=== PATIENT | female | born 1985 | race Caucasian/White ===

== ENCOUNTER 2021-10-17 07:23 | Day surgery (SDC) | payer OTHER, SELFPAY ==
[2021-10-17] VITALS (20 sets, daily range): BP systolic 113–138; BP diastolic 64–90; PULSE 57–87; RESP 14–20; TEMP 36.3–37.1; O2SAT 95–100; BMI 26.4
[2021-10-17] MEDS: LACTATED RINGERS 1000 ML 1,000 ML 100 ML IV ×2 (08:00→10:37)
[2021-10-17 08:02] LABS: Hemoglobin* 14.6 gm/dL (12.0-16.0)
[2021-10-17 08:03] LABS: Ur HCG Qualitative* Negative (Negative)
[2021-10-17] MEDS: SODIUM CHLORIDE 0.9 % (FLUSH) 10 ML SYRINGE IVF (08:28)
--- NOTE | 2021-10-17 09:39 | P.PCN_ITS ---
Procedure Note Time Seen by Provider: :39 Date Seen: 10/17/21 Will [facility] bill your pro fee for this procedure?: Yes Procedure Description: Preoperative diagnosis: 36-year-old 2 para 2 * Menorrhagia, desires definitive therapy Postoperative diagnosis: Same Procedure: Total laparoscopic hysterectomy, bilateral salpingectomy, diagnostic cystoscopy. Anesthesia: General endotracheal, local Surgeon: Melita Daniel MD Assist: Lyubov Peralta MD Estimated blood loss: 100 mL. IV Fluid: 1600 mL Urine output: 575 mL Drains: Nelson to gravity Specimen: Uterus and bilateral fallopian tubes to pathology. Findings: On exam under anesthesia: The uterus was anteverted, approximately this than 10 week size, mobile without nodularity or masses palpable. Adnexa without mass or fullness palpable. On laparoscopy: Normal uterus, fallopian tubes and ovaries. Appendix, liver and gallbladder all appeared normal. Procedure: Alysa was taken to the operating room where general anesthetic was found to be adequate. She was placed in the dorsal lithotomy position and an exam under anesthesia was performed with findings stated above. She was then prepped and draped in a normal sterile manner. A Nelson catheter was placed. A bivalve spec ulum was placed in the vaginal canal. A long Allis clamp was placed on the anterior lip of the cervix, in the uterus sounded to 9 cm. A extra-large VCare uterine manipulator was then placed. The Allis clamp and speculum were removed from the cervix. Attention was then turned to performing the laparoscopic portion of the procedure. All incisions were infiltrated with 0.50% Marcaine prior to incising the skin. A vertical, infraumbilical 1 cm incision was made. An 11 mm trocar was then placed under direct visualization. The abdomen was then insufflated with CO2 gas to a pressure of 15 mm of mercury. Two,, pelvic ports were then placed approximately 3-4 finger breaths medial to the ischial crests. The trocar in the RLQ = 5mm, LLq = 11mm. These were placed under direct visualization. Attention was then turned to performing the hysterectomy. Both ureters were visualized in the normal position bilaterally. The left fallopian tube was grasped and removed with sequential pedicles using the dissecting, PowerSeal blunt tip dissecting forceps. The left side of the hysterectomy was performed using the PowerSeal dissecting forceps. The 1st pedicles were starting with the broad ligament that was cauterized and and bisected. In sequence show pedicles were formed to divide the utero-ovarian ligament. Then sequential pedicles were made through the broad ligament. The posterior leaf of the broad ligament was then divided and sequential pedicles carried down to the level of the VCare cup. The anterior leaf of the broad ligament was then divided down to the level of the anterior aspect of the VCare cup and a bladder flap created. The uterine vessels were then skeletonized. The uterine vessels were then cauterized and divided. Then excess tissue was cleared over the top of the VCare cup using the dissecting forceps. The right salpingectomy and right side of the hysterectomy were then performed in a similar manner. The [employer]asure [employer] pen with the spatula attachment was then used to perform the colpotomy incising around the VCare cup. The uterus was removed and the fundus placed in the vaginal canal to maintain insufflation. The vaginal cuff was then reapproximated using 2-0 V lock suture in a running manner. All the pedicles and vaginal cuff were then closely visualized and hemostasis obtained with bipolar cautery using the PowerSeal dissecting forceps or the [employer] pen with the spatula. The the uterus was removed from the vaginal canal and sent to pathology. The Nelson catheter was briefly removed. A diagnostic cystoscopy was performed using normal saline as the insufflation medium. The dome of the bladder was noted to be without injury and no evidence of any sutures from the vaginal cuff causing injury. Normal urine flow was noted through both ureteral orifices. Fluorescein IV was used to visualize the urine more easily. The Nelson catheter was then replaced. Attention was then returned to the abdomen where hemostasis was verified. Rm was applied to the vaginal cuff. The CO2 pressure decreased to 8mmHG and hemostasis verified. The fascia in the LLQ incision was approximated with 0- Vicryl suture using the Blayne Thomasen fascial closure device. This was closed under direct visualization with the laparoscope. The fascia in the umbilical incision was reapproximated using 0 Vicryl on a UR 6 needle. All trocars were removed under direct visualization. CO2 gas was allowed to escape the infraumbilical port prior to its removal. All skin incisions were re- approximated using 4-0 Monocryl in a running subcuticular manner, Exofin skin adhesive gel and adhesive bandages placed. The patient tolerated this procedure well. Sponge, lap and instrument counts were correct x2 at the end of the procedure and the patient was taken to the recovery area in stable condition. The patient received 2gm IV ancef prior to the start of the procedure. She received 30mg IV toradol prior to being awakened from anesthesia. Surgeon: Melita Daniel MD Disposition: PACU
[2021-10-17] MEDS: CEFAZOLIN 2 GM INJ IVP (10:05)
--- NOTE | 2021-10-17 10:09 | W.PM.NB ---
Nerve Block Nerve Block Time Seen by Provider: 10:09 Date Seen: 10/17/21 Type of block requested by surgeon for post-operative analgesia: TAP Side: bilateral Time out performed: Yes Verification of patient name: Yes Verification of date of : Yes Site marking: site marked Name of person performing procedure: Jose Alfredo Continuous monitoring Was continuous monitoring of O2 sat, B/P, public health specialist, recorded every 15 minutes?: Yes Procedure Checklist: sterile prep, needles and gloves Ultrasound guided. Images saved: Yes Medications given in 5ml increments after negative aspiration: Marcaine %: 0.5 mL: 15 Needle gauge: 20 and Exparel mL: 10 Patient tolerated procedure well: Yes Additional comments: Needle noted adjacent to nerve Block Charges Block Charge (with Pro Fee): TAP Bilateral Use of Ultrasound Machine for Block: Yes- US Guidance/pain block
--- NOTE | 2021-10-17 12:20 | W.ANESCHARGE ---
Anesthesia Charges Start Date/Time Anesthesia Start Date: 10/17/21 Anesthesia Start Time: 09:53 Stop Date/Time Anesthesia Stop Date: 10/17/21 Anesthesia Stop Time: 12:19 Summary Emergency: No
[2021-10-17] MEDS: KETOROLAC 30 MG/ML inj IVP ×2 (12:30→19:15)
[2021-10-17] MEDS: fentaNYL 100 MCG/2 ML inj 50 MCG IVP (12:53)
--- NOTE | 2021-10-17 13:11 | W.ANESCHARGE ---
Anesthesia Charges Start Date/Time Anesthesia Start Date: 10/17/21 Anesthesia Start Time: 09:53 Stop Date/Time Anesthesia Stop Date: 10/17/21 Anesthesia Stop Time: 12:19 Summary Emergency: No
--- NOTE | 2021-10-17 13:13 | SUR.PHASEI ---
pt transferred to med/surg in stable condtion
--- NOTE | 2021-10-17 16:04 | P.GYNPRC_ITS ---
Procedure Note Date Seen: 10/17/21 Procedure Details: [address] [address] Procedure Note Patient: Alysa Verde MR#: [id number] : 1985 Acct:[id number] Loc: [id number] ? Provider: Melita Daniel M.D. PREOPERATIVE DIAGNOSIS:? 36-year-old 2 para 2 * Menorrhagia, desires definitive therapy POSTOPERATIVE DIAGNOSIS:? Same PROCEDURE:? Total laparoscopic hysterectomy, bilateral salpingectomy, diagnostic cystoscopy. ANESTHESIA:? General endotracheal, local SURGEON:? Melita Daniel MD ASSIST:? Lyubov Peralta MD ESTIMATED BLOOD LOSS:? 100 mL. IV FLUID: 1600 mL URINE OUTPUT:? 575 mL DRAINS: Nelson to gravity SPECIMEN:? Uterus and bilateral fallopian tubes to pathology. FINDINGS:? On exam under anesthesia:? The uterus was anteverted, approximately this than 10 week size, mobile without nodularity or masses palpable.? Adnexa without mass or fullness palpable.? On laparoscopy:? Normal uterus, fallopian tubes and ovaries.? Appendix, liver and gallbladder all appeared normal. PROCEDURE NOTE: Please see the operative report by Dr. Daniel for full details of the procedure. I was asked to assist. I was scrubbed in for the entire procedure until closure of the abdominal incisions. I provided assista nce with laparoscopic port placement, visualization and retraction, and with the hysterectomy and bilateral salpingectomies from the right side, as well as with hemostasis and closure of the vaginal cuff.
[2021-10-17] MEDS: LACTATED RINGERS 1000 ML 1,000 ML 125 ML IV (16:05)
--- NOTE | 2021-10-17 22:10 | PC.NURSE ---
Shift Note [id number]: Pt friendly and cooperative. A little sleepy this afternoon but up for supper and tolerating a regular diet without difficulty. VS WNL and LS COA. 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 Moves well with SBA. Nelson patent and draining. Rates pain 1-3/10 with scheduled Toradol IVP. Ambulated hallway x1 approx. 150 ft.
[2021-10-18 03:00] VITALS: BP 123/79; PULSE 68; RESP 16; TEMP 36.6; O2SAT 99
[2021-10-18] MEDS: SIMETHICONE 80 MG TAB.CHEW 160 MG PO (06:26)
--- NOTE | 2021-10-18 06:49 | PC.NURSE ---
pt pleasant and cooperative. SBA. Pain 03/20. VSS and WNL. Nelson removed at 0630, cath intact. Lap sites LAINEY, no drainage.
[2021-10-18 07:13] LABS: Hemoglobin* 13.8 gm/dL (12.0-16.0)
[2021-10-18 07:20] VITALS: BP 142/96; PULSE 72; RESP 16; TEMP 36.7; O2SAT 99
[2021-10-18] MEDS: OXYCODONE 5 MG TABLET PO (07:28)
[2021-10-18 07:30] VITALS: TEMP 36.7
[2021-10-18] MEDS: IBUPROFEN 600 MG TABLET PO (07:30)
--- NOTE | 2021-10-18 11:38 | PC.NURSE ---
Pt UAL in room. Eval by surgical service. Pain 5 out of 10 for RUQ spasms and pt received 5mg of oxycodone with prn motrin. Ambulated in hallway several times. Voided 150 cc after ellis discontinued by night RN. IV discontinued. Tolerating reg diet, denies dizziness or nausea. Pain 1-2 out of 10 after meds provided. Pt and her spouse Issa verbalized understanding of d/c diagnosis, new prescriptions, pain management plan, f/up appts and sx to report urgently to physician. Eupneic and in NAD. Pt ambulatory d/c to home with her Issa at 10:00 am.
== END 2021-10-18 10:00 | disposition home or self-care (01) ==
LOC: OR 07:23 → MEDSURG 07:38
PROVIDERS: PCP Physician Assistant Medical; Visit Provider Obstetrics & Gynecology
PROC: 0UT94ZZ Resection of Uterus, Percutaneous Endoscopic Approach (ICD-10-PCS; CPT 58571; principal; 2021-10-17 09:15)
DX: N92.0 Excessive and frequent menstruation with regular cycle (principal)
CPT/HCPCS: 58571; 00840; 00860; 36415; 64488; 76942; 81025; 85018; 86850; 86900; 86901; 88307; A9270; J0330; J0690; J1100; J1170; J1885; J2250; J2405; J2704; J3010; J3490; J7120

== ENCOUNTER 2021-11-25 21:09 | Emergency (ER) | payer OTHER, SELFPAY ==
[2021-11-25 21:23] VITALS: BP 151/84; PULSE 89; RESP 20; TEMP 36.8; O2SAT 99; BMI 26.6
--- NOTE | 2021-11-25 22:09 | ED.GENADULT ---
HPI - General Adult General Time Seen by Provider: 22:09 Date Seen: 11/25/21 Chief complaint: Asthma Stated complaint: Asthma attack Time Seen by Provider: 11/25/21 21:27 Source: patient and RN notes reviewed Mode of arrival: ambulatory Limitations: no limitations History of Present Illness HPI narrative: Patient is a 36-year-old female with underlying asthma coming in with progressive symptoms over the last month. She admits it is happening more at night when she goes to lay down and sleep. She is having coughing fits, she is wheezing. She is having to use her albuterol almost every 2 hours. Her asthma started later in life, started more with exercise. Her dad does have significant asthma. She has not seen an tube and rod straightener her asthma specialist but she does have her dad's name of his doctor now. Over the last month her wheezing and coughing have been progressive. She has really not noticed significant nasal symptoms. When she has had some environmental allergies usually just take Benadryl and have more nasal symptoms. This is more respiratory or wheezing for her. There have been no fevers. This did not start with a URI. She will feel her heart race after the albuterol but otherwise has had no palpitations or cardiac issues. She does think animals may be a trigger for her. We did discuss trying to diminish allergens in the bedroom, using pillowcase covers, considering getting tested for allergies in seen an asthma specialist/support specialist. Related Data Home Medications Medication Instructions Recorded Confirmed albuterol sulfate 90 mcg/actuation 2 puff inhalation Q2H PRN 10/03/21 11/25/21 aerosol inhaler fluticasone propionate 110 2 puff inhalation BID 11/25/21 11/25/21 mcg/actuation HFA aerosol inhaler (Flovent HFA) Allergies Allergy/AdvReac Type Severity Reaction Status Date / Time ragweed pollen Allergy Mild Sneezing, Verified 11/06/21 14:46 coughing Grass Allergy Mild Sneezing Uncoded 11/06/21 14:46 and coughing Molds & Smuts Allergy Mild Sneezing, Uncoded 11/06/21 14:46 coughing Review of Systems Status of ROS: Reports: 10 or more systems reviewed and unremarkable except as noted in History and below [facility] Medical History (Updated 11/25/21 @ 23:08 by Laure Monae MD) Delivery normal History of cervical dysplasia Menorrhagia care Surgical History (Updated 10/17/21 @ 15:58 by Melita Daniel MD) Hx of LASIK S/P laparoscopic hysterectomy (10/17/21) Status post bilateral salpingectomy (10/17/21) Social History Smoking Status: Never smoker Do you use any of these nicotine containing products: None Second hand tobacco smoke exposure: Yes How often do you have a drink containing alcohol: 2-3 times a week Alcohol type: wine and other Alcohol type details: [place] AUDIT-C Alcohol total score: 3 Non-prescribed substance use: denies use Caffeine: Yes service: Yes ([employer]) Exam Const: Vital Signs, click to edit/add: Vital Signs - 24 hr 11/25/21 21:23 11/25/21 22:41 Temperature 98.2 F Pulse Rate [Right Pulse Oximeter] 89 83 Respiratory Rate 20 18 Blood Pressure [Ri ght Upper Arm] 151/84 H Pulse Oximetry 99 100 Oxygen Delivery Me thod Room Air Room Air Documenting provider has reviewed patient's vital signs: yes Common normals: no apparent distress, average body habitus, oriented x3, no limitations, healthy appearing, alert and well nourished General appearance: cooperative, comfortable and well kempt HENMT: Common normals: normocephalic, head/scalp atraumatic, hearing grossly normal bilaterally, external ears normal, EAC's normal, TM's normal bilaterally, external nose normal, nasal mucous membranes and turbinates normal, moist oral mucous membranes, oropharynx normal, dentition normal and gingiva normal Head and scalp: normocephalic and atraumatic Nose: external nose normal and nasal mucous membranes and turbinates normal External ear: external ears normal External auditory canal: EAC's normal Tympanic membrane: TM's normal bilaterally Eye: Common normals: PERRL, EOMs intact bilaterally, conjunctivae normal and no scleral icterus Conjunctiva: conjunctiva(e) normal Pupil: PERRL Neck & C-Spine: Common normals: full ROM, no lymphadenopathy, supple, no meningeal signs, no JVD, thyroid normal and no carotid bruits Thyroid: thyroid normal Resp: Common normals: normal respiratory effort, no retractions and no use of accessory muscles Other: Has some end-expiratory wheezing heard throughout. Does do some cough seen but she has no hoarseness or stridor noted. Her speech is interrupted occasionally by a cough. Cardio: Common normals: no JVD, regular rate, regular rhythm, S1 normal heart sound, S2 normal heart sound, no gallops, no clicks, no murmurs and no rub Rate: regular rate Rhythm: regular rhythm Heart sounds: S1 normal and S2 normal Neuro: Common normals: oriented x3 Sensorium/orientation: alert Meningeal signs: no meningeal signs Psych: Appearance: well kempt Course Course Hospital Course: Will have patient try a DuoNeb, get a portable chest x-ray just to ensure no infiltrates. We discussed she will definitely get a course of prednisone. Have discussed with her that she may want to consider something like Zyrtec or Janeen. I can write for a on discharge NC that may help, these medicines sometimes can help with there is an allergic component. Reevaluation(s) Reevaluation #1: Patient was definitely improved after the DuoNeb. [place] 1 end-expiratory wheeze left base but otherwise was clear elsewhere. She did feel better. I did question her on if she was using a spacer with her albuterol. She had no idea what this was. I did give her the spacer off the DuoNeb for her to take and demonstrated how she would use this. Time: 23:06 Vital Signs Vital signs: Initial Vital Signs Temperature 98.2 F 11/25/21 21:23 Temperature Source Temporal Artery Scan 11/25/21 21:23 Pulse Rate 89 11/25/21 21:23 Respiratory Rate 20 11/25/21 21:23 Blood Pressure 151/84 H 11/25/21 21:23 Blood Pressure Mean 106 11/25/21 21:23 Blood Pressure Position Sitting 11/25/21 21:23 Pulse Oximetry 99 11/25/21 21:23 Oxygen Delivery Method 11/25/21 21:23 Vital Signs Temperature 98.2 F 11/25/21 21:23 Pulse Rate 89 11/25/21 21:23 Respiratory Rate 20 11/25/21 21:23 Blood Pressure 151/84 H 11/25/21 21:23 Pulse Oximetry 99 11/25/21 21:23 Oxygen Delivery Method 11/25/21 21:23 Temperature 98.2 F 11/25/21 21:23 Pulse Rate 83 11/25/21 22:41 Respiratory Rate 18 11/25/21 22:41 Blood Pressure 151/84 H 11/25/21 21:23 Pulse Oximetry 100 11/25/21 22:41 Oxygen Delivery Method 11/25/21 22:41 Medical Decision Making Imaging Data Chest x-ray: Attestation: I have reviewed the pertinent imaging results. My impression: On my preliminary read, no acute cardiopulmonary pathology. Radiologist's impression: Patient: DONTAE RIVERA Facility:?[facility] Patient ID:?[id number] Patient ID:?[id number]. Site :?1985 Study:?XRay Chest 1V-11/25/2021 10:27:06 PM Ordering Physician:Dallas Kelsey Final Report: INDICATION: Asthma. TECHNIQUE: Chest 1 view. COMPARISON: None. FINDINGS: Cardiovascular and mediastinum: Heart size and vasculature are normal in caliber and appearance. Lungs and pleural spaces: Lungs are clear. No sign of infiltrate or mass. No sign of pleural effusion. No pneumothorax. Bones and soft tissues: No significant findings. IMPRESSION: Unremarkable chest. Dictated by Alfredo Lomas MD @ 11/25/2021 10:37:52 PM (Electronic Signature) Critical Care Time Critical Care Time Critical Care Time: No Discharge Plan Discharge Clinical Impression: Asthma exacerbation Patient Disposition: Home, Self-Care Condition: Stable Instructions: Asthma (ED), How to Use a Metered-Dose Inhaler and a Spacer (ED) Additional Instructions: Take prednisone as prescribed, recommend taking with food to protect your stomach. Do recommend considering using Janeen or Zyrtec daily and see if this may help with any possible allergic component to your asthma. I do highly recommend that you see an asthma or tube and rod straightener to see about potential testing for allergens. If at any point you have any significant difficulty breathing or any worsening of your asthma, please seek emergent re-evaluation. Activity Level: Activity as Tolerated Prescriptions: No Action albuterol sulfate 90 mcg/actuation HFA aerosol inhaler 2 puff inhalation Q2H PRN fluticasone propionate [Flovent HFA] 110 mcg/actuation HFA aerosol inhaler 2 puff INHALATION BID Label Comments: INHALE TWO PUFFS BY MOUTH TWICE A DAY Follow Up/Referrals: Wade Mendez PA-C [Primary Care Provider] - Stand Alone Forms: [employer] Info Instructions
--- NOTE | 2021-11-25 22:15 | CRLHL7_ITS ---
For Patients: As a result of the Century Cures Act, medical imaging exams and procedure reports are released immediately into your electronic medical record. You may view this report before your referring provider. If you have questions, please contact your health care provider. INDICATION: Asthma. TECHNIQUE: Chest 1 view. COMPARISON: None. FINDINGS: Cardiovascular and mediastinum: Heart size and vasculature are normal in caliber and appearance. Lungs and pleural spaces: Lungs are clear. No sign of infiltrate or mass. No sign of pleural effusion. No pneumothorax. Bones and soft tissues: No significant findings. IMPRESSION: Unremarkable chest. Dictated by Alfredo Lomas MD @ 11/25/2021 10:37:52 PM (Electronically Signed)
[2021-11-25] MEDS: IPRAT-ALBUT 0.5-2.5 MG/3 ML NEB 1 NEB IH (22:28)
--- OUTSIDE RECORDS SUMMARY | 2021-11-25 22:39 | XMS_ITS | Encounter Summary ---
:1985 Author Organization [facility] Address [address] [place] [id number] Care Team Providers Name Role Phone Lisa Gayle MD Primary Care Provider Reason for Referral - Closed Specialty Diagnoses / Procedures Referred By Contact Refer red To Contact Diagnoses Pupil diameter unequal Fredy Davis MD [address] [facility] [place] [address] Referral ID Status Reason Start Date Expiration Date Visits Requ ested Visits Authorized [id number] Closed 06/18/2011 12/15/2011 1 1 Encounter Details Date Type Department Care Team Description 06/18/2011 Orders Only [facility] Fredy Davis Pupil diameter unequal [facility] MD Mallory (Primary Dx) [place] [address] [address] [facility] [address] [place] [address] [place] [phone] (Work) [phone] Social History Tobacco Use Types Packs/Day Years Used Date Never Smoker Alcohol Use Standard Drinks/Week Comments No 0 (1 standard drink = 0.6 oz pure alcoho l) none since Alcohol Habits Answer Date Recorded How often do you have a drink containing alcohol? Not asked How many drinks containing alcohol do you have on Not asked a typical day when you are drinking? How often do you have six or more drinks on one Not asked occasion? Comment: none since 12/18/2010 Sex Assigned at Date Recorded Not on file documented as of this encounter Plan of Treatment Scheduled Referrals Name Type Priority Associated Diagnoses Order S [facility] NEUROLOGY ADULT REFERRAL Referral Routine Pupil diameter u nequal Ordered: 06/18/2011 documented as of this encounter Visit Diagnoses Diagnosis Pupil diameter unequal - Primary Anisocoria documented in this encounter Care Teams Roll On Worker Relationship Specialty Start Date End Date Lisa Gayle MD PCP - General 03/24/99 11/30/[address] [facility] [address] [place] [address] documented as of this encounter
--- OUTSIDE RECORDS SUMMARY | 2021-11-25 22:39 | XMS_ITS | Encounter Summary ---
:1985 Author Organization [facility] Address [address] [place] [address] Care Team Providers Name Role Phone Lisa Gayle MD Primary Care Provider Reason for Visit Reason Onset Date Comments Forms 07/17/2011 Encounter Details Date Type Department Care Team Description 07/17/2011 Telephone [facility] Fredy whipple MD Forms Clinic [place] [address] [address] [address] [place] [address] [phone] Social History Tobacco Use Types Packs/Day Years [...] on file documented as of this encounter Miscellaneous Notes Telephone Encounter - Lyubov Bojorquez - 07/18/2011 8:24 AM CDT Forms 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 Lyubov Bojorquez RN Telephone Encounter - Lyubov Bojorquez - 07/17/2011 3:16 PM CDT Message copied by LYUBOV BOJORQUEZ on SatJuly 17, 2011 3:16 PM ------ Message from: PAULINE LEYVA Created: SatJuly 17, 2011 11:49 AM Regarding: Forms Contact: Patient dropped off 2 forms to be filled out by Dr. Davis, please call her when done and she can come and pick them up. Thanks documented in this encounter Plan of Treatment Not on filedocumented as of this encounter Visit Diagnoses Not on filedocumented in this encounter Care Teams Research Engineer Marine Equipment Relationship Specialty Start Date End Date Lisa Gayle MD PCP - General 03/24/99 11/30/[address], [facility] [address] [place] [address] documented as of this encounter
--- OUTSIDE RECORDS SUMMARY | 2021-11-25 22:39 | XMS_ITS | Encounter Summary ---
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 Not asked How many drinks containing alcohol do you have on a typical Not asked day when you are drinking? How often do you have six or more drinks on one occasion? No t asked Comment: occasional 09/08/2012 Sex Assigned at Date Recorded Not on file documented as of this encounter Last Filed Vital Signs Vital Sign Reading Time Taken Comments Blood Pressure 118/66 09/08/2012 10:32 AM CDT Pulse - - Temperature - - Respiratory Rate - - Oxygen Saturation - - Inhaled Oxygen Concentration - - Weight 64 kg (141 lb 3.2 oz) 09/08/2012 10:32 AM CDT Height 170.2 cm (5' 7) 09/08/2012 10:32 AM CDT Body Mass Index 22.12 09/08/2012 10:32 AM CDT documented in this encounter Progress Notes Inga Davis MD - 09/08/2012 3:43 PM CDT SUBJECTIVE: Alysa Rivera is an 27 year old P1 woman who presents for annual exam. Patient's last menstrual period was 08/13/2012. Periods are regular q 28-30 days, lasting 3 days. Dysmenorrhea none. Current contraception: oral contraceptives ASHELY exposure: no History of abnormal Pap smear: Yes - Family history of uterine or ovarian cancer: No Regular self breast exam: No History of abnormal mammogram: Yes - Family history of breast cancer: No History of abnormal lipids: No Past Medical History Diagnosis Date ??? Abnormal Pap smear -2008 Past Surgical History Procedure Date ??? Colposcopy cervix, loop electrode biopsy, combined Current Outpatient Prescriptions Medication ??? drospirenone-ethinyl estradiol (JONATHAN) 3-0.02 MG per tablet ??? testosterone propionate 2 % CREA ??? ibuprofen (ADVIL,MOTRIN) 600 MG tablet No Known Allergies History Substance Use Topics ??? Smoking status: Never Smoker ??? Smokeless tobacco: Not on file ??? Alcohol Use: No occasional Review of Systems CONSTITUTIONAL:NEGATIVE EYES: NEGATIVE ENT/MOUTH: NEGATIVE RESP: NEGATIVE CV: NEGATIVE GI: NEGATIVE : NEGATIVE MUSCULOSKELATAL: NEGATIVE INTEGUMENTARY/SKIN: NEGATIVE BREAST: NEGATIVE NEURO: NEGATIVE ENDOCRINE: NEGATIVE HEME/ALLERGY/IMMUNE: NEGATIVE PSYCHIATRIC: NEGATIVE OBJECTIVE: BP 118/66 Ht 5' 7 (1.702 m) Wt 141 lb 3.2 oz (64.048 kg) BMI 22.12 kg/m2 LMP 08/13/2012 EXAM: GENERAL APPEARANCE: healthy, alert and no distress BREAST: normal without masses, tenderness or nipple discharge and no palpable axillary masses or adenopathy ABDOMEN: soft, nontender, without hepatosplenomegaly or masses Pelvic Exam: Vulva: No external lesions, normal hair distribution, no adenopathy Vagina: Moist, pink, no abnormal discharge, well rugated, no lesions Cervix: Pap smear is taken, parous, smooth, pink, no visible lesions Uterus: Normal size, anteverted, non-tender, mobile Ovaries: No mass, non-tender, mobile 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 Health Maintenance Topic Date Due ??? Tetanus Immunization ( [facility] Assigned) 1998 ??? Influenza Vaccine (System Assigned) 12/09/2012 ??? Pap Screening Q3 Yr (System Assigned) 12/18/2013 documented in this encounter Nursing Notes 09/08/2012 10:30 AM CDT >> KIMBERLY FREY Mon Sep 08, 2012 10:37 AM Pap smear and breast exam. Last pap 12/19 WNL. Pt needs a refill on her ocp. Pt c/o decreased sex drive. Initial BP 118/66 Ht 5' 7 (1.702 m) Wt 141 lb 3.2 oz (64.048 kg) BMI 22.12 kg/m2 LMP 08/13/2012 Estimated Body mass index is 22.12 kg/(m^2) as calculated from the following: Height as of this encounter: 5' 7(1.702 m). Weight as of this encounter: 141 lb 3.2 oz(64.048 kg). BP completed using cuff size: mariluz Frey RN documented in this encounter Plan of Treatment Not on filedocumented as of this encounter Procedures Procedure Name Priority Date/Time Associated Diagnosis Comme nts NEISSERIA Routine 09/08/2012 12:47 Routine gynecological Re sults for this GONORRHOEAE PCR PM CDT examination procedure ar e in the results section. CHLAMYDIA Routine 09/08/2012 12:47 Routine gynecological Re sults for this TRACHOMATIS PCR PM CDT examination procedure ar e in the results section. PAP IMAGED THIN Routine 09/08/2012 12:00 Routine gynecological Results for this LAYER SCREEN AM CDT examination procedure are i n the results section. HPV SCR W REF TO Routine 09/08/2012 12:00 Results for this SÁNCHEZ ANAL PAP OR AM CDT procedure a re in TISSUE the results section. documented in this encounter Results CHLAMYDIA TRACHOMATIS PCR (09/08/2012 12:47 PM CDT) Component Value Ref Test Analysis Performed At [facility] Method Time Signature Specimen Cervical [facility] LAB Chlamydia Negative for C. trachomatis rRNA by port crane operator mediated amplification. FUM Trachomatis A negative result by transc ription mediated amplification does not preclude the MICROBIOLOGY PCR presence of C. trachomatis infection because results are dependent on proper and adequate collection, absence of inhibitors, and suffici ent rRNA to be detected. Specimen Anatomical Collection Method Collection Time Receive d Time (Source) Location / / Volume Laterality Cervical swab 09/08/2012 12:47 09/08/2012 (specimen) PM CDT 12:53 PM CDT Inga Davis MD LAB - MICRO GENERAL ORDERABL ES Performing Organization Address City/[facility] Phon e Number [id number] [place] [address] LAB [address] [place], [place] [address] [address] [facility] MICROBIOLOGY NEISSERIA GONORRHOEA PCR (09/08/2012 12:47 PM CDT) Component Value Ref Test Analysis Performed At [facility] Method [place] Signature Specimen Cervical [facility] LAB N Gonorrhea Negative for N. gonorrhoeae rRNA by port crane operator mediated amplification. FUM PCR A negative result by transc ription mediated amplification does not preclude the MICROBIOLOGY presence of N. gonorrhoeae infection because re sults are dependent on proper and adequate collection, absence of inhibitors, and suffici ent rRNA to be detected. Specimen Anatomical Collection Method Collection Time Receive d Time (Source) Location / / Volume Laterality Cervical swab 09/08/2012 12:47 09/08/2012 (specimen) PM CDT 12:53 PM CDT Inga Davis MD LAB - MICRO GENERAL ORDERABL ES Performing Organization Address City/[facility] Phon e Number [id number] [place] [address] LAB [address] [place], [place] [address] [address] [facility] MICROBIOLOGY HPV screen with reflex to genotype (09/08/2012 12:00 AM CDT) Component Value Ref Test Analysis Performed At [facility] Range Method Time Signature Copath Report Patient Name: ALYSA RIVERA MR#: [id number] Specimen #: [id number] Collected: 09/08/2012 00:00 Received: 10/10/2012 12:55 Reported: 10/15/2012 16:22 Ordering Phy(s): INGA Mallory PINKMIKEY TEST(S) REQUESTED: Human Papillomavirus Screen Analysis SPECIMEN DESCRIPTION: Cervical Cells METHODOLOGY: ??Total cellular DNA was extracted from the abo ve specimen and up to 1 ug subjected to DNA amplification with a series of oligonucleotide primers directed to the L1 region of the hum an papillomavirus genome. ??The resulting PCR fragments were th en by capillary electrophoresis using a [email or web address] with The Echo System software. ??The PCR products from samples positive for HPV D NA were then digested with a series of restriction endonuclease enzymes. ??The resulting pattern of bands corresponding to the digested DNA products were interpreted according to the corresponding HPV DNA cont rols. Amplification of a segment of the beta globin gene serves as an internal control of DNA amplification. RESULTS (L1 region): ? NEGATIVE FOR HPV DNA Final Diagnosis: This patient's sample is negative for HPV DNA. Diagnosis Comment: This patient's sample is negative for HPV DNA.These results do not rule out the presence of an occult HPV infection which is not det ected due to either sampling error, or sample procurement. This test was developed and its performance determined by rudy hernandez [facility] ??Molecular Diagnostic Laboratory. It has not been cleared or approved by the U.S. Food and Cirstobal g Administration. ??The FDA has determined that such clearance or approval is not necessary. ??Pursuant to the requirements of CLIA'88, this laboratory has established and verified the test's accuracy and precision. ??This test is used for clinical purposes. Electronically Signed Out By: PAM Capacity Manager TESTING LAB LOCATION: [address] [address] COLLECTION SITE: Client: ??[facility] Location: ??RIOB (R) Specimen (Source) Anatomical Collection Method Collection Time Re ceived Time Location / / Volume Laterality 09/08/2012 10/10/2012 12:5 5 PM CDT Inga Davis MD LAB - GENOMICS Performing Organization Address City/State/ZIP Code Phon e Number [place] PAP imaged thin layer, screen (09/08/2012 12:00 AM CDT) Component Value Ref Test Analysis Performed At [facility] Range Method Time Signature PAP NIL COPATH Copath Report COP[place] Patient Name: ALYSA RIVERA MR#: [id number] Specimen #: [id number] Collected: 09/08/2012 Received: 09/09/2012 Reported: 09/10/2012 13:13 Ordering Phy(s): INGA DAVIS SPECIMEN/STAIN PROCESS: Pap imaged thin layer prep screening (Surepath, FocalPoint w ith guided screening) ? Pap-Cyto x 1, Reflex HPV x 1 SOURCE: Cervical, endocervical ---- Pap imaged thin layer prep screening (Surepath, FocalPoint with guided screening) SPECIMEN ADEQUACY: Satisfactory for evaluation. -Transformation zone component present. CYTOLOGIC INTERPRETATION: Negative for Intraepithelial Lesion or Malignancy Electronically signed out by: NITESH Dhaliwal (ASCP) Processed and screened at [facility] CLINICAL HISTORY: LMP: 08/13/2012 Oral Control Pill, Previous normal pap Date of Last Pap: 12/18/2010, Papanicolaou Test Limitations: ??Cervical cytology is a scre ening test with limited sensitivity; regular screening is critical for cancer prevention; Pap tests are primarily effective for the diagnosis/prevention of squamous cell carcinoma, not adenoca rcinomas or other cancers. TESTING LAB LOCATION: [address] ??[phone] COLLECTION SITE: Client: ??[facility] Location: RIOB (R) Specimen (Source) Anatomical Collection Method Collection Time Re ceived Time Location / / Volume Laterality Cytologic 09/08/2012 09/09/2012 10:3 8 material AM CDT (specimen) Inga Davis MD LAB - OPTIME CLINICAL SPECIM EN Performing Organization Address City/State/ZIP Code Phon e Number COPATH documented in this encounter Visit Diagnoses Diagnosis Routine gynecological examination - Prim mateo Contraception Unspecified contraceptive management Libido, decreased Decreased libido documented in this encounter Care Teams Direct Response Consultant Relationship Specialty Start Date End Date Lisa Gayle MD PCP - General 03/24/99 11/30/[address], [address] [place] [address] documented as of this encounter
--- OUTSIDE RECORDS SUMMARY | 2021-11-25 22:39 | XMS_ITS | Encounter Summary ---
:1985 Author Organization [facility] Address [address] [place] [address] Care Team Providers Name Role Phone Lisa Gayle MD Primary Care Provider Encounter Details Date Type Department Care Team Description 06/06/2012 Results Only [facility] Fredy whipple MD [place] [address] [address] [facility] [address] [place] [address] [place] [address] [phone] Social History Tobacco Use Types Packs/Day Years [...] of this encounter Plan of Treatment Scheduled Orders Name Type Priority Associated Diagnoses Order S chedule US OB > 14 Weeks Complete Imaging Or dered: 06/06/2012 Single documented as of this encounter Visit Diagnoses Not on filedocumented in this encounter Care Teams Big Data Hadoop Developer Relationship Specialty Start Date End Date Lisa Gayle MD PCP - General 03/24/99 11/30/[address], [address] [place] [address] (work) documented as of this encounter
--- OUTSIDE RECORDS SUMMARY | 2021-11-25 22:39 | XMS_ITS | Encounter Summary ---
:1986 Author Organization [facility] Address [address] [place] [address] Care Team Providers Name Role Phone Lisa Gayle MD Primary Care Provider Reason for Visit Reason Onset Date Comments Forms 07/19/2011 [facility] - Referral Notes ([facility]) Encounter Details Date Type Department Care Team Description 07/19/2011 Telephone [facility] Fredy Davis, Form s ([facility] - Referral Luke LINDO Notes ([facility] [address]) [facility] [address] [place], [place], [place] [id number] [phone] Social History Tobacco Use Types Packs/Day Years [...] this encounter Miscellaneous Notes Telephone Encounter - Rhona Saldaña - 07/19/2011 4:45 PM CDT 07/19/11 - rec'd faxed referral notes request. Faxed notes. documented in this encounter Plan of Treatment Not on filedocumented as of this encounter Visit Diagnoses Not on filedocumented in this encounter Care Teams Airline Dispatcher Relationship Specialty Start Date End Date Lisa Gayle MD PCP - General 03/24/99 11/30/12 [address] , [facility] [address] [place] [address] documented as of this encounter
--- OUTSIDE RECORDS SUMMARY | 2021-11-25 22:39 | XMS_ITS | Encounter Summary ---
:1985 Author Organization [facility] Address [address] [place] [address] Care Team Providers Name Role Phone Lisa Gayle MD Primary Care Provider Reason for Visit Reason Comments RECHECK Encounter Details Date Type Department Care Team Description 07/13/2011 Office Visit [facility] Fredy Davis Other specified aftercare following surgery (Primary Dx); [facility] MD Mallory Contraception [address] [place] [address] [address] [place], [place] (Work) [address] Social History Tobacco Use [...] Sign Reading Time Taken Comments Blood Pressure 120/68 07/13/2011 1:37 PM CDT Pulse 80 07/13/2011 1:37 PM CDT Temperature - - Respiratory Rate - - Oxygen Saturation - - Inhaled Oxygen Concentration - - Weight 77.7 kg (171 lb 4.8 oz) 07/13/2011 1:37 PM CDT Height - - Body Mass Index 26.82 06/15/2011 12:35 AM CDT documented in this encounter Progress Notes Fredy Davis MD - 07/13/2011 2:09 PM CDT Here for check on vaginal tear -also desires OCP, has used [facility] in past -feeling much better O: vaginal tear now Re-epithelialized A; satisfactory progress P: return in 4 weeks documented in this encounter Nursing Notes 07/13/2011 2:00 PM CDT >> GEOFF MCCARTY Fri July 13, 2011 1:39 PM Patient presents with: RECHECK. Feeling much better Initial BP 120/68 Pulse 80 Wt 171 lb 4.8 oz (77.701 kg) Estimated Body mass index is 26.82 kg/(m^2) as calculated from the following: Height as of 12: 5' 7.008(1.702 m). Weight as of this encounter: 171 lb 4.8 oz(77.701 kg).. BP completed using cuff size: regular Kamini Mccarty CMA documented in this encounter Plan of Treatment Not on filedocumented as of this encounter Visit Diagnoses Diagnosis Other specified aftercare following surg [place] - Primary Contraception Unspecified contraceptive management documented in this encounter Care Teams Fabricator Industrial Furnace Relationship Specialty Start Date End Date Lisa Gayle MD PCP - General 03/24/99 11/30/12 [address] , [facility] [address] [place] [address] documented as of this encounter
--- OUTSIDE RECORDS SUMMARY | 2021-11-25 22:39 | XMS_ITS | Encounter Summary ---
:1985 Author Organization [facility] Address [address] [place] [address] Care Team Providers Name Role Phone Lisa Gayle MD Primary Care Provider Reason for Visit Reason Onset Date Comments Patient/info Update 06/19/2011 Encounter Details Date Type Department Care Team Description 06/19/2011 Telephone [facility] Fredy Davis, Patient/info Update [place] Jeaneth LINDO [address] [place] [phone] [place], [place] [phone] (Wo rk) Social History Tobacco Use Types Packs/Day Years [...] this encounter Miscellaneous Notes Telephone Encounter - Lina Baum - 06/20/2011 10:25 AM CDT Spoke with Lily, advised her of Dr. Madhavi Ruggiero RN Telephone Encounter - Fredy Davis MD - 06/19/2011 3:28 PM CDT Please advise Okay to dismiss home care Telephone Encounter - Joaquin Mackay MD - 06/19/2011 2:[address]. Davis's patient. Please let him know. Telephone Encounter - Christina Lucia - 06/19/2011 11:[address] Codie Camacho Home care called stating that they are seeing the baby tomorrow on referral from Hospital post discharge When RN HC called to schedule visit pt asked to have HCRN bere pt as well RN is not sure if there are problems that the mother is having or not RN called pt and she is not interested in having Home Care Referral as she feels that she is doing well Pt is Bottle feeding and baby is doing well. Breasts are soft, not leaking, pt reminded that beer will bring in milk and that she may want to have wine vs beer Anal area is tender with BM and she feels significant stretching of rectal area RN reviewed dietary and josh care with pt RN reminded pt to balance daily patterns and needs to allow for rest and activies and to contact MD for any questions or concerns MD After assessment per phone call with pt RN is not feeling that pt needs Home care for her as she sounds very confident and is doing well Unless MD feels that pt is needing this referral for unknown reason to RN please have HC RN notifiedthat pt will not need her services at this time Please advise documented in this encounter Plan of Treatment Not on filedocumented as of this encounter Visit Diagnoses Not on filedocumented in this encounter Care Teams Low Vision Therapist Relationship Specialty Start Date End Date Lisa Gayle MD PCP - General 03/24/99 11/30/12 [address] , [address] [address] documented as of this encounter
--- OUTSIDE RECORDS SUMMARY | 2021-11-25 22:39 | XMS_ITS | Encounter Summary ---
:1985 Author Organization [place] Address [address] [place] [address] Care Team Providers Name Role Phone Kyle Mascorro MD Primary Care Provider [phone] Reason for Visit Reason Comments Hair Loss requesting TSH check Encounter Details Date Type Department Care Team Description 12/03/2012 Office Visit [facility] Kyle Mascorro Hair loss (Primary Dx) Physicians MD Jonathan [address] [id number] [place] [address] [phone] Social History Tobacco Use Types Packs/Day Years Used Date Never Smoker Smokeless Tobacco: Never Used Alcohol Use Standard Drinks/Week Comments No 0 [...] Sign Reading Time Taken Comments Blood Pressure 124/76 12/03/2012 4:07 PM CDT Pulse 64 12/03/2012 4:07 PM CDT Temperature 37.3 ??C (99.2 ??F) 12/03/2012 4:07 PM CDT Respiratory Rate - - Oxygen Saturation - - Inhaled Oxygen Concentration - - Weight 65.4 kg (144 lb 3.2 oz) 12/03/2012 4:07 PM CDT Height 171.5 cm (5' 7.5) 12/03/2012 4:07 PM CDT Body Mass Index 22.25 12/03/2012 4:07 PM CDT documented in this encounter Progress Notes Kyle Mascorro MD - 12/03/2012 4:28 PM CDT SUBJECTIVE: Alysa Desai Elenoimguel, a 27 year old female scheduled an appointment to discuss the following issues: Hair loss Pt here for concerns about diffuse hair loss, not patchy-has been going on for 3-4 months- hairdresser recommended she get thyroid checked NO weight changes, skin changes, bowel changes, or temop intolerance Medical, social, surgical, and family histories reviewed. Patient Active Problem List Diagnosis ??? DYSMENORRHEA ??? DEPRESSIVE DISORDER NEC ??? Allergic Rhinitis, Cause Unspecified ??? Supervision of normal first ??? Family history of alpha thalassemia ??? Sciatica ??? Abnormal pap ??? Health Prison Past Medical History Diagnosis Date ??? Abnormal Pap smear -2008 Family History Problem Relation Age of Onset ??? Hypertension Mother ??? Colon CA No family hx of ??? Cancer Maternal Grandmother ovarian ??? Gynecology Mother endometriosis ??? Diabetes Mother ??? C.A.D. No family hx of ??? Stroke Paternal Grandfather History Social History ??? Marital Status: Spouse Name: N/A Number of Children: 1 ??? 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 Social History Main Topics ??? Smoking status: Never Smoker ??? Smokeless tobacco: Never Used ??? Alcohol Use: No occasional ??? Drug Use: No ??? Sexually Active: Yes -- Male partner(s) Control/ Protection: Pill Other Topics Concern ??? Service No ??? Blood Transfusions No ??? Caffeine Concern No ??? Occupational Exposure No ??? Hobby Hazards No ??? Sleep Concern No ??? Stress Concern No ??? Weight Concern No ??? Special Diet No ??? Exercise Yes ??? Seat Belt Yes Social History Narrative Merged History Encounter Past Surgical History Procedure Date ??? Hc tooth extraction w/forcep age 18 ??? C dolores Jiménezemp) w opt myopia -3.12 2004 bilateral ??? Colposcopy cervix, loop electrode biopsy, combined Current Outpatient Prescriptions on File Prior to Visit: drospirenone-ethinyl estradiol (JONATHAN) 3-0.02 MG per tablet Take 1 tablet by mouth daily. ibuprofen (ADVIL,MOTRIN) 600 MG tablet Take 1 tablet by mouth every 6 hours as needed for pain. @OB@ Allergies: No known allergies and Ragweeds Immunization History Administered Date(s) Administered ??? Hepatitis B 09/26/2004, 07/25/2005, 10/12/2005 ??? MMR 10/03/1998 ??? TD (ADULT, 7+) 10/03/1998 ??? TDAP (BOOSTRIX AGES 10-64) 12/22/2008 ROS: C: NEGATIVE for fever, chills E: NEGATIVE for vision changes R: NEGATIVE for significant cough or SOB CV: NEGATIVE for chest pain, palpitations GI: NEGATIVE for nausea, abdominal pain, heartburn, or change in bowel habits : NEGATIVE for frequency, dysuria, or hematuria M: NEGATIVE for significant arthralgias or myalgia N: NEGATIVE for weakness, dizziness or paresthesias or headache E: NEGATIVE for temperature intolerance, skin/hair changes OBJECTIVE: BP 124/76 Pulse 64 Temp 99.2 ??F (37.3 ??C) Ht 1.715 m (5' 7.5) Wt 65.409 kg (144 lb 3.2 oz) BMI 22.25 kg/m2 LMP 11/24/2012 EXAM: GENERAL APPEARANCE: healthy, alert and no distress EYES: EOMI, PERRL HENT: ear canals and TM's normal and nose and mouth without ulcers or lesions NECK: no adenopathy, no asymmetry, masses, or scars and thyroid normal to palpation RESP: lungs clear to auscultation - no rales, rhonchi or wheezes CV: regular rates and rhythm, normal S1 S2, no S3 or S4 and no murmur, click or rub - ABDOMEN: soft, nontender, no HSM or masses and bowel sounds normal ASSESSMENT/PLAN: 704.00 Hair loss (primary encounter diagnosis) Comment: agree we should check thyroid, if normal consider derm referal, no acute stressors which would affect hair loss Plan: TSH with free T4 reflex ([facility]), VENOUS COLLECTION, CL SPECIMEN HANDLING, OFF->LAB Await labs documented in this encounter Nursing Notes 12/03/2012 4:15 PM CDT >> NICOLE NAVA Wed Dec 03, 2012 4:11 PM Patient presents with: Hair Loss - requesting TSH check Pre-visit planning discussed: Colonoscopy-na Mammo-na Immunizations-utd Asthma-na PHQ/ALVIN-na Questioned patient about current smoking habits. Pt. has never smoked. Body mass index is 22.25 kg/(m^2). BP Cuff left Arm regular Cuff PULSE regular My Chart: declines documented in this encounter Plan of Treatment Not on filedocumented as of this encounter Procedures Procedure Name Priority Date/Time Associated Comments Diagnosis TSH WITH FREE T4 Routine 12/03/2012 4:41 PM Hair loss Resul ts for this REFLEX CDT procedure are i n the results section. HC VENOUS COLLECTION Routine 12/03/2012 4:24 PM Hair Loss CDT documented in this encounter Results TSH with free T4 reflex ([facility]) (12/03/2012 4:41 PM CDT) P athologist Signature TSH 2.18 mIU/L [facility] Comment: ?Reference Range ?> or = 20 Years ??0.40-4. 50 ? Ranges ?First trimester ?0.26 -2.66 ?Second trimester ?? 0.55- 2.73 ?Third trimester ?0.43 -2.91 Specimen Anatomical Collection Method Collection Time Receive d Time (Source) Location / / Volume Laterality Blood specimen 12/03/2012 4:41 PM 013 3:06 (specimen) CDT AM CDT Resulting Agency Comment Performing Organization Information: ? CB ? [facility] ? [address] [place], [place] [address] ? Jeremy Dejesus M.D. Kyle Mascorro MD LAB - BLOOD ORDERABLES Performing Organization Address City/State/ZIP Code Phon e Number [facility] [address] [facility] [place] [address] [facility] [address] [facility] [place] [address] documented in this encounter Visit Diagnoses Diagnosis Hair loss - Primary Alopecia, unspecified documented in this encounter Care Teams Real Estate Professional Relationship Specialty Start Date End Date Kyle Mascorro MD PCP - General Family Practice 12/01/[address], [address] [address] documented as of this encounter
--- OUTSIDE RECORDS SUMMARY | 2021-11-25 22:39 | XMS_ITS | Encounter Summary ---
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 / c/o co ntinued small area of vaginal pain since delivery 06/2011 Encounter Details Date Type Department Care Team Description 09/25/2013 Office Visit [facility] Inga Davsi gynecological examination (Primary Dx); [facility] MD Mallory Contraception [address] [place] [address] [address] [place], [place] (Work) [address] Social History Tobacco Use [...] Sign Reading Time Taken Comments Blood Pressure 120/78 09/25/2013 9:38 AM CDT Pulse - - Temperature - - Respiratory Rate - - Oxygen Saturation - - Inhaled Oxygen Concentration - - Weight 67 kg (147 lb 9.6 oz) 09/25/2013 9:38 AM CDT Height 171.5 cm (5' 7.5) 09/25/2013 9:38 AM CDT Body Mass Index 22.78 09/25/2013 9:38 AM CDT documented in this encounter Progress Notes Inga Davis MD - 09/27/2013 1:53 PM CDT SUBJECTIVE: Alysa Rivera is an 28 year old P1 woman who presents for annual exam. Patient's last menstrual period was 09/05/2013. Periods are regular q 28-30 days, lasting 3 days. Dysmenorrhea none. Current contraception: oral contraceptives ASHELY exposure: no History of abnormal Pap smear: Yes - Family history of uterine or ovarian cancer: No Regular self breast exam: Yes History of abnormal mammogram: No Family history of breast cancer: No History of abnormal lipids: No Past Medical History Diagnosis Date ??? Abnormal Pap smear -2008 Past Surgical History Procedure Laterality Date ??? Hc tooth extraction w/forcep age 18 ??? C lasik (emp) w opt myopia -3.12 2004 bilateral ??? Colposcopy cervix, loop electrode biopsy, combined Current Outpatient Prescriptions Medication ??? drospirenone-ethinyl estradiol (JONATHAN) 3-0.02 MG per tablet ??? ibuprofen (ADVIL,MOTRIN) 600 MG tablet No current facility-administered medications for this visit. Allergies Allergen Reactions ??? No Known Allergies ??? Ragweeds History Substance Use Topics ??? Smoking status: Never Smoker ??? Smokeless tobacco: Never Used ??? Alcohol Use: No Comment: occasional Review of Systems CONSTITUTIONAL:NEGATIVE EYES: NEGATIVE ENT/MOUTH: NEGATIVE RESP: NEGATIVE CV: NEGATIVE GI: NEGATIVE : NEGATIVE MUSCULOSKELATAL: NEGATIVE INTEGUMENTARY/SKIN: NEGATIVE BREAST: NEGATIVE NEURO: NEGATIVE ENDOCRINE: NEGATIVE HEME/ALLERGY/IMMUNE: NEGATIVE PSYCHIATRIC: NEGATIVE OBJECTIVE: BP 120/78 Ht 5' 7.5 (1.715 m) Wt 147 lb 9.6 oz (66.951 kg) BMI 22.76 kg/m2 LMP 09/05/2013 ? 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 Health Maintenance Topic Date Due ??? INFLUENZA VACCINE (SYSTEM ASSIGNED) 12/09/2013 ??? PAP Q1 YR NO INB MSG 09/25/2014 ??? PAP Q1 YR DIAGNOSTIC INBASKET MESSAGE 09/25/2014 ??? TETANUS Q10 YR 12/22/2018 documented in this encounter Nursing Notes Deisy Sanchez CMA - 09/25/2013 9:39 AM CDT Chief Complaint Patient presents with ??? 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 No Estimated body mass index is 22.76 kg/(m^2) as calculated from the following: Height as of this encounter: 5' 7.5 (1.715 m). Weight as of this encounter: 147 lb 9.6 oz (66.951 kg). BP completed using cuff size regular. Deisy Sanchez CMA documented in this encounter Plan of Treatment Not on filedocumented as of this encounter Procedures Procedure Name Priority Date/Time Associated Diagnosis Comme nts PAP IMAGED THIN Routine 09/25/2013 12:00 Routine Gynecological Results for this LAYER SCREEN AM CDT Examination procedure are i n the results section. HPV SCR W REF TO Routine 09/25/2013 12:00 Results for this SÁNCHEZ ANAL PAP OR AM CDT procedure a re in TISSUE the results section. documented in this encounter Results HPV screen with reflex to genotype (09/25/2013 12:00 AM CDT) Component Value Ref Test Analysis Performed At [facility] Range Method Time Signature Copath Report Patient Name: ALYSA RIVERA MR#: [id number] Specimen #: [id number] Collected: 09/25/2013 00:00 Received: 09/29/2013 11:46 Reported: 10/03/2013 10:23 Ordering Phy(s): INGA DAVIS TEST(S) REQUESTED: Human Papillomavirus Screen Analysis SPECIMEN DESCRIPTION: Cervical cells METHODOLOGY: ??Total cellular DNA was extracted from the abo ve specimen and up to 1 ug subjected to DNA amplification with a series of oligonucleotide primers directed to the L1 region of the hum an papillomavirus genome. ??The resulting PCR fragments were th ivonne by capillary electrophoresis using a [employer] with FUJIAN HAIYUAN software. ??The PCR products from samples positive [...] and its performance determined by rudy hernandez [facility] ??Molecular Diagnostic Laboratory. It has not been cleared or approved by the U.S. Food and Cristobal g Administration. ??The FDA has determined that such clearance or approval is not necessary. ??Pursuant to the requirements of CLIA'88, this laboratory has established and verified the test's accuracy and precision. ??This test is used for clinical purposes. Electronically Signed Out By: PAM Emergency Care Tech CPT Codes: A: 95126- HPVSC TESTING LAB LOCATION: [facility] [address] [place], [facility] [address] [place] [address] COLLECTION SITE: Client: ??[facility] Location: ??RIOB (R) Specimen (Source) Anatomical Collection Method Collection Time Re ceived Time Location / / Volume Laterality 09/25/2013 09/29/2013 11:4 6 AM CDT Inga Davis MD LAB - GENOMICS Performing Organization Address City/State/ZIP Code Phon e Number COPATH PAP imaged thin layer screen (09/25/2013 12:00 AM CDT) Component Value Ref Test Analysis Performed At [facility] Range Method Time Signature PAP NIL COPATH Copath Report COPATH Patient Name: ALYSA RIVERA MR#: [id number] Specimen #: [id number] Collected: 09/25/2013 Received: 09/28/2013 Reported: 09/29/2013 15:28 Ordering Phy(s): INGA DAVIS SPECIMEN/STAIN PROCESS: Pap imaged thin layer prep screening (Surepath, FocalPoint w ith guided screening) ? Pap-Cyto x 1, HPV ordered x 1 SOURCE: Cervical, endocervical ---- Pap imaged thin layer prep screening (Surepath, FocalPoint with guided screening) SPECIMEN ADEQUACY: Satisfactory for evaluation. -Transformation zone component present. CYTOLOGIC INTERPRETATION: Negative for Intraepithelial Lesion or Malignancy Electronically signed out by: KIEL Hoffman (ASCP) Processed and screened at [facility] CLINICAL HISTORY: LMP: 09/05/13 Oral Control Pill, Previous normal pap Date of Last Pap: 09/08/12, Papanicolaou Test Limitations: ??Cervical cytology is a scre ening test with limited sensitivity; regular screening is critical for cancer prevention; Pap tests are primarily effective for the diagnosis/prevention of squamous cell carcinoma, not adenoca rcinomas or other cancers. TESTING LAB LOCATION: [facility] [address] [place], [place] ??[address] COLLECTION SITE: Client: ??[facility] Location: RIOB (R) Specimen (Source) Anatomical Collection Method Collection Time Re ceived Time Location / / Volume Laterality Cytologic 09/25/2013 09/28/2013 12:5 5 material PM CDT (specimen) Inga Davis MD LAB - OPTIME CLINICAL SPECIM EN Performing Organization Address City/State/ZIP Code Phon e Number COPATH documented in this encounter Visit Diagnoses Diagnosis Routine gynecological examination - Prim mateo Contraception Unspecified contraceptive management documented in this encounter Care Teams Sterilizer Operator Relationship Specialty Start Date End Date Kyle Mascorro MD PCP - General Family Practice 12/01/[address], [id number] [place] [address] documented as of this encounter
--- OUTSIDE RECORDS SUMMARY | 2021-11-25 22:39 | XMS_ITS | Encounter Summary ---
:1985 Author Organization [place] Address [address] [place] [address] Care Team Providers Name Role Phone Kyle Mascorro MD Primary Care Provider [phone] Reason for Visit Reason Comments Care NPN visit with the MD Encounter Details Date Type Department Care Team Description 10/29/2014 Office [facility] Fredy Davis ervision of other normal (Primary Dx); Visit [facility] MD Mallory History of abnormal cervical Pap smear [address] [place] [address] [address] [place], [place] (Work) [address] Social History Tobacco Use [...] Sign Reading Time Taken Comments Blood Pressure 122/70 10/29/2014 3:45 PM CDT Pulse - - Temperature - - Respiratory Rate - - Oxygen Saturation - - Inhaled Oxygen Concentration - - Weight 71.7 kg (158 lb) 10/29/2014 3:45 PM CDT Height - - Body Mass Index 24.75 10/27/2014 6:51 PM CDT documented in this encounter Progress Notes Fredy Davis MD - 10/30/2014 3:10 PM CDT SUBJECTIVE: Dontae Rivera is an 29 year old female here for initial OB visit. Past Medical History of Father of Baby: No significant medical history Review of Systems: CONSTITUTIONAL:NEGATIVE for fever, chills, change in weight INTEGUMENTARY/SKIN: NEGATIVE for worrisome rashes, moles or lesions EYES: NEGATIVE for vision changes or irritation ENT/MOUTH: NEGATIVE for ear, mouth and throat problems RESP:NEGATIVE for significant cough or SOB BREAST: NEGATIVE for masses, tenderness or discharge CV: NEGATIVE for chest pain, palpitations or peripheral edema GI: NEGATIVE for nausea, abdominal pain, heartburn, or change in bowel habits MUSCULOSKELETAL: NEGATIVE for significant arthralgias or myalgia NEURO: NEGATIVE for weakness, dizziness or paresthesias ENDOCRINE: NEGATIVE for temperature intolerance, skin/hair changes HEME/ALLERGY/IMMUNE: NEGATIVE for bleeding problems PSYCHIATRIC: NEGATIVE for changes in mood or affect History Since Last Menstrual Period: No Problems EXAM: Blood pressure 122/70, weight 158 lb (71.668 kg), last menstrual period 07/22/2014, not currently . GENERAL APPEARANCE: healthy, alert and no distress EYES: EOMI, PERRL HENT: ear canals and TM's normal and nose and mouth without ulcers or lesions RESP: lungs clear to auscultation - no rales, rhonchi or wheezes CV: regular rates and rhythm, normal S1 S2, no S3 or S4 and no murmur, click or rub - ABDOMEN: soft, nontender, no HSM or masses and bowel sounds normal Pelvix exam: Perineum: Intact; Vulva: Normal; Vagina: Normal mucosa, no discharge Cervix: Parous, closed, mobile, no discharge; Uterus: 14 weeks Adnexa: Normal; Rectum: Normal without lesion or mass; Bony Pelvis: Gynecoid. ASSESSMENT/ PLAN: IUP at 14 weeks -beyond First Trimester Screen -transferring care secondary to insurance Follow up in 4 weeks. documented in this encounter Nursing Notes Prabha Carbone LPN - 10/29/2014 3:46 PM CDT Chief Complaint Patient presents with ??? Care NPN visit with the MD Initial BP 122/70 mmHg Wt 158 lb (71.668 kg) LMP 07/22/2014 Estimated body mass index is 24.74 kg/(m^2) as calculated from the following: Height as of 10/27/14: 5' 7 (1.702 m). Weight as of this encounter: 158 lb (71.668 kg). BP completed using cuff size: regular 14w1d documented in this encounter Plan of Treatment Not on filedocumented as of this encounter Procedures Procedure Name Priority Date/Time Associated Diagnosis Comme nts NEISSERIA Routine 10/29/2014 4:34 PM Supervision of other R esults for this GONORRHOEAE PCR CDT normal procedure are in History of abnormal the resu lts cervical Pap smear section. CHLAMYDIA Routine 10/29/2014 4:34 PM Supervision of other R esults for this TRACHOMATIS PCR CDT normal procedure are in History of abnormal the resu lts cervical Pap smear section. PAP IMAGED THIN Routine 10/29/2014 12:00 History of abnormal R esults for this LAYER SCREEN AM CDT cervical Pap sme ar procedure are in Supervision of other the res ults normal section. documented in this encounter Results CHLAMYDIA TRACHOMATIS PCR (10/29/2014 4:34 PM CDT) Component Value Ref Test Analysis Performed At [facility] Range Method Time Signature Specimen Cervix [facility] LEMITAR Chlamydia Negative NEG [facility] Trachomatis Negative for C. trachomatis rRNA by card feeder mediated amplification. [place] [facility] A negative result by transc ription mediated amplification does not preclude the [facility] presence of C. trachomatis infection because re sults are dependent on proper BANK and adequate collection, absence of inhibitors, and suffici ent rRNA to be detected. Specimen Anatomical Collection Method Collection Time Receive d Time (Source) Location / / Volume Laterality Cervical swab 10/29/2014 4:34 PM 10/30/19 15 4:39 (specimen) CDT PM CDT Fredy Davis MD LAB - MICRO GENERAL ORDERABL ES Performing Organization Address City/State/ZIP Code Phon e Number [address] [address] [place] [address] [place], [place] [address] [address] NEISSERIA GONORRHOEA PCR (10/29/2014 4:34 PM CDT) Component Value Ref Test Analysis Performed At [facility] Range Method Time Signature Specimen Cervix [facility] N Gonorrhea Negative NEG [facility] Negative for N. gonorrhoeae rRNA by transcripti on mediated amplification. [facility] A negative result by transc ription mediated amplification does not preclude the [facility] presence of N. gonorrhoeae infection because re sults are dependent on proper BANK and adequate collection, absence of inhibitors, and suffici ent rRNA to be detected. Specimen Anatomical Collection Method Collection Time Receive d Time (Source) Location / / Volume Laterality Cervical swab 10/29/2014 4:34 PM 10/30/19 15 4:39 (specimen) CDT PM CDT Fredy Davis MD LAB - MICRO GENERAL ORDERABL Performing Organization Address City/[facility]/ZIP Code Phon e Number [address] [address] [place] [address] [place], [place] [address] [address] PAP imaged thin layer, screen (10/29/2014 12:00 AM CDT) Component Value Ref Test Analysis Performed At [facility] Method Time Signature PAP NIL COPATH Copath Report COPATH Patient Name: DONTAE RIVERA MR#: [id number] Specimen #: [id number] Collected: 10/29/2014 Received: 11/01/2014 Reported: 11/02/2014 14:17 Ordering Phy(s): FREDY DAVIS SPECIMEN/STAIN PROCESS: Pap imaged thin layer prep screening (Surepath, FocalPoint w ith guided screening) ? Pap-Cyto x 1 SOURCE: Cervical ---- Pap imaged thin layer prep screening (Surepath, FocalPoint with guided screening) SPECIMEN ADEQUACY: Satisfactory for evaluation. -Transformation zone component absent. CYTOLOGIC INTERPRETATION: Negative for Intraepithelial Lesion or Malignancy Electronically signed out by: KIEL Moreno (ASCP) [facility] CLINICAL HISTORY: LMP: 07/22/2014 , Previous normal pap Date of Last Pap: 09/25/2013, Papanicolaou Test Limitations: ??Cervical cytology is a scre ening test with limited sensitivity; regular screening is critical for cancer prevention; Pap tests are primarily effective for the diagnosis/prevention of squamous cell carcinoma, not adenoca rcinomas or other cancers. TESTING LAB LOCATION: [facility] [address], [place] ??[address] COLLECTION SITE: Client: ??[facility] Location: RIOB (R) Specimen (Source) Anatomical Collection Method Collection Time Re ceived Time Location / / Volume Laterality Cytologic 10/29/2014 11/01/2014 2:08 material PM CDT (specimen) Fredy Davis MD LAB - OPTIME CLINICAL SPECIM EN Performing Organization Address City/State/ZIP Code Phon e Number COPATH documented in this encounter Visit Diagnoses Diagnosis Supervision of other normal - Primary History of abnormal cervical Pap smear Personal history of other genital system and obstetric disorders documented in this encounter Care Teams Library Assistant Relationship Specialty Start Date End Date Kyle Mascorro MD PCP - General Family Practice 12/01/[address], [id number] [place] [address] documented as of this encounter
--- OUTSIDE RECORDS SUMMARY | 2021-11-25 22:39 | XMS_ITS | Clinical Summary ---
:1985 Author Organization [facility] Address [address] [place] [address] Care Team Providers Name Role Phone Kyle Mascorro MD Primary Care Provider [phone] Allergies Active Allergy Reactions Severity Noted Date Comments No Known Allergies 07/13/1999 Ragweeds 07/25/2005 Medications No known medications Active Problems Problem Noted Date History of abnormal cervical Pap smear 10/29/2014 Need for Tdap vaccination 10/28/2014 Encounter for supervision of other normal Overview: Diagnosis updated by automated process. Provider to review and confirm. History of loop electrosurgical excision procedure (LE EP) of 10/27/2014 cervix/currently Abnormal pap 10/10/2012 Overview: Past history of colposcopy and LEEP done at [facility], pt to get SOHA for records Current Pap results NIL as is the HPV. R N mailed SOHA to obtain pap records at [facility] [facility] so that pap tracking can determine frequency of future pap and HPV co-testing. recommending repea t diagnostic pap and HPV in one year [facility] ch matches ASCCP Guidelines. Sarah HOLLEY Sciatica 06/11/2011 Family history of alpha thalassemia 12/18/2010 Allergic rhinitis 12/22/2008 Overview: Problem list name updated by automated p rocess. Provider to review Depressive disorder, not elsewhere classified 10/17/19 06 Dysmenorrhea 06/12/2005 Resolved Problems Problem Noted Date Resolved Date Health Residential 12/03/2012 10/27/2014 Overview: State Tier Level: Tier 2 Status: NA Sonar Technician: See Letters for [facility] Care Plan Supervision of normal first 12/18/2010 History of cone biopsy of cervix 12/18/2010 013 Overview: 09/08/12 NIL and neg for HPV. Due to pt hi story and no dating of when leep conization done in the past 8 years per ASCCP guideline RN will need to review past medical records when obtained to determine nu mber of years for yearly pap testing. Wi ll route to MD for his input as well. Sarah HOLLEY Immunizations Name Administration Dates Next Due HepB 10/12/2005, 07/25/2005, 09/26/2004 MMR 10/03/1998 TD (ADULT, 7+) 10/03/1998 10/03/2008 TDAP Vaccine (Boostrix) 12/22/2008 Family History Medical History Relation Comments Cancer Maternal Grandmother ovarian Diabetes Mother Gynecology Mother endometriosis Hypertension Mother Cerebrovascular Disease Paternal Grandfather C.A.D. No family hx of Cancer - colorectal No family hx of Relation Status Comments Father Alive Maternal Grandmother Mother Alive Paternal Grandfather Sister Alive Social History Tobacco Use Types Packs/Day Years [...] Assigned at Date Recorded Not on file Last Filed Vital Signs Vital Sign Reading Time Taken Comments Blood Pressure 120/70 08/17/2019 4:21 PM CDT Pulse 84 08/17/2019 4:21 PM CDT Temperature 37.1 ??C (98.7 ??F) 08/17/2019 4:21 PM CDT Respiratory Rate 16 08/17/2019 4:21 PM CDT Oxygen Saturation 98% 08/17/2019 4:21 PM CDT Inhaled Oxygen Concentration - - Weight 73.2 kg (161 lb 4.8 oz) 08/17/2019 4:21 PM CDT Height 170.2 cm (5' 7) 10/27/2014 6:51 PM CDT Body Mass Index 25.26 10/27/2014 6:51 PM CDT Plan of Treatment Health Maintenance Due Date Last Done Comments ADVANCE CARE PLANNING 1985 ANNUAL REVIEW OF HM ORDERS 1985 DEPRESSION ACTION PLAN 1985 PHQ-9 1985 COVID-19 Vaccine (#1) 1985 HEPATITIS C SCREENING 2004 PREVENTIVE CARE VISIT 09/25/2014 09/25/2013, 09/08/2012, 12/22/2008, Additional history exists PAP 10/30/2015 10/29/2014, 09/25/2013, 09/08/2012, Additional history exists DTAP/TDAP/TD IMMUNIZATION 12/22/2018 12/22/2008, 10/03/1998 , (3 - Td or Tdap) 10/03/1998 INFLUENZA VACCINE (#1) 2021 02/18/2015 HEPATITIS B IMMUNIZATION Completed 10/12/2005, 10/12/2005, 07/25/2005, Additional history exists HIV SCREENING Completed 10/27/2014, 11/16/2010 IPV IMMUNIZATION Aged Out No longer eligi ble based on patient 's age to complete this topic MENINGITIS IMMUNIZATION Aged Out No longe r eligible based on patient 's age to complete this topic Pneumococcal Vaccine: Aged Out No longer eligible Pediatrics (0 to 5 Years) based on patient's age and At-Risk Patients (6 to to co mplete this topic 64 Years) Insurance Payer Benefit Plan Subscriber ID Effective Dates Phone Address Type / Group PAUL THAO SPANGLE [id number] 2012-Lebron [phone] [address] Indemnity MPVA t [id number] [place] [address] (Home) [place] [address] Alysa Verde Personal/Family Self 1985 [phone] [place] [address] (Home) [place] [address] Care Teams Technology Training Associate Relationship Specialty Start Date End Date Kyle Mascorro MD PCP - General Family Practice 12/01/[address], [address] [place] [address]
--- OUTSIDE RECORDS SUMMARY | 2021-11-25 22:39 | XMS_ITS | Encounter Summary ---
:1985 Author Organization [facility] Address [address] [place] [address] Care Team Providers Name Role Phone Lisa Gayle MD Primary Care Provider Reason for Visit Reason Onset Date Comments Call To Schedule Appointment 07/23/2011 pap Encounter Details Date Type Department Care Team Description 07/23/2011 Telephone [facility] Fredy Davis Cal l To Schedule Women's Clinic Appointment (pap) [place] [address] [address] [facility] [address] [place] [address] [place], [place] [phone] (Wo rk) [address] [phone] Social History Tobacco Use Types Packs/Day Years [...] this encounter Miscellaneous Notes Telephone Encounter - Marita Watkins - 12/17/2011 2:31 PM CDT Done. Marita Watkins RN Telephone Encounter - Fredy Davis MD - 12/17/2011 11:45 AM CDT May resolve Telephone Encounter - Marita Watkins - 12/17/2011 11:21 AM CDT No response from pt and no apt made. Message sent to MD to see if episode may be resolved or if any additional follow up is requested. . Marita Watikns RN Telephone Encounter - Omaira Carbajal - 09/07/2011 3:17 PM CDT 09/07/11- Sign cert received, forwarded to abstraction and Ariana/OB Telephone Encounter - Omaira Carbajal - 09/04/2011 3:36 PM CDT Sent letter certified on 09/05/11 Telephone Encounter - Ariana Martin - 09/04/2011 8:55 AM CDT Certified pap reminder letter sent to patient. Telephone Encounter - Ariana Martin - 08/14/2011 3:02 PM CDT Repeat pap reminder letter sent. Telephone Encounter - Ariana Martin - 08/02/2011 3:32 PM CDT Pt returned the call. She stated that she will call back to schedule an appointment. Telephone Encounter - Ariana Martin - 08/02/2011 2:20 PM CDT Post visit was cancelled by patient. Left message for Alysa to return the call to schedule an appointment for a pap. Telephone Encounter - Ariana Martin - 07/23/2011 11:08 AM CDT Alysa is due for a repeat pap 07/24/11. She is scheduled for a post visit with Dr. Davis on 07/30/11. documented in this encounter Plan of Treatment Not on filedocumented as of this encounter Visit Diagnoses Not on filedocumented in this encounter Care Teams Mobile Device Developer Relationship Specialty Start Date End Date Lisa Gayle MD PCP - General 03/24/99 11/30/[address] [address] documented as of this encounter
--- OUTSIDE RECORDS SUMMARY | 2021-11-25 22:39 | XMS_ITS | Encounter Summary ---
:1985 Author Organization [facility] Address [address] [place] [address] Care Team Providers Name Role Phone Kyle Mascorro MD Primary Care Provider [phone] Reason for Visit Reason Comments Care Here for her NPN visit with the nurse Encounter Details Date Type Department Care Team Description 10/27/2014 Office [facility] Supervi ventura of other Visit Clinic [place] normal , [address] unspecified trimester [place], [place] [V22.1] (Prim mateo Dx) [id number] Social History Tobacco Use Types Packs/Day Years [...] Sign Reading Time Taken Comments Blood Pressure 110/60 10/27/2014 6:51 PM CDT Pulse - - Temperature - - Respiratory Rate - - Oxygen Saturation - - Inhaled Oxygen Concentration - - Weight 73.3 kg (161 lb 8 oz) 10/27/2014 6:51 PM CDT Height 170.2 cm (5' 7) 10/27/2014 6:51 PM CDT Body Mass Index 25.29 10/27/2014 6:51 PM CDT documented in this encounter Progress Notes Ame Carbone LPN - 10/27/2014 7:31 PM CDT Here for her NPN visit with the nurse, see Nursing notes. documented in this encounter Nursing Notes Ame Carbone LPN - 10/27/2014 7:28 PM CDT Chief Complaint Patient presents with ??? Care Here for her NPN visit with the nurse Alysa Verde is here today for her NPN visit with the nurse, will be seeing Dr. Davis for her care. Last Pap was NIL 09/25/2013. Has yearly paps. Initial BP 110/60 mmHg Ht 5' 7 (1.702 m) Wt 161 lb 8 oz (73.256 kg) BMI 25.29 kg/m2 LMP 07/22/2014 Estimated body mass index is 25.29 kg/(m^2) as calculated from the following: Height as of this encounter: 5' 7 (1.702 m). Weight as of this encounter: 161 lb 8 oz (73.256 kg). BP completed using cuff size: regular 13w6d documented in this encounter Miscellaneous Notes Addendum Note - Ame Carbone LPN - 10/29/2014 3:13 PM CDT Addended by: AME CARBONE on: 10/29/2014 03:13 PM Modules accepted: Orders documented in this encounter Plan of Treatment Not on filedocumented as of this encounter Procedures Procedure Name Priority Date/Time Associated Diagnosis Comme nts HCL HCG, URINE, Routine 10/27/2014 7:24 PM Supervision of othe r Results for this NURSE BACKOFFICE CDT normal , proced ure are in unspecified the results trimester [V22.1] section. URINE CULTURE Routine 10/27/2014 7:15 PM Supervision of other Results for this CDT normal , procedure are in unspecified the results trimester [V22.1] section. ABO/RH TYPE AND Routine 10/27/2014 7:14 PM Supervision of othe r Results for this SCREEN CDT normal , procedure are in unspecified the results trimester [V22.1] section. RUBELLA ANTIBODY IGG Routine 10/27/2014 7:13 PM Supervision of other Results for this CDT normal , procedure are in unspecified the results trimester [V22.1] section. HIV ANTIGEN ANTIBODY Routine 10/27/2014 7:13 PM Supervision of other Results for this COMBO CDT normal , procedure are in unspecified the results trimester [V22.1] section. HEPATITIS B SURFACE Routine 10/27/2014 7:13 PM Supervision of other Results for this ANTIGEN CDT normal , procedure are in unspecified the results trimester [V22.1] section. ANTI TREPONEMA Routine 10/27/2014 7:13 PM Supervision of other Results for this CDT normal , procedure are in unspecified the results trimester [V22.1] section. CBC WITH PLATELETS Routine 10/27/2014 7:13 PM Supervision of o ther Results for this CDT normal , procedure are in unspecified the results trimester [V22.1] section. documented in this encounter Results HCL HCG, URINE, NURSE BACKOFFICE (10/27/2014 7:24 PM CDT) P athologist Signature hCG, Qual Urine POS. [facility] Specimen (Source) Anatomical Collection Method Collection Time Re ceived Time Location / / Volume Laterality Urine specimen 10/27/2014 7:24 PM (specimen) CDT Fredy Davis MD LABORATORY Performing Organization Address City/State/ZIP Code Phon e Number [facility] Urine Culture Aerobic Bacterial (10/27/2014 7:15 PM CDT) [facility] Method Time Signature Specimen Midstream [place] Description Urine CLINICS [place] Culture Micro <10,000 INFECTIOUS colonies/mL DISEASE mixed DIAGNOSTIC urogenital LABORATORY val[place] Micro Report FINAL INFECTIOUS Status 10/29/2014 DISEASE DIAGNOSTIC LABORATORY Specimen Anatomical Collection Method Collection Time Receive d Time (Source) Location / / Volume Laterality Urine specimen 10/27/2014 7:15 PM 015 7:20 (specimen) CDT PM CDT Fredy Davis MD LAB - MICRO GENERAL ORDERABL ES Performing Organization Address City/State/ZIP Code Phon e Number INFECTIOUS DISEASES [address] [place] [address] DIAGNOSTIC LABORATORY, [facility] [address] [place] [address] [place] [address] INFECTIOUS DISEASE [address] [place] [address], [facility] DIAGNOSTIC LABORATORY ABO/RH TYPE AND SCREEN (10/27/2014 7:14 PM CDT) [facility] gist Method Time Signature ABO A [facility] RH(D) Pos [facility] Antibody Neg [place] Screen [facility] Test Valid [facility] Only At [facility] Specimen 10/30/2014 [facility] Specimen Anatomical Collection Method Collection Time Receive d Time (Source) Location / / Volume Laterality Blood specimen 10/27/2014 7:14 PM 015 7:19 (specimen) CDT PM CDT Fredy Davis MD LAB - BLOOD BANK TEST ORDER Performing Organization Address City/State/ZIP Code Phon e Number [facility] [address] [place], [place] [address] [facility] [address] [place], [place] [address] [facility] [phone] Anti Treponema (10/27/2014 7:13 PM CDT) Analysis Performed At Path logist Time Signature Treponema Negative NEG [facility] Antibody [facility] Specimen Anatomical Collection Method Collection Time Receive d Time (Source) Location / / Volume Laterality Blood specimen 10/27/2014 7:13 PM 015 7:18 (specimen) CDT PM CDT Fredy Davis MD LAB - BLOOD ORDERABLES Performing Organization Address City/State/ZIP Code Phon e Number [facility] [address] [place] [address] [facility] Hepatitis B surface antigen (10/27/2014 7:13 PM CDT) [facility] gist Method Time Signature Hep B Surface Nonreactive NR [facility] [place] Specimen Anatomical Collection Method Collection Time Receive d Time (Source) Location / / Volume Laterality Blood specimen 10/27/2014 7:13 PM 015 7:18 (specimen) CDT PM CDT Fredy Davis MD LAB - BLOOD ORDERABLES Performing Organization Address City/[facility]/ZIP Code Phon e Number [facility] [address] Rubella Antibody IgG Quantitative (10/27/2014 7:13 PM CDT) Analysis Performed At Patho logist Time Signature Rubella Antibody 33 IU/mL [facility] IgG Quantitative [facility] Comment: Positive. ??Suggests previous exposure o r immunization and probable immunity Reference Range: ?? Unvaccinated Negative 0-7 IU/mL Vaccinated or previous exposure Positiv e 10 IU/ml or greater Specimen Anatomical Collection Method Collection Time Receive d Time (Source) Location / / Volume Laterality Blood specimen 10/27/2014 7:13 PM 015 7:18 (specimen) CDT PM CDT Fredy Davis MD LAB - BLOOD ORDERABLES Performing Organization Address City/State/ZIP Code Phon e Number [facility] [address] HIV Antigen Antibody Combo (10/27/2014 7:13 PM CDT) Patholo gist Method Time Signature HIV Antigen Nonreactive NR [facility] Antibody HIV-1 p24 Ag & HIV-1/HIV-2 Ab Not Detected [facility] Specimen Anatomical Collection Method Collection Time Receive d Time (Source) Location / / Volume Laterality Blood specimen 10/27/2014 7:13 PM 015 7:18 (specimen) CDT PM CDT Fredy Davis MD LAB - BLOOD ORDERABLES Performing Organization Address City/[facility]/ZIP Code Phon e Number [facility] [address] CBC WITH PLATELETS (10/27/2014 7:13 PM CDT) P athologist Signature WBC 9.7 4.0 - 11.0 [place] 10e9/L [facility] RBC Count 4.26 3.8 - 5.2 [place] 10e12/L [facility] Hemoglobin 13.6 11.7 - [facility] 15.7 g/dL [facility] Hematocrit 39.3 35.0 - [place] 47.0 % [facility] MCV 92 78 - 100 [place] fl [facility] MCH 31.9 26.5 - [place] 33.0 pg [facility] MCHC 34.6 31.5 - [place] 36.5 g/dL [facility] RDW 12.9 10.0 - [place] 15.0 % [facility] Platelet Count 227 150 - 450 [place] 10e9/L [facility] Specimen Anatomical Collection Method Collection Time Receive d Time (Source) Location / / Volume Laterality Blood specimen 10/27/2014 7:13 PM 015 7:18 (specimen) CDT PM CDT Fredy Davis MD LAB - BLOOD ORDERABLES Performing Organization Address City/State/ZIP Code Phon e Number M [facility] [address] [place], [place] [address] [facility] [address] [place], [place] [address] [place] [address] documented in this encounter Visit Diagnoses Diagnosis Supervision of other normal , u nspecified trimester [V22.1] - Primary documented in this encounter Care Teams Log Deckman Relationship Specialty Start Date End Date Kyle Mascorro MD PCP - General Family Practice 12/01/[address], [address] [place] [address] documented as of this encounter
--- OUTSIDE RECORDS SUMMARY | 2021-11-25 22:39 | XMS_ITS | Encounter Summary ---
:1985 Author Organization [facility] Address [address] [place] [address] Care Team Providers Name Role Phone Kyle Mascorro MD Primary Care Provider [phone] Reason for Visit Reason Onset Date Comments Call To Schedule Appointment 09/17/2013 Pap due 09/09 014 Encounter Details Date Type Department Care Team Description 09/17/2013 Telephone [facility] Fredy Davis Cal l To Schedule Women's Clinic Appointment (Pap due [address] 09/2013) [address] [facility] [address] [place] [address] [place], [place] [phone] (Wo rk) [address] [phone] Social History Tobacco Use Types Packs/Day Years [...] this encounter Miscellaneous Notes Telephone Encounter - Diya Lopez - 09/17/2013 1:46 PM CDT Alysa Verde is scheduled for an annual on 09/25/13 at 9:30. pap tracking Christina Lucia RN Sent: SatSeptember 08, 2013 To: Renee Spencer Pap Flags: Patient reminder, RN task Alysa Verde : 1985 Pt Home: Message Please contact pt for repeat diagnostic pap and HPV testing . This is a one year repeat due to priorhistory of colp and LEEP. Thank you, Sarah HOLLEY documented in this encounter Plan of Treatment Not on filedocumented as of this encounter Visit Diagnoses Not on filedocumented in this encounter Care Teams Svp Business Development Relationship Specialty Start Date End Date Kyle Mascorro MD PCP - General Family Practice 12/01/12 [address] [address] documented as of this encounter
--- OUTSIDE RECORDS SUMMARY | 2021-11-25 22:39 | XMS_ITS | Encounter Summary ---
:1985 Author Organization [facility] Address [facility] [place] [address] Care Team Providers Name Role Phone Kyle Mascorro MD Primary Care Provider [phone] Reason for Visit Reason Comments Urgent Care URI Encounter Details Date Type Department Care Team Description 10/24/2016 Office Visit [facility] Pedro Clancy, Throat pain (Primary Urgent Care Rona hernandez MD Dx) [address] [facility] [address] [place] [address] [phone] Social History Tobacco Use Types Packs/Day Years [...] Sign Reading Time Taken Comments Blood Pressure 114/74 10/24/2016 5:02 PM CDT Pulse 73 10/24/2016 5:02 PM CDT Temperature 36.9 ??C (98.5 ??F) 10/24/2016 5:02 PM CDT Respiratory Rate 18 10/24/2016 5:02 PM CDT Oxygen Saturation 100% 10/24/2016 5:02 PM CDT Inhaled Oxygen Concentration - - Weight 66.7 kg (147 lb) 10/24/2016 5:02 PM CDT Height - - Body Mass Index 23.02 10/27/2014 6:51 PM CDT documented in this encounter Progress Notes Pedro Clancy MD - 10/24/2016 5:00 PM CDT SUBJECTIVE: Alysa Verde is a 31 year old female who presents to clinic today for the following health issues: RESPIRATORY SYMPTOMS ?? Duration: 3 days ?? Description [place] eye sx, sinus pressure, sore throat ?? Severity: moderate ?? Accompanying signs and symptoms: None ?? History (predisposing factors): none ?? Precipitating or alleviating factors: None ?? Therapies tried and outcome: Has been using sons pink eye drops OBJECTIVE: Vitals as noted by Nurse/MA above. Appearance: in no apparent distress. ENT- neck has bilateral anterior cervical nodes enlarged. Chest - no tachypnea, retractions or cyanosis, S1, S2 normal, course breath soundsno murmur, no gallop, rate regular . Results for orders placed or performed in visit on 10/24/16 Strep, Rapid Screen Result Value Ref Range Specimen Description Throat Rapid Strep A Screen NEGATIVE: No Group A streptococcal antigen detected by immunoassay, await culture report. Beta strep group A culture Result Value Ref Range Specimen Description Throat Culture Micro No beta hemolytic Streptococcus Group A isolated ASSESSMENT: Bronchitis Pharyngitis PLAN: Symptomatic therapy suggested: push fluids and rest. Call or return to clinic prn if these symptoms worsen or fail to improve as anticipated. documented in this encounter Nursing Notes Kriss Salmeron MA - 10/24/2016 5:00 PM CDT Chief Complaint Patient presents with ??? Urgent Care ??? URI Initial BP 114/74 Pulse 73 Temp 98.5 ??F (36.9 ??C) (Oral) Resp 18 Wt 147 lb (66.7 kg) SpO2 100% BMI 23.02 kg/m2 Estimated body mass index is 23.02 kg/(m^2) as calculated from the following: Height as of 8/19/15: 5' 7 (1.702 m). Weight as of this encounter: 147 lb (66.7 kg). Medication Reconciliation: denton Salmeron [place] documented in this encounter Plan of Treatment Not on filedocumented as of this encounter Procedures Procedure Name Priority Date/Time Associated Diagnosis Comme nts RAPID STREP SCREEN Routine 10/24/2016 5:10 PM Throat pain Res ults for this THROAT SWAB CDT procedure are i n the results section. BETA HEMOLYTIC Routine 10/24/2016 5:10 PM Throat pain Results for this STREP GROUP A CDT procedure are in CULTURE the results section. documented in this encounter Results Beta strep group A culture (10/24/2016 5:10 PM CDT) Component Value Ref Test Analysis Performed At [facility] Third Age Range Method Time Signature Specimen Throat [facility] Culture Micro No beta 10/25/2016 [facility] hemolytic 8:34 AM CDT CLINICS Streptococcus ARBON Group A isolated Specimen Anatomical Collection Method Collection Time Receive d Time (Source) Location / / Volume Laterality Specimen from 10/24/2016 5:10 PM 10/25/19 17 5:11 throat CDT PM CDT (specimen) Pedro Clancy MD LAB - MICRO GENERAL ORDERABL ES Performing Organization Address City/[facility]/ZIP Code Phon e Number [facility] [address] [place] [address] Strep, Rapid Screen (10/24/2016 5:10 PM CDT) Component Value Ref Test Analysis Performed At [facility] Third Age Range Method Time Signature Specimen Throat [facility] Rapid Strep A NEGATIVE: No 10/24/2016 [place] Screen Group A 5:22 PM CDT CLINICS streptococcal ARBON antigen detected by immunoassay, await culture report. Specimen Anatomical Collection Method Collection Time Receive d Time (Source) Location / / Volume Laterality Specimen from 10/24/2016 5:10 PM 10/25/19 17 5:11 throat CDT PM CDT (specimen) Pedro Clancy MD LAB - MICRO GENERAL ORDERABL ES Performing Organization Address City/[facility]/ZIP Code Phon e Number [facility] [address] [place] [address] documented in this encounter Visit Diagnoses Diagnosis Throat pain - Primary documented in this encounter Care Teams Shop Steward Relationship Specialty Start Date End Date Kyle Mascorro MD PCP - General Family Practice 12/01/[address], [address] [address] documented as of this encounter
--- OUTSIDE RECORDS SUMMARY | 2021-11-25 22:39 | XMS_ITS | Encounter Summary ---
:1985 Author Organization [facility] Address [address] [place] [address] Care Team Providers Name Role Phone Kyle Mascorro MD Primary Care Provider [phone] Reason for Visit Reason Onset Date Comments Nurse Advice Line 04/22/2015 infection screening Encounter Details Date Type Department Care Team Description 04/22/2015 Telephone [facility] Marla Banks Nurse Advice Line Nurse Advisors KISHAN Clements (infection screening) [address] [place] [address] Social History Tobacco Use Types Packs/Day Years [...] this encounter Miscellaneous Notes Telephone Encounter - Marla Banks RN - 04/22/2015 2:38 AM TRUCK HEADLIGHT ASSEMBLER Call Type: Triage Call Presenting Problem: Patient is LOI is 04/28/2015. States her bag of murry is leaking, no contractions noted. Triager called out to family and consumer sciences professor provider listed Dr. Chan, he stated he is not an android programmer? Triager called and notified patient of no provider to call, ask patient if she had a different number to call that the provider gave her. She stated she will attempt to locate the number, and head over to the hospital. Triage Note: Guideline Title: : Signs of Labor, 37 Weeks or Greater Recommended Disposition: Call Provider Immediately Original Inclination: Wanted to speak with a nurse Override Disposition: Intended Action: Call PCP/HCP Physician Contacted: No Sudden gush or trickle of fluid from the vagina ? YES First childbirth with regular contractions for 1 hour and contractions are feeling stronger and closer together. ? NO New or worsening signs and symptoms that may indicate shock ? NO Feeling of baby coming or wanting to push (urge to bear down) ? NO Umbilical cord or any part of the baby (head, bottom, arm or leg) at the opening of the vagina ? NO Gestation 20 to 37 weeks ? NO Gush or leakage of green or green-tinged or port-wine colored fluid (reddish and watery) from the vagina ? NO Previous childbirth AND moderate intensity contractions less than 5 minutes apart for 1 hour or history of rapid delivery (less than 6 hours of labor) ? NO Decreased movement (less than 10 kicks/movements within two hours or a significant change in usual pattern compared to previous days) ? NO No relief between contractions ? NO Continuous bright red vaginal bleeding for more than 15 minutes (more than spotting) ? NO Physician Instructions: Care Advice: Lie on left side, if possible. K HEADLIGHT ASSEMBLER documented in this encounter Plan of Treatment Not on filedocumented as of this encounter Visit Diagnoses Not on filedocumented in this encounter Care Teams Hospitality Intern Relationship Specialty Start Date End Date Kyle Mascorro MD PCP - General Family Practice 12/01/[address], [id number] [place] [address] documented as of this encounter
--- OUTSIDE RECORDS SUMMARY | 2021-11-25 22:39 | XMS_ITS | Encounter Summary ---
:1985 Author Organization [facility] Address [address] [place] [address] Care Team Providers Name Role Phone Lisa Gayle MD Primary Care Provider Reason for Visit Reason Comments Wound Check Encounter Details Date Type Department Care Team Description 06/26/[address] [facility] Fredy Davis s pecified Sebastian Tejada MD aftercare following [address] [place] [address] surgery (Primary Dx) [place] Cort[place] [address] [facility] [phone] [place] C[place] [address] Social History Tobacco Use Types Packs/Day Years [...] Sign Reading Time Taken Comments Blood Pressure 120/60 06/26/2011 2:11 PM CDT Pulse 88 06/26/2011 2:11 PM CDT Temperature 37 ??C (98.6 ??F) 06/26/2011 2:11 PM CDT Respiratory Rate - - Oxygen Saturation - - Inhaled Oxygen Concentration - - Weight 66.8 kg (147 lb 3.2 oz) 06/26/2011 2:11 PM CDT Height - - Body Mass Index 23.05 06/15/2011 12:35 AM CDT documented in this encounter Progress Notes Fredy Davis MD - 06/27/2011 5:28 PM CDT Here for evaluation of pain with perineal tear -no fever -increasing pain O: erythema R labia minora -no induration -no abscess A; avulsion of perineum -painful perineum P: sitz bath/analgesic/antibiotic -return in one week Lyubov Bojorquez - 06/26/2011 2:14 PM CDT Chief Complaint Patient presents with ??? Wound Check Perineal burning. Initial BP 120/60 Pulse 88 Temp(Src) 98.6 ??F (37 ??C) (Oral) Wt 147 lb 3.2 oz (66.769 kg) ? No Estimated Body mass index is 23.05 kg/(m^2) as calculated from the following: Height as of 12: 5' 7.008(1.702 m). Weight as of this encounter: 147 lb 3.2 oz(66.769 kg).. BP completed using cuff size: regular nurse assisted visit. Jose Francisco Bojorquez RN documented in this encounter Plan of Treatment Not on filedocumented as of this encounter Visit Diagnoses Diagnosis Other specified aftercare following surg everett - Primary documented in this encounter Care Teams Clinical Laboratory Science Professor Relationship Specialty Start Date End Date Lisa Gayle MD PCP - General 03/24/99 11/30/[address], [address] [place] [address] documented as of this encounter
--- OUTSIDE RECORDS SUMMARY | 2021-11-25 22:39 | XMS_ITS | Encounter Summary ---
:1985 Author Organization [facility] Address [address] [place] [address] Care Team Providers Name Role Phone Kyle Mascorro MD Primary Care Provider [phone] Reason for Visit Reason Onset Date Comments Medication Request 10/24/2016 Asking about antibio tic Encounter Details Date Type Department Care Team Description 10/24/2016 Telephone [facility] Nurse Charo Lockhart, Medication Request Advisors RN (Asking about [address] antibiotic) [place] [address] Social History Tobacco Use Types Packs/Day [...] this encounter Miscellaneous Notes Telephone Encounter - Kriss Salmeron MA - 10/24/2016 6:14 PM CDT Spoke to Dr. Clancy and will get medication sent over now. Kriss Salmeron CMA Telephone Encounter - Charo Lockhart RN - 10/24/2016 6:06 PM CDT Clinic Action Needed:Yes Reason for Call: [facility] calling about antibiotic for patient who was seen in today by Dr. Clancy. Routed to: [facility]. Charo Lockhart RN [facility] Nurse Advisors documented in this encounter Plan of Treatment Not on filedocumented as of this encounter Visit Diagnoses Not on filedocumented in this encounter Care Teams Vrt Mechanic Relationship Specialty Start Date End Date Kyle Mascorro MD PCP - General Family Practice 12/01/[address], [id number] [place] [address] documented as of this encounter
--- OUTSIDE RECORDS SUMMARY | 2021-11-25 22:39 | XMS_ITS | Encounter Summary ---
:1985 Author Organization [facility] Address [address] [place] [address]. [place] [address] Care Team Providers Name Role Phone Kyle Mascorro MD Primary Care Provider [phone] Reason for Visit Reason Onset Date Comments Refill Request 08/04/2013 [facility] Encounter Details Date Type Department Care Team Description 08/04/2013 Refill [facility] Women's [place] l[facility], Refill Request ([facility]) Clinic Luke LINDO [address] [place] [address] [place] [address] (Wo rk) Social History Tobacco Use Types [...] Miscellaneous Notes Telephone Encounter - Marita Watkins RN - 08/04/2013 7:13 PM CDT Faxed refill request received. requesting supply for [facility]. Last annual 09/08/12. Refilled per protocol.Marita L. Stankovich, RN documented in this encounter Plan of Treatment Not on filedocumented as of this encounter Visit Diagnoses Diagnosis Contraception Unspecified contraceptive management documented in this encounter Care Teams Appeals Court Associate Justice Relationship Specialty Start Date End Date Kyle Mascorro MD PCP - General Family Practice 12/01/12 [address] [address] documented as of this encounter
--- OUTSIDE RECORDS SUMMARY | 2021-11-25 22:39 | XMS_ITS | Encounter Summary ---
:1985 Author Organization [facility] Address [address] [place] [address] Care Team Providers Name Role Phone Kyle Mascorro MD Primary Care Provider [phone] Reason for Visit Diagnostic Imaging XR (Routine) - Closed Specialty Diagnoses / Procedures Referred By Contact Refer red To Contact Diagnoses Acute left ankle pain Pita Morton CNP Procedures XR Ankle Left G/E 3 Views [address] [place], [place] [address] Referral ID Status Reason Start Date Expiration Date Visits Requ ested Visits Authorized [id number] Closed 08/17/2019 08/16/2020 1 1 Encounter Details Date Type Department Care Team Description 08/17/2019 Ancillary Procedure [facility] Pita Brown INTERNATIONAL TAX MANAGER [employer] [address] [place] [address] [place] [address] [phone] Social History Tobacco Use Types Packs/Day Years [...] Assigned at Date Recorded Not on file COVID-19 Exposure Response Date Recorded In the last month, have you been in contact with No / Unsure 08/17/2019 3:19 PM CDT someone who was confirmed or suspected to have Coronavirus / COVID-19? documented as of this encounter Plan of Treatment Not on filedocumented as of this encounter Procedures Procedure Name Priority Date/Time Associated Diagnosis Comme nts XR ANKLE LEFT G/E 3 Routine 08/17/2019 3:56 PM Acute left ankl e Results for this VIEWS CDT pain procedure are i n the results section. documented in this encounter Results XR Ankle Left G/E 3 Views (08/17/2019 3:56 PM CDT) Anatomical Region Laterality Modality Leg, Ankle, Foot Left Computed Radiography Specimen (Source) Anatomical Location Collection Method / Collectio n Time Received Time / Laterality Volume Impressions 08/18/2019 1:59 PM CDT IMPRESSION: No evidence of acute fracture or subluxation. Mortise is intact. Talar dome is intact. MARCIN COYLE MD Narrative 08/18/2019 1:59 PM CDT XR LEFT ANKLE THREE OR MORE VIEWS ?? 08/17/2019 3:56 PM HISTORY: Acute left ankle pain. COMPARISON: None. Procedure Note Marcin Coyle MD - 08/18/2019Formattin g of this note might be different from the original. XR LEFT ANKLE THREE OR MORE VIEWS 08/17/19 20 3:56 PM HISTORY: Acute left ankle pain. COMPARISON: None. IMPRESSION: No evidence of acute fractur e or subluxation. Mortise is intact. Talar dome is intact. MARCIN COYLE MD Pita Morton CNP [facility] ORDER DORON documented in this encounter Visit Diagnoses Not on filedocumented in this encounter Care Teams Paper Hanger Relationship Specialty Start Date End Date Kyle Mascorro MD PCP - General Family Practice 12/01/[address], [id number] [place] [address] documented as of this encounter
--- OUTSIDE RECORDS SUMMARY | 2021-11-25 22:39 | XMS_ITS | Encounter Summary ---
:1985 Author Organization [facility] Address [address] [place] [address] Care Team Providers Name Role Phone Lisa Gayle MD Primary Care Provider Reason for Visit Reason Onset Date Comments Nurse Advice Line 07/09/2012 Encounter Details Date Type Department Care Team Description 07/09/2012 Telephone [facility] MellenFe lizarraga, Nurse Advice Line Clinic Luke LINDO [address] [place] [address] [place], [place] [phone] (Wo rk) Social History Tobacco Use Types [...] this encounter Miscellaneous Notes Telephone Encounter - Lisa Stacy - 07/09/2012 5:33 PM CDT [facility] Triage Call Report Patient Name: Alysa Verde Call Date & Time: 06/14/2011 11:52:06PM Patient PCP Name: MRN: Patient Address: Patient Date of : 1985 Age: 27 yr. Patient Gender: Female Bilingual Spanish Inbound Sales Name: Emma Card Presenting Problem: Pt calling. Is 40wks +4 days preg, G1, EDC 06/10/11. Spoke to OB 40min ago about contractions - was told to do home tx - but pt states she wants to go in now. Contractions q2-5min lasting about 40sec. Has mucousy vag dc with streaks of blood. Denies watery vag dc or vag bleeding. Has + FM. Dilated to 2cm on 06/11/11. Triage Note: Bilingual Spanish Inbound Sales Emma Card ([email or web address]) added this note on Jun 14 2011 11:55PM:Had answering service page on-call OB to call pt back directly at [phone]. Pt verbalized understanding. Guideline Title: Signs of Labor, Recommended Disposition: Override Disposition: Call Provider Immediately Question Response Question Note New or worsening signs and symptoms that may indicate No shock Umbilical cord or any part of the baby (head, bottom, arm or No leg) at the opening of the vagina Any bright red vaginal bleeding No Continuous hardening (non-relaxing) of uterus or abdomen No (with or without pain) Unbearable abdominal/pelvic pain No Feeling of baby coming or wanting to push (urge to bear No down) Gestation 20 to 37 weeks No Gush or leakage of green or green-tinged or port-wine No colored fluid (reddish and watery) from the vagina Decreased movement No First childbirth with regular contractions for 1 hour and Yes contractions are feeling stronger and closer together. Physician Contacted: Physician Instructions: No Care Advice: - MEDICAL HISTORY Conditions: Condition Note: Medication: Medication Note: Allergy: Reaction: Procedure: Procedure Note: .Denies documented in this encounter Plan of Treatment Not on filedocumented as of this encounter Visit Diagnoses Not on filedocumented in this encounter Care Teams Tank Farm Operator Relationship Specialty Start Date End Date Lisa Gayle MD PCP - General 03/24/99 11/30/[address], [address] [place] [address] documented as of this encounter
--- OUTSIDE RECORDS SUMMARY | 2021-11-25 22:39 | XMS_ITS | Encounter Summary ---
:1985 Author Organization [facility] Address [facility] [place] [address] Care Team Providers Name Role Phone Kyle Mascorro MD Primary Care Provider Reason for Referral Diagnostic Imaging XR (Routine) - Closed Specialty Diagnoses / Procedures Referred By Contact Refer red To Contact Diagnoses Acute left ankle pain Pita Morton CNP Procedures XR Ankle Left G/E 3 Views [address] [place] [address] Referral ID Status Reason Start Date Expiration Date Visits Requ ested Visits Authorized [id number] Closed 08/17/2019 08/16/2020 1 1 Reason for Visit Reason Comments Trauma Encounter Details Date Type Department Care Team Description 08/17/2019 Office Visit [facility] Pita Morton, Sprain o f left ankle, unspecified ligament, initial encounter (Primary Dx); Urgent Care Rona hernandez CNP Acute left ankle pain [address] [place] [address] [phone] Social History Tobacco Use Types Packs/Day Years [...] / COVID-19? documented as of this encounter Last Filed [...] 4.8 oz) 08/17/2019 4:21 PM CDT Height - - Body Mass Index 25.26 10/27/2014 6:51 PM CDT documented in this encounter Patient Instructions Patient InstructionsPita Morton CNP - 08/17/2019 4:00 PM CDT Images from the original note were not included. Patient Education Understanding Ankle Sprain The ankle is the joint where the leg and foot meet. Bones are held in place by connective tissue called ligaments. When ankle ligaments are stretched to the point of pain and injury, it is called an ankle sprain. A sprain can tear the ligaments. These tears can be very small but still cause pain. Ankle sprains can be mild or severe. What causes an ankle sprain? A sprain may occur when you twist your ankle or bend it too far. This can happen when you stumble orfall. Things that can make an ankle sprain more likely include: ?? Having had an ankle sprain before ?? Playing sports that involve running and jumping. Or playing contact sports such as football or hockey. ?? Wearing shoes that don???t support your feet and ankles well ?? Having ankles with poor strength and flexibility Symptoms of an ankle sprain Symptoms may include: ?? Pain or soreness in the ankle ?? Swelling ?? Redness or bruising ?? Not being able to walk or put weight on the affected foot ?? Reduced range of motion in the ankle ?? A popping or tearing feeling at the time the sprain occurs ?? An abnormal or dislocated look to the ankle ?? Instability or too much range of motion in the ankle Treatment for an ankle sprain Treatment focuses on reducing pain and swelling, and avoiding further injury. Treatments may include: ?? Resting the ankle. Avoid putting weight on it. This may mean using crutches until the sprain heals. ?? Prescription or lglt-lwa-obrvsch pain medicines. These help reduce swelling and pain. ?? Cold packs. These help reduce pain and swelling. ?? Raising your ankle above your heart. This helps reduce swelling. ?? Wrapping the ankle with an elastic bandage or ankle brace. This helps reduce swelling and gives some support to the ankle. In rare cases, you may need a cast or boot. ?? Stretching and other exercises. These improve flexibility and strength. ?? Heat packs. These may be recommended before doing ankle exercises. Possible complications of an ankle sprain An ankle that has been weakened by a sprain can be more likely to have repeated sprains afterward. Doing exercises to strengthen your ankle and improve balance can reduce your risk for repeated sprains. Other possible complications are long-term (chronic) pain or an ankle that remains unstable. When to call your healthcare provider Call your healthcare provider right away if you have any of these: ?? Fever of 100.4??F (38??C) or higher, or as directed ?? Pain, numbness, discoloration, or coldness in the foot or toes ?? Pain that gets worse ?? Symptoms that don???t get better, or get worse ?? New symptoms Date Last Reviewed: 05/19/2015 ?? 1520-16[address] [employer] [place] [address], [place] [address]. All rights reserved. This information is not intended as a substitute for professional medical care. Always follow your healthcare professional's instructions. documented in this encounter Progress Notes Pita Morton CNP - 08/17/2019 4:00 PM CDT I will give karen brower es his family again so and is going to see if there is a recording there Pita Morton CNP - 08/17/2019 4:00 PM CDT Images from the original note were not included. SUBJECTIVE: Alysa Verde is a 34 year old female presenting with a chief complaint of rolling her left ankle yesterday morning. She has significant swelling but is able to ambulate with minimal pain. She reports hearing a pop when the ankle rolled. Onset of symptoms was 1 day(s) ago. Course of illness is worsening. Severity moderate Previous Treatment: Ice and ibuprofen Past Medical History: Diagnosis Date ??? Abnormal Pap smear -2008 No current outpatient medications on file. Social History Tobacco Use ??? Smoking status: Never Smoker ??? Smokeless tobacco: Never Used Substance Use Topics ??? Alcohol use: No Comment: occasional Family History Problem Relation Age of Onset ??? Hypertension Mother ??? Cancer - colorectal No family hx of ??? Cancer Maternal Grandmother ovarian ??? Gynecology Mother endometriosis ??? Diabetes Mother ??? C.A.D. No family hx of ??? Cerebrovascular Disease Paternal Grandfather ROS:7 point ROS neg other than the symptoms noted above in the HPI. OBJECTIVE There were no vitals taken for this visit. GENERAL APPEARANCE: healthy appearing, alert MS: extremities normal- no gross deformities noted; normal muscle tone, except for left ankle that has significant swelling over the lateral malleolus with minimal tenderness on palpation, 3+ pedal pulse noted SKIN: no suspicious lesions or rashes NEURO: Normal strength and tone, mentation intact and speech normal Left ankle x-ray shows no evidence of fracture or bone deformity. Soft tissue swelling noted over the lateral malleolus as read by this provider. ASSESSMENT/PLAN: ICD-10-CM 1. Sprain of left ankle, unspecified ligament, initial encounter S93.402A INESSA wrap, ice and Ibuprofen, If pain not completley gone in 3 weeks consider returning for repeat Xray. 2. Acute left ankle pain M25.572 XR Ankle Left G/E 3 Views Follow Up: Patient Instructions Patient Education Understanding Ankle Sprain The ankle is the joint where the leg and foot meet. Bones are held in place by connective tissue called ligaments. When ankle ligaments are stretched to the point of pain and injury, it is called an ankle sprain. A sprain can tear the ligaments. These tears can be very small but still cause pain. Ankle sprains can be mild or severe. What causes an ankle sprain? A sprain may occur when you twist your ankle or bend it too far. This can happen when you stumble orfall. Things that can make an ankle sprain more likely include: ?? Having had an ankle sprain before ?? Playing sports that involve running and jumping. Or playing contact sports such as football or hockey. ?? Wearing shoes that don???t support your feet and ankles well ?? Having ankles with poor strength and flexibility Symptoms of an ankle sprain Symptoms may include: ?? Pain or soreness in the ankle ?? Swelling ?? Redness or bruising ?? Not being able to walk or put weight on the affected foot ?? Reduced range of motion in the ankle ?? A popping or tearing feeling at the time the sprain occurs ?? An abnormal or dislocated look to the ankle ?? Instability or too much range of motion in the ankle Treatment for an ankle sprain Treatment focuses on reducing pain and swelling, and avoiding further injury. Treatments may include: ?? Resting the ankle. Avoid putting weight on it. This may mean using crutches until the sprain heals. ?? Prescription or cnxc-dzl-lcwwhfi pain medicines. These help reduce swelling and pain. ?? Cold packs. These help reduce pain and swelling. ?? Raising your ankle above your heart. This helps reduce swelling. ?? Wrapping the ankle with an elastic bandage or ankle brace. This helps reduce swelling and gives some support to the ankle. In rare cases, you may need a cast or boot. ?? Stretching and other exercises. These improve flexibility and strength. ?? Heat packs. These may be recommended before doing ankle exercises. Possible complications of an ankle sprain An ankle that has been weakened by a sprain can be more likely to have repeated sprains afterward. Doing exercises to strengthen your ankle and improve balance can reduce your risk for repeated sprains. Other possible complications are long-term (chronic) pain or an ankle that remains unstable. When to call your healthcare provider Call your healthcare provider right away if you have any of these: ?? Fever of 100.4??F (38??C) or higher, or as directed ?? Pain, numbness, discoloration, or coldness in the foot or toes ?? Pain that gets worse ?? Symptoms that don???t get better, or get worse ?? New symptoms Date Last Reviewed: 05/19/2015 ?? [id number] [employer] [address] [place] [address]. All rights reserved. This information is not intended as a substitute for professional medical care. Always follow your healthcare professional's instructions. Pita Morton APRN, CNP [facility] Provider documented in this encounter Plan of Treatment [...] LEFT ANKLE THREE OR MORE VIEWS 08/17/19 3:56 PM HISTORY: Acute left ankle pain. COMPARISON: None. IMPRESSION: No evidence of acute fractur e or subluxation. Mortise is intact. Talar dome is intact. MARCIN COYLE MD Pita Morton CNP [facility] ORDER DORON documented in this encounter Visit Diagnoses Diagnosis Sprain of left ankle, unspecified ligame nt, initial encounter - Primary Acute left ankle pain documented in this encounter Care Teams Landing Scaler Relationship Specialty Start Date End Date Kyle Mascorro MD PCP - General Family Practice 12/01/[address], [id number] [place] [address] documented as of this encounter
--- OUTSIDE RECORDS SUMMARY | 2021-11-25 22:39 | XMS_ITS | Encounter Summary ---
:1985 Author Organization [place] Address [address] [place] [address] Care Team Providers Name Role Phone Lisa Gayle MD Primary Care Provider Encounter Details Date Type Department Care Team Description 06/06/2012 Results Only [facility] Fredy whipple MD [place] [address] [address] [facility] [address] [place] [address] [place] [address] [phone] Social History Tobacco Use Types Packs/Day Years [...] Associated Diagnoses Order S chedule US OB < 14 Weeks Single Imaging Orde red: 06/06/2012 documented as of this encounter Visit Diagnoses Not on filedocumented in this encounter Care Teams Bander And Cellophaner Machine Helper Relationship Specialty Start Date End Date Lisa Gayle MD PCP - General 03/24/99 11/30/[address], [address] [place] [address] (work) documented as of this encounter
--- OUTSIDE RECORDS SUMMARY | 2021-11-25 22:39 | XMS_ITS | Encounter Summary ---
:1985 Author Organization [place] Address [address] [place] [address] Care Team Providers Name Role Phone Kyle Mascorro MD Primary Care Provider Encounter Details Date Type Department Care Team Description 08/17/2019 Travel Social History Tobacco Use Types Packs/Day Years [...] on filedocumented in this encounter Care Teams Testing And Regulating Technician Relationship Specialty Start Date End Date Kyle Mascorro MD PCP - General Family Practice 12/01/[address], [address] [place] [address] documented as of this encounter
--- NOTE | 2021-11-25 22:40 | ED.NURSE ---
Patient has decreased wheezing and more air movement following nebulizer treatment. States she feels much better as well.
--- OUTSIDE RECORDS SUMMARY | 2021-11-25 22:40 | XMS_ITS | Encounter Summary ---
:1985 Author Organization [place] Address [address] [place] [address] Care Team Providers Name Role Phone Lisa Gayle MD Primary Care Provider Reason for Visit Reason Comments Consult Encounter Details Date Type Department Care Team Description 11/16/2008 Office Visit [facility] Lisa Gayle, Urinatsering y Tract Physicians Infection, Site not [address], Specified (Primary Dx) [address] [place] [address] [phone] Social History Tobacco Use Types Packs/Day Years Used Date Never Smoker Alcohol Use Standard Drinks/Week Comments No 0 (1 standard drink = 0.6 oz pure alcoho l) Sex Assigned at Date Recorded Not on file documented as of this encounter Last Filed Vital Signs Vital Sign Reading Time Taken Comments Blood Pressure 110/70 11/16/2008 5:19 PM CDT Pulse 76 11/16/2008 5:19 PM CDT Temperature 36.8 ??C (98.3 ??F) 11/16/2008 5:19 PM CDT Respiratory Rate 12 11/16/2008 5:19 PM CDT Oxygen Saturation - - Inhaled Oxygen Concentration - - Weight 57.2 kg (126 lb) 11/16/2008 5:19 PM CDT Height 170.8 cm (5' 7.25) 11/16/2008 5:19 PM CDT Body Mass Index 19.59 11/16/2008 5:19 PM CDT documented in this encounter Progress Notes Lisa Gayle - 11/16/2008 6:18 PM CDT SUBJECTIVE: Alysa Rodrigues is an 23 year old female who presents with suspected urinary tract infection. Her symptoms began 2 days ago and include frequency which has resolved after making her appointment. Predisposing factors: frequent sexual intercourse Hx of previous UTI???s: 3 infections last one treated with Cipro for 5 days and she ended it last week. Urgent care called with positive culture that had sensitive bacteria Sexually active: yes, single partner, contraception - oral contraceptives 1. DIMA 28 3-0.03 MG OR TABS Route: Oral Si TABLET DAILY Dispense: 3 months Refill: 3 -- No Known Allergies -- Ragweeds OBJECTIVE: BP 110/70 Pulse 76 Temp (Src) 98.3 ??F (36.8 ??C) (Oral) Resp 12 Ht 5' 7.25 (1.708 m) Wt 126 lb (57.153 kg) LMP 11/09/2008 General appearance: healthy, alert, no distress and cooperative Hydration: mildly dehydrated CVA tenderness to percussion: absent Abdomen: flat and symmetric, normal bowel sounds. Tenderness: none Masses: none Organomegaly: none UA: minor changes ASSESSMENT/PLAN: 599.0 Urinary Tract Infection, Site not Specified (primary encounter diagnosis) Plan: URINALYSIS, ROUTINE, CULTURE, URINE, SPECIMEN HANDLING,DR OFF->LAB Patient was instructed to drink plenty of fluids, urinate frequently and to contact the office promptly should she notice fever greater than 102, increase in discomfort, skin rash, lack of improvementafter 2 days of treatment, or the appearance of new symptoms. Watch for vaginal itching or irritation. Call if symptoms worsen. Prevention reviewed. documented in this encounter Nursing Notes 11/16/2008 5:15 PM CDT >> JAZMIN Stahl Nov 16, 2008 5:21 PM Patient is here to talk about some UTI that she has been having. She states that she does not have one now but wants to talk about it. BP done on the left arm, with a large sized cuff. Pulse - regular My Chart - declines CLASSIFICATION OF OVERWEIGHT AND OBESITY BY BMI Obesity Class BMI(kg/m2) Underweight < 18.5 Normal 18.5-24.9 Overweight 25.0-29.9 OBESITY I 30.0-34.9 II 35.0-39.9 EXTREME OBESITY III >40 Patient's BMI Body mass index is 19.59 kg/(m^2). http://hin.nhlbi.nih.gov/menuplanner/menu.cgi Questioned patient about current smoking habits. Pt. has never smoked. documented in this encounter Plan of Treatment Not on filedocumented as of this encounter Procedures Procedure Name Priority Date/Time Associated Diagnosis Comme nts ZZCL AFF CULTURE, Routine 11/20/2008 4:00 AM Urinary Tract Res ults for this URINE CDT Infection, Site not procedur e are in Specified the results section. CL AFF URINALYSIS, Routine 11/16/2008 6:04 PM Urinary Tract Re sults for this ROUTINE CDT Infection, Site not procedur e are in Specified the results section. documented in this encounter Results CULTURE, URINE (11/20/2008 4:00 AM CDT) athologist Signature Urine Voided [facility] Comment: ??CULTURE, URINE, ROUTINE ?MICRO NUMBER: ?[id number] ??TEST STATUS: ? FINAL ??SPECIMEN SOURCE: ?? URINE ??SPECIMEN COMMENTS: ADEQUATE ??RESULT: ?10,000-50,00 0 CFU/ML OF ENTEROCOCCUS FAECALIS ? 1,000-10, 000 CFU/ML OF GROUP B STREPTOCOCCUS ISOLATED ? BETA-HEMOLYTIC STREPTOCOCCI ARE ? PREDICTABLY SUSCEPTIBLE TO PENICILLIN ? AND OTHER BETA-LACTAMS. ? SUSCEPTIBILITY TESTING NOT ROUTINELY ? PERFORMED. ? ANY AMOUN T OF GROUP B STREPTOCOCCUS IN URINE ? SPECIMENS OBTAINED FROM [facility] IS A ? MARKER OF GENITAL TRACT COLONIZATION. IF THIS ? PATIENT I S , PLEASE REFER TO ACOG ? GUIDELINE S FOR APPROPRIATE SCREENING AND ? MANAGEMEN T OF WOMEN. ?E .FAECALIS ?- ?I NT ?? DC ?? AMPICILLIN ? S ? 2 ?? CIPROFLOXACIN ?S ? <1 ?? LEVOFLOXACIN ? S ? <2 ?? NITROFURANTOIN ? S ? < 32 ?? TETRACYCLINE ? R ? >8 ?? VANCOMYCIN ? S ? <2 Legend: S = Susceptible ??I = Intermediate ??R = Resistant ??NS = Not Susceptible * = Not Tested ??NR = Not Reported ??n n = See Therapy Comments NO COLLECTION DATE RECEIVED. WE HAVE USE D THE DATE THE SPECIMEN WAS RECEIVED BY IS LABORATORY THE COLLECTION DATE. IF IS IS INCORRECT, PLEASE CONTACT CLIENT SERV [facility]. PHONE NUMBER: [phone] Test Performed at: [facility] [address] ??[address] JANETTE CARRASCO M.D. Specimen (Source) Anatomical Collection Method Collection Time Re ceived Time Location / / Volume Laterality 11/18/2008 1:06 AM CDT Lisa Gayle MD LABORATORY Performing Organization Address City/[facility] Phon e Number [facility] [address] [place] [phone] [facility] [phone] (ABNORMAL) URINALYSIS, ROUTINE (11/16/2008 6:04 PM CDT) [facility] gist Method Time Signature Color Urine yellow [facility] Appearance Urine hazy [facility] Glucose Urine neg mg/dL [facility] Bilirubin Urine neg [facility] Ketones Urine neg mg/dL [facility] Specific Armstrong 1.015 [facility] Blood Urine small [facility] pH Arterial 6.5 5.0 - 7.0 [facility] Albumin Urine neg neg - neg [facility] mg/dL Urobilinogen Urine 0.2 EU/dL [facility] L Nitrite Urine neg [facility] Leukocyte Esterase small neg - neg [facility] L Wbc, Urine Micro 10-15 neg - 2 [facility] RBC Micro Urine 3-7 neg - 2 [facility] EP/HPF lg [facility] Bacteria Urine sm neg - neg [facility] Casts/LPF neg [facility] Miscellaneous neg [facility] Lisa Gayle MD LABORATORY Performing Organization Address City/State/ZIP Code Phon e Number [facility] documented in this encounter Visit Diagnoses Diagnosis Urinary tract infection, site not specif ied - Primary documented in this encounter Care Teams Passenger Relations Representative Relationship Specialty Start Date End Date Lisa Gayle MD PCP - General 03/24/99 11/30/[address], [address] [place] [address] documented as of this encounter
--- OUTSIDE RECORDS SUMMARY | 2021-11-25 22:40 | XMS_ITS | Encounter Summary ---
:1985 Author Organization [place] Address [address] [place] [address] Care Team Providers Name Role Phone Lisa Gayle MD Primary Care Provider Reason for Visit Reason Comments Care Encounter Details Date Type Department Care Team Description 06/08/2011 Office [facility] Fredy Davis Sup ervision of Visit [facility] MD Mallory [address] (Primary [address] Dx) [place] [address] [address] [place], [place] (Work) [address] Social History Tobacco Use [...] Sign Reading Time Taken Comments Blood Pressure 144/82 06/08/2011 3:29 PM CDT Pulse - - Temperature - - Respiratory Rate - - Oxygen Saturation - - Inhaled Oxygen Concentration - - Weight 86.3 kg (190 lb 4.8 oz) 06/08/2011 3:29 PM CDT Height - - Body Mass Index 29.81 12/18/2010 3:18 PM CDT documented in this encounter Progress Notes Fredy Davis MD - 06/11/2011 7:54 AM CDT Questions reviewed PIH symptoms discussed; none at present PIH labs today; return in 3 days or for symptoms documented in this encounter Nursing Notes 06/08/2011 3:15 PM CDT >> KIMBERLY KARIN Fri Jun 08, 2011 3:31 PM . 39w5d. Latricia Frey RN documented in this encounter Plan of Treatment Not on filedocumented as of this encounter Procedures Procedure Name Priority Date/Time Associated Diagnosis Comme nts CBC WITH PLATELETS & Routine 06/08/2011 3:54 PM Supervision of Results for this DIFFERENTIAL CDT normal first procedure are i n the results section. URIC ACID Routine 06/08/2011 3:54 PM Supervision of Results for this CDT normal first procedure are i n the results section. UREA NITROGEN (BUN) Routine 06/08/2011 3:54 PM Supervision of Results for this CDT normal first procedure are i n the results section. CREATININE Routine 06/08/2011 3:54 PM Supervision of Results for this CDT normal first procedure are i n the results section. AST Routine 06/08/2011 3:54 PM Supervision of Results for this CDT normal first procedure are i n the results section. ALT Routine 06/08/2011 3:54 PM Supervision of Results for this CDT normal first procedure are i n the results section. documented in this encounter Results Urea nitrogen (06/08/2011 3:54 PM CDT) P athologist Signature Urea Nitrogen 9 5 - 24 [place] [facility] mg/dL CLINIC LAB Specimen Anatomical Collection Method Collection Time Receive d Time (Source) Location / / Volume Laterality Blood specimen 06/08/2011 3:54 PM 012 3:59 (specimen) CDT PM CDT Fredy Davis MD LAB - BLOOD ORDERABLES Performing Organization Address City/State/ZIP Code Phon e Number [facility] [address] [facility] [place] [address] [facility] (ABNORMAL) CBC with platelets differential (06/08/2011 3:54 PM CDT) [facility] gist Method Time Signature WBC 11.0 4.0 - [place] 11.0 [facility] 10e9/L CLINIC LAB RBC Count 4.05 3.8 - 5.2 [place] 10e12/L [facility] Hemoglobin 12.3 11.7 - [place] 15.7 g/dL [facility] Hematocrit 37.1 35.0 - [place] 47.0 % [facility] MCV 92 78 - 100 [place] fl [facility] MCH 30.4 26.5 - [place] 33.0 pg [facility] MCHC 33.2 31.5 - [place] 36.5 g/dL [facility] RDW 13.6 10.0 - [place] 15.0 % [facility] Platelet Count 238 150 - 450 [place] 10e9/L [facility] Diff Method Automated [facility] % Neutrophils 76.3 (H) 40 - 75 % [facility] % Lymphocytes 13.7 (L) 20 - 48 % [facility] % Monocytes 8.6 0 - 12 % [facility] % Eosinophils 1.2 0 - 6 % [facility] % Basophils 0.2 0 - 2 % [facility] Absolute 8.4 (H) 1.6 - 8.3 [place] Neutrophil 10e9/L [facility] Absolute 1.5 0.8 - 5.3 [place] Lymphocytes 10e9/L [facility] Absolute 0.9 0.0 - 1.3 [place] Monocytes 10e9/L [facility] Absolute 0.1 0.0 - 0.7 [place] Eosinophils 10e9/L [facility] Absolute 0.0 0.0 - 0.2 [place] Basophils 10e9/L [facility] Specimen Anatomical Collection Method Collection Time Receive d Time (Source) Location / / Volume Laterality Blood specimen 06/08/2011 3:54 PM 012 3:59 (specimen) CDT PM CDT Fredy Davis MD LAB - BLOOD ORDERABLES Performing Organization Address City/State/ZIP Code Phon e Number [facility] [address] [place], [place] [address] [address] [facility] Uric acid (06/08/2011 3:54 PM CDT) athologist Signature Uric Acid 5.2 2.5 - 6.2 [facility] mg/dL CLINIC LAB Specimen Anatomical Collection Method Collection Time Receive d Time (Source) Location / / Volume Laterality Blood specimen 06/08/2011 3:54 PM 012 3:59 (specimen) CDT PM CDT Fredy Davis MD LAB - BLOOD ORDERABLES Performing Organization Address City/[facility]/ZIP Code Phon e Number [address] [address] [phone] [facility] Creatinine (06/08/2011 3:54 PM CDT) athologist Signature Creatinine 0.69 0.52 - [place] [facility] 1.04 mg/dL CLINIC LAB GFR Estimate >90 >60 [facility] [facility] mL/min/1.7 CLINIC LAB m2 GFR Estimate If >90 >60 [facility] Black mL/min/1.7 CLINIC LAB m2 Specimen Anatomical Collection Method Collection Time Receive d Time (Source) Location / / Volume Laterality Blood specimen 06/08/2011 3:54 PM 012 3:59 (specimen) CDT PM CDT Fredy Davis MD LAB - BLOOD ORDERABLES Performing Organization Address City/[facility]/ZIP Code Phon e Number [address] [address] [phone] [facility] AST (06/08/2011 3:54 PM CDT) athologist Signature AST 31 0 - 45 U/L [facility] Specimen Anatomical Collection Method Collection Time Receive d Time (Source) Location / / Volume Laterality Blood specimen 06/08/2011 3:54 PM 012 3:59 (specimen) CDT PM CDT Fredy Davis MD LAB - BLOOD ORDERABLES Performing Organization Address City/[facility]/ZIP Code Phon e Number [facility] [address] [facility] [place] [address] [phone] [facility] ALT (06/08/2011 3:54 PM CDT) P athologist Signature ALT 18 0 - 50 U/L [facility] Specimen Anatomical Collection Method Collection Time Receive d Time (Source) Location / / Volume Laterality Blood specimen 06/08/2011 3:54 PM 012 3:59 (specimen) CDT PM CDT Fredy Davis MD LAB - BLOOD ORDERABLES Performing Organization Address City/State/ZIP Code Phon e Number [facility] [address] [place] [address] [phone] [facility] documented in this encounter Visit Diagnoses Diagnosis Supervision of normal first - Primary documented in this encounter Care Teams Animal Geneticist Relationship Specialty Start Date End Date Lisa Gayle MD PCP - General 03/24/99 11/30/12 [address] [facility] [address] [place] [address] documented as of this encounter
--- OUTSIDE RECORDS SUMMARY | 2021-11-25 22:40 | XMS_ITS | Encounter Summary ---
:1986 Author Organization [place] Address [address] [place] [address] Care Team Providers Name Role Phone Lisa Gayle MD Primary Care Provider Reason for Visit Reason Comments UTI Encounter Details Date Type Department Care Team Description 09/01/2005 Office Visit [facility] Lisa Gayle, ALONDRA MEHTA INFECTION Physicians NOS (Primary Dx) [address] [place] [address] [phone] Social History Tobacco Use Types Packs/Day Years Used Date Never Smoker Alcohol Use Standard Drinks/Week Comments No 0 (1 standard drink = 0.6 oz pure alcoho l) Sex Assigned at Date Recorded Not on file documented as of this encounter Last Filed Vital Signs Vital Sign Reading Time Taken Comments Blood Pressure 112/70 09/01/2005 10:30 AM CDT Pulse 68 09/01/2005 10:30 AM CDT Temperature 36.1 ??C (97 ??F) 09/01/2005 10:30 AM CDT Respiratory Rate 12 09/01/2005 10:30 AM CDT Oxygen Saturation - - Inhaled Oxygen Concentration - - Weight 55.8 kg (123 lb) 09/01/2005 10:30 AM CDT Height 171.5 cm (5' 7.5) 09/01/2005 10:30 AM CDT Body Mass Index 18.98 09/01/2005 10:30 AM CDT documented in this encounter Progress Notes Lisa Gayle - 09/01/2005 10:41 AM CDT SUBJECTIVE: Alysa Rodrigues is an 20 year old female who presents with suspected urinary tract infection. Her symptoms began 1 day ago and include dysuria and frequency. Predisposing factors: frequent sexual intercourse Hx of previous UTI???s: none Sexually active: yes, single partner, contraception - oral contraceptives 1 682173 MED 1. DIMA 28 3-0.03 MG OR TABS Route: Oral Si TABLET DAILY Dispense: 1 month Refill: 2 1 327141 MED 1 8 ALLERGY 1 -- No Known Allergies -- Ragweeds 1 8 ALLERGY 1 OBJECTIVE: 1 679458 VS BP 112/70 Pulse 68 Temp 97 Resp 12 Ht 5' 7.5 (1.72m) Wt 123 lbs (55.8kg) LMP 08/21/2005 1 704288 VS General appearance: healthy, alert, no distress and cooperative Hydration: well hydrated CVA tenderness to percussion: absent Abdomen: flat and symmetric, normal bowel sounds. Tenderness: none Masses: none Organomegaly: none ASSESSMENT/PLAN: 599.0 URIN TRACT INFECTION NOS (primary encounter diagnosis) Plan: URINALYSIS, ROUTINE, CULTURE, URINE, SPECIMEN HANDLING,DR OFF->LAB Patient was instructed to drink plenty of fluids, urinate frequently and to contact the office promptly should she notice fever greater than 102, increase in discomfort, skin rash, lack of improvementafter 2 days of treatment, or the appearance of new symptoms. documented in this encounter Nursing Notes 09/01/2005 10:30 AM CDT >> CANDELARIA MARTIN 09/01/2005 10:17 am Pt is Urostat for sx. >> CANDELARIA MARTIN 09/01/2005 10:13 am Pt presents with suspected urinary tract infection. Symptoms began 2 days ago and include dysuria, frequency and urgency. Questioned patient about current smoking habits. Pt. has never smoked. CLASSIFICATION OF OVERWEIGHT AND OBESITY BY BMI Obesity Class BMI(kg/m2) Underweight < 18.5 Normal 18.5-24.9 Overweight 25.0-29.9 OBESITY I 30.0-34.9 II 35.0-39.9 EXTREME OBESITY III >40 Patient's BMI Body mass index is 18.97 kg/(m^2). Http://hin.nhlbi.nih.gov/menuplanner/menu.cgi documented in this encounter Plan of Treatment Not on filedocumented as of this encounter Procedures Procedure Name Priority Date/Time Associated Diagnosis Comme nts ZZCL AFF CULTURE, Routine 09/03/2005 5:00 AM Urin Tract Infect ion Results for this URINE CDT Nos procedure are i n the results section. CL AFF URINALYSIS, Routine 09/01/2005 10:24 AM Urin Tract Infe ction Results for this ROUTINE CDT Nos procedure are i n the results section. documented in this encounter Results CULTURE, URINE (09/03/2005 5:00 AM CDT) P athologist Signature Urine Voided SEE NOTE [facility] Comment: ??CULTURE, URINE, ROUTINE ?MICRO NUMBER: ?[id number] ??TEST STATUS: ? FINAL ??SPECIMEN SOURCE: ?? URINE ??SPECIMEN COMMENTS: ADEQUATE ??RESULT: ?GREATER THAN 100,000 CFU/ML OF ESCHERICHIA COLI ?E .COLI ?- ?I NT ?? DC ?? AMOX/CLAVULANATE ? S ? <= 8 ?? AMPICILLIN ? S ? 2 ?? CEFAZOLIN ?S ? <=8 ?? CEFEPIME ? S ? <=4 ?? CEFTRIAXONE ?S ? <=8 ?? CEFUROXIME ? S ? <=4 ?? CIPROFLOXACIN ?S ? <=0.5 ?? GENTAMICIN ? S ? <=0.5 ?? LEVOFLOXACIN ? S ? <=1 ?? NITROFURANTOIN ? S ? < =32 ?? TOBRAMYCIN ? S ? <=0.5 ?? TRIMETHOPRIM/SULFA ? S ? <=1 0 Legend: S = Susceptible ??I = Intermediate ??R = Resistant ??NS = Not Susceptible * = Not Tested ??NR = Not Reported ??n n = See Therapy CommentsNO COLLECTION DATE RECEIVED. WE HAVE USED THE DATE THE SPECIMEN WAS RECEIVED BY [facility] THE COLLECTION DATE. IF IS IS INCORRECT, PLEASE CONTACT CLIENT [employer]. PHONE NUMBER: [phone] Test performed at [facility] [address] ??[address] Director: JANETTE CARRASCO M.D. Specimen (Source) Anatomical Location Collection Method / Collectio n Time Received Time / Laterality Volume 09/02/2005 Lisa Gayle MD LABORATORY Performing Organization Address City/State/ZIP Code Phon e Number [facility] [address] [phone] [facility] [address] URINALYSIS, ROUTINE (09/01/2005 10:24 AM CDT) [facility] gist Method Time Signature Color Urine dk.yellow [facility] Appearance Urine hazy [facility] Glucose Urine 250mg/dl mg/dL [facility] Bilirubin Urine mod [facility] Ketones Urine 15mg/dL mg/dL [facility] Specific Atkins 1.020 [facility] Blood Urine large [facility] pH Arterial 6.5 5.0 - 7.0 [facility] Albumin Urine >=300mg/dL neg - neg [facility] mg/dL Urobilinogen >=8.0E.U./dL EU/dL [facility] Urine Nitrite Urine positive [facility] Leukocyte large neg - neg [facility] Esterase Wbc, Urine Micro cnc neg - 2 [facility] RBC Micro Urine cnc neg - 2 [facility] EP/HPF cnc [facility] Bacteria Urine cnc neg - neg [facility] Casts/LPF cnc [facility] Miscellaneous cnc [facility] Lisa Gayle MD LABORATORY Performing Organization Address City/State/ZIP Code Phon e Number [facility] documented in this encounter Visit Diagnoses Diagnosis Urinary tract infection, site not specif ied - Primary documented in this encounter Care Teams Jammer Operator Relationship Specialty Start Date End Date Lisa Gayle MD PCP - General 03/24/99 11/30/12 [address] [facility] [address] [place] [address] documented as of this encounter
--- OUTSIDE RECORDS SUMMARY | 2021-11-25 22:40 | XMS_ITS | Encounter Summary ---
:1986 Author Organization [place] Address [address] [place] [address] Care Team Providers Name Role Phone Lisa Gayle MD Primary Care Provider Reason for Visit Reason Onset Date Comments Refill Request 11/03/2007 Encounter Details Date Type Department Care Team Description 11/03/2007 Refill [facility] ysicians Lisa Gayle MD Refill Request [address], [address] [place] [address] [place], [place] [phone] (Wo rk) Social History Tobacco Use Types Packs/Day Years Used Date Never Smoker Alcohol Use Standard Drinks/Week Comments No 0 (1 standard drink = 0.6 oz pure alcoho l) Sex Assigned at Date Recorded Not on file documented as of this encounter Miscellaneous Notes Telephone Encounter - Grace Suarez - 11/03/2007 12:44 PM CDT Refill for Mena 28d 1 month only called to pharm. Patient has appt on 11-20-07. documented in this encounter Plan of Treatment Not on filedocumented as of this encounter Visit Diagnoses Not on filedocumented in this encounter Care Teams Needle Loom Tender Relationship Specialty Start Date End Date Lisa Gayle MD PCP - General 03/24/99 11/30/[address] [place] [address] documented as of this encounter
--- OUTSIDE RECORDS SUMMARY | 2021-11-25 22:40 | XMS_ITS | Encounter Summary ---
:1985 Author Organization [place] Address [address] [place] [address] Care Team Providers Name Role Phone Lisa Gayle MD Primary Care Provider Reason for Visit Reason Onset Date Comments Refill Request 07/29/2006 Encounter Details Date Type Department Care Team Description 07/29/2006 Refill [facility] ysicians Lisa Gayle MD Refill Request [address], [place] [address] [place] [address] [place], [place] [phone] (Wo rk) Social History Tobacco Use Types Packs/Day Years Used Date Never Smoker Alcohol Use Standard Drinks/Week Comments No 0 (1 standard drink = 0.6 oz pure alcoho l) Sex Assigned at Date Recorded Not on file documented as of this encounter Miscellaneous Notes Telephone Encounter - Chelsea Melissa - 07/29/2006 8:45 AM CDT Okd pts cheo for one month, pt due for blocker and polisher appt documented in this encounter Plan of Treatment Not on filedocumented as of this encounter Visit Diagnoses Not on filedocumented in this encounter Care Teams Substation Mechanic Relationship Specialty Start Date End Date Lisa Gayle MD PCP - General 03/24/99 11/30/[address], [place] [address] [place], [place] [id number] documented as of this encounter
--- OUTSIDE RECORDS SUMMARY | 2021-11-25 22:40 | XMS_ITS | Encounter Summary ---
:1985 Author Organization [place] Address [address] [place] [address] Care Team Providers Name Role Phone Lisa Gayle MD Primary Care Provider Reason for Visit Reason Comments Care Encounter Details Date Type Department Care Team Description 01/15/2011 Office [facility] Fredy Davis Sup ervision of Visit [facility] MD Mallory [address] (Primary [address] [facility] [address] Dx) [place] [address] [address] [place], [place] (Work) [address] Social History Tobacco Use [...] Sign Reading Time Taken Comments Blood Pressure 92/58 01/15/2011 3:42 PM UNIT TENDER Pulse - - Temperature - - Respiratory Rate - - Oxygen Saturation - - Inhaled Oxygen Concentration - - Weight 64.5 kg (142 lb 4.8 oz) 01/15/2011 3:42 PM UNIT TENDER Height - - Body Mass Index 22.29 12/18/2010 3:18 PM CDT documented in this encounter Progress Notes Frdey Davis R - 01/15/2011 6:15 PM CST Ultrasound AGA TENDER documented in this encounter Nursing Notes 01/15/2011 3:30 PM CST >> KIMBERLY FREY Mon Jan 15, 2011 3:46 PM . 19w1d. Latricia Frey RN documented in this encounter Plan of Treatment Not on filedocumented as of this encounter Visit Diagnoses Diagnosis Supervision of normal first - Primary documented in this encounter Care Teams Stonecutter Assistant Relationship Specialty Start Date End Date Lisa Gayle MD PCP - General 03/24/99 11/30/12 [address] [facility] [address] [place] [address] documented as of this encounter
--- OUTSIDE RECORDS SUMMARY | 2021-11-25 22:40 | XMS_ITS | Encounter Summary ---
:1985 Author Organization [place] Address [address] [place] [address] Care Team Providers Name Role Phone Lisa Gayle MD Primary Care Provider Reason for Visit Reason Comments Care Encounter Details Date Type Department Care Team Description 04/20/2011 Office [facility] Fredy Davis Sup ervision of Visit [facility] MD Mallory [address] (Primary [address] [facility] [address] Dx) [place] [address] [address] [place], [place] (Work) [address] Social History Tobacco Use [...] Sign Reading Time Taken Comments Blood Pressure 128/60 04/20/2011 3:03 PM MEDIA JOB TITLES Pulse - - Temperature - - Respiratory Rate - - Oxygen Saturation - - Inhaled Oxygen Concentration - - Weight 76.6 kg (168 lb 14.4 oz) 04/20/2011 3:03 PM MEDIA JOB TITLES Height - - Body Mass Index 26.45 12/18/2010 3:18 PM CDT documented in this encounter Progress Notes Fredy Davis MD - 04/20/2011 3:57 PM CST Doing well A JOB TITLES documented in this encounter Nursing Notes 04/20/2011 3:15 PM CST >> AME GODINEZ Bryan Apr 20, 2011 3:07 PM Patient presents with: Care GA:32w5d Initial BP 128/60 Wt 168 lb 14.4 oz (76.613 kg) Estimated Body mass index is 26.45 kg/(m^2) as calculated from the following: Height as of 11: 5' 7(1.702 m). Weight as of this encounter: 168 lb 14.4 oz(76.613 kg).. BP completed using cuff size: regular documented in this encounter Plan of Treatment Not on filedocumented as of this encounter Visit Diagnoses Diagnosis Supervision of normal first - Primary documented in this encounter Care Teams Immunology Teacher Relationship Specialty Start Date End Date Lisa Gayle MD PCP - General 03/24/99 11/30/[address], [place] [address] [place] [address] documented as of this encounter
--- OUTSIDE RECORDS SUMMARY | 2021-11-25 22:40 | XMS_ITS | Encounter Summary ---
:1985 Author Organization [place] Address [address] [place] [address] Care Team Providers Name Role Phone Lisa Gayle MD Primary Care Provider Reason for Visit Reason Comments Care pt has delivery question--pt has b/c options Encounter Details Date Type Department Care Team Description 05/25/2011 Office [facility] Fredy Davis Sup ervision of Visit [facility] MD Mallory normal [address] (Primary [address] [facility] [place] [facility] [address] Dx) [place] [address] [address] [place], [place] (Work) [address] Social History Tobacco Use [...] Sign Reading Time Taken Comments Blood Pressure 112/60 05/25/2011 3:33 PM CDT Pulse - - Temperature - - Respiratory Rate - - Oxygen Saturation - - Inhaled Oxygen Concentration - - Weight 82.5 kg (181 lb 12.8 oz) 05/25/2011 3:33 PM CDT Height - - Body Mass Index 28.47 12/18/2010 3:18 PM CDT documented in this encounter Progress Notes Fredy Davis MD - 05/28/2011 10:02 AM CDT No questions documented in this encounter Nursing Notes 05/25/2011 3:30 PM CDT >> AMAURY ALE Fri May 25, 2011 3:35 PM 37w5d Patient presents with: Care - pt has delivery question--pt has b/c options Initial BP 112/60 Wt 181 lb 12.8 oz (82.464 kg) Estimated Body mass index is 28.47 kg/(m^2) as calculated from the following: Height as of 11: 5' 7(1.702 m). Weight as of this encounter: 181 lb 12.8 oz(82.464 kg).. BP completed using cuff size: regular Amaury Osmel Cejaer ADMISSIONS CONSULTANT documented in this encounter Plan of Treatment Not on filedocumented as of this encounter Visit Diagnoses Diagnosis Supervision of normal first - Primary documented in this encounter Care Teams Cooker Syrup Relationship Specialty Start Date End Date Lisa Gayle MD PCP - General 03/24/99 11/30/[address], [place] [address] [place] [address] documented as of this encounter
--- OUTSIDE RECORDS SUMMARY | 2021-11-25 22:40 | XMS_ITS | Encounter Summary ---
:1985 Author Organization [place] Address [address] [place] [address] Care Team Providers Name Role Phone Lisa Gayle MD Primary Care Provider Reason for Visit Reason Comments UTI Encounter Details Date Type Department Care Team Description 12/03/2005 Office Visit [facility] Lisa Gayle, [facility]ODNRA [facility]OS (Primary Dx) [address] , [address] [place] [address] [place] [address] [phone] Social History Tobacco Use Types Packs/Day Years Used Date Never Smoker Alcohol Use Standard Drinks/Week Comments No 0 (1 standard drink = 0.6 oz pure alcoho l) Sex Assigned at Date Recorded Not on file documented as of this encounter Last Filed Vital Signs Vital Sign Reading Time Taken Comments Blood Pressure 110/70 12/03/2005 8:45 AM CDT Pulse 64 12/03/2005 8:45 AM CDT Temperature 36.9 ??C (98.5 ??F) 12/03/2005 8:45 AM CDT Respiratory Rate 12 12/03/2005 8:45 AM CDT Oxygen Saturation - - Inhaled Oxygen Concentration - - Weight 58.5 kg (129 lb) 12/03/2005 8:45 AM CDT Height 171.5 cm (5' 7.5) 12/03/2005 8:45 AM CDT Body Mass Index 19.91 12/03/2005 8:45 AM CDT documented in this encounter Progress Notes Lisa Gayle - 12/03/2005 9:10 AM CDT SUBJECTIVE: Alysa Rodrigues is an 20 year old female who presents with suspected urinary tract infection. Her symptoms began 1 day ago and include dysuria and frequency. Predisposing factors: frequent sexual intercourse Hx of previous UTI???s: rare Sexually active: yes, single partner, contraception - oral contraceptives 1 [id number] MED 1. MACROBID 100 MG OR CAPS Route: Oral Sig:ONE CAPSULE TWICE DAILY Dispense: 14 Refill: 0 2. DIMA 28 3-0.03 MG OR TABS Route: Oral Si TABLET DAILY Dispense: 3 months Refill: 2 3. PAROXETINE HCL 10 MG OR TABS Route: Oral Si TABLET DAILY Dispense: 30 Refill: 1 1 612072 MED 1 8 ALLERGY 1 -- No Known Allergies -- Ragweeds 1 8 ALLERGY 1 OBJECTIVE: 1 356197 VS BP 110/70 Pulse 64 Temp (Src) 98.5 (Oral) Resp 12 Ht 5' 7.5 (1.72m) Wt 129 lbs (58.5kg) LMP 11/19/2005 1 284746 VS General appearance: healthy, alert, no distress, cooperative and smiling Hydration: well hydrated CVA tenderness to percussion: absent Abdomen: flat and symmetric, normal bowel sounds. Tenderness: none Masses: none Organomegaly: none ASSESSMENT/PLAN: 599.0 URIN TRACT INFECTION NOS (primary encounter diagnosis) Plan: URINALYSIS, ROUTINE, CULTURE, URINE, SPECIMEN HANDLING,DR OFF->LAB, MACROBID 100 MG OR CAPS Patient was instructed to drink plenty of fluids, urinate frequently and to contact the office promptly should she notice fever greater than 102, increase in discomfort, skin rash, lack of improvementafter 2 days of treatment, or the appearance of new symptoms. documented in this encounter Nursing Notes 12/03/2005 8:45 AM CDT >> JAZMIN CALLEJAS 12/03/2005 8:56 am Patient is here for a possible UTI. Questioned patient about current smoking habits. Pt. has never smoked. CLASSIFICATION OF OVERWEIGHT AND OBESITY BY BMI Obesity Class BMI(kg/m2) Underweight < 18.5 Normal 18.5-24.9 Overweight 25.0-29.9 OBESITY I 30.0-34.9 II 35.0-39.9 EXTREME OBESITY III >40 Patient's BMI Body mass index is 19.89 kg/(m^2). Http://hin.nhlbi.nih.gov/menuplanner/menu.cgi documented in this encounter Plan of Treatment Not on filedocumented as of this encounter Procedures Procedure Name Priority Date/Time Associated Diagnosis Comme nts ZZCL AFF CULTURE, Routine 12/05/2005 4:00 AM Urin Tract Infect ion Results for this URINE CDT Nos procedure are i n the results section. CL AFF URINALYSIS, Routine 12/03/2005 9:06 AM Urin Tract Infec tion Results for this ROUTINE CDT Nos procedure are i n the results section. documented in this encounter Results CULTURE, URINE (12/05/2005 4:00 AM CDT) athologist Signature Urine Voided SEE NOTE [facility] Comment: ??CULTURE, URINE, ROUTINE ?MICRO NUMBER: ?[id number] ??TEST STATUS: ? FINAL ??SPECIMEN SOURCE: ?? URINE ??SPECIMEN COMMENTS: ADEQUATE ??RESULT: ?10,000-50,00 0 CFU/ML OF ESCHERICHIA COLI ?E .COLI ?- ?I NT ?? DC ?? AMOX/CLAVULANATE ? I ? 16 ?? AMPICILLIN ? R ? >=32 ?? CEFAZOLIN ?S ? <=8 ?? CEFEPIME ? S ? <=4 ?? CEFTRIAXONE ?S ? <=8 ?? CIPROFLOXACIN ?S ? <=0.5 ?? GENTAMICIN ? S ? 1 ?? IMIPENEM ? S ? <=4 ?? LEVOFLOXACIN ? S ? <=1 ?? [...] IF IS IS INCORRECT, PLEASE CONTACT CLIENT Work in Field. PHONE NUMBER: [phone] Test performed at [facility] [address] ??[address] Director: JANETTE CARRASCO M.D. Specimen (Source) Anatomical Collection Method Collection Time Re ceived Time Location / / Volume Laterality 12/04/2005 2:54 AM CDT Lisa Gayle MD LABORATORY Performing Organization Address City/State/ZIP Code Phon e Number [phone] [address] URINALYSIS, ROUTINE (12/03/2005 9:06 AM CDT) Analysis Performed At [facility] Time Signature Color Urine [facility] Appearance Urine hazy [facility] Glucose Urine mg/dL [facility] Bilirubin Urine [facility] Ketones Urine mg/dL [facility] Specific [place] [facility] Blood Urine [facility] pH Arterial 5.0 - 7.0 [facility] Albumin Urine neg - neg [facility] mg/dL Urobilinogen Urine EU/dL [facility] Nitrite Urine [facility] Leukocyte Esterase neg - neg [facility] L Wbc, Urine Micro 30-40 neg - 2 [facility] RBC Micro Urine 10-15 neg - 2 [facility] EP/HPF mod [facility] Bacteria Urine mod neg - neg [facility] Casts/LPF neg [facility] Miscellaneous [facility] Narrative [facility] - 12/03/2005 9:06 AM CDT Did not do dip due to the patient took P yradium. Lisa Gayle MD LABORATORY Performing Organization Address City/State/ZIP Code Phon e Number [facility] documented in this encounter Visit Diagnoses Diagnosis Urinary tract infection, site not specif ied - Primary documented in this encounter Care Teams Farmworker Machine Relationship Specialty Start Date End Date Lisa Gayle MD PCP - General 03/24/99 11/30/12 [address] [address] documented as of this encounter
--- OUTSIDE RECORDS SUMMARY | 2021-11-25 22:40 | XMS_ITS | Encounter Summary ---
:1985 Author Organization [place] Address [address] [place] [address] Care Team Providers Name Role Phone Lisa Gayle MD Primary Care Provider Reason for Visit Reason Comments Care Encounter Details Date Type Department Care Team Description 05/04/2011 Office [facility] Fredy Davis Sup ervision of Visit [facility] MD Mallory [address] (Primary [address] [facility] [address] Dx) [place] [address] [address] [place], [place] (Work) [address] Social History Tobacco Use [...] Reading Time Taken Comments Blood Pressure 118/66 05/04/2011 3:33 PM DATA PROCESSING CONSULTANT Pulse - - Temperature - - Respiratory Rate - - Oxygen Saturation - - Inhaled Oxygen Concentration - - Weight 79.4 kg (175 lb 1.6 oz) 05/04/2011 3:33 PM DATA PROCESSING CONSULTANT Height - - Body Mass Index 27.42 12/18/2010 3:18 PM CDT documented in this encounter Progress Notes Fredy Davis MD - 05/04/2011 4:04 PM CST Return in 2 weeks PROCESSING CONSULTANT documented in this encounter Nursing Notes 05/04/2011 3:30 PM CST >> AME GODINEZ Bryan May 04, 2011 3:35 PM Patient presents with: Care C/O acid reflux GA:34w5d Initial BP 118/66 Wt 175 lb 1.6 oz (79.425 kg) Estimated Body mass index is 27.42 kg/(m^2) as calculated from the following: Height as of 11: 5' 7(1.702 m). Weight as of this encounter: 175 lb 1.6 oz(79.425 kg).. BP completed using cuff size: regular documented in this encounter Plan of Treatment Not on filedocumented as of this encounter Visit Diagnoses Diagnosis Supervision of normal first - Primary documented in this encounter Care Teams Vacuum Cleaner Assembler Relationship Specialty Start Date End Date Lisa Gayle MD PCP - General 03/24/99 11/30/[address], [address] [place] [address] documented as of this encounter
--- OUTSIDE RECORDS SUMMARY | 2021-11-25 22:40 | XMS_ITS | Encounter Summary ---
:1985 Author Organization [place] Address [address] [place] [address] Care Team Providers Name Role Phone Lisa Gayle MD Primary Care Provider Reason for Visit Reason Comments Hypertension Imm/Inj Encounter Details Date Type Department Care Team Description 10/12/2005 Office Visit [facility] iLsa Gayle, DYSMEN ORRHEA (Primary Dx); Physicians VACCINE FOR VIRAL HEPATITIS; [address], DEPRESSIVE DISORDER [facility] [address] [place] [address] [place] [address] [phone] Social History Tobacco Use Types Packs/Day Years Used Date Never Smoker Alcohol Use Standard Drinks/Week Comments No 0 (1 standard drink = 0.6 oz pure alcoho l) Sex Assigned at Date Recorded Not on file documented as of this encounter Last Filed Vital Signs Vital Sign Reading Time Taken Comments Blood Pressure 110/70 10/12/2005 10:00 AM CDT Pulse 68 10/12/2005 10:00 AM CDT Temperature 36.7 ??C (98 ??F) 10/12/2005 10:00 AM CDT Respiratory Rate 12 10/12/2005 10:00 AM CDT Oxygen Saturation - - Inhaled Oxygen Concentration - - Weight 56.2 kg (124 lb) 10/12/2005 10:00 AM CDT Height 171.5 cm (5' 7.5) 10/12/2005 10:00 AM CDT Body Mass Index 19.13 10/12/2005 10:00 AM CDT documented in this encounter Progress Notes Scherf, Lisa - 10/12/2005 1:04 PM CDT SUBJECTIVE: Here for BP check and her last Hep B immunization. After following her menses and irritability is finding her depression and anxiety worsens around her menstrual cycle. She finds her anxiety is the worse symptom. OBJECTIVE: Alert, oriented, well hydrated. Skin turgor normal. BP excellent. Regular rate and rhythm. S1 and S2 normal, no murmurs, clicks, gallops or rubs. No edema or JVD. Chest is clear; no wheezes or rales. Reviewed her calendar of depression, problems concentrating, fatigue and memory problems. Anxiety without panic always present. I worry about everything ASSESSMENT: V05.3 VACCINE FOR VIRAL HEPATITIS (primary encounter diagnosis) Plan: HEPATITIS B VACCINE,PED/ADOL,IM, IMMUNIZATION ADMIN, FIRST updated 625.3 DYSMENORRHEA Plan: DIMA 28 3-0.03 MG OR TABS Refilled. Next pelvic exam 06/2006 311 DEPRESSIVE DISORDER NEC Plan: PAROXETINE HCL 10 MG OR TABS Trial for 2 cycles and then recheck with calendar of symptoms. I've explained to her that drugs of the SSRI class can have side effects such as weight gain, sexual dysfunction, insomnia, headache, nausea. These medications are generally effective at alleviating symptoms of anxiety and/or depression. Let me know if significant side effects do occur. documented in this encounter Nursing Notes 10/12/2005 10:00 AM CDT >> KAREL FERGUSON 10/12/2005 10:00 am Patient is here for a BP check. Pt also needs 3 Hep B immuniztion. Questioned patient about current smoking habits. Pt. has never smoked. Body mass index is 19.12 kg/(m^2). documented in this encounter Plan of Treatment Not on filedocumented as of this encounter Visit Diagnoses Diagnosis Dysmenorrhea - Primary Need for prophylactic vaccination and in oculation against viral hepatitis Depressive disorder, not elsewhere class ified documented in this encounter Care Teams Stamp Classifier Relationship Specialty Start Date End Date Lisa Gayle MD PCP - General 03/24/99 11/30/12 [address] , [facility] [address] [place] [address] documented as of this encounter
--- OUTSIDE RECORDS SUMMARY | 2021-11-25 22:40 | XMS_ITS | Encounter Summary ---
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 Encounter Details Date Type Department Care Team Description 12/22/2008 Office Visit [facility] Lisa Gayle Routin e Gynecological Examination (Primary Dx); Physicians Dysmenorrhea; [address], Allergic Rhinitis, Cause Uns pecified; [address] Need for Prophylactic Vaccination with T etanus-Diphtheria (TD) [place] [id number] [phone] Social History Tobacco Use Types Packs/Day Years Used Date Never Smoker Alcohol Use Standard Drinks/Week Comments No 0 (1 standard drink = 0.6 oz pure alcoho l) Sex Assigned at Date Recorded Not on file documented as of this encounter Last Filed Vital Signs Vital Sign Reading Time Taken Comments Blood Pressure 110/70 12/22/2008 11:33 AM CDT Pulse 76 12/22/2008 11:33 AM CDT Temperature 36.8 ??C (98.2 ??F) 12/22/2008 11:33 AM CDT Respiratory Rate 12 12/22/2008 11:33 AM CDT Oxygen Saturation - - Inhaled Oxygen Concentration - - Weight 56.7 kg (125 lb) 12/22/2008 11:33 AM CDT Height 171.5 cm (5' 7.5) 12/22/2008 11:33 AM CDT Body Mass Index 19.29 12/22/2008 11:33 AM CDT documented in this encounter Progress Notes Jazz Lawrence - 12/22/2008 1:27 PM CDT Addended by: JAZZ LAWRENCE on: 12/22/2008 1:27:25 PM Modules accepted: Orders Lisa Gayle - 12/22/2008 11:54 AM CDT SUBJECTIVE: Alysa Rodrigues is an 23 year old G 0 P 0 woman who 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 Patient's last menstrual period was 12/15/2008. Periods are regular q 28-30 days, lasting 4 days. Dysmenorrhea:none. Cyclic symptoms include none. No intermenstrual bleeding, spotting, or discharge. Current contraception: oral contraceptives ASHELY exposure: no History of abnormal Pap smear: no Family history of uterine or ovarian cancer: no Regular self breast exam: Yes History of abnormal mammogram: no Family history of breast cancer: no History of abnormal lipids: no No past medical history on file. Family History Problem Relation ??? Hypertension Mother ??? Cancer Maternal Grandmother ??? Colon CA No family hx of Past Surgical History Procedure Date ??? Dental surgery procedure age 18 ??? Dominique (emp) w opt myopia -3.12 2004 bilateral Current Outpatient Rx Name Route Sig Dispense Refill ??? DIMA 28 3-0.03 MG OR TABS Oral 1 TABLET DAILY 3 months 3 ??? DIMA 28 3-0.03 MG OR TABS Oral 1 TABLET DAILY 3 months 3 Allergies Allergen Reactions ??? No Known Allergies ??? Ragweeds History Substance Use Topics ??? Tobacco Use: Never ??? Alcohol Use: No Review Of Systems Ears/Nose/Throat: allergies midsummer-fall Respiratory: No shortness of breath, dyspnea on exertion, cough, or hemoptysis Cardiovascular: negative Gastrointestinal: negative Genitourinary: negative OBJECTIVE: BP 110/70 Pulse 76 Temp (Src) 98.2 ??F (36.8 ??C) (Oral) Resp 12 Ht 5' 7.5 (1.715 m) Wt 125 lb (56.7 kg) LMP 12/15/2008 General appearance: healthy, alert, no distress and cooperative Skin: Skin color, texture, turgor normal. No rashes or lesions. Ears: negative Nose/Sinuses: Nares normal. Septum midline. Mucosa normal. No drainage or sinus tenderness. Oropharynx: Lips, mucosa, and tongue normal. Teeth and gums normal. Neck: Neck supple. No adenopathy. Thyroid symmetric, normal size,, Carotids without bruits. Lungs: negative, Percussion normal. Good diaphragmatic excursion. Lungs clear Heart: negative, PMI normal. No lifts, heaves, or thrills. RRR. No murmurs, clicks gallops or rub Breasts: Inspection negative. No nipple discharge or bleeding. No masses. Abdomen: Abdomen soft, non-tender. BS normal. No masses, organomegaly Pelvic: External genitalia and vagina normal. Bimanual and rectovaginal normal. BMI : Body mass index is 19.29 kg/(m^2). ASSESSMENT:V72.31 Routine Gynecological Examination (primary encounter diagnosis) Plan: THIN LAY PAP,DIAG W/HPV REFLEX, SPECIMEN HANDLING,DR OFF->LAB, LABELS, HEMOGLOBIN, VENOUS COLLECTION Total calcium intake of 1500 mgm/day, vitamin D 400-800IU/day and a regular weight bearing exerciseprogram for prevention of osteoporosis is recommended treatment at this time. 625.3 Dysmenorrhea Plan: DIMA 28 3-0.03 MG OR TABS, HEMOGLOBIN, VENOUS COLLECTION Refilled. Potential medication side effects were discussed with the patient; let me know if any occur. 477.9 Allergic Rhinitis, Cause Unspecified Plan: I have reviewed the patient's medical history in detail and updated the computerized patient record. V06.5 Need for Prophylactic Vaccination with Tetanus-Diphtheria (TD) Plan: TDAP ( BOOSTRIX AGES 10-64), IMMUNIZATION ADMIN, FIRST Dx: 1) Pap smear 2) Mammography, lipids at appropriate intervals PE: Reviewed health maintenance including diet, regular exercise and periodic exams. documented in this encounter Nursing Notes 12/22/2008 11:15 AM CDT >> JAZMIN CALLEJAS Wed Dec 22, 2008 11:37 AM Patient is here for a phy and pap. BP done on the left arm, with a medium sized cuff. Pulse - regular My Chart - declines CLASSIFICATION OF OVERWEIGHT AND OBESITY BY BMI Obesity Class BMI(kg/m2) Underweight < 18.5 Normal 18.5-24.9 Overweight 25.0-29.9 OBESITY I 30.0-34.9 II 35.0-39.9 EXTREME OBESITY III >40 Patient's BMI Body mass index is 19.29 kg/(m^2). http://hin.nhlbi.nih.gov/menuplanner/menu.cgi Questioned patient about current smoking habits. Pt. has never smoked. documented in this encounter Plan of Treatment Not on filedocumented as of this encounter Procedures Procedure Name Priority Date/Time Associated Diagnosis Comme nts LABELS Routine 12/22/2008 12:55 Dysmenorrhea PM CDT ZZCL AFF HEMOGLOBIN Routine 12/22/2008 12:21 Dysmenorrhe a Results for this PM CDT Routine Gynecological proced ure are in Examination the results section. HC VENOUS Routine 12/22/2008 12:13 Dysmenorrhea COLLECTION PM CDT Routine Gynecological Examination LABELS Routine 12/22/2008 11:47 Routine Gynecological AM CDT Examination ZZCL AFF THIN LAY Routine 12/22/2008 Routine Gynecological R esults for this PAP,DIAG W/HPV Examination procedure are in REFLEX the results section. documented in this encounter Results HEMOGLOBIN (12/22/2008 12:21 PM CDT) P athologist Signature Hemoglobin 15.0 12 - 16 [facility] INTERNAL GM/DL Lisa Gayle MD LABORATORY Performing Organization Address City/State/ZIP Code Phon e Number [facility] INTERNAL (ABNORMAL) THIN LAY PAP,DIAG W/HPV REFLEX ([phone]) (12/22/2008) [facility] Method Time Signature Report status FINAL [facility] [place] Clinical [facility] History [place] LMP [id number] [facility] [place] Last Pap WNL [facility] Diagnosis [place] Prev Bx Dx NONE GIVEN [facility] [place] Source none given [facility] [place] Statement of [facility] Adequacy [place] Comment: Satisfactory for evaluation. Endocervical/transformation zone compone nt absent. 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 [facility] Comment [facility] Comment: Based on the cytology result, reflex Hig h Risk HPV DNA testing was not performed. ? Consider colposcopy and cervical/endocer vical sampling, as clinically indicated. Haddad portions of this case have been revi ewed by one or more pathologists. Cylinder Handler: NIKKI NEWMAN Comment: MEN, CT(ASCP) Review Cylinder Handler NOT AVAIL. [facility] Pathologist [facility] Comment: Wilfredo Yao M.D. Candy Maker , Board Certified in Anatomic Pathology an d Clinical Pathology (electronic signature ) Test Performed at: [facility] [place] [address] [address] [place], [place] ??[address] JB GARCES MD Specimen (Source) Anatomical Collection Method Collection Time Re ceived Time Location / / Volume Laterality 12/22/2008 12/23/2008 3:38 AM CDT Narrative [facility] - 12/29/2008 8:00 AM CD T Additional Result Information INFECTION: RESULT NOT AVAILABLE REVIEW CASING INSPECTOR: RESULT NOT A VAILABLE Lisa Gayle MD LABORATORY Performing Organization Address City/State/ZIP Code Phon e Number [facility] [address] [place] [address] documented in this encounter Visit Diagnoses Diagnosis Routine gynecological examination - Prim mateo Dysmenorrhea Allergic rhinitis, cause unspecified Need for prophylactic vaccination with t etanus-diphtheria (Td) documented in this encounter Care Teams Solder Deposit Operator Relationship Specialty Start Date End Date Lisa Gayle MD PCP - General 03/24/99 11/30/[address], [address] [place] [address] documented as of this encounter
--- OUTSIDE RECORDS SUMMARY | 2021-11-25 22:40 | XMS_ITS | Encounter Summary ---
:1985 Author Organization [facility] Address [address] [place] [address] Care Team Providers Name Role Phone Lisa Gayle MD Primary Care Provider Reason for Visit Reason Comments Ultrasound Encounter Details Date Type Department Care Team Description 12/14/2010 Orders Only [facility] pervision of normal Clinic [place] first (Primary [address] Dx) [address] [place] [address] Social History Tobacco Use Types Packs/Day Years Used Date Never Smoker Alcohol Use Standard Drinks/Week Comments Yes 0 (1 standard drink = 0.6 oz pure alcoho l) occasional prior to Alcohol Habits Answer Date Recorded How often do you have a drink containing Not asked alcohol? How many drinks containing alcohol do you Not asked have on a typical day when you are drinking? How often do you have six or more drinks Not asked on one occasion? Comment: occasional prior to 11/16/2010 Sex Assigned at Date Recorded Not on file documented as of this encounter Plan of Treatment Not on filedocumented as of this encounter Procedures Procedure Name Priority Date/Time Associated Diagnosis Comme nts US OB <14 WEEKS WITH Routine 12/14/2010 Supervision of autumn freire Results for this TRANSVAGINAL SINGLE first proce dure are in the results section . documented in this encounter Results (ABNORMAL) US OB 1st trimester w transvag (12/14/2010) Anatomical Region Laterality Modality Abdomen/Pelvis Other Impressions 12/14/2010 Limited transabdominal obstetric ultrasound. Gross survey within normal limits. Sonographic EGA ?? 14 ??Weeks 4 days. Sonographic ??EDC June. Please note discrepancy between menstrual and sonographic dating paramet ers. Clinical correlation suggested. SIMON PELLETIER M.D. Narrative 12/14/2010 ULTRASOUND - LIMITED OB (12-17.9 WEEKS) [facility] [address] [place] [address] Referring Provider: Fredy Davis MD Clinic: [facility] Disk: 4545 tp INDICATIONS FOR ULTRASOUND: OB History: Present Conditions: Initial S&D (0-17 we eks) CLINICAL INFORMATION LMP: Aug 19 ??- unsure EDC: May 20 ?EGA: 17 wks 3d Previous US: No ?? EDC: May 20 discrepancy ? MEASUREMENTS BPD: 2.58cm ?MA:14w3d ? HC: 10.7cm ?MA:15w1d ?AC: 8.23cm ? MA:14w4d FL: 1.6cm ?MA:14w5d ? Hum: 1.35cm ?? MA:13w5d HC/AC:1.3 ?CI:75.2% FHR: 153bpm reg ? ELBA: ??wnl EDC: Jun 20 ?EGA: 14 wks 4d ?? di screpancy SURVEY Type: Xiong ? Placenta location: ??anterior ?? Umb cord: nv ?Insertion: noted ?Abdomen: noted Heart: noted ? Stomach: noted ? Bladder: noted Nuch/Neck: NV ? Spine: noted Arms: noted ?Legs: noted Head: noted ? Ventricles: NV ?? Maternal Adnexa: NA ?? *Other Findings: Fredy Davis MD IMG ORDERABLES documented in this encounter Visit Diagnoses Diagnosis Supervision of normal first - Primary documented in this encounter Care Teams Wheel Molder Relationship Specialty Start Date End Date Lisa Gayle MD PCP - General 03/24/99 11/30/12 [address] , [facility] [address] [place] [address] documented as of this encounter
--- OUTSIDE RECORDS SUMMARY | 2021-11-25 22:40 | XMS_ITS | Encounter Summary ---
:1985 Author Organization [place] Address [address] [place] [address] Care Team Providers Name Role Phone Lisa Gayle MD Primary Care Provider Reason for Visit Reason Comments Care Encounter Details Date Type Department Care Team Description 06/01/2011 Office [facility] Fredy Davis Sup ervision of Visit [facility] MD Mallory [address] (Primary [address] [facility] [address] Dx) [place] [address] [address] [place], [place] (Work) [address] Social History Tobacco Use [...] Sign Reading Time Taken Comments Blood Pressure 118/68 06/01/2011 3:16 PM CDT Pulse - - Temperature - - Respiratory Rate - - Oxygen Saturation - - Inhaled Oxygen Concentration - - Weight 84.7 kg (186 lb 12.8 oz) 06/01/2011 3:16 PM CDT Height - - Body Mass Index 29.26 12/18/2010 3:18 PM CDT documented in this encounter Progress Notes Fredy Davis MD - 06/04/2011 10:02 AM CDT Questions reviewed documented in this encounter Nursing Notes 06/01/2011 3:15 PM CDT >> KIMBERLY FREY Fri Jun 01, 2011 3:22 PM . 38w5d. Latricia Frey RN documented in this encounter Plan of Treatment Not on filedocumented as of this encounter Visit Diagnoses Diagnosis Supervision of normal first - Primary documented in this encounter Care Teams Director Financial Planning Relationship Specialty Start Date End Date Lisa Gayle MD PCP - General 03/24/99 11/30/[address], [address] [place] [address] documented as of this encounter
--- OUTSIDE RECORDS SUMMARY | 2021-11-25 22:40 | XMS_ITS | Encounter Summary ---
:1985 Author Organization [facility] Address [address] [place] [address] Care Team Providers Name Role Phone Lisa Gayle MD Primary Care Provider Reason for Visit Reason Comments Care Encounter Details Date Type Department Care Team Description 06/11/2011 Office [facility] Fredy Davis ervision of normal first (Primary Dx); Visit Women's Clinic MD Venus Tejada [address] [place] [address] [address] [place], [place] (Work) [address] Social History Tobacco Use [...] Sign Reading Time Taken Comments Blood Pressure 120/82 06/11/2011 5:19 PM CDT Pulse - - Temperature - - Respiratory Rate - - Oxygen Saturation - - Inhaled Oxygen Concentration - - Weight 86.5 kg (190 lb 11.2 oz) 06/11/2011 5:19 PM CDT Height - - Body Mass Index 29.87 12/18/2010 3:18 PM CDT documented in this encounter Progress Notes Fredy Davis MD - 06/11/2011 6:45 PM CDT No PIH symptoms -marked sciatica symptoms -low back exercises/heat/analgesic Jackie Leblanc - 06/11/2011 5:21 PM CDT Pt having lots of back pain that started today. documented in this encounter Nursing Notes 06/11/2011 5:15 PM CDT >> JACKIE LEBLANC Mon Jun 11, 2011 5:25 PM Patient presents with: Care Initial BP 120/82 Wt 190 lb 11.2 oz (86.501 kg) Estimated Body mass index is 29.87 kg/(m^2) as calculated from the following: Height as of 12/18/10: 5' 7(1.702 m). Weight as of this encounter: 190 lb 11.2 oz(86.501 kg).. BP completed using cuff size: regular documented in this encounter Plan of Treatment Not on filedocumented as of this encounter Visit Diagnoses Diagnosis Supervision of normal first - Primary Sciatica documented in this encounter Care Teams Chrome Cleaner Relationship Specialty Start Date End Date Lisa Gayle MD PCP - General 03/24/99 11/30/12 [address] , [facility] [address] [place] [address] documented as of this encounter
--- OUTSIDE RECORDS SUMMARY | 2021-11-25 22:40 | XMS_ITS | Encounter Summary ---
:1985 Author Organization [facility] Address [address] [place] [address] Care Team Providers Name Role Phone Lisa Gayle MD Primary Care Provider Reason for Visit Reason Comments Care Encounter Details Date Type Department Care Team Description 05/11/2011 Office [facility] Fredy Davis Sup ervision of Visit Women's Clinic MD [place] [address] (Primary [address] [facility] [address] Dx) [place] [address] [address] [place], [place] (Work) [address] Social History Tobacco Use [...] Sign Reading Time Taken Comments Blood Pressure 128/78 05/11/2011 3:42 PM PIPE CAULKER Pulse - - Temperature - - Respiratory Rate - - Oxygen Saturation - - Inhaled Oxygen Concentration - - Weight 80.3 kg (177 lb) 05/11/2011 3:42 PM PIPE CAULKER Height - - Body Mass Index 27.72 12/18/2010 3:18 PM CDT documented in this encounter Progress Notes Fredy Davis MD - 05/11/2011 3:54 PM CST Group B CAULKER documented in this encounter Nursing Notes 05/11/2011 3:30 PM CST >> AME GODINEZ Bryan May 11, 2011 3:44 PM Patient presents with: Care [id number] Initial BP 128/78 Wt 177 lb (80.287 kg) Estimated Body mass index is 27.72 kg/(m^2) as calculated from the following: Height as of 11: 5' 7(1.702 m). Weight as of this encounter: 177 lb(80.287 kg).. BP completed using cuff size: regular documented in this encounter Plan of Treatment Not on filedocumented as of this encounter Procedures Procedure Name Priority Date/Time Associated Diagnosis Comme nts GROUP B STREP PCR Routine 05/11/2011 3:50 PM Supervision of no rmal Results for this PIPE CAULKER first procedure ar e in the results section. documented in this encounter Results Group B strep PCR (05/11/2011 3:50 PM PIPE CAULKER) [facility] Method Time Signature Group B Strep Vaginal [facility] PCR Spec [facility] Group B Strep Negative: No GBS DNA detecte d, presumed negative for GBS or number of bacteria [facility] PCR may be below the limit of detection of the assay. MICROBIOLOGY Assay performed on incubated broth culture of specimen in muriel Mavin SmartCycler(R) real-time PCR. Specimen Anatomical Collection Method Collection Time Receive d Time (Source) Location / / Volume Laterality 05/11/2011 3:50 PM 2 4:09 PIPE CAULKER PM PIPE CAULKER Fredy Davis MD LAB - MICRO GENERAL ORDERABL ES Performing Organization Address City/State/ZIP Code Phon e Number [facility] [address] [place] [address] [facility] MICROBIOLOGY documented in this encounter Visit Diagnoses Diagnosis Supervision of normal first - Primary documented in this encounter Care Teams Beater Tender Relationship Specialty Start Date End Date Lisa Gayle MD PCP - General 03/24/99 11/30/[address], [facility] [address] [place] [address] documented as of this encounter
--- OUTSIDE RECORDS SUMMARY | 2021-11-25 22:40 | XMS_ITS | Encounter Summary ---
:1985 Author Organization [facility] Address [address] [place] [address] Care Team Providers Name Role Phone Lisa Gayle MD Primary Care Provider Kyle Mascorro MD Primary Care Provider [phone] Reason for Visit Reason Onset Date Comments Nurse Advice Line 03/14/2011 Encounter Details Date Type Department Care Team Description 03/14/2011 Telephone [facility] DEPT FOR CCW Physician, Non-Staff Nurse Advice Line Social History Tobacco Use Types Packs/Day Years [...] this encounter Miscellaneous Notes Telephone Encounter - Lauro Lisa - 04/14/2011 2:40 PM CST [facility] Triage Call Report Patient Name: Alysa Verde Call Date & Time: 03/13/2011 10:45:53PM Patient Phone: PCP Name: MRN: Patient Address: Patient Date of : 1985 Age: 25 yr. Patient Gender: Female Senior Analyst Market Intelligence Name: Ellen Gonzales Presenting Problem: I have gas pains all day. I am passing gas and loose squirts but the pain is worsening all over the abdomen. I am 27 weeks . 97.5, good mvt. Loss of appetite. [phone] no blocks. Will have Md call her. Triage Note: Guideline Title: Abdominal Pain, Recommended Disposition: Override Disposition: See ED Immediately Question Response Question Note New or worsening signs and symptoms that may indicate No shock Any cardiac signs/symptoms for more than 5 minutes, now No or within last hour Unbearable abdominal/pelvic pain or cramping No Severe breathing problems No Profuse vaginal bleeding not contained by pads or tampons No Vomiting red, bloody or coffee-ground material, more than No streaks of blood or scant amount (not following nosebleed within past day) Passing red, black or tarry material from rectum AND No onset of new signs and symptoms of hypovolemia Less than 20 weeks gestation AND vaginal bleeding No Gestation less than 20 weeks AND signs of labor No More than 20 weeks gestation AND vaginal bleeding No 20-37 weeks gestation AND signs of labor No Gestation more than 37 weeks AND signs of labor No Recent version procedure No Fluid leaking or rupture of membranes No Injury to abdomen No Recent amniocentesis/chorionic villus sampling ([facility]) No Burning sensation in the epigastic area AND no other No abdominal discomfort or other related symptoms Generalized abdominal pain that progresses to localized Yes pain AND any of the following: loss of appetite, vomiting starting after pain, any fever, OR unable to carry out normal activities Physician Contacted: Physician Instructions: No Care Advice: - IMMEDIATE ACTION MEDICAL HISTORY Conditions: Condition Note: Medication: Medication Note: Allergy: Reaction: Procedure: Procedure Note: UNITY EDUCATOR Telephone Encounter - Mecca Frederick - 03/14/2011 5:33 AM CST [facility] Triage Call Report Patient Name: Alysa Verde Call Date & Time: 03/14/2011 2:03:50AM Patient Phone: PCP Name: MRN: Patient Address: Patient Date of : 1985 Age: 25 yr. Patient Gender: Female Senior Analyst Market Intelligence Name: Fernanda Johnson Presenting Problem: Patient is having indigestion since 4 pm on 03/13/2011. Has taken pepto bismol,tylenol and gas ex with no relief. Pain is locate between her breast bone. Triage Note: Guideline Title: Heartburn, Recommended Disposition: Override Disposition: Call Provider Immediately Question Response Question Note New or worsening signs and symptoms that may indicate No shock Any other cardiac signs/symptoms for more than 5 No minutes, now or within last hour Abdominal pain No Greater than 20 weeks gestation AND new onset of any No epigastric pain (not related to heartburn) or right upper quadrant (RUQ) pain Persistent burning sensation in epigastric area AND no Yes relief from home care Physician Contacted: Physician Instructions: No Care Advice: - Lie on left side if more than 20 weeks . - Heartburn Relief (Dietary): - Avoid overeating. - Eat smaller, more frequent meals and chew each bite thoroughly. - Avoid high fat, spicy or gas-producing foods. - Limit liquids/foods that are gastric irritants (fruit juices, caffeinated, carbonated or alcoholic beverages, chocolate and dairy products). - Eat at least three hours before bedtime. - Heartburn Relief (Positioning): - Avoid bending over at the waist or lying flat soon after eating. - Avoid clothing that is tight around the abdomen and waist. - Sleeping on stacked pillows or raising the head of bed on 6 inch blocks may help prevent reflux. - Go to ED immediately if unable to talk with a provider within [address] adult [address]. - SYMPTOM / CONDITION MANAGEMENT MEDICAL HISTORY Conditions: Condition Note: Medication: Medication Note: Allergy: Reaction: Procedure: Procedure Note: UNITY EDUCATOR documented in this encounter Plan of Treatment Not on filedocumented as of this encounter Visit Diagnoses Not on filedocumented in this encounter Care Teams Manufacturing Business Analyst Relationship Specialty Start Date End Date Lisa Gayle MD PCP - General 03/24/99 11/30/[address], [address] [place] [address] Kyle Mascorro MD PCP - General Family Practice 12/01/[address], [id number] [place] [address] documented as of this encounter
--- OUTSIDE RECORDS SUMMARY | 2021-11-25 22:40 | XMS_ITS | Encounter Summary ---
:1985 Author Organization [facility] Address [address] [place] [address] Care Team Providers Name Role Phone Lisa Gayle MD Primary Care Provider Reason for Visit Reason Comments Care Encounter Details Date Type Department Care Team Description 05/18/2011 Office [facility] Contreras Cee of normal Visit [facility] MD Rishabh first pregnan [facility] (Primary Dx) [address] [facility] [address] [place] [id number] Social History Tobacco Use Types Packs/Day Years [...] Sign Reading Time Taken Comments Blood Pressure 132/82 05/18/2011 3:35 PM MANAGER PRODUCT DESIGN Pulse - - Temperature - - Respiratory Rate - - Oxygen Saturation - - Inhaled Oxygen Concentration - - Weight 82.4 kg (181 lb 11.2 oz) 05/18/2011 3:35 PM MANAGER PRODUCT DESIGN Height - - Body Mass Index 28.46 12/18/2010 3:18 PM CDT documented in this encounter Progress Notes Contreras Cee MD - 05/18/2011 3:57 PM CST Doing well. GER PRODUCT DESIGN documented in this encounter Nursing Notes 05/18/2011 3:30 PM CST >> CUCA GUNTER Fri May 18, 2011 3:36 PM Pn [id number] Cuca Gunter MA documented in this encounter Plan of Treatment Not on filedocumented as of this encounter Visit Diagnoses Diagnosis Supervision of normal first - Primary documented in this encounter Care Teams Software Project Engineer Relationship Specialty Start Date End Date Lisa Gayle MD PCP - General 03/24/99 11/30/12 [address] [facility] [address] [place] [address] documented as of this encounter
--- OUTSIDE RECORDS SUMMARY | 2021-11-25 22:40 | XMS_ITS | Encounter Summary ---
:1985 Author Organization [facility] Address [address] [place] [address] Care Team Providers Name Role Phone Lisa Gayle MD Primary Care Provider Reason for Visit Reason Comments Care Encounter Details Date Type Department Care Team Description 03/09/2011 Office [facility] Fredy Davis Sup ervision of Visit [facility] MD Mallory [address] (Primary [address] Dx) [place] [address] [address] [place], [place] (Work) [phone] Social History Tobacco Use [...] Sign Reading Time Taken Comments Blood Pressure 114/66 03/09/2011 11:35 AM PROGRAMMING SPECIALIST Pulse - - Temperature - - Respiratory Rate - - Oxygen Saturation - - Inhaled Oxygen Concentration - - Weight 69.9 kg (154 lb) 03/09/2011 11:35 AM PROGRAMMING SPECIALIST Height - - Body Mass Index 24.12 12/18/2010 3:18 PM CDT documented in this encounter Nursing Notes 03/09/2011 11:30 AM CST >> KIMBERLY KARIN Fri Mar 09, 2011 11:40 AM . 26w5d. Glucose today. Pt is A positive S. KISHAN Frey documented in this encounter Plan of Treatment Not on filedocumented as of this encounter Procedures Procedure Name Priority Date/Time Associated Diagnosis Comme nts OB HEMOGLOBIN Routine 03/09/2011 12:31 Supervision of Results for this PM PROGRAMMING SPECIALIST normal first procedure are i n the results section. GLUCOSE TOLERANCE Routine 03/09/2011 12:31 Supervision of Resu lts for this GEST SCREEN 1 HOUR PM PROGRAMMING SPECIALIST normal first procedure are in the results section. documented in this encounter Results Glucose tolerance gest screen 1 hour (03/09/2011 12:31 PM PROGRAMMING SPECIALIST) athologist Signature Glu Gest Screen 83 60 - 129 SALOL 1hr 50g mg/dL [facility] Specimen Anatomical Collection Method Collection Time Receive d Time (Source) Location / / Volume Laterality Blood specimen 03/09/2011 12:31 1 (specimen) PM PROGRAMMING SPECIALIST 12:36 PM PROGRAMMING SPECIALIST Fredy Davis MD LAB - BLOOD ORDERABLES Performing Organization Address City[facility] Phon e Number [place] [address] [place], [place] [address] [address] [facility] OB hemoglobin (03/09/2011 12:31 PM PROGRAMMING SPECIALIST) athologist Signature Hemoglobin 12.8 11.7 - 15.7 [facility] g/dL [facility] Specimen Anatomical Collection Method Collection Time Receive d Time (Source) Location / / Volume Laterality Blood specimen 03/09/2011 12:31 1 (specimen) PM PROGRAMMING SPECIALIST 12:36 PM PROGRAMMING SPECIALIST Fredy Davis MD LAB - BLOOD ORDERABLES Performing Organization Address [facility] Phon e Number [place] [address] [place], [place] [address] [address] [facility] documented in this encounter Visit Diagnoses Diagnosis Supervision of normal first - Primary documented in this encounter Care Teams Balance Sheet Analyst Relationship Specialty Start Date End Date Lisa Gayle MD PCP - General 03/24/99 11/30/12 [address] [facility] [address] [place] [address] documented as of this encounter
--- OUTSIDE RECORDS SUMMARY | 2021-11-25 22:40 | XMS_ITS | Encounter Summary ---
:1985 Author Organization [facility] Address [address] [place] [address] Care Team Providers Name Role Phone Lisa Gayle MD Primary Care Provider Reason for Visit Reason Onset Date Comments Nurse Advice Line 06/14/2011 Encounter Details Date Type Department Care Team Description 06/14/2011 Telephone [facility] Fredy Davis, Nurse Advice Line [address] [facility] [place] [address] [facility] [phone] [facility] [address] (Wo rk) Social History Tobacco Use [...] Telephone Encounter - Lisa Stacy - 07/09/2012 4:53 PM CDT [facility] Triage Call Report Patient Name: Alysa Verde Call Date & Time: 06/14/2011 11:03:27PM Patient PCP Name: MRN: Patient Address: Patient Date of : 1985 Age: 27 yr. Patient Gender: Female Social Problems Specialist Name: Taina Fairchild Presenting Problem: Caller states I am 40 weeks (LOI 06/10/11) and I am having contractions every 2-5 minutes apart. RN advised the computer applications engineer doctor would be paged for assistance.Alysa can be reached at [phone]. RN called [facility] page bottle capping machine operator and spoke with Walter. He was given call detail and paged Dr. Mackay for assistance. Triage Note: Guideline Title: Signs of Labor, Recommended Disposition: [...] No Care Advice: - Lie on left side, if possible. - May drink clear liquids (such as water, cola or other soda, tea) but do not eat solid foods priorto discussing with provider. - Call EMS 911 if any of these occur: bright red vaginal bleeding; continuous (without relaxation) abdominal pain; the umbilical cord or any part in vagina; bag of murry coming through vagina; feeling of wantingto push or have a bowel movement. MEDICAL HISTORY Conditions: Condition Note: Medication: Medication Note: Allergy: Reaction: Procedure: Procedure Note: .Denies documented in this encounter Plan of Treatment Not on filedocumented as of this encounter Visit Diagnoses Not on filedocumented in this encounter Care Teams Fire Range Technician Relationship Specialty Start Date End Date Lisa Gayle MD PCP - General 03/24/99 11/30/[address] , [address] [address] documented as of this encounter
--- OUTSIDE RECORDS SUMMARY | 2021-11-25 22:40 | XMS_ITS | Encounter Summary ---
:1985 Author Organization [facility] Address [address] [place] [id number] Care Team Providers Name Role Phone Lisa Gayle MD Primary Care Provider Reason for Visit Reason Comments Rule Out Labor increased uc's, q5min since 06/13 Auth/Cert - Closed Specialty Diagnoses / Procedures Referred By Contact Refer red To Contact sign language instructor Diagnoses Labor and Delivery [facility] [address] [place], [place] [address] Phone: Fax: Referral ID Status Reason Start Date Expiration Date Visits Requ ested Visits Authorized [id number] Closed 06/15/2011 12/12/2011 1 1 Encounter Details Date Type Department Care Team Description 06/15/2011 - Hospital Encounter [facility] Joaquin Mackay MD 06/17/2011 [facility] Inga Davis MD [address] [facility] [place] [id number] [address] [place] [address] Social History Tobacco Use Types Packs/Day [...] Sign Reading Time Taken Comments Blood Pressure 128/64 06/17/2011 9:00 AM CDT Pulse 96 06/17/2011 9:00 AM CDT Temperature 36.8 ??C (98.3 ??F) 06/17/2011 9:00 AM CDT Respiratory Rate 18 06/17/2011 9:00 AM CDT Oxygen Saturation 98% 06/15/2011 3:05 AM CDT Inhaled Oxygen Concentration - - Weight 86.5 kg (190 lb 11.2 oz) 06/15/2011 12:35 AM CDT Height 170.2 cm (5' 7.01) 06/15/2011 12:35 AM CDT Body Mass Index 29.86 06/15/2011 12:35 AM CDT documented in this encounter Discharge Instructions Discharge InstructionsShreya Rivera LPN - 06/17/2011 9:14 AM CDT [facility] Vaginal Delivery or Discharge Instructions Activity: Go back to your normal activities, except per doctor discharge instructions. Diet: You may eat a regular diet. Drink plenty of fluids. Call your Doctor or Call Center Support Consultant if you have any of these symptoms: * You soak a sanitary pad with blood within 1 hour, or you see clots larger than a golf ball. * Bleeding that lasts more than 6 weeks. *Bad-smelling fluid that comes out of your vagina. *A fever above 100.4 degrees Fahrenheit (38.4 degrees Celsius) with or without chills. * Severe pain, cramping, or tenderness in your lower belly area. * Increased pain, swelling, redness or fluid around your stitches. * A need to urinate more frequently (use the toilet more often), more urgently (use the toilet very quickly), or it jorgensen when you urinate. * Redness, swelling, or pain around a vein in your leg. * Problems coping with sadness, anxiety, or depression. * Problems , or a red or painful area on your breast. * You have questions or concerns after you return home. There is no immunization history for the selected administration types on file for this patient. documented in this encounter Medications at Time of Discharge Medication Sig Dispensed Refills Start Date End Date oxyCODONE (ROXICODONE) 5 Take 1 tablet by 30 tablet 0 06/1007/13/2011 MG immediate release mouth every 4 hours tabletIndications: as needed for pain. Sciatica, Supervision of normal first Vit-Fe Take 1 tablet by 90 tablet 3 11/16/2010 Fumarate-FA ( mouth daily. MULTIVITAMIN WITH IRON) 28-0.8 MG TABS Simethicone (GAS-X PO) Take by mouth. 0 06/26/2011 DIMA 28 3-0.03 MG OR 1 TABLET DAILY 3 months 3 9 12/03/2012 TABSIndications: Dysmenorrhea documented as of this encounter Progress Notes Joaquin Mackay MD - 06/18/2011 11:06 AM CDT Contreras Cee MD - 06/17/2011 11:42 AM CDT [facility] Obstetrics Post- Progress Note Assessment and Plan: Assessment: Post- day #2 Normal spontaneous vaginal delivery L&D complications: None Doing well. No excessive bleeding Pain well-controlled. Plan: Discharge later today Interval History: Doing well. Pain is well-controlled. No fevers. No history of foul-smelling vaginal discharge. Good appetite. Denies chest pain, shortness of breath, nausea or vomiting. Vaginal bleeding is similar to a heavy menstrual flow. Ambulatory. Bottle feeding Significant Problems: None Review of Systems: The patient denies any chest pain, shortness of breath, excessive pain, fever, chills, purulent drainage from the wound, nausea or vomiting. Medications: All medications related to the patient's surgery have been reviewed Physical Exam: All vitals stable Patient Vitals in the past 24 hrs: BP Temp Temp src Pulse Resp 06/17/11 0900 128/64 mmHg 98.3 ??F (36.8 ??C) Oral 96 18 06/17/11 0304 122/66 mmHg 98.3 ??F (36.8 ??C) Oral 96 20 06/16/11 1615 143/68 mmHg 98.3 ??F (36.8 ??C) Oral 112 20 06/16/11 1239 114/49 mmHg 98.7 ??F (37.1 ??C) Oral 102 16 Uterine fundus is firm, non-tender and at the level of the umbilicus Data: Lab Results Component Value Date HGB 8.0* 06/16/2011 HGB 12.3 06/08/2011 HGB 12.8 03/09/2011 No imaging studies have been ordered Contreras Cee MD, MD Contreras Cee MD - 06/16/2011 9:01 AM CDT [facility] Obstetrics Post- Progress Note Assessment and Plan: Assessment: Post- day #1 Normal spontaneous vaginal delivery L&D complications: None Anemia Doing well. Plan: Ambulation encouraged Interval History: Doing well. Pain is well-controlled. No fevers. No history of foul-smelling vaginal discharge. Good appetite. Denies chest pain, shortness of breath, nausea or vomiting. Vaginal bleeding is similar to a heavy menstrual flow. Ambulatory. Bottle feeding. Significant Problems: Anemia Review of Systems: The patient denies any chest pain, shortness of breath, excessive pain, fever, chills, purulent drainage from the wound, nausea or vomiting. Medications: All medications related to the patient's surgery have been reviewed Physical Exam: All vitals stable Patient Vitals in the past 24 hrs: BP Temp Temp src Pulse Resp 06/16/11 0834 111/57 mmHg 97.9 ??F (36.6 ??C) Oral 91 18 06/16/11 0110 138/71 mmHg 98.2 ??F (36.8 ??C) Oral 93 20 06/15/11 2000 138/78 mmHg 97.9 ??F (36.6 ??C) Oral 86 18 06/15/11 1630 137/68 mmHg 97.9 ??F (36.6 ??C) Oral 93 18 06/15/11 1500 122/60 mmHg - - 82 18 06/15/11 1410 138/71 mmHg - - 82 16 06/15/11 1355 130/73 mmHg - - 93 16 06/15/11 1340 137/76 mmHg - - 91 16 06/15/11 1320 129/66 mmHg - - 80 16 06/15/11 1310 134/75 mmHg - - 75 16 06/15/11 1255 140/70 mmHg - - 69 16 06/15/11 1240 143/67 mmHg - - 68 18 06/15/11 1225 159/98 mmHg - - 75 18 06/15/11 1215 152/95 mmHg - - 74 16 06/15/11 1153 139/88 mmHg - - 71 16 06/15/11 1138 135/96 mmHg - - 73 16 06/15/11 1124 131/83 mmHg 99 ??F (37.2 ??C) Oral 93 - 06/15/11 0930 119/80 mmHg - - 88 18 Uterine fundus is firm, non-tender and at the level of the umbilicus Data: Lab Results Component Value Date HGB 8.0* 06/16/2011 HGB 12.3 06/08/2011 HGB 12.8 03/09/2011 No imaging studies have been ordered Contreras Cee MD, MD documented in this encounter H&P Notes Inga Davis MD - 06/15/2011 12:05 PM CDT June 15, 2011 Alysa Rivera [id number] OB Admit History & Physical Ms. Rivera is here labor. She has noticed ROM and contractions Patient's LMP from OB Dating Form was 08/14/2010. Her Estimated Date of Delivery: Data Unavailable , making her 40w5d wks. Estimated Body mass index is 29.86 kg/(m^2) as calculated from the following: Height as of this encounter: 5' 7.008(1.702 m). Weight as of this encounter: 190 lb 11.2 oz(86.5 kg). Her course has been un complicated She is a 26 year old Her OB history: Obstetric History T1 TAB0 SAB0 E0 M0 L1 Name of Baby 1 Jose Miguel RIVERA ??? Outcome Date 06/15/11 GA 40w 5d ??? Delivery Type Vaginal, Spontaneous Delivery ??? at 1 min. 8 at 5 min. 9 ??? Living Yes Past Medical History Diagnosis Date ??? NO ACTIVE PROBLEMS ??? Abnormal Pap smear -2008 Past Surgical History Procedure Date ??? Colposcopy cervix, loop electrode biopsy, combined Current facility-administered medications Medication ??? lactated ringers infusion ??? lactated ringers BOLUS 500 mL ??? lactated ringers BOLUS 1,000 mL ??? lactated ringers BOLUS 500 mL ??? acetaminophen (TYLENOL) tablet 650 mg ??? naloxone (NARCAN) injection 0.1-0.4 mg ??? ondansetron (ZOFRAN) injection 4 mg ??? oxytocin (PITOCIN) injection 10 Units ??? oxytocin (PITOCIN) 20 units in 0.9% NaCl 1000 mL ??? misoprostol (CYTOTEC) suppository 800 mcg ??? methylergonovine (METHERGINE) injection 200 mcg ??? carboprost (HEMABATE) injection 250 mcg ??? Lidocaine 1% injection 0.1-20 mL ??? ibuprofen (ADVIL,MOTRIN) tablet 800 mg ??? oxyCODONE-acetaminophen (PERCOCET) 5-325 MG per tablet 1 tablet ??? nalbuphine (NUBAIN) injection 10-20 mg ??? nalbuphine (NUBAIN) injection 10-20 mg ??? fentaNYL (SUBLIMAZE) injection 50-100 mcg ??? Lidocaine 1% injection 1 mL ??? lidocaine 4 % (LMX4) cream ??? sodium chloride 0.9 % flush 3 mL ??? sodium chloride 0.9 % flush 3 mL ??? medication instruction ??? lactated ringers BOLUS 250 mL ??? ePHEDrine injection 5 mg ??? naloxone (NARCAN) injection 0.1-0.4 mg ??? medication instruction ??? medication instruction ??? bupivacaine 0.125 % in NaCl 0.9% 250 mL EPIDURAL Drip ??? nalbuphine (NUBAIN) injection 5 mg ??? ondansetron (ZOFRAN-ODT) disintegrating tablet 4 mg ??? ondansetron (ZOFRAN-ODT) disintegrating tablet 4 mg ??? ondansetron (ZOFRAN) injection 4 mg ??? diphenhydrAMINE (BENADRYL) injection 12.5 mg ??? nalbuphine (NUBAIN) injection 5 mg ??? oxytocin (PITOCIN) 20 units in 0.9% NaCl 1000 mL ??? ibuprofen (ADVIL,MOTRIN) tablet 400-800 mg ??? acetaminophen (TYLENOL) tablet 650 mg ??? naloxone (NARCAN) injection 0.1-0.4 mg ??? bisacodyl (DULCOLAX) suppository 10 mg ??? phosphate (FLEET) enema 1 enema ??? measles, mumps and rubella vaccine (MMR) injection 0.5 mL ??? lanolin ointment ??? zolpidem (AMBIEN) tablet 5 mg ??? lactated ringers BOLUS 1,000 mL ??? oxytocin (PITOCIN) 20 units in 0.9% NaCl 1000 mL ??? oxyCODONE (ROXICODONE) immediate release tablet 5-10 mg ??? HYDROmorphone (DILAUDID) injection 0.2-0.4 mg ??? senna-docusate (SENOKOT-S;PERICOLACE) 8.6-50 MG per tablet 1-2 tablet ??? No Tdap Needed - Assessment: Patient does not need Tdap immunization Allergies: Review of patient's allergies indicates no known allergies. REVIEW OF SYSTEMS: NEUROLOGIC: Negative EYES: Negative ENT: Negative GI: Negative BREAST: Negative : Negative MICROELECTRONICS ENGINEER: Negative CV: Negative PULMONARY: Negative MUSCULOSKELETAL: Negative PSYCH: Negative History Social History ??? Marital Status: Spouse Name: N/A Number of Children: N/A ??? Years of Education: N/A Occupational History ??? Not on file. Social History Main Topics ??? Smoking status: Never Smoker ??? Smokeless tobacco: Not on file ??? Alcohol Use: No none since ??? Drug Use: No ??? Sexually Active: Yes -- Male partner(s) Other Topics Concern ??? Not on file Social History Narrative ??? No narrative on file Family History Problem Relation Age of Onset ??? Cancer Maternal Grandmother ovarian ??? Gynecology Mother endometriosis Vitals: FHT 145 With contractions every 2-3min Alert Awake in NAD HEENT at time of second stage of labor Marked disparity between pupil in r and l eye EOM full; both pupils reactive to light and accomodation See neuro exam Neck: no lymphadenopathy or thryoidomegaly Lungs clear Back spinal or CVAT Heart RR no gallop ABD gravid, 35 on exam with vertex palpable Pelvic: clear fluid noted, no blood noted Cervix is complete EXT: no edema or calf tenderness Neuro: Motor and sensory; intact and normal Assessment: IUP at 40w5d Labor Pupils assymetric Plan: Discussed with neurology and radiology CT with out contrast; if normal allow Further evaluation post delivery Inga Davis MD Dept of [employer] June 15, 2011 Kurt Provider - 06/15/2011 12:17 AM CDT documented in this encounter OR Notes OR Anesthesia - Joaquin Mackay MD - 06/18/2011 11:04 AM CDT documented in this encounter Miscellaneous Notes Plan of Care - Sarahi Melendrez RN - 06/17/2011 1:14 PM CDT Discharge instructions reviewed with pt and by Maribell Zaragoza RN. Verbalized understanding. Plan of Care - Sarahi Melendrez RN - 06/17/2011 12:47 PM CDT Problem: IP GENERAL POC-ADULT,OB,BEHAVIORAL FVCPM Goal: Individualization/Patient-Specific Goal (Adult,OB,Behavioral The patient and/or their freight representative will achieve their patient-specific goals related to the plan of care. The patient-specific goals include: rest Outcome: Adequate for Discharge Date Met: 06/17/11 Independent with self and baby cares. Bottlefeeding. Good pain control with Ibuprofen and Oxycodone. present and very supportive. Discharging home with baby. Plan of Care - Pamella Ag RN - 06/17/2011 4:49 AM CDT Problem: Following Vaginal Delivery (Obstetrics) Goal: Prevent/Manage Potential Problems Signs and symptoms of listed problems will be absent or manageable. Outcome: Improving Oral pain medications working well to minimize discomfort. Independent w/ self cares. FOB present and supportive. Pamella Ag Rn Plan of Care - Pamella Ag RN - 06/17/2011 12:40 AM CDT Problem: IP GENERAL POC-ADULT,OB,BEHAVIORAL FVCPM Goal: Individualization/Patient-Specific Goal (Adult,OB,Behavioral The patient and/or their freight representative will achieve their patient-specific goals related to the plan of care. The patient-specific goals include: rest Outcome: Improving Pt wanting to rest w/ rooming-in. FOB very helpful w/ baby cares, allowing mother to sleep. Plan to continue to encourage rooming-in tonight and assisst prn. Pamella Ag Rn Plan of Care - Terri Willett RN - 06/16/2011 9:14 PM CDT Problem: IP GENERAL POC-ADULT,OB,BEHAVIORAL FVCPM Goal: Individualization/Patient-Specific Goal (Adult,OB,Behavioral The patient and/or their freight representative will achieve their patient-specific goals related to the plan of care. The patient-specific goals include: rest, pain control. Outcome: Improving Patient doing well. Pain controlled well with pain meds. Patient resting and visiting with family. Plan of Care - Linda Shelley RN - 06/16/2011 2:55 PM CDT Problem: Following Vaginal Delivery (Obstetrics) Goal: Prevent/Manage Potential Problems Signs and symptoms of listed problems will be absent or manageable. VSS afebrile. Pt up to br with out any problems. Pt c/o abd cramping 3/10, taking ibuprofen for painwith good relief. Pt bottle feeding. Pt instructed on how to care for breast since not breastfeefing. Plan of Care - Pamella Ag RN - 06/16/2011 6:03 AM CDT Problem: IP GENERAL POC-ADULT,OB,BEHAVIORAL FVCPM Goal: Individualization/Patient-Specific Goal (Adult,OB,Behavioral The patient and/or their freight representative will achieve their patient-specific goals related to the plan of care. The patient-specific goals include: void after catheter d/c; rest Outcome: Improving Pt able to void several times during the night w/o difficulty. SL d/c'd. Systolic BP slightly elevated; denies OG, epigastric pain or visual disturbances. Able to get periods of rest between cares and feedings w/ rooming-in. Pamella Ag Rn Plan of Care - Pamella Ag RN - 06/16/2011 6:01 AM CDT Problem: Following Vaginal Delivery (Obstetrics) Goal: Prevent/Manage Potential Problems Signs and symptoms of listed problems will be absent or manageable. Outcome: Improving Oral pain medications working well to relieve perineal discomfort. Caring for self and independently. FOB rooming-in. Pamella Ag Rn Plan of Care - Terri Willett RN - 06/15/2011 10:24 PM CDT Problem: Following Vaginal Delivery (Obstetrics) Goal: Prevent/Manage Potential Problems Signs and symptoms of listed problems will be absent or manageable. Outcome: No Change Patient admitted to [facility]. Orientated to room, call mora, infant security and steel grinder. On admit patient stable. Plan of Care - Terri Willett RN - 06/15/2011 10:23 PM CDT Problem: IP GENERAL POC-ADULT,OB,BEHAVIORAL FVCPM Goal: Individualization/Patient-Specific Goal (Adult,OB,Behavioral The patient and/or their freight representative will achieve their patient-specific goals related to the plan of care. The patient-specific goals include: void after delivery, pain control. Outcome: Improving Patient up voiding well. Using motrin and oxy for pain control with good results. Provider Notification - Maribell Zaragoza RN - 06/15/2011 2:29 PM CDT BP's wnl at this time, pt denies pain at this time. 250 cc'c output. OK to transfer to Provider Notification - Maribell Zaragoza RN - 06/15/2011 1:27 PM CDT Informed MD of ^ BP's since del. L&D Delivery Note - Inga Davis MD - 06/15/2011 12:05 PM CDT NARRATIVE SUMMARY: Alysa Rivera is a 26-year-old who presents to Labor and Delivery complaining of painful uterine contractions. has been uncomplicated. She progresses to complete dilatation at which time her labor nurse notices pupils are markedly equal. She gives no history of trauma or previous neurological problems. At this point, I was notified and a neurological exam was grossly normal except the findings as noted per nursing. The case was reviewed with Dr. Amaro of Neurology whorecommended and agreed with plan for CT of the head. This was undertaken and was negative. When thishad been completed, the second stage was allowed to progress and she delivered a living male, Apgars of 8 and 9 weighing 8 pounds 9 ounces. Baby delivered occiput posterior over an intact perineum. There had been meconium noted and with delivery of the baby the cord was quickly clamped, cut and the baby placed on the maternal abdomen where it cried immediately. After the cord was clamped it was transferred to the nurse practitioner for further evaluation. Again, Apgars of 8 and 9 were recorded. The placenta delivered spontaneously and a 3-vessel cord was present. There was a 2 cm tear at usual site of episiotomy. It was repaired in standard fashion with 2-0 chromic suture. No other cervical, vaginal or perineal lacerations were noted. INGA DAVIS MD MT: [id number] Name: ALYSA RIVERA Account: [id number] : 1985 Delivery Date: 06/15/2011 Document: [id number] Plan of Care - Maribell Zaragoza RN - 06/15/2011 10:24 AM CDT Problem: Labor (Obstetrics) Goal: Prevent/Manage Potential Problems Signs and symptoms of listed problems will be absent or manageable. Pain Management by epidural Outcome: No Change CT report obtained and Dr Davis updated. Results normal. Will proceed with plan to push, epidural off. Plan of Care - Maribell Zaragoza RN - 06/15/2011 10:18 AM CDT Problem: Labor (Obstetrics) Goal: Prevent/Manage Potential Problems Signs and symptoms of listed problems will be absent or manageable. Pain Management by epidural Outcome: No Change Order obtained for CT, to radiology per bed. Plan of Care - Maribell Zaragoza RN - 06/15/2011 8:46 AM CDT Problem: Labor (Obstetrics) Goal: Prevent/Manage Potential Problems Signs and symptoms of listed problems will be absent or manageable. Pain Management by epidural Outcome: No Change Pts pupils noted to be unequal. Both respond to light, hand grasps equal, tongue protrusion normal, feeling in cheeks equal. Dr Davis called to bedside to evaluate. Plan of Care - Maribell Zaragoza RN - 06/15/2011 8:10 AM CDT Problem: Labor (Obstetrics) Goal: Prevent/Manage Potential Problems Signs and symptoms of listed problems will be absent or manageable. Pain Management by epidural Outcome: No Change Assumed cares after report. Continue to labor down, Dr Davis updated Plan of Care - Lyubov Petit RN - 06/15/2011 7:17 AM CDT Report given to Wanda Zaragoza RN. Patient sleeping. Jonn Petit RN Provider Notification - Lyubov Petit RN - 06/15/2011 7:01 AM CDT 06/15/11 0630 Provider Notification Provider Name/Title Dr Mackay Method of Notification Phone Request Evaluate - Remote Notification Reason Labor Status;Uterine Activity;Status Update Plan of Care - Lyubov Petit RN - 06/15/2011 6:10 AM CDT Problem: Labor (Obstetrics) Goal: Prevent/Manage Potential Problems Signs and symptoms of listed problems will be absent or manageable. Pain Management by epidural Patient comfortable with epidural. Now completely dilated, no pressure or pushing sensation yet, so will labor down and reassess in 60 min or sooner if pt reports need to push. FHT's category 1. Jonn Petit RN Plan of Care - Lyubov Petit RN - 06/15/2011 3:32 AM CDT During epidural recovery, unable to get BP cuff to function correctly form 0308- 0330. Mulitple cuffstried. Patient alert and oriented, no c/o dizziness or nausea. Resting comfortably. Decels noted in FHTracing, ephedrine given for hypotension with return to baseline. Pt c/o numbness in arms, HOB elevated. Breathing unlabored. By 0330, numbness subsiding. Jonn Petit RN Provider Notification - Lyubov Petit RN - 06/15/2011 2:28 AM CDT 06/15/11 0226 Provider Notification Provider Name/Title anesthesia Method of Notification Phone Request Evaluate in Person Notification Reason Pain Provider Notification - Lyubov Petit RN - 06/15/2011 2:04 AM CDT 06/15/11 0100 Provider Notification Provider Name/Title Dr. Mackay Method of Notification Phone Request Evaluate - Remote Notification Reason Patient Arrived;Membrane Status;Labor Status;Uterine Activity;Pain;Status Update Plan of Care - Lyubov Petit RN - 06/15/2011 1:03 AM CDT To inpatient. Out patient evaluation time 1 hr: Face to face: 45 min Plan of Care - Lyubov Petit RN - 06/15/2011 1:00 AM CDT Problem: Labor (Obstetrics) Goal: Prevent/Manage Potential Problems Signs and symptoms of listed problems will be absent or manageable. Pain Management by epidural Alysa present for evlauation of contractions 5 min apart since 2199. Sm amt of bloody show reported,membranes intact. Monitoring explained and placed. Last SVE = 2cm, now 3.5/100/-2. Call placed to DrCowling, intrapartum orders received. Update given re: BP with Brisk reflexes (no history of PIH sx during the ), SVE, UC's, FHT's. Will admit to inpatient for delivery. Jonn Petit RN documented in this encounter Plan of Treatment Not on filedocumented as of this encounter Procedures Procedure Name Priority Date/Time Associated Comments Diagnosis HEMOGLOBIN Routine 06/16/2011 7:13 AM Results f or this CDT procedure are i n the results section. CT HEAD W/O CONTRAST STAT 06/15/2011 9:33 AM R esults for this CDT procedure are i n the results section. documented in this encounter Results (ABNORMAL) Hemoglobin (06/16/2011 7:13 AM CDT) P athologist Signature Hemoglobin 8.0 (L) 11.7 - 15.7 MANASSAS g/dL [facility] Specimen Anatomical Collection Method Collection Time Receive d Time (Source) Location / / Volume Laterality Blood specimen 06/16/2011 7:13 AM 012 7:44 (specimen) CDT AM CDT Inga Davis MD LAB - BLOOD ORDERABLES Performing Organization Address City/State/ZIP Code Phon e Number [facility] [address] [address] [facility] CT Head w/o contrast* (06/15/2011 9:33 AM CDT) Anatomical Region Laterality Modality Head, SUBRAD CT NEURO, SUBRAD CT NEURO, UMP CT NEURO Computed Tomography Specimen (Source) Anatomical Collection Method Collection Time Re ceived Time Location / / Volume Laterality 06/15/2011 9:33 AM CDT Impressions 06/15/2011 9:[address] OF THE HEAD WITHOUT CONTRAST ??Jun 15, 2011 9:33:00 AM COMPARISON: None. HISTORY: ?? and labor, asymmetr ical pupils, TECHNIQUE: Axial CT images of the head f rom the skull base to the vertex were acquired without ??IV contra st. FINDINGS: ??The ventricles and basal cis terns are within normal limits in configuration. There is no midline sh ift. There are no extra-axial fluid collections. ??Forrest-white differen tiation is well maintained. No intracranial hemorrhage, mass or rece nt infarct. The visualized paranasal sinuses are wel l-aerated. There is no mastoiditis. There are no fractures of t he visualized bones. IMPRESSION: ??Normal head CT. Inga Davis MD IMG CT ORDERABLES documented in this encounter Visit Diagnoses Not on filedocumented in this encounter Administered Medications Inactive Administered Medications - up to 3 most recent administrations Medication Order MAR Action Action Date Dose Rate Site bupivacaine 0.125 % in NaCl 0.9% New Bag 06/15/2011 2:51 AM CDT 15 mL/hr 250 mL EPIDURAL Drip at 15 mL/hr, EPIDURAL, CONTINUOUS, Absolutely no anticoagulants, thrombolytics or antiplatelet medications or other opioid analgesics or other sedatives without prior notification of anesthesiology. For CADD cassettes, pharmacy to send epidural tubing set Ref # [id number] (5.1mL)., Starting on Sat06/15/11 at 0245, Until 06/16/11 at 0559 ePHEDrine injection 5 mg Given 06/15/2011 3:21 AM CDT 5 mg 5 mg, Intravenous, EVERY 3 MIN PRN, if SBP less than 100, Starting on Sat06/15/11 at 0234, For 5 doses, If unresponsive to Fluid Bolus (if ordered), administer Ephedrine. Repeat BP check every 2 mins until stable. If unresponsive to Ephedrine, page Anesthesia and start Hespan (if ordered). fentaNYL (SUBLIMAZE) injection 50-100 mc g Given 06/15/2011 1:25 AM CDT 100 mcg 50-100 mcg, Intravenous, EVERY 1 HOUR PRN, moderate to severe pain, Starting on Sat06/15/11 at 0054 HYDROmorphone (DILAUDID) injection 0.2-0.4 Given 06/15/2011 12:55 PM CDT 0.2 mg mg 0.2-0.4 mg, Intravenous, EVERY 30 MIN PRN, moderate to severe pain, severe pain. , Starting on Sat06/15/11 at 1159, Offer at least every 2 hours. Notify MD for new orders if agent ineffective. ibuprofen (ADVIL,MOTRIN) tablet 400-800 mg Given 06/17/2011 6:47 AM CDT 800 mg 400-800 mg, Oral, EVERY 6 HOURS PRN, other, cramping, Starting on Sat06/15/11 at 1158, Max dose 3200 mg/day. Given 06/16/2011 8:29 PM CDT 800 mg Given 06/16/2011 1:11 PM CDT 800 mg ibuprofen (ADVIL,MOTRIN) tablet 800 mg Given 06/15/2011 11:49 AM CDT 800 mg 800 mg, Oral, ONCE PRN, moderate pain, mild-moderate pain, Starting on Sat06/15/11 at 0053, For 1 dose, Available for administration after delivery. May give with acetaminophen. lactated ringers BOLUS 500 mL New Bag 06/15/2011 3:21 AM CDT 500 mLs 500 mL/hr Intravenous, 500 mL, ONCE PRN, per policy for intrauterine resuscitation, Starting on Sat06/15/11 at 0053, For 1 dose lactated ringers infusion New Bag 06/15/2011 4:04 AM CDT 1,000 mLs 125 mL/hr at 125 mL/hr, Intravenous, CONTINUOUS, Starting on Sat06/15/11 at 0100, Until 06/16/11 at 0559 lidocaine 1 % injection Starting on Sat06/15/11 at 1104, For 1 dose, Giselle CUELLO: Cabinet Override Lidocaine 1% injection 0.1-20 mL Given 06/15/2011 11:27 AM CDT 5 mLs 0.1-20 mL, Subcutaneous, ONCE PRN, episiotomy/laceration repair, Starting on Sat06/15/11 at 0053, For 1 dose, Available for provider administration after delivery. methylergonovine (METHERGINE) 0.2 MG/ML injection Starting on Sat06/15/11 at 1132, For 1 do LUIS ndiaye ERIN: Cabinet Override Dispose as HW methylergonovine Given 06/15/2011 11:30 AM 200 mcg Left Anterior Thigh (METHERGINE) injection 200 CDT mcg 200 mcg, Intramuscular, ONCE PRN, for uterine atony., Starting on Sat06/15/11 at 0053, For 1 dose, Notify provider IF uterine atony and clarify with provider medication preference. Do NOT give IF BP>140/90, preeclampsia, or chronic hypertension. Dispose as HW oxyCODONE (ROXICODONE) immediate release tablet Given 06/17/2011 6:47 AM CDT 5 mg 5-10 mg 5-10 mg, Oral, EVERY 3 HOURS PRN, moderate to severe pain, Starting on Sat06/15/11 at 1159 Given 06/16/2011 8:29 PM CDT 5 mg Given 06/16/2011 1:10 AM CDT 5 mg oxyCODONE-acetaminophen (PERCOCET) 5-325 Given 06/15/2011 11 :47 AM CDT 1 tablet MG per tablet 1 tablet 1 tablet, Oral, ONCE PRN, moderate to severe pain, Starting on Sat06/15/11 at 0053, For 1 dose, Available for administration after delivery. oxytocin (PITOCIN) 20 units in New Bag 06/15/2011 11:27 AM CDT 1,000 mLs 999 mL/hr 0.9% NaCl 1000 mL 0-1,000 mL, Intravenous, CONTINUOUS PRN, provider discretion to treat or prevent uterine atony, Starting on Sat06/15/11 at 0053, Notify provider IF uterine atony and clarify with provider medication preference. IV to run per provider discretion to treat or prevent uterine atony. IV to continue until patient stable. Discontinue or saline lock per nurse discretion. senna-docusate (SENOKOT-S;PERICOLACE) Given 06/16/2011 8:29 PM C DT 2 tablets 8.6-50 MG per tablet 1-2 tablet 1-2 tablet, Oral, 2 TIMES DAILY, First dose on Sat06/15/11 at 1200, Start with 1 tablet PO BID, If no bowel movement in 24 hours, increase to 2 tablets po BID. Hold for loose stools. Given 06/16/2011 8:49 AM CDT 1 tablet Given 06/15/2011 8:47 PM CDT 1 tablet sodium chloride 0.9 % flush 3 mL Given 06/15/2011 8:00 PM CDT 3 mLs 3 mL, Intravenous, EVERY 8 HOURS, First dose on Sat06/15/11 at 0245, And Q1H PRN, to lock peripheral IV dormant line. documented in this encounter Active and Recently Administered Medications Times are shown in CDT. Scheduled Medication Order 06/15/2011 06/16/2011 06/17/2011 senna-docusate (SENOKOT-S;PERICOLACE) 8. 6-50 MG per tablet 1-2 tablet (CANCELED) 2046 (Given - Provider: Terri Willett RN)2048 (Not Given - Provider: Terri Willett RN - Reason: Other) 0849 (Given - Provider: Linda Anglin RN)2028 (Given - Provider: Terri Willett, KISHAN) 0900 (Canceled Entry) 1-2 tablet, Oral, 2 TIMES DAILY, First d ose on Sat06/15/11 at 1200, Start with 1 tablet PO BID, If no bowel movement in 24 hours, increase to 2 tablets po BID. Hold for loose stools. sodium chloride 0.9 % flush 3 mL (CANCELED) 0350 (Not Given - Provider: Lyubov Petit RN - Reason: IV Infusing)1331 (Not Given - Provider: Maribell Zaragoza RN - Reason: IV Infusing)2000 (Given - Provider: Terri Willett RN) 0245 (Canceled Entry) 3 mL, Intravenous, EVERY 8 HOURS, First dose on Sat06/15/11 at 0245, And Q1H PRN, to lock peripheral IV dormant line. Continuous Medication Order 06/15/2011 06/16/2011 06/17/2011 bupivacaine 0.125 % in NaCl 0.9% 250 mL EPIDURAL Drip (CANCELED) 0251 (New Bag - Provider: Lyubov Petit RN - Comment: started per Dr. Mueller) EPIDURAL, at 15 mL/hr, CONTINUOUS, Start ing Sat06/15/11 at 0245, Absolutely no anticoagulants, thrombolytics or antiplatelet medications or other opioid analgesics or other sedatives without prior notifi cation of anesthesiology. For REGGIE jerome, pharmacy to send epidural tubing set Ref # [id number] (5.1mL). lactated ringers infusion (CANCELED) 0404 (New Bag - P rovider: Lyubov Petit RN) 1,000 mL, Intravenous, at 125 mL/hr, CONTINUOUS, Starting 08/20 at 0100 PRN Medication Order 06/15/2011 06/16/2011 06/17/2011 ePHEDrine injection 5 mg (CANCELED) 0321 (Given - Prov ider: Lyubov Petit RN - Comment: per order) 5 mg, Intravenous, EVERY 3 MIN PRN, if S BP less than 100, Starting Sat06/15/11 at 0234, For 5 doses, If unresponsive to Fluid Bolus (if ordered), administer Ephedrine. Repeat BP check every 2 mins until stable. If unresponsive to Ephedrine, pa ge Anesthesia and start Hespan (if ordered). fentaNYL (SUBLIMAZE) injection 50-100 mcg (CANCELED) 0 125 (Given - Provider: Kiana Anders, KISHAN) 50-100 mcg, Intravenous, EVERY 1 HOUR NE N, moderate to severe pain, Starting Sat06/15/11 at 0054 HYDROmorphone (DILAUDID) injection 0.2-0.4 mg (CANCELE D) 1255 (Given - Provider: Maribell Zaragoza, KISHAN) 0.2-0.4 mg, Intravenous, EVERY 30 MIN NE N, Starting Sat06/15/11 at 1159, Until Sat06/17/11 at 1641, moderate to severe pain, severe pain. , Offer at least every 2 hours. Notify MD for new orders if agent ineffective. ibuprofen (ADVIL,MOTRIN) tablet 400-800 mg (CANCELED) 2046 (Given - Provider: Terri Willett, RN) 0641 (Given - Provider: Pamella Ag RN)1311 (Given - Provider: Linda Anglin RN)2028 (Given - Provider: Terri Willett, KISHAN) 0647 (Given - Provider: Pamella Ag RN) 400-800 mg, Oral, EVERY 6 HOURS PRN, oth er, cramping, Starting Sat06/15/11 at 1158, Max dose 3200 mg/day. ibuprofen (ADVIL,MOTRIN) tablet 800 mg (COMPLETED) 114 9 (Given - Provider: Maribell Zaragoza, KISHAN) 800 mg, Oral, ONCE PRN, moderate pain, m ild-moderate pain, Starting Sat06/15/11 at 0053, For 1 dose, Available for administration after delivery. May give with acetaminophen. lactated ringers BOLUS 500 mL (COMPLETED) 0321 (New Ba g - Provider: Lyubov Petit, KISHAN) Intravenous, 500 mL, ONCE PRN, per polic y for intrauterine resuscitation, Starting Sat06/15/11 at 0053, For 1 dose Lidocaine 1% injection 0.1-20 mL (COMPLETED) 1127 (Giv en - Provider: Maribell Zaragoza, KISHAN) 0.1-20 mL, Subcutaneous, ONCE PRN, episi otomy/laceration repair, Starting Sat06/15/11 at 0053, For 1 dose, Available for provider administration after delivery. methylergonovine (METHERGINE) injection 200 mcg (COMPL ETED) 1130 (Given - Provider: Maribell Zaragoza, KISHAN) 200 mcg, Intramuscular, ONCE PRN, for ut erine atony., Starting Sat06/15/11 at 0053, For 1 dose, Notify provider IF uterine atony and clarify with provider medication preference. Do NOT give IF BP>140/ 90, preeclampsia, or chronic hypertension. Dispose as HW oxyCODONE (ROXICODONE) immediate release tablet 5-10 m g (CANCELED) 173 (Given - Provider: Terri Willett, KISHAN) 0110 (Given - Provider: Pamella Ag, KISHAN)2028 (Given - Provider: Terri Willett, KISHAN) 0647 (Given - Provider: Pamella Ag, KISHAN) 5-10 mg, Oral, EVERY 3 HOURS PRN, modera te to severe pain, Starting Sat06/15/11 at 1159 oxyCODONE-acetaminophen (PERCOCET) 5-325 MG per tablet 1 tablet (COMPLETED) 1147 (Given - Provider: Maribell Zaragoza, KISHAN) 1 tablet, Oral, ONCE PRN, moderate to se loreto pain, Starting 06/15/11 at 0053, For 1 dose, Available for administration after delivery. oxytocin (PITOCIN) 20 units in 0.9% NaCl 1000 mL (CANC ELED) 1127 (New Bag - Provider: Maribell Zaragoza, KISHAN) 0-1,000 mL, Intravenous, CONTINUOUS PRN, provider discretion to treat or prevent uterine atony, Starting 06/15/11 at 0053, Notify provider IF uterine atony and clarify with provider medication prefere nce. IV to run per provider discretion t o treat or prevent uterine atony. IV to continue until patient stable. Discontinue or saline lock per nurse discretion. documented in this encounter Care Teams Brick Catcher Relationship Specialty Start Date End Date Lisa Gayle MD PCP - General 03/24/99 11/30/[address], [facility] [address] [place] [address] documented as of this encounter
--- OUTSIDE RECORDS SUMMARY | 2021-11-25 22:40 | XMS_ITS | Encounter Summary ---
:1985 Author Organization [place] Address [facility] [place] [place] [address] Care Team Providers Name Role Phone Lisa Gayle MD Primary Care Provider Encounter Details Date Type Department Care Team Description 06/15/2011 Anesthesia Event [facility] Contreras Mueller MD [facility] [address] [facility] [place] [address] [facility] [id number] [address] [place], [place] [address] (Wo rk) Anesthesia Record Procedure Summary Procedure Name Responsible Anesthesiologist Anesthesia Start Ti me Anesthesia Stop Time albina 06/15/11 0232 06/15/11 0249 Events Date Time Event Comment 06/15/2011 0232 An Start 0249 An Stop No medications on file. Agents No agents on file. Blood No blood administrations on file. Lines, Drains, and Airways Type Details Placement Removal Epidural Catheter 06/15/11; 0232 06/15/11 0232 by Contreras Mueller MD Peripheral IV 06/15/11; 0055; 18 G; 06/15/11 0055 by 06/16/11 0119 by Left; Hand; Kiana Anders Liv A RN Chlorhexidine; None; KISHAN Rodriguez Tolerated well Epidural Catheter 06/15/11; 0245; Tip 06/15/11 0245 by 06/15/11 1200 by Lyubov Alberto Felix, Joy C, RN RN documented in this encounter Social History Tobacco Use Types Packs/Day Years [...] on file documented as of this encounter OR Notes Anesthesia Preprocedure Evaluation - Contreras Mueller MD - 06/15/2011 2:55 AM CDT Anesthesia Evaluation history and physical reviewed . ROS/MED HX Pulmonary: - neg pulmonary ROS Neurologic: - neg neurologic ROS Cardiovascular: - neg cardiovascular ROS METS/Exercise Tolerance: Hematologic: Musculoskeletal: GI/Hepatic: - neg GI/hepatic ROS Renal: Endo: Psychiatric: Infectious Disease: Other: Physical Exam Normal systems: cardiovascular, pulmonary and dental Airway Mallampati: II TM distance: > 3 FB Neck ROM: full Mouth opening: > 3 cm Dental Cardiovascular Pulmonary OB - neg OB ROS Anesthesia Plan ASA Score 2 . Plan for Epidural with Other induction. Maintenance will be Other. Routine analgesia and antiemetics to be used for post-operative care. Anesthetic plan, risks, benefits and alternativesdiscussed with: patient or title insurance sales representative. . documented in this encounter Plan of Treatment Not on filedocumented as of this encounter Visit Diagnoses Not on filedocumented in this encounter Care Teams Refrigeration Service Inspector Relationship Specialty Start Date End Date Lisa Gayle MD PCP - General 03/24/99 11/30/[address], [facility] [address] [place] [address] documented as of this encounter
--- OUTSIDE RECORDS SUMMARY | 2021-11-25 22:40 | XMS_ITS | Encounter Summary ---
:1985 Author Organization [place] Address [address] [place] [address]. [place] [address] Care Team Providers Name Role Phone Lisa Gayle MD Primary Care Provider Reason for Visit Reason Comments Pediatric Oncologist Exam Encounter Details Date Type Department Care Team Description 11/20/2007 Office Visit [facility] Ursula Kumar Routin e Gynecological Examination (Primary Dx); Physicians Dysmenorrhea [address] [facility] [address] [place], [place] [address] [facility] [id number] [facility] [address] [place], [place] [id number] Social History Tobacco Use Types Packs/Day Years Used Date Never Smoker Alcohol Use Standard Drinks/Week Comments No 0 (1 standard drink = 0.6 oz pure alcoho l) Sex Assigned at Date Recorded Not on file documented as of this encounter Last Filed Vital Signs Vital Sign Reading Time Taken Comments Blood Pressure 128/64 11/20/2007 3:30 PM CDT Pulse 84 11/20/2007 3:30 PM CDT Temperature 36.8 ??C (98.3 ??F) 11/20/2007 3:30 PM CDT Respiratory Rate - - Oxygen Saturation - - Inhaled Oxygen Concentration - - Weight 61.2 kg (135 lb) 11/20/2007 3:30 PM CDT Height 170.8 cm (5' 7.25) 11/20/2007 3:30 PM CDT Body Mass Index 20.99 11/20/2007 3:30 PM CDT documented in this encounter Progress Notes Ursula Kumar MD - 11/20/2007 3:34 PM CDT SUBJECTIVE: Alysa Rodrigues is an 22 year old woman who presents for annual bulb filler exam. Concerns today are: 1) none 2) Patient's last menstrual period was 11/11/2007.. Periods are regular q 28-30 days, lasting 4 days. Other menstral problems: none Current contraception: oral contraceptives History of abnormal Pap smear: no Regular self breast exam: No History of abnormal mammogram: no Family history of breast, uterine or ovarian cancer: yes - maternal grandmother cancer History of abnormal lipids: no safe in home? yes Patient Active Problem List Diagnoses Code ??? DYSMENORRHEA 625.3 ??? DEPRESSIVE DISORDER NEC 311 No past medical history on file. No family history on file. History Social History ??? Marital Status: Single Spouse Name: N/A Number of Children: 0 ??? Years of Education: N/A Occupational History ??? Not on file. Social History Main Topics ??? Tobacco Use: Never ??? Alcohol Use: No ??? Drug Use: Not on file ??? Sexually Active: Not Currently Other Topics Concern ??? Not on file Social History Narrative ??? No narrative on file No current outpatient prescriptions on file prior to encounter. Allergies Allergen Reactions ??? No Known Allergies ??? Ragweeds Immunization History Name Date(s) Administered ??? Hepatitis B 09/26/2004, 07/25/2005, 10/12/2005 ??? MMR 10/03/1998 ??? TD (ADULT, 7+) 10/03/1998 Review Of Systems Ears/Nose/Throat: negative Respiratory: negative Cardiovascular: negative Gastrointestinal: negative Genitourinary: negative OBJECTIVE: BP 128/64 Pulse 84 Temp 98.3 ??F (36.8 ??C) Ht 5' 7.25 (1.708 m) Wt 135 lb (61.236 kg) LMP 11/11/2007 General appearance: healthy,alert,no distress Skin: Skin color, texture, turgor normal. No rashes or lesions. Ears: negative Nose/Sinuses: Nares normal. Septum midline. Mucosa normal. No drainage or sinus tenderness. Oropharynx: Lips, mucosa, and tongue normal. Teeth and gums normal. Neck: Neck supple. No adenopathy. Thyroid symmetric, normal size,,Carotids without bruits. Lungs: negative,Percussion normal. Good diaphragmatic excursion. Lungs clear Heart: negative,PMI normal. No lifts, heaves, or thrills. RRR. No murmurs, clicks gallops or rub Breasts: Inspection negative. No nipple discharge or bleeding. No masses. Abdomen: Abdomen soft, non-tender. BS normal. No masses, organomegaly Pelvic: External genitals normal, cervix appeared within normal limits V72.31 Routine Gynecological Examination (primary encounter diagnosis) Comment: healthy female Plan: THIN LAY PAP,DIAG W/HPV REFLEX, SPECIMEN HANDLING,DR OFF->LAB 625.3 Dysmenorrhea Comment: Plan: DIMA 28 3-0.03 MG OR TABS Routine discussion about exercise, diet, calcium intake, caffeine, smoking, drinking, drugs, seat belts, aids, and hepatitis. Encouraged 100% seat belt use, and use of bike helmet if applicable and self breast exam q month. documented in this encounter Nursing Notes 11/20/2007 3:30 PM CDT >> CANDELARIA MARTIN Sushma Nov 20, 2007 3:26 PM Patient is here for a full physical exam and pap. Used regular BP Cuff on pts right arm. Pts Pulse was regular. Pt was offered to sign up for My Chart and pt declines. Questioned patient about current smoking habits. Pt. has never smoked. CLASSIFICATION OF OVERWEIGHT AND OBESITY BY BMI Obesity Class BMI(kg/m2) Underweight < 18.5 Normal 18.5-24.9 Overweight 25.0-29.9 OBESITY I 30.0-34.9 II 35.0-39.9 EXTREME OBESITY III >40 Patient's BMI Body mass index is 20.99 kg/(m^2). Http://hin.nhlbi.nih.gov/menuplanner/menu.cgi documented in this encounter Plan of Treatment Not on filedocumented as of this encounter Procedures Procedure Name Priority Date/Time Associated Diagnosis Comme nts ZZCL AFF HEMOGLOBIN Routine 11/20/2007 3:57 PM Routine Gynecol ogical Results for this CDT Examination procedure are i n the results section. HC VENOUS Routine 11/20/2007 3:35 PM Routine Gynecological COLLECTION CDT Examination ZZCL AFF THIN LAY Routine 11/20/2007 Routine Gynecological R esults for this PAP,DIAG W/HPV Examination procedure are in REFLEX the results section. documented in this encounter Results HEMOGLOBIN (11/20/2007 3:57 PM CDT) P athologist Signature Hemoglobin 14.8 12 - 16 [facility] GM/DL Ursula Kumar MD LABORATORY Performing Organization Address City/State/ZIP Code Phon e Number [facility] THIN LAY PAP,DIAG W/HPV REFLEX (11/20/2007) Patholo gist Method Time Signature Report status FINAL [facility] Clinical [facility] Last Pap WNL [place] Diagnosis [place] Prev Bx Dx NONE GIVEN [employer] [place] Source none given [facility] Statement of SEE NOTE [facility] Adequacy [place] Comment: Satisfactory for evaluation. Endocervical/transformation zone compone nt present. General Categorization NOT AVAIL. [facility] Descriptive Diagnosis SEE NOTE [facility] Comment: Negative for intraepithelial le ventura or malignancy. 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 Comment SEE NOTE [facility] Comment: Based on the cytology result, reflex Hig h Risk HPV DNA testing was not performed. ? Clothing Manager: SEE NOTE [facility] JASVIR NEWMAN Comment: KIEL MARIN(ASCP) Review Clothing Manager NOT AVAIL. [facility] Pathologist NOT AVAIL. [facility] Comment: Test performed at [facility] [address], [place] ??[address] Director: JB GARCES MD Specimen (Source) Anatomical Collection Method Collection Time Re ceived Time Location / / Volume Laterality 11/20/2007 11/21/2007 4:14 AM CDT Narrative [facility] - 11/24/2007 11:00 AM C DT Additional Result Information GENERAL CATEGORIZATION: RESULT NOT AV AILABLE REVIEW HUMAN RESOURCES TEMP: RESULT NOT A VAILABLE PATHOLOGIST: RESULT NOT AVAILABLE Ursula Kumar MD LABORATORY Performing Organization Address [facility]/State/ZIP Code [facility] e Number [facility] [address] [place] [address] documented in this encounter Visit Diagnoses Diagnosis Routine gynecological examination - Prim mateo Dysmenorrhea documented in this encounter Care Teams Doggy Daycare Activities Director Relationship Specialty Start Date End Date Lisa Gayle MD PCP - General 03/24/99 11/30/12 [address] [facility] [address] [place] [address] documented as of this encounter
--- OUTSIDE RECORDS SUMMARY | 2021-11-25 22:40 | XMS_ITS | Encounter Summary ---
:1985 Author Organization [place] Address [address] [place] [address] Care Team Providers Name Role Phone Lisa Gayle MD Primary Care Provider Reason for Visit Reason Comments Clinical Account Specialist Exam Encounter Details Date Type Department Care Team Description 11/06/2006 Office Visit [facility] Lisa Gayle ROUTIN E INSTRUMENTATION MANAGER EXAMINATION (Primary Dx); Physicians DYSMENORRHEA [address] , [address] [place] [address] [phone] Social History Tobacco Use Types Packs/Day Years Used Date Never Smoker Alcohol Use Standard Drinks/Week Comments No 0 (1 standard drink = 0.6 oz pure alcoho l) Sex Assigned at Date Recorded Not on file documented as of this encounter Last Filed Vital Signs Vital Sign Reading Time Taken Comments Blood Pressure 104/60 11/06/2006 11:15 AM CDT Pulse 72 11/06/2006 11:15 AM CDT Temperature - - Respiratory Rate 12 11/06/2006 11:15 AM CDT Oxygen Saturation - - Inhaled Oxygen Concentration - - Weight 56.7 kg (125 lb) 11/06/2006 11:15 AM CDT Height 170.9 cm (5' 7.3) 11/06/2006 11:15 AM CDT Body Mass Index 19.4 11/06/2006 11:15 AM CDT documented in this encounter Progress Notes Lisa Gayle - 11/06/2006 11:47 AM CDT SUBJECTIVE: Alysa Rodrigues is an 21 year old G 0 P 0 woman who 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 Patient's last menstrual period was 11/04/2006. Periods are regular q 28-30 days, lasting [...] no No past medical history on file. No family history on file No past surgical history on file. No current outpatient prescriptions on file. Allergies Allergen Reactions ??? No Known Allergies ??? Ragweeds History Substance Use Topics ??? Tobacco Use: Never ??? Alcohol Use: No Review Of Systems Ears/Nose/Throat: negative Respiratory: negative Cardiovascular: negative Gastrointestinal: negative Genitourinary: negative OBJECTIVE: BP 104/60 Pulse 72 Resp 12 Ht 5' 7.3 (1.71m) Wt 125 lbs (56.7kg) LMP 11/04/2006 General appearance: healthy, alert, no distress, cooperative and smiling Skin: Skin color, texture, turgor normal. No [...] and vagina normal. Bimanual and rectovaginal normal. ASSESSMENT: V7 ROUTINE INSTRUMENTATION MANAGER EXAMINATION (primary encounter diagnosis) Plan: THIN LAY PAP,DIAG W/HPV REFLEX, SPECIMEN HANDLING,DR OFF->LAB, HEMOGLOBIN, VENOUS COLLECTION Total calcium intake of 1500 mgm/day, vitamin D 400-800IU/day and a regular weight bearing exerciseprogram for prevention of osteoporosis is recommended treatment at this time. 625.3 DYSMENORRHEA Plan: DIMA 28 3-0.03 MG OR TABS Potential medication side effects were discussed with the patient; let me know if any occur. Dx: 1) Pap smear 2) Mammography, lipids at appropriate intervals PE: Reviewed health maintenance including diet, regular exercise and periodic exams. documented in this encounter Nursing Notes 11/06/2006 11:15 AM CDT >> CANDELARIA MARTIN 11/06/2006 11:29 am Patient is here for a full physical exam and pap. Questioned patient about current smoking habits. Pt. has never smoked. CLASSIFICATION OF OVERWEIGHT AND OBESITY BY BMI Obesity Class BMI(kg/m2) Underweight < 18.5 Normal 18.5-24.9 Overweight 25.0-29.9 OBESITY I 30.0-34.9 II 35.0-39.9 EXTREME OBESITY III >40 Patient's BMI Body mass index is 19.41 kg/(m^2). Http://hin.nhlbi.nih.gov/menuplanner/menu.cgi documented in this encounter Plan of Treatment Not on filedocumented as of this encounter Procedures Procedure Name Priority Date/Time Associated Diagnosis Comme nts ZZCL AFF THIN LAY Routine 11/08/2006 10:00 Routine Clinical Account Specialist Result s for this PAP,DIAG W/HPV AM CDT Examination procedure are in REFLEX the results section. ZZCL AFF HEMOGLOBIN Routine 11/06/2006 11:59 Routine Clinical Account Specialist Resu lts for this AM CDT Examination procedure are i n the results section. HC VENOUS COLLECTION Routine 11/06/2006 11:46 Routine Clinical Account Specialist AM CDT Examination documented in this encounter Results THIN LAY PAP,DIAG W/HPV REFLEX (11/08/2006 10:00 AM CDT) [facility] Method Time Signature Report status FINAL [facility] [place] [place] Clinical SEE NOTE [facility] [place] [place] Comment: PARA 0 0 LMP 08-07 [facility] [place] [place] Last Pap Diagnosis [facility] Prev Bx Dx NONE GIVEN [facility] [place] Source none given [facility] [place] Statement of Adequacy SEE NOTE NIKKI DI AGNOSTICRitchie [facility] [place] Comment: Satisfactory for evaluation. Endocervical/transformation zone compone nt present. General Categorization NOT AVAIL. NIKKI ALYSSA [facility] [place] Descriptive Diagnosis SEE NOTE [facility] AMY AGNOSTICS [facility] [place] Comment: Negative for intraepithelial le ventura or malignancy. Infection NOT AVAIL. NIKKI DIAGNOSTICS [facility] [place] Comment SEE NOTE [facility] Comment: Based on the cytology result, reflex Hig h/Int Risk HPV DNA Probe testing is not perfor med. Wafer Slicer: SEE NOTE [facility] DIAGNO STICRitchie [facility] Comment: [facility], CT(ASCP) Review Wafer Slicer NOT AVAIL. [facility]I [facility] Pathologist NOT AVAIL. [facility] See Note SEE NOTE NIKKI SHAH [facility] [place] Comment: GYNECOLOGICAL CYTOLOGY IS A SCREENING ND OCEDURE SUBJECT TO BOTH FALSE NEGATIVE AND FALSE POSITIVE RESULTS. IT IS MOST RELIABLE WH EN A SATISFACTORY SAMPLE IS OBTAINED ON A REG ULAR REPETITIVE BASIS. RESULTS MUST BE INTERP RETED IN THE CONTEXT OF HISTORIC AND CURRENT C LINICAL INFORMATION. NO COLLECTION DATE RECEIVED. WE HAVE USE D THE DATE THE SPECIMEN WAS RECEIVED BY [facility] THE COLLECTION DATE. IF IS IS INCORRECT, PLEASE CONTACT CLIENT SERV [facility]. PHONE NUMBER: [phone] Test performed at [facility] [place] [address] [place], [place] ??[address] Director: LATANYA GARCIA MD Specimen (Source) Anatomical Collection Method Collection Time Re ceived Time Location / / Volume Laterality 11/06/2006 10:4 3 PM CDT Narrative [facility] ALYSSA - BETH GARCIA - 10:00 AM CDT Additional Result Information GENERAL CATEGORIZATION: RESULT NOT AV AILABLE INFECTION: RESULT NOT AVAILABLE REVIEW DEVELOPER ADVISOR: RESULT NOT A VAILABLE PATHOLOGIST: RESULT NOT AVAILABLE Lisa E Scherf MD LABORATORY Performing Organization Address City/State/ZIP Code Phon e Number [facility] [address] [place] [address] [place], [place] [address] [facility] [place] [place] HEMOGLOBIN (11/06/2006 11:59 AM CDT) P athologist Signature Hemoglobin 14.7 12 - 16 [facility] GM/DL Lisa Gayle MD LABORATORY Performing Organization Address City/[facility]/ZIP Code Phon e Number [facility] documented in this encounter Visit Diagnoses Diagnosis Routine gynecological examination - Prim mateo Dysmenorrhea documented in this encounter Care Teams Induction Machine Operator Relationship Specialty Start Date End Date Lisa Gayle MD PCP - General 03/24/99 11/30/12 [address] , [facility] [address] [place] [address] documented as of this encounter
--- OUTSIDE RECORDS SUMMARY | 2021-11-25 22:40 | XMS_ITS | Encounter Summary ---
:1985 Author Organization [place] Address [address] [place] [address] Care Team Providers Name Role Phone Lisa Gayle MD Primary Care Provider Encounter Details Date Type Department Care Team Description 01/19/2009 Orders Only [facility], Provider SCAN MICHEL RESULTS Physicians (Primary Dx) [address] [place] [address] Social History Tobacco Use Types Packs/Day Years Used Date Never Smoker Alcohol Use Standard Drinks/Week Comments No 0 (1 standard drink = 0.6 oz pure alcoho l) Sex Assigned at Date Recorded Not on file documented as of this encounter Plan of Treatment Not on filedocumented as of this encounter Procedures Procedure Name Priority Date/Time Associated Diagnosis Comme nts HC COLP CERVIX/UPPER VAGINA Routine 01/13/2009 SCANNING RESU LTS documented in this encounter Results EXAM OF VAGINA,COLPOSCOPY (01/13/2009) Narrative This result has an attachment that is no t available. Provider Abstract PROCEDURES documented in this encounter Visit Diagnoses Diagnosis SCANNING RESULTS - Primary documented in this encounter Care Teams Line Construction Engineer Relationship Specialty Start Date End Date Lisa Gayle MD PCP - General 03/24/99 11/30/12 [address] , [facility] 100 [place], [place] [id number] documented as of this encounter
--- OUTSIDE RECORDS SUMMARY | 2021-11-25 22:40 | XMS_ITS | Encounter Summary ---
:1985 Author Organization [place] Address [address] [place] [address] Care Team Providers Name Role Phone Lisa Gayle MD Primary Care Provider Reason for Visit Reason Onset Date Comments Forms 03/28/2011 Encounter Details Date Type Department Care Team Description 03/28/2011 Telephone [facility] Fredy Davis MD Forms [facility] [address] [place] [address] [facility] [phone] [place] [id number] (Wo rk) Social History Tobacco Use Types [...] Notes Telephone Encounter - Lyubov Bojorquez - 03/28/2011 7:26 PM CST Workability form and letter faxed to [phone]. Sent to abstracting. Lyubov Bojorquez RN ER FEEDER Telephone Encounter - Fredy Davis MD - 03/28/2011 7:00 PM CST Form completed; please fax ER FEEDER Telephone Encounter - Lyubov Bojorquez - 03/28/2011 5:43 PM CST Form on your desk in [place]. Lyubov Bojorquez RN ER FEEDER documented in this encounter Plan of Treatment Not on filedocumented as of this encounter Visit Diagnoses Not on filedocumented in this encounter Care Teams Director Of Resource Development Relationship Specialty Start Date End Date Lisa Gayle MD PCP - General 03/24/99 11/30/12 [address] [address] documented as of this encounter
--- OUTSIDE RECORDS SUMMARY | 2021-11-25 22:40 | XMS_ITS | Encounter Summary ---
:1985 Author Organization [place] Address [address] [place] [address] Care Team Providers Name Role Phone Lisa Gayle MD Primary Care Provider Reason for Visit Reason Onset Date Comments Patient Request 02/21/2011 Encounter Details Date Type Department Care Team Description 02/21/2011 Telephone [facility] Fredy whipple MD Patient Request Clinic [address] [facility] [address] [place] [address] [place] [address] [phone] Social History Tobacco Use Types Packs/Day Years [...] Notes Telephone Encounter - Lyubov Bojorquez - 02/22/2011 8:56 AM CST Patient notified that letter at front counter attendant in [place]. Lyubov Bojorquez RN DISASTER RECOVERY MANAGER Telephone Encounter - Lyubov Bojorquez - 02/21/2011 5:15 PM CST Left message on answering machine for patient to call back. 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 Please advise and notify pt when ready. Thank you. Karrie Calabrese RN DISASTER RECOVERY MANAGER documented in this encounter Plan of Treatment Not on filedocumented as of this encounter Visit Diagnoses Not on filedocumented in this encounter Care Teams Consumer Educator Relationship Specialty Start Date End Date Lisa Gayle MD PCP - General 03/24/99 11/30/12 [address] [facility] 100 [place] [address] documented as of this encounter
--- OUTSIDE RECORDS SUMMARY | 2021-11-25 22:40 | XMS_ITS | Encounter Summary ---
:1985 Author Organization [place] Address [address] [place] [address] Care Team Providers Name Role Phone Lisa Gayle MD Primary Care Provider Reason for Visit Reason Comments Ultrasound Encounter Details Date Type Department Care Team Description 01/15/2011 Orders Only [facility] Women's pervision of normal Clinic [place] first (Primary [address] [place]) [address] [place] [address] Social History Tobacco Use Types Packs/Day Years [...] Priority Date/Time Associated Diagnosis Comme nts HC US OB MATERNAL Routine 01/15/2011 Supervision of normal R esults for this W/DET EXAM, first procedu re are in the SINGLE GESTATION results sec tion. documented in this encounter Results US OB MATERNAL W/DET EXAM, SINGLE GESTATION (01/15/2011) Anatomical Region Laterality Modality Other Impressions 01/15/2011 Complete transabdominal obstetric ultrasound. ?? Gross survey within normal limits. ??Correspon ding sonographic and menstrual EGA and EDC. Jodi Tineo M.D. Narrative 01/15/2011 [facility] [address] [place] [address] ULTRASOUND - COMPLETE OB (18+) Referring Provider: Fredy Davis MD Clinic: [facility] Disk: [id number] INDICATIONS FOR ULTRASOUND: OB History: Present Conditions: Initial Survey (18-26 weeks) CLINICAL INFORMATION LMP: 14 Aug 2010 ??unsure EDC: revised to 10 Jun 2011 ??EGA: 19w1d Previous US: Yes ?? Location: [facility] EDC: 10 Jun 2011 correspond adjusted MEASUREMENTS BPD: 4.14cm ??MA: 18w4d ?Cer: 1.79cm ?MA:19w1d HC: 15.94cm ?MA: 18w5d ?AC: 14.1 3cm ? MA:19w3d FL: 2.9cm ? MA: 18w6d ? Hum: 2.7 7cm ??MA:18w6d FL/AC:20.5 % ?? FL/BPD:70% ?? HC/AC:1.13 ?? CI:74% FHR:139bpm-reg ?? ELBA: wnl ?? EDC: 11 Jun 2011 ?EGA:19w0d correspo nd EFW:277g ? SURVEY Type: Xiong ?Presentation: Tr ansverse ? Placenta location: posterior and mid ?? Grade: 0 ? 4ChHrt: wnl ? Outflow tract:noted ?Arches: wnl Umb cord: 3v ? Insertion: wnl ?Abdomen: wnl ? Nuch/Neck: wnl ? Spine: wnl ? Di aphragm: wnl Stomach: wnl ? Kidneys: wnl ? Bl adder: wnl ? Head: wnl ? Ventricles: wnl ? Ce rebellum: wnl Profile: wnl ? Face: wnl ?Lips: wnl Arms: wnl ?Legs: wnl ?Hands: wnl ?Feet: wnl Gender: male ? Maternal Adnexa: NA ? Fredy Davis MD SPECIAL IMAGING STUDIES documented in this encounter Visit Diagnoses Diagnosis Supervision of normal first - Primary documented in this encounter Care Teams Certified Flight Instructor Relationship Specialty Start Date End Date Lisa Gayle MD PCP - General 03/24/99 11/30/12 [address] [facility] 100 [place] [address] documented as of this encounter
--- OUTSIDE RECORDS SUMMARY | 2021-11-25 22:40 | XMS_ITS | Encounter Summary ---
:1985 Author Organization [place] Address [address] [place] [address] Care Team Providers Name Role Phone Lisa Gayle MD Primary Care Provider Reason for Visit Reason Comments Cough Encounter Details Date Type Department Care Team Description 04/27/2006 Office Visit [facility] [place] [facility] Dashawn Gandhi ACUTE URI MULT [facility] Physicians C, NEC (Primary Dx) [address] [place] [phone] Social History Tobacco Use Types Packs/Day Years Used Date Never Smoker Alcohol Use Standard Drinks/Week Comments No 0 (1 standard drink = 0.6 oz pure alcoho l) Sex Assigned at Date Recorded Not on file documented as of this encounter Last Filed Vital Signs Vital Sign Reading Time Taken Comments Blood Pressure 114/82 04/27/2006 9:00 AM OPTICAL EFFECTS CAMERA OPERATOR Pulse 76 04/27/2006 9:00 AM OPTICAL EFFECTS CAMERA OPERATOR Temperature 36.7 ??C (98 ??F) 04/27/2006 9:00 AM OPTICAL EFFECTS CAMERA OPERATOR Respiratory Rate - - Oxygen Saturation - - Inhaled Oxygen Concentration - - Weight 55.3 kg (122 lb) 04/27/2006 9:00 AM OPTICAL EFFECTS CAMERA OPERATOR Height 172.1 cm (5' 7.75) 04/27/2006 9:00 AM OPTICAL EFFECTS CAMERA OPERATOR Body Mass Index 18.69 04/27/2006 9:00 AM OPTICAL EFFECTS CAMERA OPERATOR documented in this encounter Progress Notes Dashawn Gandhi - 04/27/2006 9:12 AM CST Pt has an assortment of URI type symptoms for about 7 days and which include: 1:cough, some whistling sound in chest 2.anterior chest wall pain, 3.getting better 4.needs note for work 5. Important positive findings were: none Oropharynx normal. Tongue midline without lesions. Teeth and gums appear healthy. Palpation of salivary glands is negative. Careful exam of both ears finds normal tympanic membranes, normal translucence, not retracted, and no perforation, no sign of old chronic disease, and external canal is normal. Patient does not appear ill or in distress at this time. The chest wall is normal to inspection and palpation. Good excursion bilaterally. Lungs clear to auscultation. Good air movement bilaterally without rales, wheezes, or rhonchi. There is no extra work to breathing, and the voice is normal. Important conclusions: viral illness Major teaching points and suggestions: chest wall pain from coughing ASSESSMENT:viral uri Per encounter diagnoses. PLAN:back to work, I mentioned to hold off on cough lozenges, as I think the menthol and Eucalyptus irritates more thanhelps after a day or so;better to use fluids, hard candy and lemon drops, to help these irritating cough syndromes. Per orders. CAL EFFECTS CAMERA OPERATOR documented in this encounter Nursing Notes 04/27/2006 9:00 AM CST >> KAIT SEAMAN 04/27/2006 9:01 am Alysa Rodrigues is here for Chest congestion and cough X 1 week. Was seen last Sat for similar sx. Questioned patient about current smoking habits. Pt. has never smoked. Body mass index is 18.68 kg/(m^2). documented in this encounter Plan of Treatment Not on filedocumented as of this encounter Visit Diagnoses Diagnosis Acute upper respiratory infections of ot her multiple sites - Primary documented in this encounter Care Teams Medical Transcriber Relationship Specialty Start Date End Date Lisa Gayle MD PCP - General 03/24/99 11/30/[address], [facility] [address] [place] [address] documented as of this encounter
--- OUTSIDE RECORDS SUMMARY | 2021-11-25 22:40 | XMS_ITS | Encounter Summary ---
:1985 Author Organization [place] Address [address] [place] [address] Care Team Providers Name Role Phone Lisa Gayle MD Primary Care Provider Reason for Referral - Closed Specialty Diagnoses / Procedures Referred By Contact Refer red To Contact Diagnoses Papanicolaou smear of cervix with atypical squamous cells of undetermined significance (ASC-US) Lisa Gayle MD [address] , [facility] 100 [place] [address] Referral ID Status Reason Start Date Expiration Date Visits Requ ested Visits Authorized [id number] Closed 01/04/2009 03/10/2011 1 1 Reason for Visit Reason Onset Date Comments Lab Result Notice 01/03/2009 Encounter Details Date Type Department Care Team Description 01/03/2009 Telephone [facility] Lisa Gayle MD Lab Result Notice Physicians [address] , [facility] [address] [address] [place] [address] [place], [place] [address] [phone] Social History Tobacco Use Types Packs/Day Years Used Date Never Smoker Alcohol Use Standard Drinks/Week Comments No 0 (1 standard drink = 0.6 oz pure alcoho l) Sex Assigned at Date Recorded Not on file documented as of this encounter Miscellaneous Notes Telephone Encounter - Kendra Farley - 01/13/2009 9:10 AM CST Faxed report [facility] - [place] - Phone - [phone] Fax - [phone] [facility], [address] [place] [address]. [address] NCIAL SERVICES REP Telephone Encounter - Lisa Gayle - 01/12/2009 2:17 PM CST Appointment tomorrow at [facility] TE[facility]. Fax over thin prep report for that appointment. Reviewed result to date and questions regarding the colposcopy. NCIAL SERVICES REP Telephone Encounter - Kendra Farley - 01/12/2009 2:08 PM CST Called and left a mg for Alysa to call us. Please see encounter below. NCIAL SERVICES REP Telephone Encounter - Lisa Gayle - 01/04/2009 8:07 PM CDT Notified of thin prep results and need for colposcopy/referral. She would like to come to [place] that consultation. She will check her schedule over the next month and call back for days off for appointment. Telephone Encounter - Irma Garcia - 01/04/2009 4:24 PM CDT Pt called again for lab results. Lm Telephone Encounter - Irma Garcia - 01/04/2009 12:03 PM CDT Pt called back wanting results. Please call back at [phone] Telephone Encounter - Lisa Gayle - 01/03/2009 3:19 PM CDT Called home number to discuss abnormal thin prep and need for colposcopy exam. Message left for her to return my call about tests results. documented in this encounter Plan of Treatment Not on filedocumented as of this encounter Procedures Procedure Name Priority Date/Time Associated Diagnosis Comme nts ZZ CONSULT TO GYNECOLOGY Routine 01/19/2009 ASCUS Favor Richard gn documented in this encounter Results CONSULT TO GYNECOLOGY (01/19/2009) Narrative This result has an attachment that is no t available. Lisa Gayle MD REFERRAL documented in this encounter Visit Diagnoses Diagnosis Papanicolaou smear of cervix with atypic al squamous cells of undetermined significance (ASC-US) - Primary documented in this encounter Care Teams Curriculum Assistant Relationship Specialty Start Date End Date Lisa Gayle MD PCP - General 03/24/99 11/30/12 [address] , [facility] [address] [place] [address] documented as of this encounter
--- OUTSIDE RECORDS SUMMARY | 2021-11-25 22:40 | XMS_ITS | Encounter Summary ---
:1985 Author Organization [facility] Address [address] [place] [address] Care Team Providers Name Role Phone Lisa Gayle MD Primary Care Provider Reason for Visit Reason Comments Care Encounter Details Date Type Department Care Team Description 11/16/2010 Office [facility] Supervi ventura of normal Visit Clinic [place] first [address] (Primary Dx) [place] [address] Social History Tobacco Use Types [...] Sign Reading Time Taken Comments Blood Pressure 128/82 11/16/2010 5:55 PM CDT Pulse - - Temperature - - Respiratory Rate - - Oxygen Saturation - - Inhaled Oxygen Concentration - - Weight 65.3 kg (143 lb 14.4 oz) 11/16/2010 5:55 PM CDT Height 170.2 cm (5' 7) 11/16/2010 5:55 PM CDT Body Mass Index 22.54 11/16/2010 5:55 PM CDT documented in this encounter Nursing Notes 11/16/2010 6:00 PM CDT >> MARCO ANTONIO GUNTER Sushma Nov 16, 2010 6:31 PM Patient presents with: NPN nurse visit.13w3d Pt will be seeing ric Anne pap is due, had LEEP 02/16 unsure if has pap after LEEP. Unsureof dates, US ordered. Discussed 1st trimester screening. Initial BP 128/82 Ht 5' 7 (1.702 m) Wt 143 lb 14.4 oz (65.273 kg) BMI 22.54 kg/m2 Estimated Body mass index is 22.54 kg/(m^2) as calculated from the following: Height as of this encounter: 5' 7(1.702 m). Weight as of this encounter: 143 lb 14.4 oz(65.273 kg).. BP completed using cuff size: regular documented in this encounter Plan of Treatment Not on filedocumented as of this encounter Procedures Procedure Name Priority Date/Time Associated Diagnosis Comme nts URINE CULTURE Routine 11/16/2010 6:38 PM Supervision of Result s for this CDT normal first procedure are i n the results section. RUBELLA ANTIBODY IGG Routine 11/16/2010 6:37 PM Supervision of Results for this CDT normal first procedure are i n the results section. HIV 1 AND 2 ANTIBODY Routine 11/16/2010 6:37 PM Supervision of Results for this ([facility]) CDT normal first procedure are i n the results section. HEPATITIS B SURFACE Routine 11/16/2010 6:37 PM Supervision of Results for this ANTIGEN CDT normal first procedure are i n the results section. ANTI TREPONEMA Routine 11/16/2010 6:37 PM Supervision of Resul ts for this CDT normal first procedure are i n the results section. ABO/RH TYPE AND Routine 11/16/2010 6:37 PM Supervision of Resu lts for this SCREEN CDT normal first procedure are i n the results section. CBC WITH PLATELETS Routine 11/16/2010 6:37 PM Supervision of R esults for this CDT normal first procedure are i n the results section. HCL HCG, URINE, Routine 11/16/2010 Supervision of Results fo r this NURSE BACKOFFICE normal first procedure a re in the results section. documented in this encounter Results URINE CULTURE (11/16/2010 6:38 PM CDT) Patholo gist Method Time Signature Specimen Midstream [facility] Urine [facility] Culture Micro No growth [facility] Micro Report FINAL [place] Status 11/18/2010 [facility] Specimen Anatomical Collection Method Collection Time Receive d Time (Source) Location / / Volume Laterality 11/16/2010 6:38 PM 1 6:43 CDT PM CDT Fredy Davis MD LAB - MICRO GENERAL ORDERABL ES Performing Organization Address City/State/ZIP Code Phon e Number [facility] [address] [place] [address] [facility] Anti treponema EIA (11/16/2010 6:37 PM CDT) Analysis Performed At Patho logist Time Signature Treponema Negative [facility]G [facility] [place] [facility] Specimen Anatomical Collection Method Collection Time Receive d Time (Source) Location / / Volume Laterality Blood specimen 11/16/2010 6:37 PM 011 6:42 (specimen) CDT PM CDT Fredy Davis MD LAB - BLOOD ORDERABLES Performing Organization Address City/State/ZIP Code Phon e Number [address] LABS Hepatitis B surface antigen (11/16/2010 6:37 PM CDT) Analysis Performed At Patho logist Time Signature Hep B Surface Negative NEG [facility] LABS Specimen Anatomical Collection Method Collection Time Receive d Time (Source) Location / / Volume Laterality Blood specimen 11/16/2010 6:37 PM 011 6:42 (specimen) CDT PM CDT Fredy Davis MD LAB - BLOOD ORDERABLES Performing Organization Address City/State/ZIP Code Phon e Number [facility] [address] [place], [place] [id number] [place] [address] LABS Rubella antibody IgG (11/16/2010 6:37 PM CDT) P athologist Signature Rubella KIKI 115 IU/mL [facility] Comment: Interpretation: Positive, Immun e Specimen Anatomical Collection Method Collection Time Receive d Time (Source) Location / / Volume Laterality Blood specimen 11/16/2010 6:37 PM 011 6:42 (specimen) CDT PM CDT Fredy Davis MD LAB - BLOOD ORDERABLES Performing Organization Address City/State/ZIP Code Phon e Number [facility] [address] [place] [address] [facility]S HIV 1 and 2 Antibody (11/16/2010 6:37 PM CDT) Analysis Performed At Patho logist Time Signature HIV 1&[address] [facility] Antibody [facility] Specimen Anatomical Collection Method Collection Time Receive d Time (Source) Location / / Volume Laterality Blood specimen 11/16/2010 6:37 PM 011 6:42 (specimen) CDT PM CDT Fredy Davis MD LAB - BLOOD ORDERABLES Performing Organization Address City/[facility]/ZIP Code Phon e Number [facility] [address] [place] [address] [facility]S ABO/RH TYPE AND SCREEN (11/16/2010 6:37 PM CDT) Analysis Performed At Patho logist Time Signature ABO A [facility] RH(D) Pos [facility] Antibody Neg [place] Screen [facility] Specimen 11/19/2010 [place] [facility] Specimen Anatomical Collection Method Collection Time Receive d Time (Source) Location / / Volume Laterality Blood specimen 11/16/2010 6:37 PM 011 6:43 (specimen) CDT PM CDT Fredy Davis MD LAB - BLOOD BANK TEST ORDER Performing Organization Address City/State/ZIP Code Phon e Number [facility] [address] [place] [address] [facility] CBC WITH PLATELETS (11/16/2010 6:37 PM CDT) P athologist Signature WBC 9.4 4.0 - 11.0 [place] 10e9/L [facility] RBC Count 4.48 3.8 - 5.2 [place] 10e12/L [facility] Hemoglobin 14.1 11.7 - [place] 15.7 g/dL [facility] Hematocrit 40.7 35.0 - [place] 47.0 % [facility] MCV 91 78 - 100 [place] fl [facility] MCH 31.5 26.5 - [place] 33.0 pg [facility] MCHC 34.6 31.5 - [place] 36.5 g/dL [facility] RDW 12.5 10.0 - [place] 15.0 % [facility] Platelet Count 256 150 - 450 [place] 10e9/L [facility] Specimen Anatomical Collection Method Collection Time Receive d Time (Source) Location / / Volume Laterality Blood specimen 11/16/2010 6:37 PM 011 6:42 (specimen) CDT PM CDT Fredy Davis MD LAB - BLOOD ORDERABLES Performing Organization Address City/[facility]/ZIP [facility] Phon e Number [facility] [address] [place], [place] [address] [address] [facility] HCL HCG, URINE, NURSE BACKOFFICE (11/16/2010) P athologist Signature hCG, Qual positive [facility] Specimen (Source) Anatomical Location Collection Method / Collectio n Time Received Time / Laterality Volume Urine specimen (specimen) Fredy Davis MD LABORATORY Performing Organization Address City/[facility]/ZIP Code Phon e Number [facility] documented in this encounter Visit Diagnoses Diagnosis Supervision of normal first - Primary documented in this encounter Care Teams Head Of Cytogenetics Relationship Specialty Start Date End Date Lisa Gayle MD PCP - General 03/24/99 11/30/[address], [address] [place] [address] documented as of this encounter
--- OUTSIDE RECORDS SUMMARY | 2021-11-25 22:40 | XMS_ITS | Encounter Summary ---
:1985 Author Organization [facility] Address [address] [place] [address] Care Team Providers Name Role Phone Lsia Gayle MD Primary Care Provider Reason for Visit Reason Comments Care Encounter Details Date Type Department Care Team Description 12/18/2010 Office [facility] Fredy Davis ervision of normal first (Primary Dx); [facility] MD Mallory Dysplasia of cervix; [place] [address] CEN[place]AL History of cone biopsy of ce rvix [address] [place] [address] [address] [place], [place] (Work) [address] Social History Tobacco Use [...] Sign Reading Time Taken Comments Blood Pressure 108/62 12/18/2010 3:25 PM CDT Pulse - - Temperature - - Respiratory Rate - - Oxygen Saturation - - Inhaled Oxygen Concentration - - Weight 64.1 kg (141 lb 6.4 oz) 12/18/2010 3:18 PM CDT Height 170.2 cm (5' 7) 12/18/2010 3:18 PM CDT Body Mass Index 22.15 12/18/2010 3:18 PM CDT documented in this encounter Progress Notes Fredy Davis - 12/18/2010 5:56 PM CDT SUBJECTIVE: Dontae Rivera is an 25 year old female here for initial OB visit. Past Medical History of Father of Baby: No significant medical history Review of Systems: CONSTITUTIONAL:NEGATIVE for fever, chills, change in weight History Since Last Menstrual Period: No Problems EXAM: Blood pressure 108/62, height 5' 7 (1.702 m), weight 141 lb 6.4 oz (64.139 kg). GENERAL APPEARANCE: healthy, alert and no distress [...] Cervix: Parous, closed, mobile, no discharge; Uterus: 15 weeks Adnexa: Normal; Rectum: Normal without lesion or mass; Bony Pelvis: Adequate. ASSESSMENT/ PLAN: IUP at 15 weeks -family history of alpha thalassemia-offered genetic testing; offered screening for CF -presented beyond First Trimester Screen -history of LEEP Follow up in 4 weeks. documented in this encounter Nursing Notes 12/18/2010 3:15 PM CDT >> KIMBERLY FREY SatDec 18, 2010 3:35 PM Nurse assisted visit. Latricia Frey RN >> KIMBERLY FREY SatDec 18, 2010 3:27 PM NPN visit. 18w0d. Pap is due. Unsure when last pap smear was. Initial BP 108/62 Ht 5' 7 (1.702 m) Wt 141 lb 6.4 oz (64.139 kg) BMI 22.15 kg/m2 Estimated Body mass index is 22.15 kg/(m^2) as calculated from the following: Height as of this encounter: 5' 7(1.702 m). Weight as of this encounter: 141 lb 6.4 oz(64.139 kg).. BP completed using cuff size: regular SAyse Frey RN documented in this encounter Plan of Treatment Not on filedocumented as of this encounter Procedures Procedure Name Priority Date/Time Associated Comments Diagnosis PAP IMAGED THIN Routine 12/18/2010 5:07 PM Dysplasia of cervix Results for this LAYER, DIAGNOSTIC CDT Supervision of procedur e are in normal first the results section. NEISSERIA GONORRHOEAE Routine 12/18/2010 5:06 PM Dysplas ia of cervix Results for this PCR CDT Supervision of procedure are in normal first the results section. CHLAMYDIA TRACHOMATIS Routine 12/18/2010 5:06 PM Dysplas ia of cervix Results for this PCR CDT Supervision of procedure are in normal first the results section. documented in this encounter Results PAP imaged thin layer, diagnostic (12/18/2010 5:07 PM CDT) Component Value Ref Test Analysis Performed At [facility] Telogis Range Method Time Signature PAP NIL COPATH Copath Report COPATH Patient Name: DONTAE RIVERA MR#: [id number] Specimen #: [id number] Collected: 12/18/2010 Received: 12/20/2010 Reported: 12/21/2010 13:43 Ordering Phy(s): RFEDY DAVIS SPECIMEN/STAIN PROCESS: Pap Imaged thin layer prep diagnostic (SurePath, FocalPoint with guided screening) ? Pap-Cyto x 1, Reflex HPV x 1 SOURCE: Cervical ---- Pap Imaged thin layer prep diagnostic (SurePath, FocalPoint with guided screening) SPECIMEN ADEQUACY: Satisfactory for evaluation. -Transformation zone component absent. CYTOLOGIC INTERPRETATION: Negative for Intraepithelial Lesion or Malignancy Electronically signed out by: KIEL Hoffman (ASCP) Processed and screened at [facility] CLINICAL HISTORY: LMP: 08/14/10 , Other: More than one year ago, Papanicolaou Test Limitations: ??Cervical cytology is a scre ening test with limited sensitivity; regular screening is critical for cancer prevention; Pap tests are primarily effective for the diagnosis/prevention of squamous cell carcinoma, not adenoca rcinomas or other cancers. TESTING LAB LOCATION: [address] [place], [place] ??[address] COLLECTION SITE: Client: ??[facility] Location: RIOB (R) Specimen (Source) Anatomical Collection Method Collection Time Re ceived Time Location / / Volume Laterality Cytologic 12/18/2010 5:07 12/20/2010 material PM CDT 10:13 AM CDT (specimen) Fredy Davis MD LAB - OPTIME CLINICAL SPECIM EN Performing Organization Address City/[facility]/ZIP Code Phon e Number [facility] CHLAMYDIA TRACHOMATIS PCR (12/18/2010 5:06 PM CDT) Component Value Ref Test Analysis Performed At [facility] Telogis Range Method Time Signature Specimen [facility] Chlamydia Negative for C. trachomatis rRNA by master scheduler mediated amplification. [facility] Trachomatis A negative result by transc ription mediated amplification does not preclude the HUSTLE PCR presence of C. trachomatis infection because results are dependent on proper [facility]AMP[facility] LABS and adequate collection, absence of inhibitors, and suffici ent rRNA to be detected. Specimen Anatomical Collection Method Collection Time Receive d Time (Source) Location / / Volume Laterality Cervical swab 12/18/2010 5:06 PM 12/19/19 11 5:11 (specimen) CDT PM CDT Fredy Davis MD LAB - MICRO GENERAL ORDERABL ES Performing Organization Address City/State/ZIP Code Phon e Number [facility] [address] [place] [address] [facility] NEISSERIA GONORRHOEA PCR (12/18/2010 5:06 PM CDT) Component Value Ref Test Analysis Performed At [facility] Telogis Range Method Time Signature Specimen [facility] N Gonorrhea Negative for N. gonorrhoeae rRNA by master scheduler mediated amplification. [facility] PCR A negative result by transc ription mediated amplification does not preclude the HUSTLE presence of N. gonorrhoeae infection because re sults are dependent on proper [facility] and adequate collection, absence of inhibitors, and suffici ent rRNA to be detected. Specimen Anatomical Collection Method Collection Time Receive d Time (Source) Location / / Volume Laterality Cervical swab 12/18/2010 5:06 PM 12/19/19 11 5:11 (specimen) CDT PM CDT Fredy Davis MD LAB - MICRO GENERAL ORDERABL ES Performing Organization Address City/State/ZIP Code Phon e Number [facility] [address] [place] [address] [facility] documented in this encounter Visit Diagnoses Diagnosis Supervision of normal first - Primary Dysplasia of cervix Dysplasia of cervix, unspecified History of cone biopsy of cervix Other postprocedural status documented in this encounter Care Teams Cylinder Loader Relationship Specialty Start Date End Date Lisa Gayle MD PCP - General 03/24/99 11/30/[address], [address] [place], [place] [address] documented as of this encounter
--- OUTSIDE RECORDS SUMMARY | 2021-11-25 22:40 | XMS_ITS | Encounter Summary ---
:1985 Author Organization [facility] Address [address] [place] [address] Care Team Providers Name Role Phone Lisa Gayle MD Primary Care Provider Reason for Visit Reason Comments Knee Pain Encounter Details Date Type Department Care Team Description 04/16/2006 Office Visit [facility] Lisa Gayle, JOINT PAIN-LOWER LEG (Primary Dx); Physicians DYSFUNCT EUSTACHIAN TUBE [address] [place] [address] [phone] Social History Tobacco Use Types Packs/Day Years Used Date Never Smoker Alcohol Use Standard Drinks/Week Comments No 0 (1 standard drink = 0.6 oz pure alcoho l) Sex Assigned at Date Recorded Not on file documented as of this encounter Last Filed Vital Signs Vital Sign Reading Time Taken Comments Blood Pressure 110/70 04/16/2006 6:30 PM RETAIL ASSISTANT MANAGER Pulse 68 04/16/2006 6:30 PM RETAIL ASSISTANT MANAGER Temperature 36.8 ??C (98.2 ??F) 04/16/2006 6:30 PM RETAIL ASSISTANT MANAGER Respiratory Rate 12 04/16/2006 6:30 PM RETAIL ASSISTANT MANAGER Oxygen Saturation - - Inhaled Oxygen Concentration - - Weight 55.8 kg (123 lb) 04/16/2006 6:30 PM RETAIL ASSISTANT MANAGER Height 170.8 cm (5' 7.25) 04/16/2006 6:30 PM RETAIL ASSISTANT MANAGER Body Mass Index 19.12 04/16/2006 6:30 PM RETAIL ASSISTANT MANAGER documented in this encounter Progress Notes Lisa Gayle - 04/16/2006 6:52 PM CST SUBJECTIVE: 20 year old female complaining of bilateral ear plugging and popping for 3 week(s). The patient describes mild nasal congestion. No air flight. No pain. The patient denies a history of fever or other symptoms. Smoking history: no. Relevant past medical history: positive for bilateral right greater than left anterior knee pain with long walks and climbing stairs. No injury. No locking or catching. No edema. OBJECTIVE: The patient appears healthy, alert, no distress, cooperative and smiling. EARS: Rt TM: air/fluid interface visualized. Lt TM: air/fluid interface visualized NOSE/SINUS: positive findings: clear rhinorrhea THROAT: normal NECK:Neck supple. No adenopathy. Thyroid symmetric, normal size,, Carotids without bruits. CHEST: Clear Ext: Knee is normal to inspection and palpation without evidence of erythema, warmth, or discoloration. ROM is full. No ligamentous instability. Patellar apprehension positive with marked lateral deviation on extension. ASSESSMENT: 719.46 JOINT PAIN-LOWER LEG (primary encounter diagnosis) Plan: Patella / femoral dysfunction reviewed. Ice. Ibuprofen. Rehab stretches/ exercises to begin immediately and given in writing with illustrations. Monitor for resolution. 381.81 DYSFUNCT EUSTACHIAN TUBE Plan: use maneuver to open up her Eustachian tubes gently and repeatedly. Symptomatic care with decongestants, fluids, Tylenol/Advil prn. Use GUAIFENESIN CR 600 MG OR TBCR, 1 tab po BID (Twice per day), D: 20, R: 0 for congestion and cough. In addition, I have suggested that the patient monitor for symptoms of bacterial infection expecting slow gradual resolution of viral URI as the natural course. [place] ASSISTANT MANAGER documented in this encounter Nursing Notes 04/16/2006 6:30 PM CST >> JAZMIN CALLEJAS 04/16/2006 6:32 pm Patient is here for bilateral knee pain. NKI she states that it hurts after walking on them for a long time. documented in this encounter Plan of Treatment Not on filedocumented as of this encounter Visit Diagnoses Diagnosis Pain in joint, lower leg - Primary Dysfunction of eustachian tube Dysfunction of Eustachian tube documented in this encounter Care Teams Test Specialist Relationship Specialty Start Date End Date Lisa Gayle MD PCP - General 03/24/99 11/30/12 [address] [facility] [address] [place] [address] documented as of this encounter
[2021-11-25 22:41] VITALS: PULSE 83; RESP 18; O2SAT 100
--- OUTSIDE RECORDS SUMMARY | 2021-11-25 22:41 | XMS_ITS | Encounter Summary ---
:1985 Author Organization [place] Address [address] [place] [address] Care Team Providers Name Role Phone Lisa Gayle MD Primary Care Provider Reason for Visit Reason Comments Abnormal Bleeding Problem Encounter Details Date Type Department Care Team Description 07/25/2005 Office Visit [facility] Lisa Gayle, IRREGU LAR MENSTRUATION (Primary Dx); Physicians COMMUNIC DIS CONTACT NEC; [address], VACCINE FOR VIRAL HEPATITIS [address] [place] [address] [phone] Social History Tobacco Use Types Packs/Day Years Used Date Never Smoker Alcohol Use Standard Drinks/Week Comments No 0 (1 standard drink = 0.6 oz pure alcoho l) Sex Assigned at Date Recorded Not on file documented as of this encounter Last Filed Vital Signs Vital Sign Reading Time Taken Comments Blood Pressure 102/68 07/25/2005 3:00 PM CDT Pulse 80 07/25/2005 3:00 PM CDT Temperature 36.8 ??C (98.3 ??F) 07/25/2005 3:00 PM CDT Respiratory Rate 12 07/25/2005 3:00 PM CDT Oxygen Saturation - - Inhaled Oxygen Concentration - - Weight 58.1 kg (128 lb) 07/25/2005 3:00 PM CDT Height 170.2 cm (5' 7) 07/25/2005 3:00 PM CDT Body Mass Index 20.05 07/25/2005 3:00 PM CDT documented in this encounter Progress Notes Lisa Gayle - 07/25/2005 3:39 PM CDT SUBJECTIVE: Here because she has spotted off and on all month since her PE. Has not started the OCP.Sexually active using condoms without fail. Requests STD screening and finishing her Hep B series. Last 10/2004 had first immunization and did not follow up. Will get immunization record date, etc. See 06/2005 exam. OBJECTIVE: Alert, oriented, well hydrated. Skin turgor normal. The abdomen is soft without tenderness, guarding, mass or organomegaly. Bowel sounds are normal. No CVA tenderness or inguinal adenopathy noted. Vagina and vulva are normal; no discharge is noted. Cervix normal. Uterus anteverted and mobile, normal in size and shape without tenderness. Adnexa normal in size without masses or tenderness. Cultures taken. ASSESSMENT: 626.4 IRREGULAR MENSTRUATION (primary encounter diagnosis) Plan: URINE TEST Start DIMA trial V01.89 COMMUNIC DIS CONTACT NEC Plan: HIV-1 AB W/ CONFIRMATION, RPR W/REFLEX TITER & CONFIRM, SPECIMEN HANDLING,DR OFF->LAB, CHLAMYDIA/GC DNA Pending. Requests letter by mail with results. V05.3 VACCINE FOR VIRAL HEPATITIS Plan: HEPATITIS B VACCINE,PED/ADOL,IM, IMMUNIZATION ADMIN, FIRST Second shot. Await record and third immunization in 4+ weeks. documented in this encounter Nursing Notes 07/25/2005 3:00 PM CDT >> TIFFANIE SOLANO 07/25/2005 4:12 pm Pt has signed for the VIS and Vaccine information provided >> PALMA COSTELLO 07/25/2005 3:21 pm Concerned about menses. Has been spotting on/off since middle of June. Sometimes bleeding is brownish reddish. No cramping. Had pap smear in June and has been spotting since then. Also wants std check to rule everything out. Body mass index is 20.04 kg/(m^2). Questioned patient about current smoking habits. Pt. has never smoked. documented in this encounter Plan of Treatment Not on filedocumented as of this encounter Procedures Procedure Name Priority Date/Time Associated Diagnosis Comme nts ZZCL AFF CHLAMYDIA/GC Routine 07/26/2005 6:00 PM Communic Dis Contact Results for this DNA CDT Nec procedure are i n the results section. ZZCL AFF HIV-1 AB W/ Routine 07/26/2005 8:00 AM Communic Dis C ontact Results for this CONFIRMATION CDT Nec procedure are i n the results section. CL AFF RPR W/REFLEX Routine 07/26/2005 7:00 AM Communic Dis Co ntact Results for this TITER & CONFIRM CDT Nec procedure ar e in the results section. HCL URINE Routine 07/25/2005 3:32 PM Irregular Re sults for this TEST CDT Menstruation procedure are i n the results section. documented in this encounter Results CHLAMYDIA/GC DNA (07/26/2005 6:00 PM CDT) [facility] Signature Chlamydia NOT DETECTED NOT [facility] DNA SDAia NOT DETECTED NOT [facility] Gonorrhoeae DNA DETECTED [facility] Comment: NO COLLECTION DATE RECEIVED. WE HAVE USE D THE DATE THE SPECIMEN WAS RECEIVED BY [facility] THE COLLECTION DATE. IF IS IS INCORRECT, PLEASE CONTACT CLIENT SERV [employer]. PHONE NUMBER: [phone] Test performed at [facility] [place] [address] [place], [place] ??[address] Director: JB GARCES MD Specimen (Source) Anatomical Collection Method Collection Time Re ceived Time Location / / Volume Laterality 07/26/2005 3:35 AM CDT Lisa Gayle MD LABORATORY Performing Organization Address City/State/ZIP Code Phon e Number [facility] [address] [place] [address] HIV-1 AB W/ CONFIRMATION (07/26/2005 8:00 AM CDT) [facility] Time Signature HIV-1 KIKI EIA NON-REACT NON - [facility] Comment: NOTE: ??A NON-REACTIVE RESULT INDICAT ES THAT HIV-1 ?(HTLV-III) ANTIBODIES HAV E NOT BEEN FOUND ?IN THIS PATIENT SPECIMEN. A NON-REACTIVE ?RESULT, HOWEVER, DOES NOT PRECLUDE PREVIOUS ?EXPOSURE OR INFECTION WIT H HIV-1. NO COLLECTION DATE RECEIVED. WE HAVE USE D THE DATE THE SPECIMEN WAS RECEIVED BY IS LABORATORY THE COLLECTION DATE. IF IS IS INCORRECT, PLEASE CONTACT [employer]. PHONE NUMBER: [phone] Test performed at [facility] [address] ??[address] Director: JANETTE CARRASCO M.D. Specimen (Source) Anatomical Collection Method Collection Time Re ceived Time Location / / Volume Laterality 07/26/2005 3:35 AM CDT Lisa Gayle MD LABORATORY Performing Organization Address [facility] e Number [facility] [address] [facility] [address] RPR W/REFLEX TITER & CONFIRM (07/26/2005 7:00 AM CDT) Analysis Performed At Patho logist Time Signature RPR Screen NON-REACTI NON - [facility] Comment: NO COLLECTION DATE RECEIVED. WE HAVE USE D THE DATE THE SPECIMEN WAS RECEIVED BY IS LABORATORY THE COLLECTION DATE. IF IS IS INCORRECT, PLEASE CONTACT [employer]. PHONE NUMBER: [phone] Test performed at [facility] [address] ??[address] Director: JANETTE CARRASCO M.D. Specimen (Source) Anatomical Collection Method Collection Time Re ceived Time Location / / Volume Laterality 07/26/2005 3:35 AM CDT Lisa Gayle MD LABORATORY Performing Organization Address [facility] Phon e Number [facility] [address] [facility] [address] URINE TEST (07/25/2005 3:32 PM CDT) P athologist Signature Test neg [facility] Lisa Gayle MD LABORATORY Performing Organization Address City/State/ZIP Code Phon e Number [facility] documented in this encounter Visit Diagnoses Diagnosis Irregular menstrual cycle - Primary Contact with or exposure to other commun icable diseases(V01.89) Contact with or exposure to other commun icable diseases Need for prophylactic vaccination and in oculation against viral hepatitis documented in this encounter Care Teams Data Operations Manager Relationship Specialty Start Date End Date Lisa Gayle MD PCP - General 03/24/99 11/30/[address], [facility] [address] [place] [address] documented as of this encounter
--- OUTSIDE RECORDS SUMMARY | 2021-11-25 22:41 | XMS_ITS | Encounter Summary ---
:1985 Author Organization [facility] Address [address] [place] [address] Care Team Providers Name Role Phone Marcie Fournier MD Primary Care Provider Reason for Visit Reason Comments Musculoskeletal Problem Encounter Details Date Type Department Care Team Description 07/02/2001 Office Visit [facility] Marcie Fournier, CONTUS ION OF FINGER Physicians (Primary Dx) [address] [facility] [address] [place] [address] [phone] Social History Tobacco Use Types Packs/Day Years Used Date Never Assessed Sex Assigned at Date Recorded Not on file documented as of this encounter Last Filed Vital Signs Vital Sign Reading Time Taken Comments Blood Pressure - - Pulse - - Temperature 36.4 ??C (97.6 ??F) 07/02/2001 4:30 PM CDT Respiratory Rate - - Oxygen Saturation - - Inhaled Oxygen Concentration - - Weight 59.9 kg (132 lb) 07/02/2001 4:30 PM CDT Height - - Body Mass Index - - documented in this encounter Progress Notes 07/02/2001 4:30 PM CDT SUBJECTIVE: Goofing around with friends two days ago. Was hit on her right hand fourth finger with a hockey stick. Swelled up and turned red. Iced. Improving symptoms with swelling down and bending oft he finger improving, but has noticed numbness on the radial side of the finger with paresthesia. OBJ ECTIVE: The hands reveal normal motor, sensory, vascular and tendon function. The right fourth finger shows a well healed scar. Minimal swelling and tenderness noted on the radial side of the finger at the middle phalanx and DIP area. Xray: neg ASSESSMENT: CONTUSION OF FINGER [923.3] PLAN: Discuss ed the innervation of the finger on the lateral areas. Expect numbness due to nerve irritation from c ontusion and swelling. Protect the finger and expect gradual resolution over the next 2 weeks. Any pr oblems or concerns return to recheck the area. documented in this encounter Nursing Notes 07/02/2001 4:30 PM CDT >> SHELDON PAZ 07/02/2001 4:40 pm Pt got hit on right hand with a hockey stick 2 days ago. C/o numbness in fourth digit. documented in this encounter Plan of Treatment Not on filedocumented as of this encounter Procedures Procedure Name Priority Date/Time Associated Diagnosis Comme nts HC X-RAY FINGER(S) >=2 Routine 07/02/2001 Contusion Of Finge r Results for this VIEWS procedure are i n the results section . documented in this encounter Results X-RAY EXAM OF FINGER(S) (07/02/2001) Anatomical Region Laterality Modality Other Narrative 07/02/2001 REFERRING PHYSICIAN: MARCIE FOURNIER M.D. PATIENT NAME: DONTAE Zuleta?SHAWN : ??87 EXAM DATE: ?? 07/02/01 TYPE OF EXAM: RIGHT 4TH FINGER The bony structures are normal. There ar e no fractures, bony lesions, nor significant degenerati ve changes. CONCLUSION: ??Normal right 4th finger. CINDI COYNE M.D. Certified - [place] [employer] Accredited for Mammography - [employer] [employer] MJG/rs dt: ??07/03/01 Marcie Fournier MD GENERAL IMAGING documented in this encounter Visit Diagnoses Diagnosis Contusion of finger - Primary documented in this encounter Care Teams District Supervisor Relationship Specialty Start Date End Date Marcie Fournier MD PCP - General 03/24/99 11/30/[address], [address] [place] [address] documented as of this encounter
--- OUTSIDE RECORDS SUMMARY | 2021-11-25 22:41 | XMS_ITS | Encounter Summary ---
:1985 Author Organization [facility] Address [address] [place] [address]. [place] [address] Care Team Providers Name Role Phone Lisa Gayle MD Primary Care Provider Encounter Details Date Type Department Care Team Description 04/18/2005 Orders Only [facility] Ursula Kumar MD Physicians [facility] [address] [facility] [address] [place], [place] [address] [place] [address] [phone] (Wo rk) Social History Tobacco Use Types Packs/Day Years Used Date Never Smoker Alcohol Use Standard Drinks/Week Comments Not Asked 0 (1 standard drink = 0.6 oz pure alcoho l) Sex Assigned at Date Recorded Not on file documented as of this encounter Plan of Treatment Not on filedocumented as of this encounter Visit Diagnoses Not on filedocumented in this encounter Care Teams Consulting Psychiatrist Relationship Specialty Start Date End Date Lisa Gayle MD PCP - General 03/24/99 11/30/[address], [address] [place], [place] [address] documented as of this encounter
--- OUTSIDE RECORDS SUMMARY | 2021-11-25 22:41 | XMS_ITS | Encounter Summary ---
:1985 Author Organization [facility] Address [address] [place] [address] Care Team Providers Name Role Phone Lisa Gayle MD Primary Care Provider Reason for Visit Reason Comments Mass Right hand and right foot Derm Problem Warts on right foot Encounter Details Date Type Department Care Team Description 02/25/2002 Office Visit [facility] Lisa Gayle GANGLI ON NOS (Primary Dx); Physicians VIRAL WARTS NOS [address], [address] [place] [address] [phone] Social History Tobacco Use Types Packs/Day Years Used Date Never Assessed Sex Assigned at Date Recorded Not on file documented as of this encounter Last Filed Vital Signs Vital Sign Reading Time Taken Comments Blood Pressure 110/72 02/25/2002 3:45 PM TRUST VAULT CUSTODIAN Pulse - - Temperature 37.5 ??C (99.5 ??F) 02/25/2002 3:45 PM TRUST VAULT CUSTODIAN Respiratory Rate - - Oxygen Saturation - - Inhaled Oxygen Concentration - - Weight 59 kg (130 lb) 02/25/2002 3:45 PM TRUST VAULT CUSTODIAN Height 172.1 cm (5' 7.75) 02/25/2002 3:45 PM TRUST VAULT CUSTODIAN Body Mass Index 19.91 02/25/2002 3:45 PM TRUST VAULT CUSTODIAN Body Mass Index Percentile 44.80 % 02/25/2002 3:45 PM CS T Growth Chart: CDC (Girls, 2-20 Years) documented in this encounter Progress Notes 02/25/2002 3:45 PM TRUST VAULT CUSTODIAN SUBJECTIVE: 16 year old female complains of warts. They have been present for 4 month(s). Has been us ing compound W. Also noticed two lumps, one on her right wrist at the base of the thumb, the other o n her right foot laterally. OBJECTIVE: 7 wart(s) noted on the feet. Size range is .5 cm. Small 1 cm ganglion at the base of the right first finger dorsal aspect. 1 cm ganglion of the lateral foot at th e base of the 5th metatarsal ASSESSMENT: GANGLION NOS [727.43] Warts (Verruca Vulgaris) PLAN: The viral etiology and natural history has been discussed. Various treatment methods, side effects and fa ilure rates have been discussed. A choice of liquid nitrogen was made, and the expected blistering o r scabbing reaction explained. Liquid nitrogen was applied to 7 wart(s); the patient willreturn at 2-4 week intervals for retreatments as needed. Reviewed tendon and joint ganglions. options of zana gical treatment vs watchful waiting. Afraid of surgery. Will monitor for growth or pain and return fo r orthopedic referral if needed. documented in this encounter Plan of Treatment Not on filedocumented as of this encounter Procedures Procedure Name Priority Date/Time Associated Diagnosis Comme nts HC DESTRUCT PREMALIGNANT Routine 02/25/2002 4:43 PM Viral Wart s Nos LESION, 2-14 TRUST VAULT CUSTODIAN HC DESTRUCT PREMALIGNANT Routine 02/25/2002 4:43 PM Viral Wart s Nos LESION, FIRST TRUST VAULT CUSTODIAN documented in this encounter Visit Diagnoses Diagnosis Ganglion, unspecified - Primary Viral warts, unspecified documented in this encounter Care Teams Applications Development Consultant Relationship Specialty Start Date End Date Lisa Gayle MD PCP - General 03/24/99 11/30/[address], [address] [place] [address] documented as of this encounter
--- OUTSIDE RECORDS SUMMARY | 2021-11-25 22:41 | XMS_ITS | Encounter Summary ---
:1985 Author Organization [facility] Address [address] [place] [address] Care Team Providers Name Role Phone Lisa Gayle MD Primary Care Provider Reason for Visit Reason Comments Pain Patient Navigator Exam Encounter Details Date Type Department Care Team Description 06/12/2005 Office Visit [facility] Lisa Gayle ROUTIN E SUPERVISOR PRE WAVE EXAMINATION (Primary Dx); Physicians DYSMENORRHEA [address] [place] [address] [phone] Social History Tobacco Use Types Packs/Day Years Used Date Never Smoker Alcohol Use Standard Drinks/Week Comments No 0 (1 standard drink = 0.6 oz pure alcoho l) Sex Assigned at Date Recorded Not on file documented as of this encounter Last Filed Vital Signs Vital Sign Reading Time Taken Comments Blood Pressure 110/70 06/12/2005 3:00 PM CDT Pulse 80 06/12/2005 3:00 PM CDT Temperature 36.9 ??C (98.5 ??F) 06/12/2005 3:00 PM CDT Respiratory Rate 12 06/12/2005 3:00 PM CDT Oxygen Saturation - - Inhaled Oxygen Concentration - - Weight 58.1 kg (128 lb) 06/12/2005 3:00 PM CDT Height 171.5 cm (5' 7.5) 06/12/2005 3:00 PM CDT Body Mass Index 19.75 06/12/2005 3:00 PM CDT documented in this encounter Progress Notes Lisa Gayle - 06/12/2005 3:27 PM CDT SUBJECTIVE: Alysa Rodrigues is an 20 year old G 0 P 0 woman who 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 Patient's last menstrual period was 05/29/2005. Periods are regular q 28-30 days, lasting 7 days. Dysmenorrhea:moderate, occurring first 1-2 days of flow. Cyclic symptoms include none. No intermenstrual bleeding, spotting, or discharge. She would like to start OCP for the pain of her menses. Current contraception: none ASHELY exposure: no History of abnormal Pap [...] Allergies Allergen Reactions ??? No Known Allergies History Substance Use Topics ??? Tobacco Use: Never ??? Alcohol Use: No Review Of Systems Ears/Nose/Throat: allergies fall Respiratory: negative Cardiovascular: negative Gastrointestinal: negative Genitourinary: negative OBJECTIVE: BP 110/70 Pulse 80 Temp (Src) 98.5 (Oral) Resp 12 Ht 5' 7.5 (1.72m) Wt 128 lbs (58.1kg) LMP 05/29/2005 General appearance: healthy, alert, no distress, cooperative [...] vagina normal. Bimanual and rectovaginal normal. ASSESSMENT: V72.31 ROUTINE SUPERVISOR PRE WAVE EXAMINATION (primary encounter diagnosis) Plan: THIN LAY PAP,DIAG W/HPV REFLEX, SPECIMEN HANDLING,DR OFF->LAB, HEMOGLOBIN, VENOUS COLLECTION Total calcium intake of 1500 mgm/day, vitamin D 400-800IU/day and a regular weight bearing exerciseprogram for prevention of osteoporosis is recommended treatment at this time. 625.3 DYSMENORRHEA Plan: THIN LAY PAP,DIAG W/HPV REFLEX, SPECIMEN HANDLING,DR OFF->LAB, HEMOGLOBIN, VENOUS COLLECTION, DIMA 28 3-0.03 MG OR TABS Potential medication side effects were discussed with the patient; let me know if any occur. Recheck BP in 3-4 cycles on active pills. 1) Pap smear 2) Mammography, lipids at appropriate intervals PE: Reviewed health maintenance including diet, regular exercise and periodic exams. documented in this encounter Nursing Notes 06/12/2005 3:00 PM CDT >> JAZMIN CALLEJAS 06/12/2005 3:20 pm Patient is here for a full physical exam and pap. Questioned patient about current smoking habits. Pt. has never smoked. CLASSIFICATION OF OVERWEIGHT AND OBESITY BY BMI Obesity Class BMI(kg/m2) Underweight < 18.5 Normal 18.5-24.9 Overweight 25.0-29.9 OBESITY I 30.0-34.9 II 35.0-39.9 EXTREME OBESITY III >40 Patient's BMI Body mass index is 19.74 kg/(m^2). Http://hin.nhlbi.nih.gov/menuplanner/menu.cgi documented in this encounter Plan of Treatment Not on filedocumented as of this encounter Procedures Procedure Name Priority Date/Time Associated Comments Diagnosis ZZCL AFF THIN LAY Routine 06/15/2005 11:00 AM Routine Patient Navigator Res ults for this PAP,DIAG W/HPV CDT Examination procedure are in REFLEX Dysmenorrhea the results section. ZZCL AFF HEMOGLOBIN Routine 06/12/2005 3:34 PM Routine Patient Navigator Re sults for this CDT Examination procedure are in Dysmenorrhea the results section. HC VENOUS COLLECTION Routine 06/12/2005 3:26 PM Routine Patient Navigator CDT Examination Dysmenorrhea documented in this encounter Results THIN LAY PAP,DIAG W/HPV REFLEX (36915.002) (06/15/2005 11:00 AM CDT) [facility] gist Method Time Signature Report status FINAL [employer]culator Clinical SEE NOTE [employer] History [employer] Comment: PARA 0 0 LMP 05-29-05 DutyCalculator Last Pap Diagnosis FIRST [facility] Prev Bx Dx NONE GIVEN DutyCalculator Source none given [employer] Statement of Adequacy SEE NOTE [id number] [place] Comment: Satisfactory for evaluation. Endocervical/transformation zone compone nt absent. General Categorization NOT AVAIL. [employer] Descriptive Diagnosis SEE NOTE [id number] [place] Comment: Negative for intraepithelial le ventura or malignancy. 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 Comment SEE NOTE [employer] Comment: ? Based on the cytology result, reflex Hig h/Int Risk HPV DNA Probe testing is not perfor med. ?? Ironing Pleater: SEE NOTE [employer] [place] Comment: CMR, CT(ASCP) Review Ironing Pleater NOT AVAIL. [employer] Pathologist NOT AVAIL. [employer] See Note SEE NOTE [employer] Comment: GYNECOLOGICAL CYTOLOGY IS A SCREENING CA OCEDURE SUBJECT TO BOTH FALSE NEGATIVE AND FALSE POSITIVE RESULTS. IT IS MOST RELIABLE WH EN A SATISFACTORY SAMPLE IS OBTAINED ON A REG ULAR REPETITIVE BASIS. RESULTS MUST BE INTERP RETED IN THE CONTEXT OF HISTORIC AND CURRENT C LINICAL INFORMATION. NO COLLECTION DATE RECEIVED. WE HAVE USE D THE DATE THE SPECIMEN WAS RECEIVED BY [facility] THE COLLECTION DATE. IF IS IS INCORRECT, PLEASE CONTACT CLIENT [facility] D[facility]. PHONE NUMBER: [phone] Test performed at [email or web address] ?? [address] ? [place], [place] ??[address] Director: TREVIN KRUEGER MD Specimen (Source) Anatomical Collection Method Collection Time Re ceived Time Location / / Volume Laterality 06/12/2005 11:2 4 PM CDT Narrative DutyCalculator [facility] - 06/16/19 06 11:00 AM CDT Additional Result Information GENERAL CATEGORIZATION: RESULT NOT AV AILABLE REVIEW TIPPLE MECHANIC: RESULT NOT A VAILABLE PATHOLOGIST: RESULT NOT AVAILABLE Lisa Gayle MD LABORATORY Performing Organization Address [facility] Phon e Number [facility] [address] [place] [address], N [address] HEMOGLOBIN (06/12/2005 3:34 PM CDT) athologist Signature Hemoglobin 14.0 12 - 16 [facility] GM/DL Lisa Gayle MD LABORATORY Performing Organization Address [facility] Phon e Number [facility] documented in this encounter Visit Diagnoses Diagnosis Routine gynecological examination - Prim mateo Dysmenorrhea documented in this encounter Care Teams Movie Shot Cameraman Relationship Specialty Start Date End Date Lisa Gayle MD PCP - General 03/24/99 11/30/12 [address] , [facility] [address] [place] [address] documented as of this encounter
--- OUTSIDE RECORDS SUMMARY | 2021-11-25 22:41 | XMS_ITS | Encounter Summary ---
:1985 Author Organization [facility] Address [address] [place] [address] Care Team Providers Name Role Phone Unavailable Primary Care Provider Unavailable Encounter Details Date Type Department Care Team Description 10/03/[address] VACCINE D IS COMBINATIONS NEC; Health/Nurse Physicians EMD ROUTIN CHILD HEALTH EXAM Visit [address] [address] [phone] Social History Tobacco Use Types Packs/Day Years Used Date Never Assessed Sex Assigned at Date Recorded Not on file documented as of this encounter Progress Notes 10/03/1998 1:20 PM CDT documented in this encounter Plan of Treatment Not on filedocumented as of this encounter Visit Diagnoses Diagnosis Need for prophylactic vaccination and in oculation against other combinations of diseases Routine infant or child health check documented in this encounter
--- OUTSIDE RECORDS SUMMARY | 2021-11-25 22:41 | XMS_ITS | Encounter Summary ---
:1985 Author Organization [facility] Address [address] [place] [address] Care Team Providers Name Role Phone Lisa Gayle MD Primary Care Provider Reason for Visit Reason Onset Date Comments Form Request 06/30/2004 patient dropped off the forms for to review and sign. When completed , forms need to be sent to [facility].Thank you. Encounter Details Date Type Department Care Team Description 06/30/2004 Telephone [facility] Lisa Gayle, Form R equest (patient Physicians MD dropped off the forms [address], for to review [address] and sign. When [place], [place] completed, forms need [phone] to be sent to [phone] [facility] Only [facility].Thank you.) Social History Tobacco Use Types Packs/Day Years Used Date Never Assessed Sex Assigned at Date Recorded Not on file documented as of this encounter Miscellaneous Notes Telephone Encounter - Kareen Beebe - 07/04/2004 2:32 PM CDT Form has been mailed to [facility]. Patient has been noififed. Telephone Encounter - Lisa Gayle - 07/03/2004 1:13 PM CDT Signed and in pod 1. Telephone Encounter - Kareen Beebe - 06/30/2004 3:18 PM CDT form has been dropped off by patient to have her immunizations put in and to have LES sign. Form hasbeen placed in LES box at [facility] station. documented in this encounter Plan of Treatment Not on filedocumented as of this encounter Visit Diagnoses Not on filedocumented in this encounter Care Teams 4Th Grade Math Teacher Relationship Specialty Start Date End Date Lisa Gayle MD PCP - General 03/24/99 11/30/12 [address] [address] documented as of this encounter
--- OUTSIDE RECORDS SUMMARY | 2021-11-25 22:41 | XMS_ITS | Clinical Summary ---
:1985 Author Organization [facility] Address [address] [place] [address] Care Team Providers Name Role Phone No Primary/Referring, Phy Primary Care Provider Unavailable Source Comments You are receiving this document as you are listed as the primary care provider,follow-up provider, or the patient has been referred to you for consultation.This is in compliance with the Medicare and Medicaid EHR Incentive Program,which states Providers who transition their patient to another setting of careor provider of care or refers their patient to another provider of care shouldprovide summarycare record for each transition of care or referral. [facility] Allergies No known active allergies Medications No known medications Social History Tobacco Use Types Packs/Day Years Used Date Smoking Tobacco: Never Assessed Sex Assigned at Date Recorded Not on file Last Filed Vital Signs Vital Sign Reading Time Taken Comments Blood Pressure 112/87 12/14/2016 8:00 PM CDT Pulse 63 12/14/2016 8:00 PM CDT Temperature 37 ??C (98.6 ??F) 12/14/2016 8:00 PM CDT Respiratory Rate 16 12/14/2016 8:00 PM CDT Oxygen Saturation - - Inhaled Oxygen Concentration - - Weight 76.2 kg (168 lb) 12/14/2016 8:00 PM CDT Height 170.2 cm (5' 7) 12/14/2016 8:00 PM CDT Body Mass Index 26.31 12/14/2016 8:00 PM CDT Plan of Treatment Health Maintenance Due Date Last Done Comments Cervical Cancer Screening Due 1986 Hep C Screening (Preventive 1986 Services) HepB (1) 1986 COVID-19 Vaccine (#1) 1986 HIV Screening (Preventive 2002 Services) Adult Preventive Visit 2004 DTaP/Tdap/Td (1 - Tdap) 2005 Influenza (#1) 2021 Zoster/Shingles (1 of 2) 2036 HPV Vaccine Aged Out No longer eligib le based on patient's age to complete this topic HepA Aged Out No longer eligib le based on patient's age to complete this topic Hib Aged Out No longer eligib le based on patient's age to complete this topic IPV (Polio) Aged Out No longer eligib le based on patient's age to complete this topic MCV4 Aged Out No longer eligib le based on patient's age to complete this topic Pneumococcal Aged Out No longer eligib le based on patient's age to complete this topic Insurance Payer Benefit Plan / Subscriber ID Effective Dates Phone Addre ss Type [facility] FULLY [id number] 2016-Present Commercial INSURED ([place]) [place] [address] Care Teams Lung Puller Relationship Specialty Start Date End Date No Primary/Referring, Kyliey PCP - General 12/14/16
--- OUTSIDE RECORDS SUMMARY | 2021-11-25 22:41 | XMS_ITS | Encounter Summary ---
:1985 Author Organization [facility] Address [address] [place] [address] Care Team Providers Name Role Phone Lisa Gayle MD Primary Care Provider Reason for Visit Reason Comments Derm Problem Encounter Details Date Type Department Care Team Description 08/09/2004 Office Visit [facility] Lisa Gayle, INSECT BITE TRUNK Physicians (Primary Dx) [address] , [address] [place] [address] [phone] Social History Tobacco Use Types Packs/Day Years Used Date Never Smoker Alcohol Use Standard Drinks/Week Comments Not Asked 0 (1 standard drink = 0.6 oz pure alcoho l) Sex Assigned at Date Recorded Not on file documented as of this encounter Last Filed Vital Signs Vital Sign Reading Time Taken Comments Blood Pressure 110/70 08/09/2004 9:15 AM CDT Pulse 60 08/09/2004 9:15 AM CDT Temperature 36.8 ??C (98.2 ??F) 08/09/2004 9:15 AM CDT Respiratory Rate 12 08/09/2004 9:15 AM CDT Oxygen Saturation - - Inhaled Oxygen Concentration - - Weight 56.7 kg (125 lb) 08/09/2004 9:15 AM CDT Height 172.7 cm (5' 8) 08/09/2004 9:15 AM CDT Body Mass Index 19.01 08/09/2004 9:15 AM CDT Body Mass Index Percentile 18.65 % 08/09/2004 9:15 AM CD T Growth Chart: FORMERLY NAMED [facility] (Girls, 2-20 Years) documented in this encounter Progress Notes Lisa Gayle - 08/09/2004 9:54 AM CDT RASH location: Left upper chest wall skin when: Noticed an irritation over 2 weeks ago. Went to the school nurse who told her she had seen 3 other women with similar insect bites. It had a red ring after 2 days and then became a confluent erythematous scaly lesions which is slowly resolving. After reading about LYME's became concerned. any causative agent ?:Unknown bite any other chronic skin diseases?: no description: Minimal erythematous scaly 1 cm macular lesion on the left upper torso above the breast. Chest wall normal to inspection and palpation. Good excursion bilaterally. Lungs clear to auscultation. Good air movement bilaterally without rales, wheezes, or rhonchi. No axillary adenopathy noted pt use of Meds:none diagnosis:911.4 INSECT BITE TRUNK (primary encounter diagnosis) Plan: B. BURGDORFERI (LYME) KIKI, VENOUS COLLECTION, SPECIMEN HANDLING,DR OFF->LAB Discussed spider and gnat bites common this spring as well. Ordered screening test. plan for follow up: Await results and then choose treatment or allowing normal resolution documented in this encounter Nursing Notes 08/09/2004 9:15 AM CDT >> JAZMIN CALLEJAS 08/09/2004 9:37 am Pt has a bug bite that she got 07/28 and has not gone away. Questioned patient about current smokinghabits. Pt. has never smoked. CLASSIFICATION OF OVERWEIGHT AND OBESITY BY BMI Obesity Class BMI(kg/m2) Underweight < 18.5 Normal 18.5-24.9 Overweight 25.0-29.9 OBESITY I 30.0-34.9 II 35.0-39.9 EXTREME OBESITY III >40 Patient's BMI 19.01 http://hin.nhlbi.nih.gov/menuplanner/menu.cgi documented in this encounter Plan of Treatment Not on filedocumented as of this encounter Procedures Procedure Name Priority Date/Time Associated Comments Diagnosis HCL LYMES SCREEN (B Routine 08/10/2004 1:00 PM Insect Bite Eg nk Results for this BURGDORFERI) CDT procedure are i n the results section. HC VENOUS COLLECTION Routine 08/09/2004 9:44 AM Insect Bite Tr unk CDT documented in this encounter Results B. BURGDORFERI (LYME) KIKI (08/10/2004 1:00 PM CDT) athologist Signature Lyme Screen IgG <1.00 EIA VALUE QUEST and IgM DIAGNOSTICS-WO LIZET Comment: EXPLANATION OF EIA VALUE < 1.00 ?NEGATIVE 1.00 - 1.19 ? EQUIVOCAL > OR = 1.20 ? POSITIVE DUE TO RECOMMENDATIONS BY THE FOOD AND D RUG ADMINISTRATION (FDA), ALL POSITIVE OR EQ UIVOCAL BORRELIA BURGDORFERI ANTIBODY EIA (AGNES PEARSON) TESTS WILL BE FOLLOWED BY THE [facility] OT. THE SCREENING TEST FOR B. BURGDORFERI OG S A LOW PREDICTIVE VALUE FOR A NEGATIVE RESULT W HEN USED TO DETECT EARLY INFECTION AND A LOW PREDICT CINDY VALUE FOR A POSITIVE RESULT WHEN EXPOSURE HISTORY, SYMPTOMS, AND CLINICAL FINDINGS ARE NOT CONSISTENT WITH LYME DISEASE. POSITIVE OR EQUIVOCAL RESULTS S HOULD NOT BE INTERPRETED TRUE POSITIVES UNTIL A SE COND-STEP TESTING OF THE SPECIMEN IS DONE USING A METHOD THAT IS MORE SPECIFIC FOR ANTIBODIES TO B. BU RGDORFERI (E.G. WESTERN BLOT). NO COLLECTION DATE RECEIVED. WE HAVE USE D THE DATE THE SPECIMEN WAS RECEIVED BY [facility] THE COLLECTION DATE. IF [facility] IS INCORRECT, PLEASE CONTACT CLIENT [facility]. PHONE NUMBER: [phone] Test performed at [facility] [address] ??[id number] Director: JANETTE CARRASCO M.D. Specimen (Source) Anatomical Collection Method Collection Time Re ceived Time Location / / Volume Laterality 08/10/2004 3:56 AM CDT Lisa Gayle MD LABORATORY Performing Organization Address City/State/ZIP Code Phon e Number [facility] [facility] [address] documented in this encounter Visit Diagnoses Diagnosis Trunk, insect bite, nonvenomous, without mention of infection(911.4) - Primary Trunk, insect bite, nonvenomous, without mention of infection documented in this encounter Care Teams Coal Hauler Relationship Specialty Start Date End Date Lisa Gayle MD PCP - General 03/24/99 11/30/12 [address] [facility] [address] [place] [address] documented as of this encounter
--- OUTSIDE RECORDS SUMMARY | 2021-11-25 22:41 | XMS_ITS | Encounter Summary ---
:1985 Author Organization [facility] Address [address] [place] [address] Care Team Providers Name Role Phone Lisa Gayle MD Primary Care Provider Reason for Visit Reason Comments Chest Pain Allergies Encounter Details Date Type Department Care Team Description 11/25/2003 Office Visit [facility] Lisa Gayle, ALLERG IC RHINITIS NOS (Primary Dx); Physicians CHR ALLRG CONJUNCTIV NEC; [address], EATING DISORDER NOS [address] [place] [address] [phone] Social History Tobacco Use Types Packs/Day Years Used Date Never Assessed Sex Assigned at Date Recorded Not on file documented as of this encounter Last Filed Vital Signs Vital Sign Reading Time Taken Comments Blood Pressure 110/70 11/25/2003 3:01 PM CDT Pulse 80 11/25/2003 3:01 PM CDT Temperature 36.8 ??C (98.3 ??F) 11/25/2003 3:01 PM CDT Respiratory Rate 12 11/25/2003 3:01 PM CDT Oxygen Saturation - - Inhaled Oxygen Concentration - - Weight 57.6 kg (127 lb) 11/25/2003 3:01 PM CDT Height 170.8 cm (5' 7.25) 11/25/2003 3:01 PM CDT Body Mass Index 19.74 11/25/2003 3:01 PM CDT Body Mass Index Percentile 31.60 % 11/25/2003 3:01 PM CD T Growth Chart: CDC (Girls, 2-20 Years) documented in this encounter Progress Notes 11/25/2003 3:00 PM CDT SUBJECTIVE: 18 year old female complaining of allergy symptoms for 4 day(s). The patient describes sneezing and itching eyes as well. The patient denies a history of fever or cough. Smoking history: no. Relevant past medical history: positive for after eating on occasions gets a sharp pain in the sternum area which last 10-30 seconds and then dissipates. No pain with exercise. OBJECTIVE: The patient appears healthy, alert, no distress and cooperative. EARS: negative NOSE/SINUS: positive findings: mucosa swollen, pale, and boggy, clear rhinorrhea THROAT: normal NECK:Neck supple. No adenopathy. Thyroid symmetric, normal size,, Carotids without bruits. CV: Regular rate and rhythm. S1 and S2 normal, no murmurs, clicks, gallops or rubs. No edema or JVD. Chest is clear; no wheezes or rales. Abd: The abdomen is soft without tenderness, guarding, mass or organomegaly. Bowel sounds are normal. No CVA tenderness or inguinal adenopathy noted. ASSESSMENT: 477.9 ALLERGIC RHINITIS NOS (primary encounter diagnosis) Plan: RHINOCORT AQUA 32 MCG/ACT NA SUSP along with OTC Dristan antihistamine 372.14 CHR ALLRG CONJUNCTIV NEC Plan: OPTIVAR 0.05 % OP SOLN putting in contacts 20-30 minutes after dose. Will start a diary regarding her chest pain with foods she ate, quantity, etc and report back with findings. documented in this encounter Nursing Notes 11/25/2003 3:00 PM CDT >> JAZMIN CALLEJAS 11/25/03 2:43 pm Pt states that she has been having off and on chest pain. She has also been having problems with herallergies. Questioned patient about current smoking habits. Pt. has never smoked. documented in this encounter Plan of Treatment Not on filedocumented as of this encounter Visit Diagnoses Diagnosis Allergic rhinitis, cause unspecified - P rimary Other chronic allergic conjunctivitis Eating disorder, unspecified documented in this encounter Care Teams General Matcher Relationship Specialty Start Date End Date Lisa Gayle MD PCP - General 03/24/99 11/30/[address], [address] [place] [address] documented as of this encounter
--- OUTSIDE RECORDS SUMMARY | 2021-11-25 22:41 | XMS_ITS | Encounter Summary ---
:1985 Author Organization [facility] Address [address] [place] [address] Care Team Providers Name Role Phone Lisa Gayle MD Primary Care Provider Reason for Visit Reason Comments Physical sport physical / softball Encounter Details Date Type Department Care Team Description 07/13/1999 Office Visit [facility] Lisa Gayle ROUTIN E [facility] Physicians EXAM (Primary Dx) [address] , [address] [place] [address] [phone] Social History Tobacco Use Types Packs/Day Years Used Date Never Assessed Sex Assigned at Date Recorded Not on file documented as of this encounter Last Filed Vital Signs Vital Sign Reading Time Taken Comments Blood Pressure 100/56 07/13/1999 10:45 AM CDT Pulse 70 07/13/1999 10:45 AM CDT Temperature 36.6 ??C (97.8 ??F) 07/13/1999 10:45 AM CDT Respiratory Rate 20 07/13/1999 10:45 AM CDT Oxygen Saturation - - Inhaled Oxygen Concentration - - Weight 52.6 kg (116 lb) 07/13/1999 10:45 AM CDT Height 167 cm (5' 5.75) 07/13/1999 10:45 AM CDT Body Mass Index 18.87 07/13/1999 10:45 AM CDT Body Mass Index Percentile 51.33 % 07/13/1999 10:45 AM C DT Growth Chart: CDC (Girls, 2-20 Years) documented in this encounter Progress Notes 07/13/1999 10:45 AM CDT SUBJECTIVE: 14 year old female presents for sports/school physical. Feels well, has no complaints. PM H: No history of significant medical, surgical or orthopedic problems ROS: Denies significant cardio- pulmonary, GI , or orthopedic symptoms. No problems during sports participation. Menses started l ast . Social History: Denies the use of tobacco, alcohol or street drugs. Last Tetanus immuniz ation: . Allergies: No Known Allergies OBJECTIVE: General appearance: Healthy well developed, w ell nourished female. ENT: ears, nose, and throat normal, Hearing: normal. Eyes: Vision : 30/20 OD, 3 0/20 OS; KALIA. Neck : supple, thyroid normal, no adenopathy. Lungs: clear, no wheezing or rales. H eart : RRR. No murmur, normal S1 and S2. Abdomen: normal without masses, organomegaly or tenderness G enitalia: unnecessary for purposes of sports exam. Hernia: none. Spine: normal, no scoliosis. Upper e xtremities: normal. Lower extremities: normal. Skin: Normal. Neuro: normal UA: negative office urin e dipstick ASSESSMENT: Healthy female cleared for sports activities as desired. PLAN: School PE fo rm filled out and given to patient. documented in this encounter Nursing Notes 07/13/1999 10:45 AM CDT >> IRVING ORTEGA 07/13/1999 11:24 am vision screen with contacts: L 20/30 R 20/30 documented in this encounter Plan of Treatment Not on filedocumented as of this encounter Procedures Procedure Name Priority Date/Time Associated Comments Diagnosis ZZCL AFF HEMOGLOBIN Routine 07/13/1999 12:03 PM Routine Child Results for this CDT Health Exam procedure are i n the results section. HCL URINALYSIS Routine 07/13/1999 12:02 PM Routine Child Resul ts for this NONAUTO W/O SCOPE CDT Health Exam procedure are in [facility] the results section. HC VENOUS COLLECTION Routine 07/13/1999 11:46 AM Routine Child CDT Health Exam documented in this encounter Results HEMOGLOBIN (07/13/1999 12:03 PM CDT) P athologist Signature Hemoglobin 12.6 12 - 16 G/DL [facility] INTERNAL Specimen (Source) Anatomical Collection Method Collection Time Re ceived Time Location / / Volume Laterality 07/13/1999 12:03 PM CDT Lisa Gayle MD LABORATORY Performing Organization Address City/State/ZIP Code Phon e Number [facility] INTERNAL URINALYSIS NONAUTO W/O SCOPE (07/13/1999 12:02 PM CDT) P athologist Signature Glucose Urine neg [facility] Protein Urine trace [facility] INTER[facility] Specimen (Source) Anatomical Collection Method Collection Time Re ceived Time Location / / Volume Laterality 07/13/1999 12:02 PM CDT Lisa Gayle MD LABORATORY Performing Organization Address City/State/ZIP Code Phon e Number [facility] documented in this encounter Visit Diagnoses Diagnosis Routine infant or child health check - P rimary documented in this encounter Care Teams Core Stripper Relationship Specialty Start Date End Date Lisa Gayle MD PCP - General 03/24/99 11/30/12 [address] [facility] [address] [place] [address] documented as of this encounter
--- OUTSIDE RECORDS SUMMARY | 2021-11-25 22:41 | XMS_ITS | Encounter Summary ---
:1985 Author Organization [facility] Address [address] [place] [address] Care Team Providers Name Role Phone Lisa Gayle MD Primary Care Provider Reason for Visit Reason Comments Derm Problem Encounter Details Date Type Department Care Team Description 05/19/2002 Office Visit [facility] Lisa Gayle, VIRAL WARTS NOS Physicians (Primary Dx) [address] , [address] [place] [address] [phone] Social History Tobacco Use Types Packs/Day Years Used Date Never Assessed Sex Assigned at Date Recorded Not on file documented as of this encounter Last Filed Vital Signs Vital Sign Reading Time Taken Comments Blood Pressure 110/70 05/19/2002 4:30 PM MICRO LAB ANALYST Pulse - - Temperature 37.1 ??C (98.7 ??F) 05/19/2002 4:30 PM MICRO LAB ANALYST Respiratory Rate - - Oxygen Saturation - - Inhaled Oxygen Concentration - - Weight 58.1 kg (128 lb) 05/19/2002 4:30 PM MICRO LAB ANALYST Height - - Body Mass Index - - documented in this encounter Progress Notes 05/19/2002 4:30 PM MICRO LAB ANALYST SUBJECTIVE: 16 year old female needs retreatments of wart(s). OBJECTIVE: 8 wart(s) noted on the feet . Size range is .25-.5 cm. ASSESSMENT: Warts (Verruca Vulgaris) PLAN: Liquid nitrogen was applied t o 8 wart(s); the patient will return at 2-4 week intervals for retreatments as needed. documented in this encounter Nursing Notes 05/19/2002 4:30 PM CST >> CALLEJASPATRICIACitlaly Tejada 05/19/2002 4:41 pm Patient is here for a wart removal from your right foot. Questioned patient about current smoking habits. Pt. has never smoked. documented in this encounter Plan of Treatment Not on filedocumented as of this encounter Procedures Procedure Name Priority Date/Time Associated Diagnosis Comme nts HC DESTRUCT PREMALIGNANT Routine 05/19/2002 5:17 PM Viral Wart s Nos LESION, 2-14 MICRO LAB ANALYST HC DESTRUCT PREMALIGNANT Routine 05/19/2002 5:17 PM Viral Wart s Nos LESION, 2-14 MICRO LAB ANALYST HC DESTRUCT PREMALIGNANT Routine 05/19/2002 5:17 PM Viral Wart s Nos LESION, 2-14 MICRO LAB ANALYST HC DESTRUCT PREMALIGNANT Routine 05/19/2002 5:17 PM Viral Wart s Nos LESION, 2-14 MICRO LAB ANALYST HC DESTRUCT PREMALIGNANT Routine 05/19/2002 5:17 PM Viral Wart s Nos LESION, 2-14 MICRO LAB ANALYST HC DESTRUCT PREMALIGNANT Routine 05/19/2002 5:17 PM Viral Wart s Nos LESION, 2-14 MICRO LAB ANALYST HC DESTRUCT PREMALIGNANT Routine 05/19/2002 5:17 PM Viral Wart s Nos LESION, 2-14 MICRO LAB ANALYST HC DESTRUCT PREMALIGNANT Routine 05/19/2002 5:17 PM Viral Wart s Nos LESION, FIRST MICRO LAB ANALYST documented in this encounter Visit Diagnoses Diagnosis Viral warts, unspecified - Primary documented in this encounter Care Teams Zipper Trimmer Relationship Specialty Start Date End Date Lisa Gayle MD PCP - General 03/24/99 11/30/[address], [address] [place] [address] documented as of this encounter
--- OUTSIDE RECORDS SUMMARY | 2021-11-25 22:41 | XMS_ITS | Encounter Summary ---
:1985 Author Organization [facility] Address [address] [place] [address] Care Team Providers Name Role Phone Lisa Gayle MD Primary Care Provider Reason for Visit Reason Comments Pharyngitis Cough Encounter Details Date Type Department Care Team Description 05/28/2003 Office Visit [facility] Dashawn Gandhi ACUTE PHARYNGITIS Physicians MD Jorge Luis (Primary Dx) [address] [place] [phone] Social History Tobacco Use Types Packs/Day Years Used Date Never Assessed Sex Assigned at Date Recorded Not on file documented as of this encounter Progress Notes 05/28/2003 3:[address] SQL DEVELOPER just noted a small mucous gland above the right tonsil, not an infection, glands fine, did have a sli ght cold, no rx needed. we discussed the anatomy of the tonsils, no infection, has not sore throatat this time. documented in this encounter Nursing Notes 05/28/2003 3:15 PM CST >> JAZMIN CALLEJAS 05/28/2003 3:02 pm Patient has had a sore throat for about a week now. She also has a cough and runny nose. Questioned patient about current smoking habits. Pt. has never smoked. documented in this encounter Plan of Treatment Not on filedocumented as of this encounter Visit Diagnoses Diagnosis Acute pharyngitis - Primary documented in this encounter Care Teams Offshore Wind Operations Manager Relationship Specialty Start Date End Date Lisa Gayle MD PCP - General 03/24/99 11/30/12 [address] [place] [address] documented as of this encounter
--- OUTSIDE RECORDS SUMMARY | 2021-11-25 22:41 | XMS_ITS | Encounter Summary ---
:1985 Author Organization [employer] Address [address] [address] Care Team Providers Name Role Phone No Primary/Referring, Phy Primary Care Provider Unavailable Reason for Visit Reason Comments Pharyngitis Encounter Details Date Type Department Care Team Description 12/14/2016 Office Visit Urgent [facility] (Primary Dx) [address] [address] Social History Tobacco Use Types Packs/Day Years [...] Mass Index 26.31 12/14/2016 8:00 PM CDT documented in this encounter Progress Notes Tita Ibarra N, LUMBER PLANER, REDRYING MACHINE OPERATOR - 12/14/2016 7:50 PM CDT Chief Complaint Patient presents with ??? Pharyngitis Subjective: Alysa Verde is a 31 y.o. female who presents for evaluation of sore throat onset today. Associated symptoms include fever 101 last night, pain in throat, throat irritation, and chills. No congestion, rhinorrhea, cough and difficulty swallowing. Pt is having adequate hydration. Pt has not had recent close exposure to someone with proven streptococcal pharyngitis. Her coworkers have been sick. No Known Allergies O: BP 112/87 Pulse 63 Temp 98.6 ??F (37 ??C) (Oral) Resp 16 Ht 5' 7 (1.702 m) Wt 168 lb (76.2 kg) BMI 26.31 kg/m2 reviewed Nl conjuctiva bilaterally Ear exam - both sides normal, TM intact without perforation. mild effusion. Nl external canal. normal. Nasal exam - clear rhinorrhea and mucosal edema and congestion. No sinus tenderness. Oropharyngeal exam - moderate erythema, white exudates noted. Neck exam - supple and few small anterior cervical nodes. S1 and S2 normal, no murmurs, clicks, gallops or rubs. Regular rate and rhythm. Chest is clear; no wheezes or rales. A/P: Sore throat, URI - Strep Grp A, Rapid Screen neg counseled pt/ fam on symptom control with tylenol/ ibuprofen, eating soft cold food to ease throat, adq hydration and rest. F/u: Call or return to clinic prn if these symptoms worsen or fail to improve as anticipated documented in this encounter Plan of Treatment Not on filedocumented as of this encounter Procedures Procedure Name Priority Date/Time Associated Diagnosis Comme nts STREP GRP A, RAPID Waiting 12/14/2016 7:53 PM Sore throat Res ults for this SCREEN CDT procedure are i n the results section. documented in this encounter Results Strep Grp A, Rapid Screen Perform a culture if negative screen? No (12/14/2016 7:53 PM CDT) [facility] gist Method Time Signature Grp A Rapid Negative NEG [facility] Specimen Anatomical Collection Method Collection Time Receive d Time (Source) Location / / Volume Laterality 12/14/2016 7:53 PM 7 7:54 CDT PM CDT Narrative [facility] - 12/14/2016 8:04 PM C DT Performed at [facility], [address] [place] [address] Tita Ibarra APRN, ANNE MARIE LAB_1 Performing Organization Address City/State/ZIP Code Phon e Number [facility] [phone] documented in this encounter Visit Diagnoses Diagnosis Sore throat - Primary Acute pharyngitis documented in this encounter Care Teams Job Placement Officer Relationship Specialty Start Date End Date No Primary/Referring, y PCP - General 12/14/16 documented as of this encounter
== END 2021-11-25 23:30 | disposition home or self-care (01) ==
PROVIDERS: Emergency Provider Family Medicine; PCP Physician Assistant Medical
DX: J45.901 Unspecified asthma with (acute) exacerbation (principal)
CPT/HCPCS: 71045; 94640; 99283; 99284

== ENCOUNTER 2021-12-27 20:26 | Outpatient (CLI) | payer OTHER, SELFPAY ==
--- OUTSIDE RECORDS SUMMARY | 2021-12-27 20:28 | XMS_ITS | Encounter Summary ---
:1985 Author Organization [facility] Address [address] [place] [address] Care Team Providers Name Role Phone Kyle Mascorro MD Primary Care Provider [phone] Reason for Visit Diagnostic Imaging XR (Routine) - Closed Specialty Diagnoses / Procedures Referred By Contact Refer red To Contact Diagnoses Acute left ankle pain Pita Morton CNP Procedures XR Ankle Left G/E 3 Views [address] [place], [place] [address] Referral ID Status Reason Start Date Expiration Date Visits Requ ested Visits Authorized [id number] Closed 08/17/2019 08/16/2020 1 1 Encounter Details Date Type Department Care Team Description 08/17/2019 Ancillary Procedure [facility] Pita Borwn CNP [place] [address] [place] [address] [phone] Social History Tobacco Use Types Packs/Day Years Used Date Smoking Tobacco: Never Smokeless Tobacco: Never Alcohol Use Standard Drinks/Week Comments No 0 (1 standard drink = 0.6 oz pure alcoho l) occasional Sex Assigned at Date Recorded Not on [...] Talar dome is intact. MARCIN COYLE MD Pitamary Morton CNP IMG DIAGNOSTIC IMAGING ORDER DORON documented in this encounter Visit Diagnoses Not on filedocumented in this encounter Care Teams Dialysis Rn Relationship Specialty Start Date End Date Kyle Mascorro MD PCP - General Family Practice 12/01/[address], [address] [address] documented as of this encounter
--- OUTSIDE RECORDS SUMMARY | 2021-12-27 20:28 | XMS_ITS | Clinical Summary ---
:1985 Author Organization [facility] Address [address] [place] [address] Care Team Providers Name Role Phone Kyle Mascorro MD Primary Care Provider [phone] Allergies Active Allergy Reactions Severity Noted Date [...] history of colposcopy and LEEP done at [facility] FUEL TECHNICIAN office, pt to get S[facility]A for records Current Pap results NIL as is the HPV. R N mailed S[facility]A to obtain pap records at [facility] FUEL TECHNICIAN office so that pap tracking can determine frequency of future pap and HPV co-testing. recommending repea t diagnostic pap and HPV in one year [facility] ch matches ASCCP Guidelines. Sarah HOLLEY Sciatica 06/11/2011 Family history of alpha thalassemia 12/18/2010 Allergic rhinitis 12/22/2008 Overview: Problem list name updated by automated p rocess. Provider to review Depressive disorder, not elsewhere classified 10/17/19 06 Dysmenorrhea 06/12/2005 Resolved Problems Problem Noted Date Resolved Date Health [facility] 12/03/2012 10/27/2014 Overview: State Tier Level: Tier 2 Status: NA Bobbin Trucker: See Letters for [facility] Care Plan Supervision [...] 1985 ANNUAL REVIEW OF HM ORDERS 1985 COVID-19 Vaccine (#1) 1985 HEPATITIS C SCREENING 2004 YEARLY PREVENTIVE VISIT 09/25/2014 09/25/2013, 09/08/2012, 12/22/2008, Additional history exists PAP 10/30/2015 10/29/2014, 09/25/2013, 09/08/2012, Additional history exists DTAP/TDAP/TD IMMUNIZATION 12/22/2018 12/22/2008, 10/03/1998 , (3 - Td or Tdap) 10/03/1998 PHQ-2 (once per calendar 03/11/2021 year) INFLUENZA VACCINE (#1) 2021 02/18/2015 HEPATITIS B [...] Phone Address Type / Group PAUL THAO MARGIE [id number] 2012-Lebron [phone] [phone] [place] [address] Care Teams Section Leader Relationship Specialty Start Date End Date Kyle Mascorro MD PCP - General Family Practice 12/01/[address], [id number] [place] [address]
--- OUTSIDE RECORDS SUMMARY | 2021-12-27 20:29 | XMS_ITS | Encounter Summary ---
:1985 Author Organization [facility] Address [address] [place] [address] Care Team Providers Name Role Phone Lisa Galye MD Primary Care Provider Reason for Visit Reason Onset Date Comments Forms 07/19/2011 [facility] - Referral Notes ([facility] Neurology) Encounter Details Date Type Department Care Team Description 07/19/2011 Telephone [facility] Fredy Davis, Form s ([facility] - Referral Luke LINDO Notes ([facility] [address] [place] [address]) James [address] [place], [place], [place] [address] [phone] Social History Tobacco Use Types Packs/Day Years Used Date Smoking Tobacco: Never Alcohol Use Standard Drinks/Week Comments No 0 (1 standard drink = 0.6 oz pure alcoho l) none since Sex Assigned at Date Recorded Not on file documented as of this encounter Miscellaneous Notes Telephone Encounter - Rhona Saldaña - 07/19/2011 4:45 PM CDT 07/19/11 - rec'd faxed referral notes request. Faxed notes. documented in this encounter Plan of Treatment Not on filedocumented as of this encounter Visit Diagnoses Not on filedocumented in this encounter Care Teams Jet Mechanic Relationship Specialty Start Date End Date Lisa Gayle MD PCP - General 03/24/99 11/30/[address], [facility] [place] [address] [place] [address] documented as of this encounter
--- OUTSIDE RECORDS SUMMARY | 2021-12-27 20:29 | XMS_ITS | Encounter Summary ---
:1985 Author Organization [employer] Address [address] [place] [address] Care Team Providers Name Role Phone Kyle Mascorro MD Primary Care Provider [phone] Reason for Visit Reason Onset Date Comments Refill Request 08/04/2013 [facility] Encounter Details Date Type Department Care Team Description 08/04/2013 Refill [facility] [place], Refill Request ([facility]) Clinic Luke LINDO [address] [place] [address] [place], [place] [id number] (Wo rk) Social History Tobacco Use Types [...] [facility]. Last annual 09/08/12. Refilled per protocol.Marita Watkins RN documented in this encounter Plan of Treatment Not on filedocumented as of this encounter Visit Diagnoses Diagnosis Contraception Unspecified contraceptive management documented in this encounter Care Teams Roll Bucker Relationship Specialty Start Date End Date Kyle Mascorro MD PCP - General Family Practice 12/01/[address], [id number] [place] [address] documented as of this encounter
--- OUTSIDE RECORDS SUMMARY | 2021-12-27 20:29 | XMS_ITS | Encounter Summary ---
:1985 Author Organization [facility] Address [address] [place] [address] Care Team Providers Name Role Phone Kyle Mascorro MD Primary Care Provider [phone] Reason for Visit Reason Comments Hair Loss requesting TSH check Encounter Details Date Type Department Care Team Description 12/03/2012 Office Visit [facility] Kyle Mascorro Hair loss (Primary Dx) Physicians MD Jonathan [address] [place] [address] [address] [place] [address], [id number] [place] [address] [phone] Social History Tobacco Use Types Packs/Day Years [...] - 12/03/2012 4:28 PM CDT SUBJECTIVE: Alysa Verde, a 27 year old female scheduled an [...] ??? Sciatica ??? Abnormal pap ??? Health [facility] Past Medical History Diagnosis Date ??? Abnormal [...] extraction w/forcep age 18 ??? 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 50 ? Ranges ?First trimester ?0.26 -2.66 ?Second trimester ?? 0.55- 2.73 ?Third trimester ?0.43 -2.91 Specimen Anatomical Collection Method Collection Time Receive d Time (Source) Location / / Volume Laterality Blood specimen 12/03/2012 4:41 PM 013 3:06 (specimen) CDT AM CDT Resulting Agency Comment Performing Organization Information: ? CB ? [facility] ? [address] [facility] [place] [address] ? Jeremy Dejesus M.D. Kyle Mascorro MD LAB - BLOOD ORDERABLES Performing Organization Address City/State/ZIP Code Phon e Number [facility] [address] [place], [place] [address] [facility] [address] [place], [place] [address] documented in this encounter Visit Diagnoses Diagnosis Hair loss - Primary Alopecia, unspecified documented in this encounter Care Teams Enrollment Management Director Relationship Specialty Start Date End Date Kyle Mascorro MD PCP - General Family Practice 12/01/[address] [address] documented as of this encounter
--- OUTSIDE RECORDS SUMMARY | 2021-12-27 20:29 | XMS_ITS | Encounter Summary ---
:1985 Author Organization [facility] Address [address] [place] [address] Care Team Providers Name Role Phone Lisa Gayle MD Primary Care Provider Reason for Visit Reason Comments Wound Check Encounter Details Date Type Department Care Team Description 06/26/2011 Office Visit [facility] Fredy Davis s pecified Sebastian Tejada MD aftercare following [address] [employer] [address] [place] [address] surgery (Primary Dx) [place] [address] [facility] [phone] [place] [address] Social History Tobacco Use [...] Primary documented in this encounter Care Teams Trim Attacher Relationship Specialty Start Date End Date Lisa Gayle MD PCP - General 03/24/99 11/30/12 [address] , [facility] 100 [place] [address] documented as of this encounter
--- OUTSIDE RECORDS SUMMARY | 2021-12-27 20:29 | XMS_ITS | Encounter Summary ---
:1985 Author Organization [employer] [facility] Address [address] [place] [address] Care Team Providers Name Role Phone Lisa Gayle MD Primary Care Provider Reason for Visit Reason Onset Date Comments Call To Schedule Appointment 07/23/2011 pap Encounter Details Date Type Department Care Team Description 07/23/2011 Telephone [facility] Fredy Davis Cal l To Schedule Women's Clinic MD Appointment (pap) [place] [address] [facility] [address] [place] [address] [place], [place] [phone] (Wo rk) [address] [phone] Social History Tobacco Use Types Packs/Day Years [...] additional follow up is requested. . Marita Watkins RN Telephone Encounter - Omaira Carbajal - 09/07/2011 3:17 PM CDT 09/07/11- Sign cert received, forwarded to abstraction and Ariana/IMELDA Telephone Encounter - Omaira Carbajal - 09/04/2011 [...] on filedocumented in this encounter Care Teams Change Consultant Relationship Specialty Start Date End Date Lisa Gayle MD PCP - General 03/24/99 11/30/[address] , [facility] [address] [place] [address] documented as of this encounter
--- OUTSIDE RECORDS SUMMARY | 2021-12-27 20:29 | XMS_ITS | Encounter Summary ---
:1985 Author Organization [facility] Address [address] [place] [address] Care Team Providers Name Role Phone Kyle Mascorro MD Primary Care Provider [phone] Reason for Visit Reason Comments Care Here for her NPN visit with the nurse Encounter Details Date Type Department Care Team Description 10/27/2014 Office [facility] Supervi ventura of other Visit Clinic [facility] normal , [address] unspecified trimester [place], [place] [V22.1] (Prim mateo Dx) [address] Social History Tobacco Use Types Packs/Day [...] CDT documented in this encounter Progress Notes Prabha Carbone LPN - 10/27/2014 7:31 PM CDT Here for her NPN visit with the nurse, see Nursing notes. documented in this encounter Nursing Notes Prabha Carbone LPN - 10/27/2014 7:28 PM CDT Chief Complaint Patient presents with ??? Care Here for her NPN visit with the nurse Alysa Matawill is here today for her NPN visit [...] this encounter Miscellaneous Notes Addendum Note - Prabha Carbone LPN - 10/29/2014 3:13 PM CDT Addended by: PRABHA CARBONE on: 10/29/2014 03:13 PM Modules accepted: [...] Culture Aerobic Bacterial (10/27/2014 7:15 PM CDT) [facility] gist Method Time Signature Specimen [facility] Urine CLINICS [place] Culture Micro <10,000 INFECTIOUS colonies/mL DISEASE mixed [...] Code Phon e Number INFECTIOUS DISEASES [address] [place] [address] DIAGNOSTIC LABORATORY, [facility] [address] [place] [address] [place] [address] INFECTIOUS DISEASE [address] DIAGNOSTIC LABORATORY ABO/RH TYPE AND SCREEN (10/27/2014 7:14 PM CDT) [facility] gist Method Time Signature ABO A [facility] RH(D) Pos [facility] Antibody Neg [place] Screen [facility] Test Valid [facility] Only At [facility] HOSPITAL Specimen 10/30/2014 [facility] Specimen Anatomical Collection Method Collection Time Receive d Time (Source) Location / / Volume Laterality Blood specimen 10/27/2014 7:14 PM 015 7:19 (specimen) CDT PM CDT Fredy Davis MD LAB - BLOOD BANK TEST ORDER Performing Organization Address City/State/ZIP Code Phon e Number [facility] [address] [place], [place] [address] [facility] [address] [place], [place] [address] [place] [address] Anti Treponema (10/27/2014 7:13 PM CDT) Analysis Performed At Patho logist Time Signature Treponema Negative NEG [facility] MEDICAL Antibody [facility] [place] Specimen Anatomical Collection Method Collection Time Receive d Time (Source) Location / / Volume Laterality Blood specimen 10/27/2014 7:13 PM 015 7:18 (specimen) CDT PM CDT Fredy Davis MD LAB - BLOOD ORDERABLES Performing Organization Address City/State/ZIP Code Phon e Number [facility] [address] [place] [address] [place] Hepatitis B surface antigen (10/27/2014 7:13 PM CDT) [facility] gist Method Time Signature Hep B Surface Nonreactive NR [facility] [place] Specimen Anatomical Collection Method Collection Time Receive d Time (Source) Location / / Volume Laterality Blood specimen 10/27/2014 7:13 PM 015 7:18 (specimen) CDT PM CDT Fredy Davis MD LAB - BLOOD ORDERABLES Performing Organization Address City/State/ZIP Code Phon e Number [facility] [address] Rub[place] Antibody IgG Quantitative (10/27/2014 7:13 PM CDT) Analysis Performed At Patho logist Time Signature [place] Antibody 33 IU/mL [facility] IgG Quantitative [facility] Comment: Positive. ??Suggests previous exposure o r [...] Organization Address City/State/ZIP Code Phon e Number [address] HIV Antigen Antibody Combo (10/27/2014 7:13 PM CDT) Patholo gist Method Time Signature HIV Antigen Nonreactive NR [facility] Antibody HIV-1 p24 Ag & HIV-1/HIV-2 Ab Not Detected [facility] Specimen Anatomical Collection Method Collection Time Receive d Time (Source) Location / / Volume Laterality Blood specimen 10/27/2014 7:13 PM 015 7:18 (specimen) CDT PM CDT Fredy Davis MD LAB - BLOOD ORDERABLES Performing Organization Address City/[facility]/ZIP Code Phon e Number [address] CBC WITH PLATELETS (10/27/2014 7:13 PM CDT) P athologist Signature WBC 9.7 4.0 - 11.0 [place] 10e9/L [facility] RBC Count 4.26 3.8 - 5.2 [facility] 10e12/L [facility] Hemoglobin 13.6 11.7 - [facility] 15.7 g/dL [facility] Hematocrit 39.3 35.0 - [facility] 47.0 % [facility] MCV 92 78 - 100 [facility] fl [facility] MCH 31.9 26.5 - [facility] 33.0 pg [facility] MCHC 34.6 31.5 - [place] 36.5 g/dL [facility] RDW 12.9 10.0 - [place] 15.0 % [facility] Platelet Count 227 150 - 450 [place] 10e9/L [facility] Specimen Anatomical Collection Method Collection Time Receive d Time (Source) Location / / Volume Laterality Blood specimen 10/27/2014 7:13 PM 015 7:18 (specimen) CDT PM CDT Fredy Davis MD LAB - BLOOD ORDERABLES Performing Organization Address City/State/ZIP Code Phon e Number [facility] [address] [place], [place] [address] [phone] [facility] [address] [phone] documented in this encounter Visit Diagnoses Diagnosis Supervision of other normal , u nspecified trimester [V22.1] - Primary documented in this encounter Care Teams Circle Saw Operator Relationship Specialty Start Date End Date Kyle Mascorro MD PCP - General Family Practice 12/01/[address], [address] [place] [address] documented as of this encounter
--- OUTSIDE RECORDS SUMMARY | 2021-12-27 20:29 | XMS_ITS | Encounter Summary ---
:1985 Author Organization [facility] Address [address] [place] [address] Care Team Providers Name Role Phone Lisa Gayle MD Primary Care Provider Reason for Visit Reason Onset Date Comments Nurse Advice Line 07/09/2012 Encounter Details Date Type Department Care Team Description 07/09/2012 Telephone [facility] Women's [place], Nurse Advice Line Clinic Luke LINDO [address] [place] [address] [place] [address] (Wo rk) Social History Tobacco Use Types Packs/Day Years Used Date Smoking Tobacco: Never Alcohol Use Standard Drinks/Week Comments No 0 (1 standard drink = 0.6 oz pure alcoho l) none since Sex Assigned at Date Recorded Not on file documented as of this encounter Miscellaneous Notes Telephone Encounter - Lisa Stacy - 07/09/2012 5:33 PM CDT [facility] Triage Call Report Patient Name: Alysa Verde Call Date & Time: 06/14/2011 11:52:06PM Patient PCP Name: MRN: Patient Address: Patient Date of : 1985 Age: 27 yr. Patient Gender: Female Cemetery Vault Installer Name: Emma Card Presenting Problem: Pt calling. Is 40wks +4 days preg, G1, EDC 4/1/12. Spoke to OB 40min ago about contractions - was told to do home tx - but pt states she wants to go in now. Contractions q2-5min lasting about 40sec. Has mucousy vag dc with streaks of blood. Denies watery vag dc or vag bleeding. Has + FM. Dilated to 2cm on 06/11/11. Triage Note: Cemetery Vault Installer Emma Card ([email or web address]) added this note on Jun 14 2011 11:55PM:Had answering service page on-call OB to call pt back directly at [phone]. Pt verbalized understanding. Guideline Title: Signs of [...] on filedocumented in this encounter Care Teams Fishing Rod Mechanic Relationship Specialty Start Date End Date Lisa Gayle MD PCP - General 03/24/99 11/30/[address], [facility] [address] [place] [address] documented as of this encounter
--- OUTSIDE RECORDS SUMMARY | 2021-12-27 20:29 | XMS_ITS | Encounter Summary ---
:1985 Author Organization [facility] Address [address] [place] [address] Care Team Providers Name Role Phone Lisa Gayle MD Primary Care Provider Reason for Visit Reason Comments Care Encounter Details Date Type Department Care Team Description 05/04/2011 Office [facility] Fredy Davis ervision of Visit Women's Clinic MD Mallory normal [facility] [address] (Primary [address] [facility] [address] Dx) [place] [address] [address] [place], [place] (Work) [address] Social History Tobacco Use Types Packs/Day Years Used Date Smoking Tobacco: Never Alcohol Use Standard Drinks/Week Comments No 0 (1 standard drink = 0.6 oz pure alcoho l) none since Sex Assigned at Date Recorded Not on file documented as of this encounter Last Filed Vital Signs Vital Sign Reading Time Taken Comments Blood Pressure 118/66 05/04/2011 3:33 PM CASTING MACHINE OPERATOR HELPER Pulse - - Temperature - - Respiratory Rate - - Oxygen Saturation - - Inhaled Oxygen Concentration - - Weight 79.4 kg (175 lb 1.6 oz) 05/04/2011 3:33 PM CASTING MACHINE OPERATOR HELPER Height - - Body Mass Index 27.42 12/18/2010 3:18 PM CDT documented in this encounter Progress Notes Fredy Davis MD - 05/04/2011 4:04 PM CST Return in 2 weeks ING MACHINE OPERATOR HELPER documented in this encounter Nursing Notes 05/04/2011 [...] Primary documented in this encounter Care Teams Appeals Referee Relationship Specialty Start Date End Date Lisa Gayle MD PCP - General 03/24/99 11/30/12 [address] [facility] [address] [place] [address] documented as of this encounter
--- OUTSIDE RECORDS SUMMARY | 2021-12-27 20:29 | XMS_ITS | Encounter Summary ---
:1985 Author Organization [place] Address [address] [place] [address] Care Team Providers Name Role Phone Lisa Gayle MD Primary Care Provider Reason for Visit Reason Onset Date Comments Forms 07/17/2011 Encounter Details Date Type Department Care Team Description 07/17/2011 Telephone [facility] Fredy whipple MD Forms Clinic [address] [place], [place] [address] [place] [address] [phone] Social History Tobacco Use Types Packs/Day Years Used Date Smoking Tobacco: Never Alcohol Use Standard Drinks/Week Comments No 0 (1 standard drink = 0.6 oz pure alcoho l) none since Sex Assigned at Date Recorded Not on file documented as of this encounter Miscellaneous Notes Telephone Encounter - Lyubov Bojorquez - 07/18/2011 8:24 AM CDT Forms completed and at front office supervisor for patient to corn picker. Lyubov Bojorquez RN Telephone Encounter - Lyubov Bojorquez - 07/17/2011 3:16 PM CDT Message copied by LYUBOV BOJORQUEZ on SatJuly 17, 2011 3:16 PM ------ Message from: PAULINE LEYVA Created: mary July 17, 2011 11:49 AM Regarding: Forms Contact: Patient dropped off 2 forms to be filled out by Dr. Davis, please call her when done and she can come and pick them up. Thanks documented in this encounter Plan of Treatment Not on filedocumented as of this encounter Visit Diagnoses Not on filedocumented in this encounter Care Teams Commercial Real Estate Manager Relationship Specialty Start Date End Date Lisa Gayle MD PCP - General 03/24/99 11/30/[address] , [facility] [address] [place] [address] documented as of this encounter
--- OUTSIDE RECORDS SUMMARY | 2021-12-27 20:29 | XMS_ITS | Encounter Summary ---
:1985 Author Organization [place] Address [address] [place] [address] Care Team Providers Name Role Phone Kyle Mascorro MD Primary Care Provider [phone] Reason for Visit Reason Onset Date Comments Nurse Advice Line 04/22/2015 infection screening Encounter Details Date Type Department Care Team Description 04/22/2015 Telephone [facility] Marla Banks Nurse Advice Line Nurse Advisors KISHAN Clements (infection screening) [address] [place] [address] Social History Tobacco Use Types Packs/Day Years Used Date Smoking Tobacco: Never Smokeless Tobacco: Never Alcohol Use Standard Drinks/Week Comments No 0 (1 standard drink = 0.6 oz pure alcoho l) occasional Sex Assigned at Date Recorded Not on file documented as of this encounter Miscellaneous Notes Telephone Encounter - Marla Banks RN - 04/22/2015 2:38 AM SUCTION DREDGE DUMPING SUPERVISOR Call Type: Triage Call Presenting Problem: Patient is LOI is 04/28/2015. States her bag of murry is leaking, no contractions noted. Triager called out to crane ladle person provider listed Dr. Chan, he stated he is not an contact lens manufacturer? Triager called and notified patient of no [...] Advice: Lie on left side, if possible. ION DREDGE DUMPING SUPERVISOR documented in this encounter Plan of Treatment Not on filedocumented as of this encounter Visit Diagnoses Not on filedocumented in this encounter Care Teams Loom Cleaner Relationship Specialty Start Date End Date Kyle Mascorro MD PCP - General Family Practice 12/01/[address], [address] [place] [address] documented as of this encounter
--- OUTSIDE RECORDS SUMMARY | 2021-12-27 20:29 | XMS_ITS | Encounter Summary ---
:1985 Author Organization [place] Address [facility]ly [facility], [facility] [place] [address] Care Team Providers Name Role Phone Lisa Gayle MD Primary Care Provider Encounter Details Date Type Department Care Team Description 06/15/2011 Anesthesia Event [facility] Contreras Mueller MD [facility] [address] [facility] [place] [address] [facility] [phone] 20 [place], [place] [address] (Wo rk) Anesthesia Record [...] risks, benefits and alternativesdiscussed with: patient or dermatology sales representative. . documented in this encounter Plan of Treatment Not on filedocumented as of this encounter Visit Diagnoses Not on filedocumented in this encounter Care Teams Craft Manager Relationship Specialty Start Date End Date Lisa Gayle MD PCP - General 03/24/99 11/30/[address], [facility] 100 [place] [address] documented as of this encounter
--- OUTSIDE RECORDS SUMMARY | 2021-12-27 20:29 | XMS_ITS | Encounter Summary ---
:1985 Author Organization [place] Address [address] [place] [address] Care Team Providers Name Role Phone Kyle Mascorro MD Primary Care Provider [phone] Reason for Visit Reason Comments Care NPN visit with the MD Encounter Details Date Type Department Care Team Description 10/29/2014 Office [facility] Fredy [place] ervision of other normal (Primary Dx); Visit [facility] MD Mallory History of abnormal cervical Pap smear [address] [place] [address] [address] [place], [place] (Work) [address] Social History Tobacco Use [...] Component Value Ref Test Analysis Performed At [facility] gist Range Method Time Signature Specimen Cervix [facility] Chlamydia Negative NEG [facility] Trachomatis Negative for C. trachomatis rRNA by education dean mediated amplification. [facility] A negative result by transc ription mediated amplification does not preclude the [facility] presence of C. trachomatis infection because re [...] Organization Address City/State/ZIP Code Phon e Number [address] [address] [facility] [address] [place], [place] [address] [address] [place] GON[facility] PCR (10/29/2014 4:34 PM CDT) Component Value Ref Test [facility] Range Method Time Signature Specimen Cervix [facility] Gonorrhea Negative NEG [facility] Negative for N. gonorrhoeae rRNA by transcripti on mediated amplification. [facility] A negative result by transc ription mediated amplification does not preclude the [facility] presence of N. gonorrhoeae infection because re [...] Organization Address City/State/ZIP Code Phon e Number [address] [address] [facility] [address] [place], [place] [address] [address] PAP imaged thin layer, screen (10/29/2014 12:00 AM CDT) Component Value Ref Test Analysis Performed At [facility] Range Method Time Signature PAP NIL COPATH Copath Report COPATH Patient Name: DONTAE RIVERA MR#: [id number] Specimen #: [id number] Collected: 10/29/2014 Received: 11/01/2014 Reported: 11/02/2014 14:17 [...] KIEL Moreno (ASCP) Processed and screened at [facility] HISTORY: LMP: 07/22/2014 , Previous normal pap Date of Last Pap: 09/25/2013, Papanicolaou Test Limitations: ??Cervical cytology is a scre ening test with limited sensitivity; regular screening is critical for cancer prevention; Pap tests are primarily effective for the diagnosis/prevention of squamous cell carcinoma, not adenoca rcinomas or other cancers. TESTING LAB LOCATION: [facility] [address] [place], [place] ??[address] COLLECTION SITE: Client: ??[facility] Location: RIOB (R) Specimen (Source) Anatomical Collection [...] disorders documented in this encounter Care Teams Multigrapher Relationship Specialty Start Date End Date Kyle Mascorro MD PCP - General Family Practice 12/01/[address], [address] [place] [address] documented as of this encounter
--- OUTSIDE RECORDS SUMMARY | 2021-12-27 20:29 | XMS_ITS | Encounter Summary ---
:1985 Author Organization [place] Address [address] [place] [address] Care Team Providers Name Role Phone Lisa Gayle MD Primary Care Provider Reason for Visit Reason Comments Care Encounter Details Date Type Department Care Team Description 06/11/2011 Office [facility] Fredy [place] ervision of normal first (Primary Dx); Visit [facility] MD Venus Tejada [address] [place] [address] [facility] 100 [place], [place] (Work) [address] Social History Tobacco Use [...] Sciatica documented in this encounter Care Teams Tile Classifier Relationship Specialty Start Date End Date Lisa Gayle MD PCP - General 03/24/99 11/30/[address], [place] [address] [place] [address] documented as of this encounter
--- OUTSIDE RECORDS SUMMARY | 2021-12-27 20:29 | XMS_ITS | Encounter Summary ---
:1985 Author Organization [place] Address [address] [place] [address] Care Team Providers Name Role Phone Lisa Gayle MD Primary Care Provider Reason for Visit Reason Comments Care Encounter Details Date Type Department Care Team Description 06/08/[address] [facility] Fredy [place] Sup ervision of Visit [facility] MD Mallory normal [facility] [address] (Primary [address] [facility] [address] Dx) [place] [address] [address] [place], [place] (Work) [address] Social History Tobacco Use [...] Notes 06/08/2011 3:15 PM CDT >> KIMBERLY FREY Fri Jun 08, 2011 3:31 PM . [...] Results Urea nitrogen (06/08/2011 3:54 PM CDT) athologist Signature Urea Nitrogen 9 5 - 24 [facility] mg/dL CLINIC LAB Specimen Anatomical Collection Method Collection Time Receive d Time (Source) Location / / Volume Laterality Blood specimen 06/08/2011 3:54 PM 012 3:59 (specimen) CDT PM CDT Fredy [place] MD LAB - BLOOD ORDERABLES Performing Organization Address City/State/ZIP Code Phon e Number [facility] [address] [place] [address] [facility] (ABNORMAL) CBC with platelets differential (06/08/2011 3:54 PM CDT) [facility] gist Method Time Signature WBC 11.0 4.0 - [place] 11.0 [facility] 10e9/L CLINIC LAB RBC Count 4.05 3.8 - 5.2 [place] 10e12/L [facility] Hemoglobin 12.3 11.7 - [place] 15.7 g/dL [facility] Hematocrit 37.1 35.0 - [place] 47.0 % [facility] MCV 92 78 - 100 [place] fl [facility] MCH 30.4 26.5 - [facility] 33.0 pg [facility] MCHC 33.2 31.5 - [place] 36.5 g/dL [facility] RDW 13.6 10.0 - [place] 15.0 % [facility] Platelet Count 238 150 - 450 [place] 10e9/L [facility] Diff Method Automated [facility] LAB % Neutrophils 76.3 (H) 40 - 75 % [facility] LAB % Lymphocytes 13.7 (L) 20 - 48 % [facility] % Monocytes 8.6 0 - 12 % [facility] % Eosinophils 1.2 0 - 6 % [facility] % Basophils 0.2 0 - 2 % [facility] Absolute 8.4 (H) 1.6 - 8.3 [place] Neutrophil 10e9/L [facility] Absolute 1.5 0.8 - 5.3 [place] Lymphocytes 10e9/L [facility] Absolute 0.9 0.0 - 1.3 [place] Monocytes 10e9/L [facility] Absolute 0.1 0.0 - 0.7 [place] Eosinophils 10e9/L [facility] Absolute 0.0 0.0 - 0.2 [place] Basophils 10e9/L [facility] Specimen Anatomical Collection Method Collection Time Receive d Time (Source) Location / / Volume Laterality Blood specimen 06/08/2011 3:54 PM 012 3:59 (specimen) CDT PM CDT Fredy [place] MD LAB - BLOOD ORDERABLES Performing Organization Address City/State/ZIP Code Phon e Number [facility] [address] [place], [place] [address] [address] [facility] Uric acid (06/08/2011 3:54 PM CDT) athologist Signature Uric Acid 5.2 2.5 - 6.2 [place] mg/dL CLINIC LAB Specimen Anatomical Collection Method Collection Time Receive d Time (Source) Location / / Volume Laterality Blood specimen 06/08/2011 3:54 PM 012 3:59 (specimen) CDT PM CDT Fredy [place] MD LAB - BLOOD ORDERABLES Performing Organization Address City/[facility]/ZIP Code Phon e Number [facility] [address] [place] [address] [phone] [facility] Creatinine (06/08/2011 3:54 PM CDT) athologist Signature Creatinine 0.69 0.52 - [facility] 1.04 mg/dL CLINIC LAB GFR Estimate >90 >60 [place] mL/min/1.7 CLINIC LAB m2 GFR Estimate If >90 >60 [place] Black mL/min/1.7 CLINIC LAB m2 Specimen Anatomical Collection Method Collection Time Receive d Time (Source) Location / / Volume Laterality Blood specimen 06/08/2011 3:54 PM 012 3:59 (specimen) CDT PM CDT Fredy [place] MD LAB - BLOOD ORDERABLES Performing Organization Address City/[facility]/ZIP Code Phon e Number [address] [place] [address] [phone] [facility] AST (06/08/2011 3:54 PM CDT) athologist Signature AST 31 0 - 45 U/L [facility] Specimen Anatomical Collection Method Collection Time Receive d Time (Source) Location / / Volume Laterality Blood specimen 06/08/2011 3:54 PM 012 3:59 (specimen) CDT PM CDT Fredy [place] MD LAB - BLOOD ORDERABLES Performing Organization Address City/[facility] Code Phon e Number [facility] [address] [facility] [place] [address] [phone] [facility] ALT (06/08/2011 3:54 PM CDT) athologist Signature ALT 18 0 - 50 U/L [facility] Specimen Anatomical Collection Method Collection Time Receive d Time (Source) Location / / Volume Laterality Blood specimen 06/08/2011 3:54 PM 012 3:59 (specimen) CDT PM CDT Fredy [place] MD LAB - BLOOD ORDERABLES Performing Organization Address City/State/ZIP Code Phon e Number [facility] [address] [place] [address] [facility] documented in this encounter Visit Diagnoses Diagnosis Supervision of normal first - Primary documented in this encounter Care Teams Assistant Director Of Public Works Relationship Specialty Start Date End Date Lisa Gayle MD PCP - General 03/24/99 11/30/[address], [place] [address] [place] [address] documented as of this encounter
--- OUTSIDE RECORDS SUMMARY | 2021-12-27 20:29 | XMS_ITS | Encounter Summary ---
:1985 Author Organization [place] Address [address] [place] [address] Care Team Providers Name Role Phone Lisa Gayle MD Primary Care Provider Reason for Visit Reason Comments Care Encounter Details Date Type Department Care Team Description 04/20/2011 Office [facility] Fredy [place] ervision of Visit [facility] MD Mallory normal [facility] [address] (Primary [address] [facility] [address] Dx) [place] [address] [address] [place], [place] (Work) [address] Social History Tobacco Use Types Packs/Day Years Used Date Smoking Tobacco: Never Alcohol Use Standard Drinks/Week Comments No 0 (1 standard drink = 0.6 oz pure alcoho l) none since Sex Assigned at Date Recorded Not on file documented as of this encounter Last Filed Vital Signs Vital Sign Reading Time Taken Comments Blood Pressure 128/60 04/20/2011 3:03 PM [facility] [place] Pulse - - Temperature - - Respiratory Rate - - Oxygen Saturation - - Inhaled Oxygen Concentration - - Weight 76.6 kg (168 lb 14.4 oz) 04/20/2011 3:03 PM [place] Height - - Body Mass Index 26.45 12/18/2010 3:18 PM CDT documented in this encounter Progress Notes Fredy [place] MD - 04/20/2011 3:57 PM CST Doing well [place] documented in this encounter Nursing Notes 04/20/2011 [...] Primary documented in this encounter Care Teams Retort Or Condenser Press Operator Relationship Specialty Start Date End Date Lisa Gayle MD PCP - General 03/24/99 11/30/12 [address] [facility] [address] [place] [address] documented as of this encounter
--- OUTSIDE RECORDS SUMMARY | 2021-12-27 20:29 | XMS_ITS | Encounter Summary ---
:1985 Author Organization [place] Address [address] [place] [address] Care Team Providers Name Role Phone Lisa Gayle MD Primary Care Provider Reason for Visit Reason Comments Care Encounter Details Date Type Department Care Team Description 05/11/2011 Office [facility] Fredy [place] ervision of Visit [facility] MD Mallory normal [facility] [address] (Primary [address] [facility] [address] Dx) [place] [address] [address] [place], [place] (Work) [address] Social History Tobacco Use Types Packs/Day Years Used Date Smoking Tobacco: Never Alcohol Use Standard Drinks/Week Comments No 0 (1 standard drink = 0.6 oz pure alcoho l) none since Sex Assigned at Date Recorded Not on file documented as of this encounter Last Filed Vital Signs Vital Sign Reading Time Taken Comments Blood Pressure 128/78 05/11/2011 3:42 PM RESIDENT ASSOCIATE Pulse - - Temperature - - Respiratory Rate - - Oxygen Saturation - - Inhaled Oxygen Concentration - - Weight 80.3 kg (177 lb) 05/11/2011 3:42 PM RESIDENT ASSOCIATE Height - - Body Mass Index 27.72 12/18/2010 3:18 PM CDT documented in this encounter Progress Notes Fredy [place] MD - 05/11/2011 3:54 PM CST Group B DENT ASSOCIATE documented in this encounter Nursing Notes 05/11/2011 3:30 PM CST >> AME GODINEZ Bryan May 11, 2011 3:44 PM Patient presents with: Care [id number] Initial BP 128/78 Wt 177 lb (80.287 [...] Supervision of no rmal Results for this RESIDENT ASSOCIATE first procedure ar e in the results section. documented in this encounter Results Group B strep PCR (05/11/2011 3:50 PM RESIDENT ASSOCIATE) [facility] gist Method Time Signature Group B Strep Vaginal [facility] PCR Spec Viktor Rectal CLINIC LAB Group B Strep Negative: No GBS DNA detecte d, presumed negative for GBS or number of bacteria [facility] PCR may be below the limit of detection of the assay. MICROBIOLOGY Assay performed on incubated broth culture of specimen in muriel [employer] SmartCycler(R) real-time PCR. Specimen Anatomical Collection Method Collection Time Receive d Time (Source) Location / / Volume Laterality 05/11/2011 3:50 PM 2 4:09 RESIDENT ASSOCIATE PM RESIDENT ASSOCIATE Fredy [place] MD LAB - MICRO GENERAL ORDERABL ES Performing Organization Address City/State/ZIP Code Phon e Number [facility] [address] [place], [place] [phone] [place] [address] LAB [facility] MICROBIOLOGY documented in this encounter Visit Diagnoses Diagnosis Supervision of normal first - Primary documented in this encounter Care Teams Nursing Service Director Relationship Specialty Start Date End Date Lisa Gayle MD PCP - General 03/24/99 11/30/[address], [address] [address] [place] [address] documented as of this encounter
--- OUTSIDE RECORDS SUMMARY | 2021-12-27 20:29 | XMS_ITS | Encounter Summary ---
:1985 Author Organization [place] Address [address] [place] [address] Care Team Providers Name Role Phone Lisa Gayle MD Primary Care Provider Reason for Visit Reason Comments Care pt has delivery question--pt has b/c options Encounter Details Date Type Department Care Team Description 05/25/2011 Office [facility] Fredy [place] Sup ervision of Visit [facility] MD Mallory normal [place] [address] [address] (Primary [address] [facility] [address] Dx) [place] [address] [address] [place], [place] (Work) [phone] Social History Tobacco Use [...] Notes 05/25/2011 3:30 PM CDT >> AMAURY AGUILERA Fri May 25, 2011 3:35 PM [id number] [...] BP completed using cuff size: regular Amaury Aguilera PRODUCTION ANALYST documented in this encounter Plan of Treatment Not on filedocumented as of this encounter Visit Diagnoses Diagnosis Supervision of normal first - Primary documented in this encounter Care Teams Documentation Coordinator Relationship Specialty Start Date End Date Lisa Gayle MD PCP - General 03/24/99 11/30/[address], [address] [address] [place] [address] documented as of this encounter
--- OUTSIDE RECORDS SUMMARY | 2021-12-27 20:29 | XMS_ITS | Encounter Summary ---
:1985 Author Organization [place] Address [address] [place] [address] Care Team Providers Name Role Phone Lisa Gayle MD Primary Care Provider Reason for Visit Reason Comments RECHECK Encounter Details Date Type Department Care Team Description 07/13/2011 Office Visit [facility] Fredy [place] Other specified aftercare following surgery (Primary Dx); [facility] MD Mallory [address] [place] [address] [address] [place], [place] (Work) [phone] Social History Tobacco Use [...] 07/13/2011 2:00 PM CDT >> GEOFF MCCARTY [facility] July 13, 2011 1:39 PM Patient presents [...] management documented in this encounter Care Teams [employer] Assistant Manager Relationship Specialty Start Date End Date Lisa Gayle MD PCP - General 03/24/99 11/30/[address], [place] [address] [place] [address] documented as of this encounter
--- OUTSIDE RECORDS SUMMARY | 2021-12-27 20:29 | XMS_ITS | Encounter Summary ---
:1985 Author Organization [place] Address [address] [place] [address] Care Team Providers Name Role Phone Lisa Gayle MD Primary Care Provider Reason for Visit Reason Comments Care Encounter Details Date Type Department Care Team Description 06/01/2011 Office [facility] Fredy [place] ervision of Visit [facility] MD Mallory normal [facility] [address] (Primary [address] [facility] [address] Dx) [place] [address] [address] [place] (Work) [phone] Social History Tobacco Use [...] Primary documented in this encounter Care Teams Fitness Trainer Relationship Specialty Start Date End Date Lisa Gayle MD PCP - General 03/24/99 11/30/[address], [address] [address] [place] [address] documented as of this encounter
--- OUTSIDE RECORDS SUMMARY | 2021-12-27 20:29 | XMS_ITS | Encounter Summary ---
:1985 Author Organization [place] Address [address] [place] [address] Care Team Providers Name Role Phone Lisa Gayle MD Primary Care Provider Reason for Visit Reason Onset Date Comments Patient/info Update 06/19/2011 Encounter Details Date Type Department Care Team Description 06/19/2011 Telephone [facility] Fredy [place], Patient/info Update [place] Jeaneth LINDO [address] [address] [place], [place] [id number] (Wo rk) Social History Tobacco Use Types [...] on filedocumented in this encounter Care Teams M48 M60 Armor Crewman Relationship Specialty Start Date End Date Lisa Gayle MD PCP - General 03/24/99 11/30/[address], [place] [address] [place] [address] documented as of this encounter
--- OUTSIDE RECORDS SUMMARY | 2021-12-27 20:29 | XMS_ITS | Encounter Summary ---
:1985 Author Organization [place] Address [address] [place] [address] Care Team Providers Name Role Phone Kyle Mascorro MD Primary Care Provider [phone] Encounter Details Date Type Department Care Team [...] on filedocumented in this encounter Care Teams Corporate Banking Officer Relationship Specialty Start Date End Date Kyle Mascorro MD PCP - General Family Practice 12/01/[address], [address] [place] [address] documented as of this encounter
--- OUTSIDE RECORDS SUMMARY | 2021-12-27 20:29 | XMS_ITS | Encounter Summary ---
:1985 Author Organization [place] Address [address] [place] [address] Care Team Providers Name Role Phone Kyle Mascorro MD Primary Care Provider [phone] Reason for Visit Reason Onset Date Comments Medication Request 10/24/2016 Asking about antibio tic Encounter Details Date Type Department Care Team Description 10/24/2016 Telephone [facility] Nurse Charo Lockhart, Medication Request Advisors RN (Asking about [address] ve antibiotic) [place] [address] Social History Tobacco Use Types Packs/Day [...] CDT Clinic Action Needed:Yes Reason for Call: [facility] for patient who was seen in today by Dr. Clancy. Routed to: [facility]. Charo Lockhart RN [place] Nurse Advisors documented in this encounter Plan of Treatment Not on filedocumented as of this encounter Visit Diagnoses Not on filedocumented in this encounter Care Teams Director Of Parks And Recreation Relationship Specialty Start Date End Date Kyle Mascorro MD PCP - General Family Practice 12/01/[address], [address] [address] documented as of this encounter
--- OUTSIDE RECORDS SUMMARY | 2021-12-27 20:29 | XMS_ITS | Encounter Summary ---
:1985 Author Organization [place] Address [address] [place] [address] Care Team Providers Name Role Phone Lisa Gayle MD Primary Care Provider Reason for Visit Reason Comments Fullerette Exam Encounter Details Date Type Department Care Team Description 09/08/2012 Office Visit [facility] Inga Davis gynecological examination (Primary Dx); [facility] MD Mallory Contraception; [address] [place] [address] [address] [place], [place] (Work) [address] Social History Tobacco Use [...] No mass, non-tender, mobile ASSESSMENT: Satisfactory annual home care assistant exam PLAN: V72.31 Routine gynecological examination (primary encounter diagnosis) Plan: PAP imaged thin layer, screen, NEISSERIA GONORRHOEA PCR, CHLAMYDIA TRACHOMATIS PCR V25.9 Contraception Plan: drospirenone-ethinyl estradiol (JONATHAN) 3-0.02 MG per tablet 799.81 Libido, decreased Plan: testosterone propionate 2 % CREA PE: reviewed health maintenance including diet, regular exercise and periodic exams. Health Maintenance Topic Date Due ??? Tetanus Immunization ( [place] Assigned) 1998 ??? Influenza Vaccine ([facility] Assigned) [...] oz(64.048 kg). BP completed using cuff size: regular SAyse [...] Value Ref Test Analysis Performed At [facility] Specimen Cervical [facility] LAB Chlamydia Negative for C. trachomatis rRNA by painter decorator mediated amplification. [facility] Trachomatis A negative result [...] MICRO GENERAL ORDERABL ES Performing Organization Address City/[facility] Code Phon e Number [id number] [place] [address] LAB [address] [place], [place] [address] [address] [facility] MICROBIOLOGY NEISSERIA GONORRHOEA PCR (09/08/2012 12:47 PM CDT) Component Value Ref Test Analysis Performed At [facility] Specimen Cervical [facility] LAB N Gonorrhea Negative for N. gonorrhoeae rRNA by painter decorator mediated amplification. [facility] PCR A negative result [...] MICRO GENERAL ORDERABL ES Performing Organization Address City/[facility]/ZIP Code Phon e Number [address] [address] [facility] LAB [address] [place], [place] [address] [address] [facility] MICROBIOLOGY HPV screen with reflex to genotype (09/08/2012 12:00 AM CDT) Component Value Ref Test Analysis Performed At [facility] Lesli Report Patient Name: ALYSA RIVERA MR#: [id number] Specimen #: [id number] Collected: 09/08/2012 00:00 Received: 10/10/2012 12:55 Reported: 10/15/2012 16:22 Ordering Phy(s): INGA DAVIS TEST(S) REQUESTED: Human Papillomavirus Screen Analysis SPECIMEN DESCRIPTION: Cervical Cells METHODOLOGY: ??Total cellular DNA was extracted from the abo ve specimen and up to 1 ug subjected to DNA amplification with a series of oligonucleotide primers directed to the L1 region of the hum an papillomavirus genome. ??The resulting PCR fragments were th ivonne by capillary electrophoresis using a [employer] with [employer] software. ??The PCR products from samples positive [...] and its performance determined by rudy hernandez [facility] ??Molecular Diagnostic Laboratory. It has not been cleared or approved by the U.S. Food and Cristobal g Administration. ??The FDA has determined that such clearance or approval is not necessary. ??Pursuant to the requirements of CLIA'88, this laboratory has established and verified the test's accuracy and precision. ??This test is used for clinical purposes. Electronically Signed Out By: PAM Bone Density Technician TESTING LAB LOCATION: [place] [id number] [address] COLLECTION SITE: Client: ??[facility] Location: ??RIOB (R) Specimen (Source) Anatomical Collection Method Collection Time Re ceived Time Location / / Volume Laterality 09/08/2012 10/10/2012 12:5 5 PM CDT Inga Davis MD LAB - GENOMICS Performing Organization Address City/State/ZIP Code Phon e Number COPATH PAP imaged thin layer, screen (09/08/2012 12:00 AM CDT) Component Value Ref Test Analysis Performed At [facility] Range Method Time Signature PAP NIL COPATH Copath Report COPATH Patient Name: ALYSA RIVERA MR#: [id number] Specimen #: [id number] Collected: 09/08/2012 Received: 09/09/2012 Reported: 09/10/2012 13:13 [...] NITESH Dhaliwal (ASCP) Processed and screened at [facility] CLINICAL HISTORY: LMP: 08/13/2012 Oral Control Pill, Previous normal pap Date of Last Pap: 12/18/2010, Papanicolaou Test Limitations: ??Cervical cytology is a scre ening test with limited sensitivity; regular screening is critical for cancer prevention; Pap tests are primarily effective for the diagnosis/prevention of squamous cell carcinoma, not adenoca rcinomas or other cancers. TESTING LAB LOCATION: [address] ??[address] COLLECTION SITE: Client: ??[facility] Location: RIOB (R) Specimen (Source) Anatomical Collection [...] libido documented in this encounter Care Teams Jumpbasting Canvas Baster Relationship Specialty Start Date End Date Lisa Gayle MD PCP - General 03/24/99 11/30/[address], [facility] [address] [place] [address] documented as of this encounter
--- OUTSIDE RECORDS SUMMARY | 2021-12-27 20:29 | XMS_ITS | Encounter Summary ---
:1985 Author Organization [place] Address [address] [place] [address] Care Team Providers Name Role Phone Lisa Gayle MD Primary Care Provider Reason for Visit Reason Comments Care Encounter Details Date Type Department Care Team Description 05/18/2011 Office [facility] Contreras Cee of normal Visit [facility] MD Rishabh first pregnan [facility] (Primary Dx) [address] [facility] [address] [place] [phone] Social History Tobacco Use Types Packs/Day Years Used Date Smoking Tobacco: Never Alcohol Use Standard Drinks/Week Comments No 0 (1 standard drink = 0.6 oz pure alcoho l) none since Sex Assigned at Date Recorded Not on file documented as of this encounter Last Filed Vital Signs Vital Sign Reading Time Taken Comments Blood Pressure 132/82 05/18/2011 3:35 PM [employer] Pulse - - Temperature - - Respiratory Rate - - Oxygen Saturation - - Inhaled Oxygen Concentration - - Weight 82.4 kg (181 lb 11.2 oz) 05/18/2011 3:35 PM [employer] Height - - Body Mass Index 28.46 12/18/2010 3:18 PM CDT documented in this encounter Progress Notes Contreras Cee MD - 05/18/2011 3:57 PM CST Doing well. T INTERNSHIP documented in this encounter Nursing Notes 05/18/2011 3:30 PM CST >> [facility] Adams May 18, 2011 3:36 PM Pn [id number] Cuca Juarez MA documented in this encounter Plan of Treatment Not on filedocumented as of this encounter Visit Diagnoses Diagnosis Supervision of normal first - Primary documented in this encounter Care Teams Ophthalmic Aide Relationship Specialty Start Date End Date Lisa Gayle MD PCP - General 03/24/99 11/30/12 [address] [facility] [address] [place] [address] documented as of this encounter
--- OUTSIDE RECORDS SUMMARY | 2021-12-27 20:29 | XMS_ITS | Encounter Summary ---
:1985 Author Organization [place] Address [address] [facility] [place] [address] Care Team Providers Name Role Phone Kyle Mascorro MD Primary Care Provider [phone] Reason for Referral Diagnostic Imaging XR (Routine) - Closed Specialty Diagnoses / Procedures Referred By Contact Refer red To Contact Diagnoses Acute left ankle pain Pita Morton CNP Procedures XR Ankle Left G/E 3 Views [address] [place] [address] Referral ID Status Reason Start Date Expiration Date Visits Requ ested Visits Authorized [id number] Closed 08/17/2019 08/16/2020 1 1 Reason for Visit Reason Comments Trauma Encounter Details Date Type Department Care Team Description 08/17/2019 Office Visit [facility] Pita Morton, Sprain o f left ankle, unspecified ligament, initial encounter (Primary Dx); Urgent Care Rona hernandez CNP Acute left ankle pain [address] [place] [address] [phone] Social History Tobacco Use Types Packs/Day Years [...] until the sprain heals. ?? Prescription or abml-gkn-cpvkafy pain medicines. These help reduce swelling and [...] New symptoms Date Last Reviewed: 05/19/2015 ?? [phone] The [employer]. [address] [place] [address]. All rights reserved. This information is not [...] until the sprain heals. ?? Prescription or sbwu-irf-aaqfgna pain medicines. These help reduce swelling and [...] New symptoms Date Last Reviewed: 05/19/2015 ?? [phone] [employer]. [address] [place] [address]. All rights reserved. This information is not intended as a substitute for professional medical care. Always follow your healthcare professional's instructions. Pita Morton APRN, CNP [place] [facility] Provider documented in this encounter [...] intact. MARCIN COYLE MD Pita Morton CNP IMG DIAGNOSTIC IMAGING ORDER DORON documented in this encounter Visit Diagnoses Diagnosis Sprain of left ankle, unspecified ligame nt, initial encounter - Primary Acute left ankle pain documented in this encounter Care Teams Geological Engineer Relationship Specialty Start Date End Date Kyle Mascorro MD PCP - General Family Practice 12/01/[address], [address] [place] [address] documented as of this encounter
--- OUTSIDE RECORDS SUMMARY | 2021-12-27 20:29 | XMS_ITS | Encounter Summary ---
:1985 Author Organization [place] Address [address] [place] [address] Care Team Providers Name Role Phone Kyle Mascorro MD Primary Care Provider [phone] Reason for Visit Reason Comments Chemistry Technician Exam due for pap and hpv / c/o co ntinued small area of vaginal pain since delivery 06/2011 Encounter Details Date Type Department Care Team Description 09/25/2013 Office Visit [facility] Inga Davis gynecological examination (Primary Dx); [facility] MD Mallory Contraception [address] [place] [address] [address] [place], [place] (Work) [address] Social History Tobacco Use [...] ??? 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 Colposcopy cervix, loop electrode biopsy, [...] No mass, non-tender, mobile ASSESSMENT: Satisfactory annual event coordinator marketing and sales exam Pain at perineal tear after delivery; [...] CDT Chief Complaint Patient presents with ??? Chemistry Technician Exam due for pap and hpv / [...] (66.951 kg). BP completed using cuff size mariluz. Deisy Sanchez CMA documented in this encounter [...] Component Value Ref Test Analysis Performed At [facility] Range Method Time Signature Copath Report Patient Name: ALYSA RIVERA MR#: [id number] Specimen #: [id number] Collected: 09/25/2013 00:00 Received: 09/29/2013 11:46 Reported: [...] th ivonne by capillary electrophoresis using a [employer] with [employer] software. ??The PCR products from samples positive [...] and its performance determined by [facility] ??Molecular Diagnostic Laboratory. It has not been cleared or approved by the U.S. Food and Cristobal g Administration. ??The FDA has determined that such clearance or approval is not necessary. ??Pursuant to the requirements of CLIA'88, this laboratory has established and verified the test's accuracy and precision. ??This test is used for clinical purposes. Electronically Signed Out By: PAM Home Care Coordinator CPT Codes: A: 93974- HPVSC TESTING LAB LOCATION: [facility] [address] [place], [facility] [address] [place] [address] COLLECTION SITE: Client: ??[facility] Location: ??RIOB (R) Specimen (Source) Anatomical Collection Method Collection Time Re ceived Time Location / / Volume Laterality 09/25/2013 09/29/2013 11:4 6 AM CDT Inga Davis MD LAB - GENOMICS Performing Organization Address City/State/ZIP Code Phon e Number COPATH PAP imaged thin layer screen (09/25/2013 12:00 AM CDT) Component Value Ref Test Analysis Performed At [facility] Range Method Time Signature PAP NIL COPATH Copath Report COPATH Patient Name: ALYSA RIVERA MR#: [id number] Specimen #: [id number] Collected: 09/25/2013 Received: 09/28/2013 Reported: 09/29/2013 15:28 [...] KIEL Hoffman (ASCP) [facility] CLINICAL HISTORY: LMP: 09/05/13 Oral Control Pill, Previous normal pap Date of Last Pap: 09/08/12, Papanicolaou Test Limitations: ??Cervical cytology is a scre ening test with limited sensitivity; regular screening is critical for cancer prevention; Pap tests are primarily effective for the diagnosis/prevention of squamous cell carcinoma, not adenoca rcinomas or other cancers. TESTING LAB LOCATION: [facility] [address] [place], [place] ??[address] COLLECTION SITE: Client: ??[facility] Location: RIOB (R) Specimen (Source) Anatomical Collection [...] management documented in this encounter Care Teams Apartment Leasing Specialist Relationship Specialty Start Date End Date Kyle Mascorro MD PCP - General Family Practice 12/01/[address], [address] [place] [address] documented as of this encounter
--- OUTSIDE RECORDS SUMMARY | 2021-12-27 20:29 | XMS_ITS | Encounter Summary ---
:1985 Author Organization [place] Address [address] [place] [address] Care Team Providers Name Role Phone Lisa Gayle MD Primary Care Provider Reason for Referral - Closed Specialty Diagnoses / Procedures Referred By Contact Refer red To Contact Diagnoses [place] [address] [place] [address] [place] [address] Referral ID Status Reason Start Date Expiration Date Visits Requ ested Visits Authorized [id number] Closed 06/18/2011 12/15/2011 1 1 Encounter Details Date Type Department Care Team Description 06/18/2011 Orders Only M [facility] Fredy Davis Pupil diameter unequal [facility] MD Mallory (Primary Dx) [place] [address] [address] [facility] [address] [place] [address] [place], [place] [phone] [address] (Work) [phone] Social History Tobacco Use Types Packs/Day Years Used Date Smoking Tobacco: Never Alcohol Use Standard Drinks/Week Comments No 0 (1 standard drink = 0.6 oz pure alcoho l) none since Sex Assigned at Date Recorded Not on file documented as of this encounter Plan of Treatment Scheduled Referrals Name Type Priority Associated Diagnoses Order S chedule NEUROLOGY ADULT REFERRAL Referral Routine Pupil diameter u nequal Ordered: 06/18/2011 documented as of this encounter Visit Diagnoses Diagnosis Pupil diameter unequal - Primary Anisocoria documented in this encounter Care Teams Wool Shearer Relationship Specialty Start Date End Date Lisa Gayle MD PCP - General 03/24/99 11/30/12 [address] [facility] [address] [place] [address] documented as of this encounter
--- OUTSIDE RECORDS SUMMARY | 2021-12-27 20:29 | XMS_ITS | Encounter Summary ---
:1985 Author Organization [place] Address [address] [place] [address] Care Team Providers Name Role Phone Lisa Gayle MD Primary Care Provider Reason for Visit Reason Onset Date Comments Nurse Advice Line 06/14/2011 Encounter Details Date Type Department Care Team Description 06/14/2011 Telephone [facility] Fredy Davis, Nurse Advice Line [address] [place] [address] [facility] [phone] [place] [address] (Wo rk) Social History Tobacco Use Types Packs/Day Years Used Date Smoking Tobacco: Never Alcohol Use Standard Drinks/Week Comments No 0 (1 standard drink = 0.6 oz pure alcoho l) none since Sex Assigned at Date Recorded Not on file documented as of this encounter Miscellaneous Notes Telephone Encounter - Lisa Stacy - 07/09/2012 4:53 PM CDT [facility] Triage Call Report Patient Name: Alysa Verde Call Date & Time: 06/14/2011 11:03:27PM Patient PCP Name: MRN: Patient Address: Patient Date of : 1985 Age: 27 yr. Patient Gender: Female Tobacco Primer Machine Operator Name: Taina Fairchild Presenting Problem: Caller states I am 40 weeks (LOI 06/10/11) and I am having contractions every 2-5 minutes apart. RN advised the loss prevention detective doctor would be paged for assistance.Alysa can be reached at [phone]. RN called [facility] page foam gun operator and spoke with Walter. He was [...] on filedocumented in this encounter Care Teams Nc Machinist Relationship Specialty Start Date End Date Lisa Gayle MD PCP - General 03/24/99 11/30/[address], [facility] [address] [place] [address] documented as of this encounter
--- OUTSIDE RECORDS SUMMARY | 2021-12-27 20:29 | XMS_ITS | Encounter Summary ---
:1985 Author Organization [place] Address [address] [place] [address] Care Team Providers Name Role Phone Lisa Gayle MD Primary Care Provider Reason for Visit Reason Onset Date Comments Forms 03/28/2011 Encounter Details Date Type Department Care Team Description 03/28/2011 Telephone [facility] Fredy Davis MD Forms [address] [employer] [place] [address] [facility] [phone] [place] [address] (Wo rk) Social History Tobacco [...] CST Workability form and letter faxed to [phone]. Sent to abstracting. Lyubov Bojorquez RN ESTANT COORDINATOR Telephone Encounter - Fredy Davis MD - 03/28/2011 7:00 PM CST Form completed; please fax ESTANT COORDINATOR Telephone Encounter - Lyubov Bojorquez - 03/28/2011 5:43 PM CST Form on your desk in [place]. Lyubov Bojorquez RN ESTANT COORDINATOR documented in this encounter Plan of Treatment Not on filedocumented as of this encounter Visit Diagnoses Not on filedocumented in this encounter Care Teams Home Care Rn Relationship Specialty Start Date End Date Lisa Gayle MD PCP - General 03/24/99 11/30/12 [address] [facility] [address] [place] [address] documented as of this encounter
--- OUTSIDE RECORDS SUMMARY | 2021-12-27 20:29 | XMS_ITS | Encounter Summary ---
:1985 Author Organization [place] Address [address] [place] [address] Care Team Providers Name Role Phone Lisa Gayle MD Primary Care Provider Reason for Visit Reason Comments Rule Out Labor increased uc's, q5min since 2200 06/13 Auth/Cert - Closed Specialty Diagnoses / Procedures Referred By Contact Refer red To Contact transportation supervisor Diagnoses Labor and Delivery [facility] [address] [place], [place] [address] Phone: Fax: Referral ID Status Reason Start Date Expiration Date Visits Requ ested Visits Authorized [id number] Closed 06/15/2011 12/12/2011 1 1 Encounter Details Date Type Department Care Team Description 06/15/2011 - Hospital Encounter [facility] Joaquin Mackay MD 06/17/2011 [facility] Birthplace Inga Davis MD [address] [place] [place] [address] [address] [place] [address] [place] [address] Social History Tobacco Use Types [...] documented in this encounter Discharge Instructions Discharge InstructionsSchShreya perez LPN - 06/17/2011 9:14 AM CDT [facility] Vaginal Delivery or Discharge Instructions Activity: Go back to your normal activities, except per doctor discharge instructions. Diet: You may eat a regular diet. Drink plenty of fluids. Call your Doctor or Golf Technician if you have any of these symptoms: [...] Cee MD - 06/17/2011 11:42 AM CDT [facility] Obstetrics Post- Progress Note Assessment and Plan: [...] Cee MD - 06/16/2011 9:01 AM CDT [facility] Obstetrics Post- Progress Note Assessment and Plan: [...] PM CDT June 15, 2011 Alysa Rivera [id number] OB Admit History & Physical Ms. Rivera [...] SAB0 E0 M0 L1 Name of Baby Jose Miguel SEN ??? Outcome Date 06/15/11 GA 40w 5d [...] Negative GI: Negative BREAST: Negative : Negative BABBITTER: Negative CV: Negative PULMONARY: Negative MUSCULOSKELETAL: Negative [...] post delivery Inga Davis MD Dept of TUNNEL ELASTIC OPERATOR CHAINSTITCH June 15, 2011 Abstract, Provider - 06/15/2011 12:17 AM CDT documented [...] Individualization/Patient-Specific Goal (Adult,OB,Behavioral The patient and/or their hostess party sales representative will achieve their patient-specific goals related [...] Individualization/Patient-Specific Goal (Adult,OB,Behavioral The patient and/or their hostess party sales representative will achieve their patient-specific goals related [...] Individualization/Patient-Specific Goal (Adult,OB,Behavioral The patient and/or their hostess party sales representative will achieve their patient-specific goals related [...] out any problems. Pt c/o abd cramping 05/18, taking ibuprofen for painwith good relief. Pt bottle feeding. Pt instructed on how to care for breast since not breastfeefing. Plan of Care - Pamella Ag RN - 06/16/2011 6:03 AM CDT Problem: IP GENERAL POC-ADULT,OB,BEHAVIORAL FVCPM Goal: Individualization/Patient-Specific Goal (Adult,OB,Behavioral The patient and/or their hostess party sales representative will achieve their patient-specific goals related [...] manageable. Outcome: No Change Patient admitted to 451. Orientated to room, call mora, infant security and controls project engineer. On admit patient stable. Plan of Care - Terri Willett RN - 06/15/2011 10:23 PM CDT Problem: IP GENERAL POC-ADULT,OB,BEHAVIORAL FVCPM Goal: Individualization/Patient-Specific Goal (Adult,OB,Behavioral The patient and/or their hostess party sales representative will achieve their patient-specific goals related [...] 250 cc'c output. OK to transfer to PP Provider Notification - Maribell Zaragoza RN - [...] lacerations were noted. INGA DAVIS MD MT: #[id number] Name: ALYSA RIVERA Account: [id number] : 1985 Delivery Date: 06/15/2011 Document: [id number] Plan of Care - Maribell Zaragoza RN [...] category 1. Jonn Petit RN Plan of Lyubov Palma RN - 06/15/2011 3:32 AM CDT During [...] Arrived;Membrane Status;Labor Status;Uterine Activity;Pain;Status Update Plan of [place] - Lyubov Petit RN - 06/15/2011 1:03 AM CDT To inpatient. Out patient evaluation time 1 hr: Face to face: 45 min Plan of [place] - Lyubov Petit RN - 06/15/2011 1:00 [...] Signature Hemoglobin 8.0 (L) 11.7 - 15.7 [facility] Specimen Anatomical Collection Method Collection Time Receive d Time (Source) Location / / Volume Laterality Blood specimen 06/16/2011 7:13 AM 012 7:44 (specimen) CDT AM CDT Inga Davis MD LAB - BLOOD ORDERABLES Performing Organization Address City/State/ZIP Code Phon e Number [facility] [address] [place], [place] [address] [facility] CT Head w/o contrast* (06/15/2011 9:33 [...] (CANCELED) 0 125 (Given - Provider: Kiana Anders RN) 50-100 mcg, Intravenous, EVERY 1 HOUR CA N, moderate to severe pain, Starting Sat06/15/11 at 0054 HYDROmorphone (DILAUDID) injection 0.2-0.4 mg (CANCELE D) 1255 (Given - Provider: Maribell Zaragoza RN) 0.2-0.4 mg, Intravenous, EVERY 30 MIN CA N, Starting Sat06/15/11 at 1159, Until Sat06/17/11 at 1641, moderate to severe pain, severe pain. , Offer at least every 2 hours. Notify MD for new orders if agent ineffective. ibuprofen (ADVIL,MOTRIN) tablet 400-800 mg (CANCELED) 2046 (Given - Provider: Terri Willett RN) 0641 (Given - Provider: Pamella Ag RN)131 (Given - Provider: Linda Anglin RN)2028 (Given [...] (New Ba g - Provider: Lyubov Petit, RN) Intravenous, 500 mL, ONCE PRN, per polic [...] immediate release tablet 5-10 m g (CANCELED) 1731 (Given - Provider: Terri Willett, KISHAN) 0110 (Given - Provider: Pamella Ag, KISHAN)202 (Given - Provider: Terri Willett, KISHAN) 0647 [...] 1127 (New Bag - Provider: Maribell Zaragoza, RN) 0-1,000 mL, Intravenous, CONTINUOUS PRN, provider discretion to treat or prevent uterine atony, Starting Sat06/15/11 at 0053, Notify provider IF uterine atony and clarify with provider medication prefere nce. IV to run per provider discretion t o treat or prevent uterine atony. IV to continue until patient stable. Discontinue or saline lock per nurse discretion. documented in this encounter Care Teams Packing Line Worker Relationship Specialty Start Date End Date Lisa Gayle MD PCP - General 03/24/99 11/30/12 [address] [facility] [address] [place] [address] documented as of this encounter
--- OUTSIDE RECORDS SUMMARY | 2021-12-27 20:29 | XMS_ITS | Encounter Summary ---
:1985 Author Organization [place] Address [address] [place] [address] Care Team Providers Name Role Phone Kyle Mascorro MD Primary Care Provider [phone] Reason for Visit Reason Onset Date Comments Call To Schedule Appointment 09/17/2013 Pap due 09/09 014 Encounter Details Date Type Department Care Team Description 09/17/2013 Telephone [facility] Fredy Davis Cal l To Schedule [facility] MD Appointment (Pap due [address] 09/2013) [address] [facility] [address] [place] [address] [place], [place] [phone] (Wo rk) [address] [phone] Social History Tobacco Use Types Packs/Day Years Used Date Smoking Tobacco: Never Smokeless Tobacco: Never Alcohol Use Standard Drinks/Week Comments No 0 (1 standard drink = 0.6 oz pure alcoho l) occasional Sex Assigned at Date Recorded Not on file documented as of this encounter Miscellaneous Notes Telephone Encounter - Diya Lopez Jose - 09/17/2013 1:46 PM CDT Alysa Verde [...] on filedocumented in this encounter Care Teams Insolvency Practitioner Relationship Specialty Start Date End Date Kyle Mascorro MD PCP - General Family Practice 12/01/[address], [id number] [place] [address] documented as of this encounter
--- OUTSIDE RECORDS SUMMARY | 2021-12-27 20:29 | XMS_ITS | Encounter Summary ---
:1985 Author Organization [place] Address [facility] [place] [address] Care Team Providers Name Role Phone Kyle Mascorro MD Primary Care Provider [phone] Reason for Visit Reason Comments Urgent Care URI Encounter Details Date Type Department Care Team Description 10/24/2016 Office Visit [facility] Pedro Clancy, Throat pain (Primary Urgent Care Rona hernandez MD Dx) [address] [facility] [address] [place] [address] [id number] Social History Tobacco Use Types Packs/Day Years [...] SYMPTOMS ?? Duration: 3 days ?? Description [place] eye sx, sinus pressure, sore throat ?? [...] lb (66.7 kg). Medication Reconciliation: denton Salmeron STOCK BROKER documented in this encounter Plan of Treatment [...] Component Value Ref Test [facility] Range Method Time Signature Specimen Throat [facility] Culture Micro No beta 10/25/2016 [facility] hemolytic 8:34 AM CDT CLINICS Streptococcus MINONK Group A isolated Specimen Anatomical Collection Method Collection Time Receive d Time (Source) Location / / Volume Laterality Specimen from 10/24/2016 5:10 PM 10/25/19 17 5:11 throat CDT PM CDT (specimen) Pedro Clancy MD LAB - MICRO GENERAL ORDERABL ES Performing Organization Address City/[facility] Code Phon e Number [facility] [address] [place] [address] Strep, Rapid Screen (10/24/2016 5:10 PM CDT) Component Value Ref Test Analysis Performed At [facility] XATA Range Method Time Signature Specimen Throat [facility] Rapid Strep A NEGATIVE: No 10/24/2016 [facility] Screen Group A 5:22 PM CDT [facility] streptococcal MINONK antigen detected by immunoassay, await culture report. Specimen Anatomical Collection Method Collection Time Receive d Time (Source) Location / / Volume Laterality Specimen from 10/24/2016 5:10 PM 10/25/19 17 5:11 throat CDT PM CDT (specimen) Pedro Clancy MD LAB - MICRO GENERAL ORDERABL ES Performing Organization Address City/[facility] Phon e Number [facility] [address] [place] [address] documented in this encounter Visit Diagnoses Diagnosis Throat pain - Primary documented in this encounter Care Teams Crm Developer Relationship Specialty Start Date End Date Kyle Mascorro MD PCP - General Family Practice 12/01/[address], [address] [address] documented as of this encounter
--- OUTSIDE RECORDS SUMMARY | 2021-12-27 20:29 | XMS_ITS | Encounter Summary ---
:1985 Author Organization [place] Address [address] [place] [address] Care Team Providers Name Role Phone Lisa Gayle MD Primary Care Provider Encounter Details Date Type Department Care Team Description 06/06/2012 Results Only [facility] Fredy whipple MD [place] [address] [address] [facility] [address] [place] [address] [place] [address] [phone] Social History Tobacco Use Types Packs/Day Years [...] on filedocumented in this encounter Care Teams Meat Molder Relationship Specialty Start Date End Date Lisa Gayle MD PCP - General 03/24/99 11/30/12 [address] , [place] [address] [place] [address] documented as of this encounter
--- OUTSIDE RECORDS SUMMARY | 2021-12-27 20:29 | XMS_ITS | Encounter Summary ---
:1985 Author Organization [place] Address [address] [place] [address] Care Team Providers Name Role Phone Lisa Gayle MD Primary Care Provider Encounter Details Date Type Department Care Team Description 06/06/2012 Results Only [facility] Fredy whipple MD [place] [address] [address] [address] [place] [address] [phone] Social History Tobacco Use Types Packs/Day Years [...] on filedocumented in this encounter Care Teams Switch Maker Relationship Specialty Start Date End Date Lisa Gayle MD PCP - General 03/24/99 11/30/12 [address] , [place] [address] [place] [address] documented as of this encounter
--- OUTSIDE RECORDS SUMMARY | 2021-12-27 20:30 | XMS_ITS | Encounter Summary ---
:1985 Author Organization [place] Address [address] [place] [address] Care Team Providers Name Role Phone Lisa Gayle MD Primary Care Provider Reason for Visit Reason Comments Court Advocate Exam Encounter Details Date Type Department Care Team Description 11/06/2006 Office Visit [facility] Lisa Gayle ROUTIN E CLEANING SPECIALIST EXAMINATION (Primary Dx); Physicians DYSMENORRHEA [address] , [address] [address] [place] [address] [phone] Social History Tobacco Use Types Packs/Day Years [...] P 0 woman who presents for annual production specialist exam. Patient's last menstrual period was 11/04/2006. [...] Bimanual and rectovaginal normal. ASSESSMENT: V72.31 ROUTINE CLEANING SPECIALIST EXAMINATION (primary encounter diagnosis) Plan: THIN LAY [...] AFF THIN LAY Routine 11/08/2006 10:[address]ocate Result s for this PAP,DIAG W/HPV AM CDT Examination procedure are in REFLEX the results section. ZZCL AFF HEMOGLOBIN Routine 11/06/2006 11:[address] Resu lts for this AM CDT Examination procedure are i n the results section. HC VENOUS COLLECTION Routine 11/06/2006 11:[address]ocate AM CDT Examination documented in this encounter Results THIN LAY PAP,DIAG W/HPV REFLEX (11/08/2006 10:00 AM CDT) [facility] Method Time Signature Report status FINAL [facility] [place] [place] Clinical SEE NOTE [facility] [place] [place] Comment: PARA 0 0 LMP 11-04-06 [facility] [place] [place] Last Pap Diagnosis [facility]NL [facility] Prev Bx Dx NONE GIVEN [facility] Source none given [facility] Statement of Adequacy SEE NOTE [facility] [place] Comment: Satisfactory for evaluation. Endocervical/transformation zone compone nt present. General Categorization NOT AVAIL. [facility]SS[facility] [place] Descriptive Diagnosis SEE NOTE [facility] [place] Comment: Negative for intraepithelial le ventura or malignancy. Infection NOT AVAIL. [facility] Comment SEE NOTE [facility] ALYSSA [facility] Comment: Based on the cytology result, reflex Hig h/Int Risk HPV DNA Probe testing is not perfor med. Hydro Pneumatic Tester: SEE NOTE [facility] DIAGNO STICS [facility] [place] Comment: [facility], CT(ASCP) Review Hydro Pneumatic Tester NOT AVAIL. [facility] ALYSSA [facility] Pathologist NOT AVAIL. [facility] See Note SEE NOTE [facility] ALYSSA [facility] Comment: GYNECOLOGICAL CYTOLOGY IS A SCREENING NC OCEDURE SUBJECT TO BOTH FALSE NEGATIVE AND FALSE POSITIVE RESULTS. IT IS MOST RELIABLE WH EN A SATISFACTORY SAMPLE IS OBTAINED ON A REG ULAR REPETITIVE BASIS. RESULTS MUST BE INTERP RETED IN THE CONTEXT OF HISTORIC AND CURRENT C LINICAL INFORMATION. NO COLLECTION DATE RECEIVED. WE HAVE USE D THE DATE THE SPECIMEN WAS RECEIVED BY [facility] THE COLLECTION DATE. IF [facility] IS INCORRECT, PLEASE CONTACT CLIENT SERV [employer] 1. PHONE NUMBER: [phone] Test performed at [employer] [facility] [address] [place], [place] ??[address] Director: LATANYA GARCIA MD Specimen (Source) Anatomical Collection Method Collection Time Re ceived Time Location / / Volume Laterality 11/06/2006 10:4 3 PM CDT Narrative [facility] ALYSSA [place] - 10:00 AM CDT Additional Result Information GENERAL CATEGORIZATION: RESULT NOT AV AILABLE INFECTION: RESULT NOT AVAILABLE REVIEW ENVIRONMENTAL PROPERTY ASSESSOR: RESULT NOT A VAILABLE PATHOLOGIST: RESULT NOT AVAILABLE Lisa Gayle MD LABORATORY Performing Organization Address City/State/ZIP Code Phon e Number [facility] [address] [place] [address] [place], [place] [address] [facility] [place] [place] HEMOGLOBIN (11/06/2006 11:59 AM CDT) P athologist Signature Hemoglobin 14.7 12 - 16 [facility] GM/DL Lisa Gayle MD LABORATORY Performing Organization Address City/[facility]/ZIP Code Phon e Number [facility] documented in this encounter Visit Diagnoses Diagnosis Routine gynecological examination - Prim mateo Dysmenorrhea documented in this encounter Care Teams Newspaper Carrier Relationship Specialty Start Date End Date Lisa Gayle MD PCP - General 03/24/99 11/30/[address], [address] [place] [address] documented as of this encounter
--- OUTSIDE RECORDS SUMMARY | 2021-12-27 20:30 | XMS_ITS | Encounter Summary ---
:1985 Author Organization [place] Address [address] [place] [address] Care Team Providers Name Role Phone Lisa Gayle MD Primary Care Provider Reason for Visit Reason Comments Care Encounter Details Date Type Department Care Team Description 03/09/2011 Office [facility] Fredy Davis Sup ervision of Visit [facility] MD Mallory normal [facility] [address] (Primary [address] [facility] [address] Dx) [place] [address] [address] [place], [place] (Work) [address] Social History Tobacco Use Types Packs/Day Years Used Date Smoking Tobacco: Never Alcohol Use Standard Drinks/Week Comments No 0 (1 standard drink = 0.6 oz pure alcoho l) none since Sex Assigned at Date Recorded Not on file documented as of this encounter Last Filed Vital Signs Vital Sign Reading Time Taken Comments Blood Pressure 114/66 03/09/2011 11:35 AM CNC MACHINIST 2ND SHIFT Pulse - - Temperature - - Respiratory Rate - - Oxygen Saturation - - Inhaled Oxygen Concentration - - Weight 69.9 kg (154 lb) 03/09/2011 11:35 AM CNC MACHINIST 2ND SHIFT Height - - Body Mass Index 24.12 12/18/2010 3:18 PM CDT documented in this encounter Nursing Notes 03/09/2011 11:30 AM CST >> KIMBERLY SHANTE Fri Mar 09, 2011 11:40 AM . 26w5d. Glucose today. Pt is A positive S. Shante, RN documented in this encounter Plan of Treatment Not on filedocumented as of this encounter Procedures Procedure Name Priority Date/Time Associated Diagnosis Comme nts OB HEMOGLOBIN Routine 03/09/2011 12:31 Supervision of Results for this PM CNC MACHINIST 2ND SHIFT normal first procedure are i n the results section. GLUCOSE TOLERANCE Routine 03/09/2011 12:31 Supervision of Resu lts for this GEST SCREEN 1 HOUR PM CNC MACHINIST 2ND SHIFT normal first procedure are in the results section. documented in this encounter Results Glucose tolerance gest screen 1 hour (03/09/2011 12:31 PM CNC MACHINIST 2ND SHIFT) P athologist Signature Glu Gest Screen 83 60 - 129 [place] 1hr 50g mg/dL [facility] Specimen Anatomical Collection Method Collection Time Receive d Time (Source) Location / / Volume Laterality Blood specimen 03/09/2011 12:31 1 (specimen) PM CNC MACHINIST 2ND SHIFT 12:36 PM CNC MACHINIST 2ND SHIFT Fredy Davis MD LAB - BLOOD ORDERABLES Performing Organization Address City/[facility]/ZIP [facility] Phon e Number [facility] [address] [place], [place] [address] [address] [facility] OB hemoglobin (03/09/2011 12:31 PM CNC MACHINIST 2ND SHIFT) athologist Signature Hemoglobin 12.8 11.7 - 15.[address] [facility] g/dL [facility] Specimen Anatomical Collection Method Collection Time Receive d Time (Source) Location / / Volume Laterality Blood specimen 03/09/2011 12:31 1 (specimen) PM CNC MACHINIST 2ND SHIFT 12:36 PM CNC MACHINIST 2ND SHIFT Fredy Davis MD LAB - BLOOD ORDERABLES Performing Organization Address City/[facility] Phon e Number [facility] [address] [place], [place] [address] [address] [facility] documented in this encounter Visit Diagnoses Diagnosis Supervision of normal first - Primary documented in this encounter Care Teams Tempering Machine Operator Relationship Specialty Start Date End Date Lisa Gayle MD PCP - General 03/24/99 11/30/[address], [address] [place] [address] documented as of this encounter
--- OUTSIDE RECORDS SUMMARY | 2021-12-27 20:30 | XMS_ITS | Encounter Summary ---
:1985 Author Organization [place] Address [address] [place] [address] Care Team Providers Name Role Phone Lisa Gayle MD Primary Care Provider Reason for Visit Reason Comments Asset Protection Agent Exam Encounter Details Date Type Department Care Team Description 11/20/2007 Office Visit [facility] Ursula uKmar Routin e Gynecological Examination (Primary Dx); Physicians Dysmenorrhea [address] [place] [address] [address] [place] [phone] Social History Tobacco Use Types Packs/Day Years [...] year old woman who presents for annual software business analyst 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 Concerns today are: 1) none 2) [...] gist Method Time Signature Report status FINAL [facility] Clinical [facility] History [facility] Last Pap [facility] [place] Prev Bx Dx NONE GIVEN An [employer] [place] Source none given [facility] Statement of SEE NOTE [facility] Adequacy [place] Comment: Satisfactory for evaluation. Endocervical/transformation zone compone nt present. General Categorization NOT AVAIL. [facility] Descriptive Diagnosis SEE NOTE [facility] Comment: Negative for intraepithelial le ventura or malignancy. Infection SEE NOTE [facility] Comment: Fungal organisms morphologically consist ent with Naz spp. Comment [facility] Comment: Based on the cytology result, reflex Hig h Risk HPV DNA testing was not performed. ? Resource Program Teacher: SEE NOTE [facility] JASVIR NEWMAN Comment: KIEL MARIN(ASCP) Review Resource Program Teacher NOT AVAIL. [facility] Pathologist NOT AVAIL. [facility] Comment: Test performed at [employer] [facility] [address] [place], [place] ??[address] Director: JB GARCES MD Specimen (Source) Anatomical Collection Method Collection Time Re ceived Time Location / / Volume Laterality 11/20/2007 11/21/2007 4:14 AM CDT Narrative [facility] - 11/24/2007 11:00 AM C DT Additional Result Information GENERAL CATEGORIZATION: RESULT NOT AV AILABLE REVIEW DIRECTOR COST: RESULT NOT A VAILABLE PATHOLOGIST: RESULT NOT AVAILABLE Ursula Kumar MD LABORATORY Performing Organization Address City/State/ZIP Code [facility] e Number [facility] [address] [place] [address] documented in this encounter Visit Diagnoses Diagnosis Routine gynecological examination - Prim mateo Dysmenorrhea documented in this encounter Care Teams Project Account Manager Relationship Specialty Start Date End Date Lisa Gayle MD PCP - General 03/24/99 11/30/12 [address] [facility] [address] [place] [address] documented as of this encounter
--- OUTSIDE RECORDS SUMMARY | 2021-12-27 20:30 | XMS_ITS | Encounter Summary ---
:1985 Author Organization [place] Address [address] [place] [address] Care Team Providers Name Role Phone Lisa Gayle MD Primary Care Provider Reason for Referral - Closed Specialty Diagnoses / Procedures Referred By Contact Refer red To Contact Diagnoses Papanicolaou smear of cervix with atypical squamous cells of undetermined significance (ASC-US) Lisa Gayle MD [address] , [facility] [address] [place] [address] Referral ID Status Reason Start Date Expiration Date Visits Requ ested Visits Authorized [id number] Closed 01/04/2009 03/10/2011 1 1 Reason for Visit Reason Onset Date Comments Lab Result Notice 01/03/2009 Encounter Details Date Type Department Care Team Description 01/03/2009 Telephone [facility] Lisa Gayle MD Lab Result Notice Physicians [address] , [facility] [address] [address] [address] [place] [address] [place], [place] [address] [phone] Social History Tobacco Use Types Packs/Day Years Used Date Smoking Tobacco: Never Alcohol Use Standard Drinks/Week Comments No 0 (1 standard drink = 0.6 oz pure alcoho l) Sex Assigned at Date Recorded Not on file documented as of this encounter Miscellaneous Notes Telephone Encounter - Kendra Farley - 01/13/2009 9:10 AM CST Faxed report [facility] - [place] - Phone - [phone] Fax - [phone] [facility], [address] [place] [address]. [address] PLANT OPERATOR Telephone Encounter - Lisa Gayle - 01/12/2009 2:17 PM CST Appointment tomorrow at [facility]HW[facility] DESIGN ENGINEER. Fax over thin prep report for that appointment. Reviewed result to date and questions regarding the colposcopy. PLANT OPERATOR Telephone Encounter - Kendra Farley - 01/12/2009 2:08 PM CST Called and left a mg for Alysa to call us. Please see encounter below. PLANT OPERATOR Telephone Encounter - Lisa Gayle - 01/04/2009 8:07 PM CDT Notified of thin prep results and need for colposcopy/referral. [place] She will check her schedule over the next month and call back for days off for appointment. Telephone Encounter - Irma Garcia - 01/04/2009 4:24 PM CDT Pt called again for lab results. Lm Telephone Encounter - Irma Garcia - 01/04/2009 12:03 PM CDT Pt called back wanting results. Please call back at [phone] Telephone Encounter - Lisa Gayle - 01/03/2009 [...] Primary documented in this encounter Care Teams Interpretive Naturalist Relationship Specialty Start Date End Date Lisa Gayel MD PCP - General 03/24/99 11/30/12 [address] [address] documented as of this encounter
--- OUTSIDE RECORDS SUMMARY | 2021-12-27 20:30 | XMS_ITS | Encounter Summary ---
:1985 Author Organization [place] Address [address] [place] [address] Care Team Providers Name Role Phone Lisa Gayle MD Primary Care Provider Reason for Visit Reason Comments UTI Encounter Details Date Type Department Care Team Description 09/01/2005 Office Visit [facility] Lisa Gayle, [facility] Physicians NOS (Primary Dx) [address] , [address] [place] [address] [phone] Social History Tobacco Use Types Packs/Day Years [...] single partner, contraception - oral contraceptives 1 433715 MED 1. DIMA 28 3-0.03 MG OR TABS Route: Oral Si TABLET DAILY Dispense: 1 month Refill: 2 1 759934 MED 1 8 ALLERGY 1 -- No Known Allergies -- Ragweeds 1 8 ALLERGY 1 OBJECTIVE: 1 655229 VS BP 112/70 Pulse 68 Temp 97 Resp 12 Ht 5' 7.5 (1.72m) Wt 123 lbs (55.8kg) LMP 08/21/2005 1 656468 VS General appearance: healthy, alert, no distress [...] [facility] Comment: ??CULTURE, URINE, ROUTINE ?MICRO NUMBER: ?[id number] ??TEST STATUS: ? FINAL ??SPECIMEN SOURCE: ?? [...] IF IS IS INCORRECT, PLEASE CONTACT CLIENT [facility]. PHONE NUMBER: [phone] Test performed at [facility] [address] ??[address] Director: JANETTE CARRASCO M.D. Specimen (Source) Anatomical Location Collection Method / Collectio n Time Received Time / Laterality Volume 09/02/2005 Lisa Gayle MD LABORATORY Performing Organization Address City/State/ZIP Code Phon e Number [facility] [address] [facility] [address] URINALYSIS, ROUTINE (09/01/2005 10:24 AM CDT) [facility] gist Method Time Signature Color Urine dk.yellow [facility] INTERNAL Appearance Urine hazy [facility] INTERNAL Glucose Urine 250mg/dl mg/dL [facility] INTERNAL Bilirubin Urine mod [facility] INTERNAL Ketones Urine 15mg/dL mg/dL BFP INTERNAL Specific [place] 1.020 BFP INTERNAL Blood Urine large BFP [...] Primary documented in this encounter Care Teams Printed Circuit Board Preassembler Relationship Specialty Start Date End Date Lisa Gayle MD PCP - General 03/24/99 11/30/[address], [address] [place] [address] documented as of this encounter
--- OUTSIDE RECORDS SUMMARY | 2021-12-27 20:30 | XMS_ITS | Encounter Summary ---
:1985 Author Organization [place] Address [address] [place] [address] Care Team Providers Name Role Phone Lisa Gayle MD Primary Care Provider Reason for Visit Reason Onset Date Comments Refill Request 07/29/2006 Encounter Details Date Type Department Care Team Description 07/29/2006 Refill [facility] ysicians Lisa Gayle MD Refill Request [address], [place] [address] [place] [address] [place], [place] [address] (Wo rk) Social History Tobacco Use Types [...] cheo for one month, pt due for obgyn nurse appt documented in this encounter Plan of Treatment Not on filedocumented as of this encounter Visit Diagnoses Not on filedocumented in this encounter Care Teams Counter Cutter Relationship Specialty Start Date End Date Lisa Gayle MD PCP - General 03/24/99 11/30/[address], [address] [place] [address] documented as of this encounter
--- OUTSIDE RECORDS SUMMARY | 2021-12-27 20:30 | XMS_ITS | Encounter Summary ---
:1985 Author Organization [place] Address [address] [place] [address] Care Team Providers Name Role Phone Lisa Gayle MD Primary Care Provider Reason for Visit Reason Comments Care Encounter Details Date Type Department Care Team Description 01/15/2011 Office [facility] Fredy Davis ervision of Visit [facility] MD Mallory normal [facility] [address] (Primary [address] Dx) [place] [address] [address] [place], [place] (Work) [address] Social History Tobacco Use Types Packs/Day Years Used Date Smoking Tobacco: Never Alcohol Use Standard Drinks/Week Comments No 0 (1 standard drink = 0.6 oz pure alcoho l) none since Sex Assigned at Date Recorded Not on file documented as of this encounter Last Filed Vital Signs Vital Sign Reading Time Taken Comments Blood Pressure 92/58 01/15/2011 3:42 PM SENIOR PHP SOFTWARE DEVELOPER Pulse - - Temperature - - Respiratory Rate - - Oxygen Saturation - - Inhaled Oxygen Concentration - - Weight 64.5 kg (142 lb 4.8 oz) 01/15/2011 3:42 PM SENIOR PHP SOFTWARE DEVELOPER Height - - Body Mass Index 22.29 12/18/2010 3:18 PM CDT documented in this encounter Progress Notes Fredy Davis - 01/15/2011 6:15 PM CST Ultrasound AGA OR PHP SOFTWARE DEVELOPER documented in this encounter Nursing Notes 01/15/2011 3:30 PM CST >> KIMBERLY FREY Mon Jan 15, 2011 3:46 PM . 19w1d. Latricia Frey RN documented in this encounter Plan of Treatment Not on filedocumented as of this encounter Visit Diagnoses Diagnosis Supervision of normal first - Primary documented in this encounter Care Teams Site Head Relationship Specialty Start Date End Date Lisa Gayle MD PCP - General 03/24/99 11/30/12 [address] [facility] 100 [place] [address] documented as of this encounter
--- OUTSIDE RECORDS SUMMARY | 2021-12-27 20:30 | XMS_ITS | Encounter Summary ---
:1985 Author Organization [place] Address [address] [place] [address] Care Team Providers Name Role Phone Lisa Gayle MD Primary Care Provider Reason for Visit Reason Comments Ultrasound Encounter Details Date Type Department Care Team Description 01/15/2011 Orders Only [facility] Women's pervision of normal Clinic [place] first (Primary [address]) [address] [place] [address] Social History Tobacco Use Types Packs/Day Years Used Date Smoking Tobacco: Never Alcohol Use Standard Drinks/Week Comments No 0 (1 standard drink = 0.6 oz pure alcoho l) none since Sex Assigned at Date Recorded Not on file documented as of this encounter Plan of Treatment Not on filedocumented as of this encounter Procedures Procedure Name Priority Date/Time Associated Diagnosis Comme [facility] US OB MATERNAL Routine 01/15/2011 Supervision of [...] and EDC. Jodi Tineo M.D. Narrative 01/15/2011 [facility] [address] [place] [address] ULTRASOUND - COMPLETE OB (18+) Referring Provider: Fredy Davis MD Clinic: [facility] Disk: [id number] INDICATIONS FOR ULTRASOUND: OB History: Present Conditions: Initial Survey (18-26 weeks) CLINICAL INFORMATION LMP: 14 Aug 2010 ??unsure EDC: revised to 10 Jun 2011 ??EGA: 19w1d Previous US: Yes ?? Location: [facility] EDC: 10 Jun 2011 correspond adjusted MEASUREMENTS [...] Primary documented in this encounter Care Teams Electricity Trading Analyst Relationship Specialty Start Date End Date Lisa Gayle MD PCP - General 03/24/99 11/30/[address], [facility] [address] [place] [address] documented as of this encounter
--- OUTSIDE RECORDS SUMMARY | 2021-12-27 20:30 | XMS_ITS | Encounter Summary ---
:1985 Author Organization [place] Address [address] [place] [address] Care Team Providers Name Role Phone Lisa Gayle MD Primary Care Provider Reason for Visit Reason Comments Infant Room Teacher Exam Encounter Details Date Type Department Care Team Description 12/22/2008 Office Visit [facility] Lisa Gayle Routin e Gynecological Examination (Primary Dx); Physicians Dysmenorrhea; [address], Allergic Rhinitis, Cause Uns pecified; [address] Need for Prophylactic Vaccination with T etanus-Diphtheria (TD) [place] [address] 367137 Social History Tobacco Use Types Packs/Day Years [...] P 0 woman who presents for annual chili maker exam. Patient's last menstrual period was 12/15/2008. [...] Dental surgery procedure age 18 ??? Dominique (aliza) w opt myopia -3.12 2004 bilateral Current [...] INTERNAL (ABNORMAL) THIN LAY PAP,DIAG W/HPV REFLEX (88826.002) (12/22/2008) [facility] Method Time Signature Report status FINAL [facility] [place] Clinical [facility] History [place] LMP [id number] [facility] [place] Last Pap WNL [facility] Diagnosis [place] Prev Bx Dx NONE GIVEN [facility] [place] Source none given [facility] [place] Statement of [facility] Adequacy [place] Comment: Satisfactory for evaluation. Endocervical/transformation zone compone nt absent. 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 [facility] Comment [facility]END[facility] Comment: Based on the cytology result, reflex Hig h Risk HPV DNA testing was not performed. ? Consider colposcopy and cervical/endocer vical sampling, as clinically indicated. Haddad portions of this case have been revi ewed by one or more pathologists. Traffic Observer: NIKKI NEWMAN Comment: MEN, CT(ASCP) Review Traffic Observer NOT AVAIL. [facility] Pathologist [facility] Comment: Wilfredo Yao M.D. Floor Finisher Helper , Board Certified in Anatomic Pathology an d Clinical Pathology (electronic signature ) Test Performed at: [facility] [place] [address] [address] [place], [place] ??[address] JB GARCES MD Specimen (Source) Anatomical Collection Method Collection Time Re ceived Time Location / / Volume Laterality 12/22/2008 12/23/2008 3:38 AM CDT Narrative [facility] - 12/29/2008 8:00 AM CD T Additional Result Information INFECTION: RESULT NOT AVAILABLE REVIEW SOAP SLABBER: RESULT NOT A VAILABLE Lisa Gayle MD LABORATORY Performing Organization Address City/State/ZIP Code Phon e Number [facility] [address] [place] [address] documented in this encounter Visit Diagnoses Diagnosis Routine gynecological examination - Prim mateo Dysmenorrhea Allergic rhinitis, cause unspecified Need for prophylactic vaccination with t etanus-diphtheria (Td) documented in this encounter Care Teams Field Support Representative Relationship Specialty Start Date End Date Lisa Gayle MD PCP - General 03/24/99 11/30/[address], [address] [place] [address] documented as of this encounter
--- OUTSIDE RECORDS SUMMARY | 2021-12-27 20:30 | XMS_ITS | Encounter Summary ---
:1985 Author Organization [place] Address [address] [place] [address] Care Team Providers Name Role Phone Lisa Gayle MD Primary Care Provider Reason for Visit Reason Comments Consult Encounter Details Date Type Department Care Team Description 11/16/2008 Office Visit [facility] Lisa Gayle, Urpeter y Tract Physicians Infection, Site not [address], Specified (Primary Dx) [address] [place] [address] [phone] Social History Tobacco Use Types Packs/Day Years [...] Results CULTURE, URINE (11/20/2008 4:00 AM CDT) P athologist Signature Urine Voided [facility] Comment: ??CULTURE, URINE, ROUTINE ?MICRO NUMBER: ?[id number] ??TEST STATUS: ? FINAL ??SPECIMEN SOURCE: ?? [...] IS IS INCORRECT, PLEASE CONTACT CLIENT SERV FRANKIE. PHONE NUMBER: [phone] Test Performed at: [facility] [address] ??[address] JANETTE CARRASCO M.D. Specimen (Source) Anatomical Collection Method Collection Time Re ceived Time Location / / Volume Laterality 11/18/2008 1:06 AM CDT Lisa Gayle MD LABORATORY Performing Organization Address City/[facility] Phon e Number [facility] [address] [place], [place] [address] [facility] [address] (ABNORMAL) URINALYSIS, ROUTINE (11/16/2008 6:04 PM CDT) [facility] gist Method Time Signature Color Urine yellow BFP INTERNAL Appearance Urine hazy [facility] INTERNAL Glucose Urine neg mg/dL B[facility] INTERNAL Bilirubin Urine neg B[facility] INTERNAL Ketones Urine neg mg/dL BFP INTERNAL Specific [place] 1.015 BFP INTERNAL Blood Urine small BFP [...] [place]/ZIP Code Phon e Number [facility] INTERNAL documented in this encounter Visit Diagnoses Diagnosis Urinary tract infection, site not specif ied - Primary documented in this encounter Care Teams Statement Distribution Clerk Relationship Specialty Start Date End Date Lisa Gayle MD PCP - General 03/24/99 11/30/[address], [address] [place] [address] documented as of this encounter
--- OUTSIDE RECORDS SUMMARY | 2021-12-27 20:30 | XMS_ITS | Encounter Summary ---
:1985 Author Organization [place] Address [address] [place] [address] Care Team Providers Name Role Phone Lisa Gayle MD Primary Care Provider Reason for Visit Reason Comments UTI Encounter Details Date Type Department Care Team Description 12/03/2005 Office Visit [facility] Lisa Gayle, ALONDRA Khalil [facility] Physicians NOS (Primary Dx) [address] , [address] [place] [address] [phone] Social History Tobacco Use Types Packs/Day Years [...] this encounter Progress Notes Scherf, Lisa - 12/03/2005 9:10 AM CDT SUBJECTIVE: Alysa Rodrigues is an 20 year old female who presents with suspected urinary tract infection. Her symptoms began 1 day ago and include dysuria and frequency. Predisposing factors: frequent sexual intercourse Hx of previous UTI???s: rare Sexually active: yes, single partner, contraception - oral contraceptives 1 311231 MED 1. MACROBID 100 MG OR CAPS Route: Oral Sig:ONE CAPSULE TWICE DAILY Dispense: 14 Refill: 0 2. DIMA 28 3-0.03 MG OR TABS Route: Oral Si TABLET DAILY Dispense: 3 months Refill: 2 3. PAROXETINE HCL 10 MG OR TABS Route: Oral Si TABLET DAILY Dispense: 30 Refill: 1 1 080163 MED 1 8 ALLERGY 1 -- No Known Allergies -- Ragweeds 1 8 ALLERGY 1 OBJECTIVE: 1 580046 VS BP 110/70 Pulse 64 Temp (Src) 98.5 (Oral) Resp 12 Ht 5' 7.5 (1.72m) Wt 129 lbs (58.5kg) LMP 11/19/2005 1 773189 VS General appearance: healthy, alert, no distress, [...] [place] Comment: ??CULTURE, URINE, ROUTINE ?MICRO NUMBER: ?[id number] ??TEST STATUS: ? FINAL ??SPECIMEN SOURCE: ?? [...] IF IS IS INCORRECT, PLEASE CONTACT CLIENT [facility] FRANKIE. PHONE NUMBER: [phone] Test performed at [facility] [address] ??[address] Director: JANETTE CARRASCO M.D. Specimen (Source) Anatomical Collection Method Collection Time Re ceived Time Location / / Volume Laterality 12/04/2005 2:54 AM CDT Lisa Gayle MD LABORATORY Performing Organization Address City/State/ZIP Code Phon e Number [address] [address] URINALYSIS, ROUTINE (12/03/2005 9:06 AM CDT) Analysis Performed At [facility] Time Signature Color Urine BFP INTERNAL Appearance Urine hazy BFP INTERNAL Glucose Urine mg/dL BFP INTERNAL Bilirubin Urine BFP INTERNAL Ketones Urine mg/dL BFP INTERNAL Specific [place] BFP INTERNAL Blood Urine BFP INTERNAL pH [...] Primary documented in this encounter Care Teams Treating Plant Pumper Relationship Specialty Start Date End Date Lisa Gayle MD PCP - General 03/24/99 11/30/[address], [facility] 100 [place] [address] documented as of this encounter
--- OUTSIDE RECORDS SUMMARY | 2021-12-27 20:30 | XMS_ITS | Encounter Summary ---
:1985 Author Organization [place] Address [address] [place] [address] Care Team Providers Name Role Phone Lisa Gayle MD Primary Care Provider Reason for Visit Reason Comments Hypertension Imm/Inj Encounter Details Date Type Department Care Team Description 10/12/2005 Office Visit [facility] Lisa Gayle, DYSMEN ORRHEA (Primary Dx); Physicians VACCINE FOR VIRAL HEPATITIS; [address], DEPRESSIVE DISORDER [facility] [address] [place] [address] [phone] Social History Tobacco Use Types Packs/Day Years [...] this encounter Progress Notes Lisa Gayle - 10/12/2005 1:04 PM CDT SUBJECTIVE: Here [...] ified documented in this encounter Care Teams Sales And Service Specialist Relationship Specialty Start Date End Date Lisa Gayle MD PCP - General 03/24/99 11/30/12 [address] , [facility] [address] [place] [address] documented as of this encounter
--- OUTSIDE RECORDS SUMMARY | 2021-12-27 20:30 | XMS_ITS | Encounter Summary ---
:1985 Author Organization [place] Address [address] [place] [address] Care Team Providers Name Role Phone Lisa Gayle MD Primary Care Provider Reason for Visit Reason Comments Ultrasound Encounter Details Date Type Department Care Team Description 12/14/2010 Orders Only [facility] Women's pervision of normal Clinic [place] first (Primary [address]) [address] [place] [address] Social History Tobacco Use Types Packs/Day Years Used Date Smoking Tobacco: Never Alcohol Use Standard Drinks/Week Comments Yes 0 (1 standard drink = 0.6 oz pure alcoho l) occasional prior to Sex Assigned at Date Recorded Not on [...] 12/14/2010 ULTRASOUND - LIMITED OB (12-17.9 WEEKS) [facility] Obstetrics & Gynecology [address] [place] [address] Referring Provider: Fredy Davis MD Clinic: [facility] Disk: 3525 tp INDICATIONS FOR ULTRASOUND: OB History: Present [...] NA ?? *Other Findings: Fredy Davis MD [facility] ORDER[facility] documented in this encounter Visit Diagnoses Diagnosis Supervision of normal first - Primary documented in this encounter Care Teams Town Manager Relationship Specialty Start Date End Date Lisa Gayle MD PCP - General 03/24/99 11/30/[address], [address] [place] [address] documented as of this encounter
--- OUTSIDE RECORDS SUMMARY | 2021-12-27 20:30 | XMS_ITS | Encounter Summary ---
:1985 Author Organization [place] Address [address] [place] [address] Care Team Providers Name Role Phone Lisa Gayle MD Primary Care Provider Kyle Mascorro MD Primary Care Provider [phone] Reason for Visit Reason Onset Date Comments [...] Lauro Lisa - 04/14/2011 2:40 PM CST [place] [facility] Triage Call Report Patient Name: Alysa Verde Call Date & Time: 03/13/2011 10:45:53PM Patient Phone: PCP Name: MRN: Patient Address: Patient Date of : 1985 Age: 25 yr. Patient Gender: Female [address] Freight Name: Ellen Gonzales Presenting Problem: I have gas pains all day. I am passing gas and loose squirts but the pain is worsening all over the abdomen. I am 27 weeks . 97.5, good mvt. Loss of appetite. [phone] no blocks. Will have Md call her. [...] Medication Note: Allergy: Reaction: Procedure: Procedure Note: DRIVER Telephone Encounter - Mecca Frederick - 03/14/2011 5:33 AM CST [place] [facility] Triage Call Report Patient Name: Alysa Verde Call Date & Time: 03/14/2011 2:03:50AM Patient Phone: PCP Name: MRN: Patient Address: Patient Date of : 1985 Age: 25 yr. Patient Gender: Female [address] Freight Name: Fernanda Johnson Presenting Problem: Patient is [...] Medication Note: Allergy: Reaction: Procedure: Procedure Note: DRIVER documented in this encounter Plan of Treatment Not on filedocumented as of this encounter Visit Diagnoses Not on filedocumented in this encounter Care Teams School Principal Relationship Specialty Start Date End Date Lisa Gayle MD PCP - General 03/24/99 11/30/[address], [address] [address] Kyle Mascorro MD PCP - General Family Practice 12/01/[address], [id number] [place] [address] documented as of this encounter
--- OUTSIDE RECORDS SUMMARY | 2021-12-27 20:30 | XMS_ITS | Encounter Summary ---
:1985 Author Organization [place] Address [address] [place] [address] Care Team Providers Name Role Phone Lisa Gayle MD Primary Care Provider Reason for Visit Reason Comments Care Encounter Details Date Type Department Care Team Description 12/18/2010 Office [facility] Fredy Davis ervision of normal first (Primary Dx); [facility] MD Mallory Dysplasia of cervix; [place] [address] CENTRAL History of cone biopsy of ce rvix [address] [place] [address] [address] [place], [place] (Work) [address] Social History Tobacco Use [...] Component Value Ref Test Analysis Performed At [facility] Optima Diagnostics Range Method Time Signature PAP NIL COPATH Copath Report COPATH Patient Name: DONTAE RIVERA MR#: [id number] Specimen #: [id number] Collected: 12/18/2010 Received: 12/20/2010 Reported: 12/21/2010 13:43 Ordering Phy(s): FREDY DAVIS SPECIMEN/STAIN PROCESS: Pap Imaged thin layer [...] KIEL Hoffman (ASCP) Processed and screened at [facility] CLINICAL HISTORY: LMP: 08/14/10 , Other: More than one year ago, Papanicolaou Test Limitations: ??Cervical cytology is a scre ening test with limited sensitivity; regular screening is critical for cancer prevention; Pap tests are primarily effective for the diagnosis/prevention of squamous cell carcinoma, not adenoca rcinomas or other cancers. TESTING LAB LOCATION: [facility] [address] [place], [place] ??[address] COLLECTION SITE: Client: ??[facility] Location: RIOB (R) Specimen (Source) Anatomical Collection Method Collection Time Re ceived Time Location / / Volume Laterality Cytologic 12/18/2010 5:07 12/20/2010 material PM CDT 10:13 AM CDT (specimen) Fredy Davis MD LAB - OPTIME CLINICAL SPECIM EN Performing Organization Address City/State/ZIP Code Phon e Number COPATH CHLAMYDIA TRACHOMATIS PCR (12/18/2010 5:06 PM CDT) Component Value Ref Test Analysis Performed At [facility] gist Range Method Time Signature Specimen [facility] Chlamydia Negative for C. trachomatis rRNA by production technologist mediated amplification. [facility] Trachomatis A negative result by transc ription mediated amplification does not preclude the FRESNO PCR presence of C. trachomatis infection because [...] Organization Address City/State/ZIP Code Phon e Number [address] [address] [facility] [place] GONORRHOEA PCR (12/18/2010 5:06 PM CDT) Component Value Ref Test Analysis Performed At [facility] gist Range Method Time Signature Specimen [facility] N Gonorrhea Negative for N. gonorrhoeae rRNA by production technologist mediated amplification. [facility] PCR A negative result by transc ription mediated amplification does not preclude the FRESNO presence of N. gonorrhoeae infection because re sults are dependent on proper CAMPUS LABS and adequate collection, absence of inhibitors, and suffici ent rRNA to be detected. Specimen Anatomical Collection Method Collection Time Receive d Time (Source) Location / / Volume Laterality Cervical swab 12/18/2010 5:06 PM 12/19/19 11 5:11 (specimen) CDT PM CDT Fredy Davis MD LAB - MICRO GENERAL ORDERABL ES Performing Organization Address City/State/ZIP Code Phon e Number [facility] [address] [place] [address] [facility] documented in this encounter Visit Diagnoses Diagnosis Supervision of normal first - Primary Dysplasia of cervix Dysplasia of cervix, unspecified History of cone biopsy of cervix Other postprocedural status documented in this encounter Care Teams Powerhouse Helper Relationship Specialty Start Date End Date Lisa Gayle MD PCP - General 03/24/99 11/30/12 [address] , [facility] [address] [place] [address] documented as of this encounter
--- OUTSIDE RECORDS SUMMARY | 2021-12-27 20:30 | XMS_ITS | Encounter Summary ---
:1985 Author Organization [place] Address [address] [place] [address] Care Team Providers Name Role Phone Lisa Gayle MD Primary Care Provider Encounter Details Date Type Department Care Team Description 04/18/[address] Orders [address] [facility] Ursula Kumar MD Physicians [address] [facility] [address] [place] [address] [place] [address] [phone] Social History Tobacco Use Types Packs/Day Years Used Date Smoking Tobacco: Never Alcohol Use Standard Drinks/Week Comments Not Asked 0 (1 standard drink = 0.6 oz pure alcoho l) Sex Assigned at Date Recorded Not on file documented as of this encounter Plan of Treatment Not on filedocumented as of this encounter Visit Diagnoses Not on filedocumented in this encounter Care Teams Facility Manager Histology Relationship Specialty Start Date End Date Lisa Gayle MD PCP - General 03/24/99 11/30/12 [address] , [address] [place], [place] [id number] documented as of this encounter
--- OUTSIDE RECORDS SUMMARY | 2021-12-27 20:30 | XMS_ITS | Encounter Summary ---
:1985 Author Organization [place] Address [address] [place] [address] Care Team Providers Name Role Phone Lisa Gayle MD Primary Care Provider Reason for Visit Reason Comments Pain Parts Room Assistant Exam Encounter Details Date Type Department Care Team Description 06/12/[address] [facility] Lisa Gayle ROUTIN E MIX MAKER EXAMINATION (Primary Dx); Physicians DYSMENORRHEA [address] , [address] [place] [address] [place] [address] [phone] Social History Tobacco Use Types Packs/Day Years [...] CDT documented in this encounter Progress Notes NaliniStevea - 06/12/2005 3:27 PM CDT SUBJECTIVE: Alysa Rodrigues is an 20 year old G 0 P 0 woman who presents for annual research project coordinator exam. Patient's last menstrual period was 05/29/2005. [...] Bimanual and rectovaginal normal. ASSESSMENT: V72.31 ROUTINE MIX MAKER EXAMINATION (primary encounter diagnosis) Plan: THIN LAY [...] THIN LAY Routine 06/15/2005 11:00 AM Routine Parts Room Assistant Res ults for this PAP,DIAG W/HPV CDT Examination procedure are in REFLEX Dysmenorrhea the results section. ZZCL AFF HEMOGLOBIN Routine 06/12/2005 3:34 PM Routine Parts Room Assistant Re sults for this CDT Examination procedure are in Dysmenorrhea the results section. HC VENOUS COLLECTION Routine 06/12/2005 3:26 PM Routine Parts Room Assistant CDT Examination Dysmenorrhea documented in this encounter Results THIN LAY PAP,DIAG W/HPV REFLEX ([id number]) (06/15/2005 11:00 AM CDT) [facility] gist Method Time Signature Report status FINAL [employer] Clinical SEE NOTE [email or web address] History Nuvilex Comment: PARA 0 0 LMP 05-29-05 [employer] Last Pap Diagnosis [facility] - . Prev Bx Dx NONE GIVEN [employer] Source none given [employer] Statement of Adequacy SEE NOTE [employer] Comment: Satisfactory for evaluation. Endocervical/transformation zone compone nt absent. General Categorization NOT AVAIL. [employer] Descriptive Diagnosis SEE NOTE [employer] [facility] Comment: Negative for intraepithelial le ventura or malignancy. Infection SEE NOTE [employer] Comment: Fungal organisms morphologically consist ent with Naz spp. Comment SEE NOTE [employer] Comment: ? Based on the cytology result, reflex Hig h/Int Risk HPV DNA Probe testing is not perfor med. ?? Garage Laborer: SEE NOTE [employer] Comment: CMR, CT(ASCP) Review Garage Laborer NOT AVAIL. [facility] Pathologist NOT AVAIL. [employer] See Note SEE NOTE [employer] Comment: GYNECOLOGICAL CYTOLOGY IS A SCREENING MI OCEDURE SUBJECT TO BOTH FALSE NEGATIVE AND FALSE POSITIVE RESULTS. IT IS MOST RELIABLE WH EN A SATISFACTORY SAMPLE IS OBTAINED ON A REG ULAR REPETITIVE BASIS. RESULTS MUST BE INTERP RETED IN THE CONTEXT OF HISTORIC AND CURRENT C LINICAL INFORMATION. NO COLLECTION DATE RECEIVED. WE HAVE USE D THE DATE THE SPECIMEN WAS RECEIVED BY [facility] THE COLLECTION DATE. IF IS IS INCORRECT, PLEASE CONTACT CLIENT [employer]. PHONE NUMBER: [phone] Test performed at [facility] ?? [address] ? [place], [place] ??[address] Director: TREVIN KRUEGER MD Specimen (Source) Anatomical Collection Method Collection Time Re ceived Time Location / / Volume Laterality 06/12/2005 11:2 4 PM CDT Narrative [employer] - 06/16/19 06 11:00 AM CDT Additional Result Information GENERAL CATEGORIZATION: RESULT NOT AV AILABLE REVIEW MAINTENANCE OPERATOR: RESULT NOT A VAILABLE PATHOLOGIST: RESULT NOT AVAILABLE Lisa Gayle MD LABORATORY Performing Organization Address [facility] Phon e Number [employer] [place] [address] [place] [address] HEMOGLOBIN (06/12/2005 3:34 PM CDT) athologist Signature Hemoglobin 14.0 12 - 16 [facility] GM/DL Lisa Gayle MD LABORATORY Performing Organization Address [facility] Phon e Number [facility] documented in this encounter Visit Diagnoses Diagnosis Routine gynecological examination - Prim mateo Dysmenorrhea documented in this encounter Care Teams Diet Aide Relationship Specialty Start Date End Date Lisa Gayle MD PCP - General 03/24/99 11/30/12 [address] [facility] [address] [place] [address] documented as of this encounter
--- OUTSIDE RECORDS SUMMARY | 2021-12-27 20:30 | XMS_ITS | Encounter Summary ---
:1985 Author Organization [place] Address [address] [place] [address] Care Team Providers Name Role Phone Lisa Gayle MD Primary Care Provider Reason for Visit Reason Comments Cough Encounter Details Date Type Department Care Team Description 04/27/2006 Office Visit [facility] Dashawn Gandhi ACUTE URI MULT [facility] Physicians MD Jorge Luis NEC (Primary Dx) [address] [place] [address] Social History Tobacco Use Types Packs/Day Years Used Date Smoking Tobacco: Never Alcohol Use Standard Drinks/Week Comments No 0 (1 standard drink = 0.6 oz pure alcoho l) Sex Assigned at Date Recorded Not on file documented as of this encounter Last Filed Vital Signs Vital Sign Reading Time Taken Comments Blood Pressure 114/82 04/27/2006 9:00 AM SAND WHEELER Pulse 76 04/27/2006 9:00 AM SAND WHEELER Temperature 36.7 ??C (98 ??F) 04/27/2006 9:00 AM SAND WHEELER Respiratory Rate - - Oxygen Saturation - - Inhaled Oxygen Concentration - - Weight 55.3 kg (122 lb) 04/27/2006 9:00 AM SAND WHEELER Height 172.1 cm (5' 7.75) 04/27/2006 9:00 AM SAND WHEELER Body Mass Index 18.69 04/27/2006 9:00 AM SAND WHEELER documented in this encounter Progress Notes Dashawn Gandhi C - 04/27/2006 9:12 AM CST Pt has [...] help these irritating cough syndromes. Per orders. WHEELER documented in this encounter Nursing Notes 04/27/2006 [...] Primary documented in this encounter Care Teams Watch Dial Stoner Relationship Specialty Start Date End Date Lisa Gayle MD PCP - General 03/24/99 11/30/[address], [place] [address] [place] [address] documented as of this encounter
--- OUTSIDE RECORDS SUMMARY | 2021-12-27 20:30 | XMS_ITS | Encounter Summary ---
:1985 Author Organization [place] Address [address] [place] [address] Care Team Providers Name Role Phone Lisa Gayle MD Primary Care Provider Reason for Visit Reason Comments Care Encounter Details Date Type Department Care Team Description 11/16/2010 Office [facility] Supervi ventura of normal Visit Clinic [place] first [address] (Primary Dx) [place] [address] Social History Tobacco Use Types [...] 11/16/2010 6:00 PM CDT >> MARCO ANTONIO Ordaz Nov 16, 2010 6:31 PM Patient presents with: NPN nurse visit.[id number] Pt will be seeing ric Anne pap is due, natalie DAVIDSON 02/16 unsure if has pap after LEEP. [...] Results URINE CULTURE (11/16/2010 6:38 PM CDT) [facility] Method Time Signature Specimen [facility] Description Urine [facility] Culture Micro No growth [facility] Micro Report FINAL [facility] Status 11/18/2010 [facility] Specimen Anatomical Collection Method Collection Time Receive d Time (Source) Location / / Volume Laterality 11/16/2010 6:38 PM 1 6:43 CDT PM CDT Fredy Davis MD LAB - MICRO GENERAL ORDERABL ES Performing Organization Address City/[facility]/ZIP Code Phon e Number [facility] [address] [place] [address] [phone] [facility] Anti treponema EIA (11/16/2010 6:37 PM CDT) Analysis Performed At Patho logist Time Signature Treponema Negative NEG [facility] Antibody [place] [facility] Specimen Anatomical Collection Method Collection Time Receive d Time (Source) Location / / Volume Laterality Blood specimen 11/16/2010 6:37 PM 011 6:42 (specimen) CDT PM CDT Fredy Davis MD LAB - BLOOD ORDERABLES Performing Organization Address City/[facility]/ZIP Code Phon e Number [facility] [address] [place], [place] [phone] [place] [address] LABS Hepatitis B surface antigen (11/16/2010 6:37 PM CDT) Analysis Performed At Patho logist Time Signature Hep B Surface Negative NEG [facility] LABS Specimen Anatomical Collection Method Collection Time Receive d Time (Source) Location / / Volume Laterality Blood specimen 11/16/2010 6:37 PM 011 6:42 (specimen) CDT PM CDT Fredy Davis MD LAB - BLOOD ORDERABLES Performing Organization Address City/[facility]/ZIP Code Phon e Number [facility] [address] [place], [place] [phone] [place] [address] LABS Rubella antibody IgG (11/16/2010 6:37 PM CDT) P athologist Signature Rubella KIKI 115 IU/mL [facility] Comment: Interpretation: Positive, Immun e Specimen Anatomical Collection Method Collection Time Receive d Time (Source) Location / / Volume Laterality Blood specimen 11/16/2010 6:37 PM 011 6:42 (specimen) CDT PM CDT Fredy Davis MD LAB - BLOOD ORDERABLES Performing Organization Address City/[facility]/ZIP Code Phon e Number [facility] [address] [place] [address] [facility]S HIV 1 and 2 Antibody (11/16/2010 6:37 PM CDT) Analysis Performed At Patho logis Time Signature HIV 1&2 Negative NEG [facility] Antibody [facility] LABS Specimen Anatomical Collection Method Collection Time Receive d Time (Source) Location / / Volume Laterality Blood specimen 11/16/2010 6:37 PM 011 6:42 (specimen) CDT PM CDT Fredy Davis MD LAB - BLOOD ORDERABLES Performing Organization Address City/[facility]/ZIP Code Phon e Number [facility] [address] [place] [address] [facility]S ABO/RH TYPE AND SCREEN (11/16/2010 6:37 PM CDT) Analysis Performed At [facility] Time Signature ABO A [facility] RH(D) Pos [facility] Antibody Neg [place] Screen [facility] Specimen 11/19/2010 [place] Expires [facility] Specimen Anatomical Collection Method Collection Time Receive d Time (Source) Location / / Volume Laterality Blood specimen 11/16/2010 6:37 PM 011 6:43 (specimen) CDT PM CDT Fredy Davis MD LAB - BLOOD BANK TEST ORDER Performing Organization Address City/[facility]/ZIP Code Phon e Number [facility] [address] [place] [address] HOSPITAL [facility] CBC WITH PLATELETS (11/16/2010 6:37 PM CDT) P athologist Signature WBC 9.4 4.0 - 11.0 [place] 10e9/L [facility] RBC Count 4.48 3.8 - 5.2 [place] 10e12/L [facility] Hemoglobin 14.1 11.7 - [place] 15.7 g/dL [facility] Hematocrit 40.7 35.0 - [place] 47.0 % [facility] MCV 91 78 - 100 [place] fl [facility] MCH 31.5 26.5 - [place] 33.0 pg [facility] MCHC 34.6 31.5 - [place] 36.5 g/dL [facility] RDW 12.5 10.0 - [place] 15.0 % [facility] Platelet Count 256 150 - 450 [place] 10e9/L [facility] Specimen Anatomical Collection Method Collection Time Receive d Time (Source) Location / / Volume Laterality Blood specimen 11/16/2010 6:37 PM 011 6:42 (specimen) CDT PM CDT Fredy Davis MD LAB - BLOOD ORDERABLES Performing Organization Address City/[facility]/ZIP [facility] Phon e Number [facility] [address] [place], [place] [address] [address] [facility] HCL HCG, URINE, NURSE BACKOFFICE (11/16/2010) P athologist Signature hCG, Qual positive [facility] Specimen (Source) Anatomical Location Collection Method / Collectio n Time Received Time / Laterality Volume Urine specimen (specimen) Fredy Davis MD LABORATORY Performing Organization Address City/[facility]/ZIP [facility] Phon e Number [facility] documented in this encounter Visit Diagnoses Diagnosis Supervision of normal first - Primary documented in this encounter Care Teams Manager Of Network Relationship Specialty Start Date End Date Lisa Gayle MD PCP - General 03/24/99 11/30/[address], [address] [place] [address] documented as of this encounter
--- OUTSIDE RECORDS SUMMARY | 2021-12-27 20:30 | XMS_ITS | Encounter Summary ---
:1985 Author Organization [place] Address [address] [place] [address] Care Team Providers Name Role Phone Lisa Gayle MD Primary Care Provider Encounter Details Date Type Department Care Team Description 01/19/2009 Orders Only [facility], Provider SCAN MICHEL RESULTS Physicians (Primary Dx) [address] [place] [address] [place] [address] Social History Tobacco Use Types Packs/Day [...] Primary documented in this encounter Care Teams Hotel Manager Relationship Specialty Start Date End Date Lisa Gayle MD PCP - General 03/24/99 11/30/12 [address] , [address] [place], [place] [address] documented as of this encounter
--- OUTSIDE RECORDS SUMMARY | 2021-12-27 20:30 | XMS_ITS | Encounter Summary ---
:1985 Author Organization [place] Address [address] [place] [address] Care Team Providers Name Role Phone Lisa Gayle MD Primary Care Provider Reason for Visit Reason Comments Knee Pain Encounter Details Date Type Department Care Team Description 04/16/2006 Office Visit [facility] Lisa Gayle, JOINT PAIN-LOWER LEG (Primary Dx); Physicians DYSFUNCT EUSTACHIAN TUBE [address] , [address] [place] [address] Social History Tobacco Use Types Packs/Day Years Used Date Smoking Tobacco: Never Alcohol Use Standard Drinks/Week Comments No 0 (1 standard drink = 0.6 oz pure alcoho l) Sex Assigned at Date Recorded Not on file documented as of this encounter Last Filed Vital Signs Vital Sign Reading Time Taken Comments Blood Pressure 110/70 04/16/2006 6:30 PM FILM CASTING OPERATOR Pulse 68 04/16/2006 6:30 PM FILM CASTING OPERATOR Temperature 36.8 ??C (98.2 ??F) 04/16/2006 6:30 PM FILM CASTING OPERATOR Respiratory Rate 12 04/16/2006 6:30 PM FILM CASTING OPERATOR Oxygen Saturation - - Inhaled Oxygen Concentration - - Weight 55.8 kg (123 lb) 04/16/2006 6:30 PM FILM CASTING OPERATOR Height 170.8 cm (5' 7.25) 04/16/2006 6:30 PM FILM CASTING OPERATOR Body Mass Index 19.12 04/16/2006 6:30 PM FILM CASTING OPERATOR documented in this encounter Progress Notes Lisa [...] of viral URI as the natural course. CASTING OPERATOR documented in this encounter Nursing Notes 04/16/2006 [...] tube documented in this encounter Care Teams Typing Pool Supervisor Relationship Specialty Start Date End Date Lisa Gayle MD PCP - General 03/24/99 11/30/[address], [facility] [address] [place] [address] documented as of this encounter
--- OUTSIDE RECORDS SUMMARY | 2021-12-27 20:30 | XMS_ITS | Encounter Summary ---
:1985 Author Organization [place] Address [address] [place] [address] Care Team Providers Name Role Phone Lisa Gayle MD Primary Care Provider Reason for Visit Reason Onset Date Comments Patient Request 02/21/2011 Encounter Details Date Type Department Care Team Description 02/21/2011 Telephone [facility] Fredy whipple MD Patient Request Clinic [address] [place] [address] [place] [address] [phone] Social History Tobacco Use Types Packs/Day Years Used Date Smoking Tobacco: Never Alcohol Use Standard Drinks/Week Comments No 0 (1 standard drink = 0.6 oz pure alcoho l) none since Sex Assigned at Date Recorded Not on file documented as of this encounter Miscellaneous Notes Telephone Encounter - Lyubov Bojorquez - 02/22/2011 8:56 AM CST Patient notified that letter at vest front presser in [place]. Lyubov Bojorquez RN RONMENTAL INTERN Telephone Encounter - Lyubov Bojoruqez - 02/21/2011 5:15 PM CST Left message on answering machine for patient to call back. 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 Please advise and notify pt when ready. Thank you. Karrie Calabrese RN RONMENTAL INTERN documented in this encounter Plan of Treatment Not on filedocumented as of this encounter Visit Diagnoses Not on filedocumented in this encounter Care Teams Vitamin Manager Relationship Specialty Start Date End Date Lisa Gayle MD PCP - General 03/24/99 11/30/[address], [address] [place] [address] documented as of this encounter
--- OUTSIDE RECORDS SUMMARY | 2021-12-27 20:30 | XMS_ITS | Encounter Summary ---
:1985 Author Organization [place] Address [address] [place] [address] Care Team Providers Name Role Phone Lisa Gayle MD Primary Care Provider Reason for Visit Reason Comments Abnormal Bleeding Problem Encounter Details Date Type Department Care Team Description 07/25/2005 Office Visit [facility] Lisa Gayle, IRREGU LAR MENSTRUATION (Primary Dx); Physicians COMMUNIC DIS CONTACT NEC; [address], VACCINE FOR VIRAL HEPATITIS [address] [place] [address] [phone] Social History Tobacco Use Types Packs/Day Years [...] Results CHLAMYDIA/GC DNA (07/26/2005 6:00 PM CDT) [facility] Method Time Signature Chlamydia NOT DETECTED NOT [facility] DET[facility] DNA SDAia NOT DETECTED NOT [facility] Gonorrhoeae DNA DETECTED [facility] Sda Comment: NO COLLECTION DATE RECEIVED. WE HAVE USE D THE DATE THE SPECIMEN WAS RECEIVED BY [facility] THE COLLECTION DATE. IF IS IS INCORRECT, PLEASE CONTACT CLIENT SERV [email or web address]. PHONE NUMBER: [phone] Test performed at [employer] [address], [place] ??[address] Director: JB GARCES MD Specimen (Source) Anatomical Collection Method Collection Time Re ceived Time Location / / Volume Laterality 07/26/2005 3:35 AM CDT Lisa Gayle MD LABORATORY Performing Organization Address City/State/ZIP Code Phon e Number [facility] [address] [place] [address] HIV-1 AB W/ CONFIRMATION (07/26/2005 8:00 AM CDT) [facility] Method Time Signature HIV-1 KIKI EIA NON-REACT [...] IF IS IS INCORRECT, PLEASE CONTACT CLIENT [employer]. PHONE NUMBER: [phone] Test performed at [employer] [address] ??[address] Director: JANETTE CARRASCO M.D. Specimen (Source) Anatomical Collection Method Collection Time Re ceived Time Location / / Volume Laterality 07/26/2005 3:35 AM CDT Lisa Gayle MD LABORATORY Performing Organization Address [facility] e Number [facility] [address] [facility] [address] RPR W/REFLEX TITER & CONFIRM (07/26/2005 7:00 AM CDT) Analysis Performed At [facility] Time Signature RPR Screen NON-REACTI NON - [facility] [place] Comment: NO COLLECTION DATE RECEIVED. WE HAVE USE D THE DATE THE SPECIMEN WAS RECEIVED BY IS LABORATORY THE COLLECTION DATE. IF IS IS INCORRECT, PLEASE CONTACT CLIENT [employer]. PHONE NUMBER: [phone] Test performed at [employer] [address] ??[address] Director: JANETTE CARRASCO M.D. Specimen (Source) Anatomical Collection Method Collection Time Re ceived Time Location / / Volume Laterality 07/26/2005 3:35 AM CDT Lisa Gayle MD LABORATORY Performing Organization Address [facility] Phon e Number [facility] [address] [place], [place] [address] [facility] [address] [place] [address] URINE TEST (07/25/2005 3:32 PM CDT) P [...] hepatitis documented in this encounter Care Teams Aircraft Worker Relationship Specialty Start Date End Date Lisa Gayle MD PCP - General 03/24/99 11/30/12 [address] , [facility] 100 [place] [address] documented as of this encounter
--- OUTSIDE RECORDS SUMMARY | 2021-12-27 20:30 | XMS_ITS | Encounter Summary ---
:1985 Author Organization [place] Address [address] [place] [address] Care Team Providers Name Role Phone Lisa Gayle MD Primary Care Provider Reason for Visit Reason Onset Date Comments Refill Request 11/03/2007 Encounter Details Date Type Department Care Team Description 11/03/[address] [facility] ysicians Lisa Gayle MD Refill Request [address] , [facility] [address] [place] [address] [place] [address] [phone] (Wo rk) Social History Tobacco Use Types [...] on filedocumented in this encounter Care Teams Junior Account Executive Relationship Specialty Start Date End Date Lisa Gayle MD PCP - General 03/24/99 11/30/12 [address] , [address] [place] [address] documented as of this encounter
--- OUTSIDE RECORDS SUMMARY | 2021-12-27 20:31 | XMS_ITS | Encounter Summary ---
:1985 Author Organization [place] Address [address] [place] [address] Care Team Providers Name Role Phone Lisa Gayle MD Primary Care Provider Reason for Visit Reason Comments Derm Problem Encounter Details Date Type Department Care Team Description 08/09/2004 Office Visit [facility] Lisa Gayle, INSECT BITE TRUNK Physicians (Primary Dx) [address] , [address] [place] [address] [phone] Social History Tobacco Use Types Packs/Day Years [...] 08/09/2004 9:15 AM CD T Growth Chart: [facility] (Girls, 2-20 Years) documented in this encounter [...] (B Routine 08/10/2004 1:00 PM Insect Bite Ge nk Results for this BURGDORFERI) CDT procedure are i n the results section. HC VENOUS COLLECTION Routine 08/09/2004 9:44 AM Insect Bite Tr unk CDT documented in this encounter Results B. BURGDORFERI (LYME) KIKI (08/10/2004 1:00 PM CDT) athologist Signature Lyme Screen IgG <1.00 EIA VALUE [facility] Comment: EXPLANATION OF EIA VALUE < 1.00 ?NEGATIVE 1.00 - 1.19 ? EQUIVOCAL > OR = 1.20 ? POSITIVE DUE TO RECOMMENDATIONS BY THE FOOD AND D RUG ADMINISTRATION (FDA), ALL POSITIVE OR EQ UIVOCAL BORRELIA BURGDORFERI ANTIBODY EIA (AGNES PEARSON) TESTS WILL BE FOLLOWED BY THE [facility] OT. THE SCREENING TEST FOR B. [...] THE DATE THE SPECIMEN WAS RECEIVED BY [facility] THE COLLECTION DATE. IF [facility] IS INCORRECT, PLEASE CONTACT CLIENT SERV [employer]. PHONE NUMBER: [phone] Test performed at [employer] [address] ??[address] Director: JANETTE CARRASCO M.D. Specimen (Source) Anatomical Collection Method Collection Time Re ceived Time Location / / Volume Laterality 08/10/2004 3:56 AM CDT Lisa Gayle MD LABORATORY Performing Organization Address City/State/ZIP Code Phon e Number [employer] [facility] [address] [place] [address] [address] documented in this encounter Visit Diagnoses Diagnosis Trunk, insect bite, nonvenomous, without mention of infection(911.4) - Primary Trunk, insect bite, nonvenomous, without mention of infection documented in this encounter Care Teams Beef Cattle Farmer Relationship Specialty Start Date End Date Lisa Gayle MD PCP - General 03/24/99 11/30/[address], [facility] 100 [place] [address] documented as of this encounter
--- OUTSIDE RECORDS SUMMARY | 2021-12-27 20:31 | XMS_ITS | Encounter Summary ---
:1985 Author Organization [facility] Address [address] [place] [address] Care Team Providers Name Role Phone Lisa Gayle MD Primary Care Provider Reason for Visit Reason Comments Mass Right hand and right foot Derm Problem Warts on right foot Encounter Details Date Type Department Care Team Description 02/25/2002 Office Visit [facility] Lisa Gayle GANGLI ON NOS (Primary Dx); Physicians VIRAL WARTS NOS [address], [address] [place] [address] [phone] Social History Tobacco Use Types Packs/Day Years Used Date Smoking Tobacco: Never Assessed Sex Assigned at Date Recorded Not on file documented as of this encounter Last Filed Vital Signs Vital Sign Reading Time Taken Comments Blood Pressure 110/72 02/25/2002 3:45 PM HEAT AND FROST INSULATOR Pulse - - Temperature 37.5 ??C (99.5 ??F) 02/25/2002 3:45 PM HEAT AND FROST INSULATOR Respiratory Rate - - Oxygen Saturation - - Inhaled Oxygen Concentration - - Weight 59 kg (130 lb) 02/25/2002 3:45 PM HEAT AND FROST INSULATOR Height 172.1 cm (5' 7.75) 02/25/2002 3:45 PM HEAT AND FROST INSULATOR Body Mass Index 19.91 02/25/2002 3:45 PM HEAT AND FROST INSULATOR Body Mass Index Percentile 44.80 % 02/25/2002 3:45 PM CS T Growth Chart: CDC (Girls, 2-20 Years) documented in this encounter Progress Notes 02/25/2002 3:45 PM HEAT AND FROST INSULATOR SUBJECTIVE: 16 year old female complains of [...] PM Viral Wart s Nos LESION, 2-14 HEAT AND FROST INSULATOR HC DESTRUCT PREMALIGNANT Routine 02/25/2002 4:43 PM Viral Wart s Nos LESION, FIRST HEAT AND FROST INSULATOR documented in this encounter Visit Diagnoses Diagnosis Ganglion, unspecified - Primary Viral warts, unspecified documented in this encounter Care Teams Editor News Relationship Specialty Start Date End Date Lisa Gayle MD PCP - General 03/24/99 11/30/[address], [address] [place] [address] documented as of this encounter
--- OUTSIDE RECORDS SUMMARY | 2021-12-27 20:31 | XMS_ITS | Encounter Summary ---
:1985 Author Organization [place] Address [address] [place] [address] Care Team Providers Name Role Phone Marcie Fournier MD Primary Care Provider Reason for Visit Reason Comments Musculoskeletal Problem Encounter Details Date Type Department Care Team Description 07/02/2001 Office Visit [facility] Marcie Fournier, CONTUS ION OF FINGER Physicians (Primary Dx) [address] , [address] [place] [address] [phone] Social History Tobacco Use Types Packs/Day Years [...] 4th finger. CINDI COYNE M.D. Certified - [place] [employer] Accredited for Mammography - [place] [employer] MJG/rs dt: ??07/03/01 Marcie Fournier MD GENERAL IMAGING documented in this encounter Visit Diagnoses Diagnosis Contusion of finger - Primary documented in this encounter Care Teams Linen Controller Relationship Specialty Start Date End Date Marcie Fournier MD PCP - General 03/24/99 11/30/[address], [address] [place] [address] documented as of this encounter
--- OUTSIDE RECORDS SUMMARY | 2021-12-27 20:31 | XMS_ITS | Clinical Summary ---
:1985 Author Organization [facility] Address [address] [place] [address] Care Team Providers Name Role Phone No [...] ID Effective Dates Phone Addre ss Type [facility] FULLY [id number] 2016-Present Commercial INSURED ([place]) [place] [address] Care Teams Cage Maker Relationship Specialty Start Date End Date No Primary/Referring, Kyliey PCP - General 12/14/16
--- OUTSIDE RECORDS SUMMARY | 2021-12-27 20:31 | XMS_ITS | Encounter Summary ---
:1986 Author Organization [place] Address [address] [place] [address] Care Team Providers Name Role Phone Lisa Gayle MD Primary Care Provider Reason for Visit Reason Comments Chest Pain Allergies Encounter Details Date Type Department Care Team Description 11/25/2003 Office Visit [facility] Lisa Gayle, ALLERG IC RHINITIS NOS (Primary Dx); Physicians CHR ALLRG CONJUNCTIV NEC; [address], EATING DISORDER NOS [address] [place] [address] Social History Tobacco Use Types Packs/Day Years [...] 11/25/2003 3:01 PM CD T Growth Chart: [facility] (Girls, 2-20 Years) documented in this encounter [...] unspecified documented in this encounter Care Teams Line Runner Relationship Specialty Start Date End Date Lisa Gayle MD PCP - General 03/24/99 11/30/[address], [facility] 100 [place] [address] documented as of this encounter
--- OUTSIDE RECORDS SUMMARY | 2021-12-27 20:31 | XMS_ITS | Encounter Summary ---
:1985 Author Organization [facility] Address [address] [place] [address] Care Team Providers Name Role Phone Lisa Gayle MD Primary Care Provider Reason for Visit Reason Onset Date Comments Form Request 06/30/2004 patient dropped off the forms for to review and sign. When completed , forms need to be sent to [facility].Thank you. Encounter Details Date Type Department Care Team Description 06/30/2004 Telephone [facility] Lisa Gayle, Form R equest (patient Physicians MD dropped off the forms [address], for to review [address] and sign. When [place], [place] completed, [place] [phone] to be sent to [phone] [facility] [employer]) [facility].Thank you.) Social History Tobacco Use Types Packs/Day Years Used Date Smoking Tobacco: Never Assessed Sex Assigned at Date Recorded Not on file documented as of this encounter Miscellaneous Notes Telephone Encounter - Kareen Beebe - 07/04/2004 2:32 PM CDT Form has been mailed to [facility]. Patient has been noififed. Telephone Encounter - Lisa Gayle - 07/03/2004 1:13 PM CDT Signed and in pod 1. Telephone Encounter - Kareen Beebe - 06/30/2004 3:18 PM CDT form has been dropped off by patient to have her immunizations put in and to have LES sign. Form hasbeen placed in LES box at [facility] station. documented in this encounter Plan of Treatment Not on filedocumented as of this encounter Visit Diagnoses Not on filedocumented in this encounter Care Teams Equipment Operator Intermodal Yard Relationship Specialty Start Date End Date Lisa Gayle MD PCP - General 03/24/99 11/30/[address], [facility] 100 [place] [address] documented as of this encounter
--- OUTSIDE RECORDS SUMMARY | 2021-12-27 20:31 | XMS_ITS | Encounter Summary ---
:1985 Author Organization [facility] Address [address] [place] [address] Care Team Providers Name Role Phone Lisa Gayle MD Primary Care Provider Reason for Visit Reason Comments Physical sport physical / softball Encounter Details Date Type Department Care Team Description 07/13/1999 Office Visit [facility] Lisa Gayle ROUTIN E CHILD HEALTH Physicians EXAM (Primary Dx) [address] , [address] [place] [address] [phone] Social History Tobacco Use Types Packs/Day Years [...] Lisa Gayle MD LABORATORY Performing Organization Address City/[facility]/ZIP Code Phon e Number [facility] URINALYSIS NONAUTO W/O SCOPE (07/13/1999 12:02 PM CDT) P athologist Signature Glucose Urine neg [facility] Protein Urine trace [facility] Specimen (Source) Anatomical Collection Method Collection Time Re ceived Time Location / / Volume Laterality 07/13/1999 12:02 PM CDT Lisa Gayle MD LABORATORY Performing Organization Address City/[facility]/ZIP Code Phon e Number [facility] documented in this encounter Visit Diagnoses Diagnosis Routine or child health check - P rimary documented in this encounter Care Teams Pit Supervisor Relationship Specialty Start Date End Date Lisa Gayle MD PCP - General 03/24/99 11/30/[address], [facility] 100 [place] [address] documented as of this encounter
--- OUTSIDE RECORDS SUMMARY | 2021-12-27 20:31 | XMS_ITS | Encounter Summary ---
:1985 Author Organization [facility] Address [address], [place] [address] Care Team Providers Name Role Phone No Primary/Referring, Phy Primary Care Provider Unavailable Reason for Visit Reason Comments Pharyngitis Encounter Details Date Type Department Care Team Description 12/14/2016 [facility] [address] [address] Social History Tobacco Use [...] this encounter Progress Notes Tita Ibarra N, LABOR RELATIONS WORKER, HEMATOLOGY TECHNOLOGIST - 12/14/2016 7:50 PM CDT Chief Complaint [...] negative screen? No (12/14/2016 7:53 PM CDT) [facility] gist Method Time Signature Grp A Rapid Negative NEG [facility] Specimen Anatomical Collection Method Collection Time Receive d Time (Source) Location / / Volume Laterality 12/14/2016 7:53 PM 7 7:54 CDT PM CDT Narrative [facility] - 12/14/2016 8:04 PM C DT Performed at [facility], [address] [place] [address] Tita Ibarra APRN, [facility]_1 Performing Organization Address City/State/ZIP Code Phon e Number [facility] [phone] documented in this encounter Visit Diagnoses Diagnosis Sore throat - Primary Acute pharyngitis documented in this encounter Care Teams Acquisition Editor Relationship Specialty Start Date End Date No Primary/Referring, y PCP - General 12/14/16 documented as of this encounter
--- OUTSIDE RECORDS SUMMARY | 2021-12-27 20:31 | XMS_ITS | Encounter Summary ---
:1986 Author Organization [facility] Address [address] [place] [address] Care Team Providers Name Role Phone Lisa Gayle MD Primary Care Provider Reason for Visit Reason Comments Derm Problem Encounter Details Date Type Department Care Team Description 05/19/2002 Office Visit [facility] Lisa Gayle, VIRAL WARTS NOS Physicians (Primary Dx) [address] , [address] [place] [address] [phone] Social History Tobacco Use Types Packs/Day Years Used Date Smoking Tobacco: Never Assessed Sex Assigned at Date Recorded Not on file documented as of this encounter Last Filed Vital Signs Vital Sign Reading Time Taken Comments Blood Pressure 110/70 05/19/2002 4:30 PM CLIENT PROJECT COORDINATOR Pulse - - Temperature 37.1 ??C (98.7 ??F) 05/19/2002 4:30 PM CLIENT PROJECT COORDINATOR Respiratory Rate - - Oxygen Saturation - - Inhaled Oxygen Concentration - - Weight 58.1 kg (128 lb) 05/19/2002 4:30 PM CLIENT PROJECT COORDINATOR Height - - Body Mass Index - - documented in this encounter Progress Notes 05/19/2002 4:30 PM CLIENT PROJECT COORDINATOR SUBJECTIVE: 16 year old female needs retreatments [...] PM Viral Wart s Nos LESION, 2-14 CLIENT PROJECT COORDINATOR HC DESTRUCT PREMALIGNANT Routine 05/19/2002 5:17 PM Viral Wart s Nos LESION, 2-14 CLIENT PROJECT COORDINATOR HC DESTRUCT PREMALIGNANT Routine 05/19/2002 5:17 PM Viral Wart s Nos LESION, 2-14 CLIENT PROJECT COORDINATOR HC DESTRUCT PREMALIGNANT Routine 05/19/2002 5:17 PM Viral Wart s Nos LESION, 2-14 CLIENT PROJECT COORDINATOR HC DESTRUCT PREMALIGNANT Routine 05/19/2002 5:17 PM Viral Wart s Nos LESION, 2-14 CLIENT PROJECT COORDINATOR HC DESTRUCT PREMALIGNANT Routine 05/19/2002 5:17 PM Viral Wart s Nos LESION, 2-14 CLIENT PROJECT COORDINATOR HC DESTRUCT PREMALIGNANT Routine 05/19/2002 5:17 PM Viral Wart s Nos LESION, 2-14 CLIENT PROJECT COORDINATOR HC DESTRUCT PREMALIGNANT Routine 05/19/2002 5:17 PM Viral Wart s Nos LESION, FIRST CLIENT PROJECT COORDINATOR documented in this encounter Visit Diagnoses Diagnosis Viral warts, unspecified - Primary documented in this encounter Care Teams Steel Rule Die Maker Relationship Specialty Start Date End Date Lisa Gayle MD PCP - General 03/24/99 11/30/[address], [address] [place] [address] documented as of this encounter
--- OUTSIDE RECORDS SUMMARY | 2021-12-27 20:31 | XMS_ITS | Encounter Summary ---
:1985 Author Organization [place] Address [address] [place] [address] Care Team Providers Name Role Phone Unavailable Primary Care Provider Unavailable Encounter Details Date Type Department Care Team Description 10/03/1998 [facility] Lisa Gayle VACCINE D IS COMBINATIONS NEC; Health/Nurse Physicians EMD ROUTIN CHILD HEALTH EXAM Visit [address] [place] [address] [phone] Social History Tobacco Use Types Packs/Day Years [...]
--- OUTSIDE RECORDS SUMMARY | 2021-12-27 20:31 | XMS_ITS | Encounter Summary ---
:1985 Author Organization [facility] Address [address] [place] [address] Care Team Providers Name Role Phone Lisa Gayle MD Primary Care Provider Reason for Visit Reason Comments Pharyngitis Cough Encounter Details Date Type Department Care Team Description 05/28/2003 Office Visit [facility] Oksana Dashawn ACUTE PHARYNGITIS Physicians MD Jorge Luis (Primary Dx) [address] [place] [address] [place] [address] Social History Tobacco Use Types Packs/Day Years Used Date Smoking Tobacco: Never Assessed Sex Assigned at Date Recorded Not on file documented as of this encounter Progress Notes 05/28/2003 3:15 PM PHLEBOTOMY MANAGER just noted a small mucous gland above [...] Primary documented in this encounter Care Teams Shellfish Shucker Relationship Specialty Start Date End Date Lisa Gayle MD PCP - General 03/24/99 11/30/12 [address] , [facility] 100 [place] [address] documented as of this encounter
--- NOTE | 2022-01-02 12:31 | W.PM.SLEEP ---
Sleep Study Details Details Interpreting Provider: Chuck Fu MD Date of Sleep Study: 12/27/21 Sleep Study Details: STUDY TYPE:? Hospital ? BMI:? 26.5 ORDERING PROVIDER:? Andrea INDICATION:? Concerns about sleep apnea ? SLEEP SUMMARY:? Sleep time 327 minutes, efficiency 70.2%, latency 9.5 minutes, REM latency 87.5. Arousal index 17.8 RESPIRATORY SUMMARY:? Mean oxygen awake 94 asleep 92 minimum 85. 5.7 minutes oxygen between 80 and 88% AHI 2.4, RDI 4 point no REM AHI 8.8 Supine AHI 4.5, supine RDI 8.5, supine REM AHI is 60. There were few events in nonsupine sleep PERIODIC LIMB MOVEMENTS OF SLEEP:? Index 9.2, index with arousal 0.2 CARDIAC:? Awake 77 asleep 72 no arrhythmias noted IMPRESSION:? The overall AHI is within normal limits. However the patient's supine RDI is 8.5 in the patient's supine REM AHI is 60 which may account for any daytime sleepiness. RECOMMENDATION: Would consider a trial of AutoSet CPAP 4-17 if the patient has significant daytime hypersomnolence because of the elevated supine REM AHI. Other considerations would be repeat study with an MSLT to follow.
== END 2021-12-27 20:27 | disposition home or self-care (01) ==
PROVIDERS: PCP Physician Assistant Medical; Visit Provider Physician Assistant Medical
DX: G47.9 Sleep disorder, unspecified (principal)
CPT/HCPCS: 95810

== ENCOUNTER 2023-11-21 10:14 | Outpatient (CLI) | payer OTHER, SELFPAY ==
--- OUTSIDE RECORDS SUMMARY | 2023-11-21 10:28 | XMS_ITS | Encounter Summary ---
Author Organization [facility] Address [address] [place] [address] Care Team Providers Care Welt Wheeler Name Role Phone Lisa Gayle MD Primary Care Provider [phone] Kyle Mascorro MD Primary Care Provide r Reason for Visit * Reason Onset Date Comments Nurse Advice Line 03/14/2011 Encounter Details Date Type Department Care Team (Late st Contact Info) Description 03/14/2011 Telephone [facility] DEPT FOR CCW Physician, Non-Staff Nurse Advice Line Social History Tobacco Use Types Packs/Day Years Used Date Smoking Tobacco: Never Alcohol Use Standard Drinks/Week Comments No 0 (1 standard drink = 0.6 oz pur e alcohol) none since Comments Yes Sex and Gender Information Value Date Recorded Sex Assigned at Not on file Gender Identity Not on file Sexual Orientation Not on file documented as of this encounter Miscellaneous Notes * Telephone Encounter - Lisa Restrepo - 04/14/2011 2:40 PM CST [facility] Triage Call Report Patient Name: Alysa Verde Call Date & Time: 03/13/2011 10:45:53PM Patient Phone: PCP Name: MRN: Patient Address: Patient Date of : 1985 Age: 25 yr. Patient Gender: Female Grain Processor Name: Ellen Gonzales Presenting Problem: I have gas pains all day. I am passing gas and loose squirts but the pain is worsening all over the abdomen. I am 27 weeks . 97.5, good mvt. Loss of appetite. [phone] no blocks. Will have Md call her. [...] Medication Note: Allergy: Reaction: Procedure: Procedure Note: ETING TRAFFIC MANAGER * Telephone Encounter - Mecca Frederick - 03/14/2011 5:33 AM CST [facility] Triage Call Report Patient Name: Alysa Verde Call Date & Time: 03/14/2011 2:03:50AM Patient Phone: PCP Name: MRN: Patient Address: Patient Date of : 1985 Age: 25 yr. Patient Gender: Female Grain Processor Name: Fernandamechelle Johnson Presenting Problem: Patient is having indigestion [...] Medication Note: Allergy: Reaction: Procedure: Procedure Note: ETING TRAFFIC MANAGER documented in this encounter Plan of Treatment Not on file documented as of this encounter Visit Diagnoses Not on filedocumented in this encounter Care Teams Welt Wheeler Relationship Specialty Start Date End Date Lisa Gayle MD [address], [address] [address] PCP - General 03/24/99 11/30/12 Kyle Mascorro MD [address], [address] [address] PCP - General Family Practice 12/01/12 documented as of this encounter
--- OUTSIDE RECORDS SUMMARY | 2023-11-21 10:28 | XMS_ITS | Referral Summary ---
Author Organization [facility] Address [address] [place] [address] Care Team Providers Care Sap Director Name Role Phone Kyle Mascorro MD Primary Care Provide r Allergies Active Allergy Reactions Criticality Noted Date Comments No Known Allergies 07/13/1999 Ragweeds 07/25/2005 Medications No known medications Active Problems Problem Noted Date Diagnosed Date History of abnormal cervical Pap smear 5 Need for Tdap vaccination 10/28/2014 Encounter for supervision of other normal pregna ncy 10/27/2014 Overview: Diagnosis updated by automated process. Provider to review and confirm. History of loop electrosurgi balbir excision procedure (LEEP) of cervix/currently 10/27/2014 Abnormal pap 10/10/2012 Overview: Past history of colposcopy and LEEP done at [facility], pt to get [facility] for records Current Pap results NIL as is the HPV. RN mailed [facility] to obtain pap records at [facility] office so that pap tracking can determine frequency of future pap and HPV co-testing. recommending repeat diagnostic pap and HPV in one year which matches ASCCP Guidelines. Sarah HOLLEY Sciatica 06/11/2011 Family history of alpha thalassemia 12/18/2010 Allergic rhinitis 12/22/2008 Overview: Problem list name updated by automated process. Provider to review Depressive disorder, not elsewhere classified Dysmenorrhea 06/12/2005 Resolved Problems Problem Noted Date Diagnosed Date Resolved Date Health Long Term 12/03/2012 10/27/2014 Overview: State Tier Level: Tier 2 Status: NA Crab Butcher: See Letters for [facility] Care Plan Supervision of normal first 12/18/2010 10/27/2014 History of cone biopsy of cervix 12/18/2010 09/08/2012 Overview: 09/08/12 NIL and neg for HPV. Due to pt history and no dating of when leep conization done in the past 8 years per ASCCP guideline RN will need to review past medical records when obtained to determine number of years for yearly pap testing. Will route to MD for his input as well. Sarah HOLLEY Immunizations Name Administration Dates Next Due HepB 10/12/2005,07/25/2005,09/26/2004 MMR 10/03/1998 TD,PF 7+ (Tenivac) 10/03/1998 10/03/2008 TDAP Vaccine (Boostrix) 12/22/2008 Social History Tobacco Use Types Packs/Day Years Used Date Smoking Tobacco: Never Smokeless Tobacco: Never Alcohol Use Standard Drinks/Week Comments No 0 (1 standard drink = 0.6 oz pur e alcohol) occasional Adolescent Education Answer Date Record ed Getting School Help Needed Not on file 12/15 Sex and Gender Information Value Date Recorded Sex Assigned at Not on file Gender Identity Not on file Sexual Orientation Not on file Last Filed Vital Signs Vital Sign Reading Time Taken Comments Blood Pressure 120/70 08/17/2019 4:21 PM CDT Pulse 84 08/17/2019 4:21 PM CDT Temperature 37.1 ??C (98.7 ??F) 08/17/2019 4:21 PM CD T Respiratory Rate 16 08/17/2019 4:21 PM CDT Oxygen Saturation 98% 08/17/2019 4:21 PM CDT Inhaled Oxygen Concentration - - Weight 73.2 kg (161 lb 4.8 oz) 08/17/2019 4:21 P M CDT Height 170.2 cm (5' 7) 10/27/2014 6:51 PM CDT Body Mass Index 25.26 10/27/2014 6:51 PM CDT Plan of Treatment Not on file Care Teams Sap Director Relationship Specialty Start Date End Date Kyle Mascorro MD [address] , [address] [address] PCP - General Family Practice 12/01/12
--- OUTSIDE RECORDS SUMMARY | 2023-11-21 10:28 | XMS_ITS | Clinical Summary ---
Author Organization [facility] Address [address], [place] [address] Care Team Providers Care Box Spinner Name Role Phone No Primary/Referring, Phy Primary Care Provider Unavailable Source Comments You are receiving this document as you are listed as the primary care provider,follow-up provider, or the patient has been referred to you for consultation.This is in compliance with the Medicare and[employer] EHR Incentive Program,which states Providers who transition their patient to another setting of careor provider of care or refers their patient to another provider of care shouldprovide summary care record for each transition of care or referral. [employer] Allergies No known active allergies Medications No known medications Social History Tobacco Use Types Packs/Day Years Used Date Smoking Tobacco: Never Assessed Sex and Gender Information Value Date Recorded [...] Screening Due 1985 Hep C Screening (Preventive Services) 1985 HIV Screening (Preventive Services) 2002 Adult Preventive Visit 2004 DTaP/Tdap/Td (1 - Tdap) 2005 HepB (1) 2005 COVID-19 Vaccine (1 - 2022-2 4 season) 2023 Influenza (#1) 2023 Zoster/Shingles (1 of 2) 2036 HPV Vaccine Aged Out No longer eligi ble based on patient's age to complete this topic HepA Aged Out No longer eligi ble based on patient's age to complete this topic Hib Aged Out No longer eligi ble based on patient's age to complete this topic IPV (Polio) Aged Out No longer eligi ble based on patient's age to complete this topic MCV4 Aged Out No longer eligi ble based on patient's age to complete this topic Pneumococcal Aged Out No longer eligi ble based on patient's age to complete this topic Care Teams Box Spinner Relationship Specialty Start Date End Date No Primary/Referring, Betzaida PCP - General 12/14/16
--- OUTSIDE RECORDS SUMMARY | 2023-11-21 10:28 | XMS_ITS | Clinical Summary ---
Author Organization [facility] Address [address] [place] [address] Care Team Providers Care Air Cargo Specialist Name Role Phone Kyle Mascorro MD Primary [...] history of colposcopy and LEEP done at [facility] office, pt to get [facility] for records Current Pap results NIL as is the HPV. RN mailed [facility] to obtain pap records at [facility] office so that pap tracking can determine [...] Noted Date Diagnosed Date Resolved Date Health Long-Term 12/03/2012 10/27/2014 Overview: State Tier Level: Tier 2 Status: NA Shot Fireman: See Letters for [facility] Care Plan Supervision [...] (Tenivac) 10/03/1998 10/03/2008 TDAP Vaccine (Boostrix) 12/22/2008 Family [...] of Treatment Not on file Care Teams Air Cargo Specialist Relationship Specialty Start Date End Date Kyle Mascorro MD [address] , [id number] [place] [id number] PCP - General Family Practice 12/01/12
== END 2023-11-21 10:15 | disposition home or self-care (01) ==
PROVIDERS: PCP Physician Assistant Medical; Visit Provider Physician Assistant Medical
DX: R53.83 Other fatigue (principal); Z13.228 Encounter for screening for other metabolic disorders; Z13.220 Encounter for screening for lipoid disorders; Z13.29 Encounter for screening for other suspected endocrine disorder
CPT/HCPCS: 80053; 80061; 84443

== ENCOUNTER 2024-12-17 08:43 | Outpatient (CLI) | payer OTHER, SELFPAY | END 2024-12-17 08:44 | disposition home or self-care (01) | PROVIDERS: PCP Physician Assistant Medical; Visit Provider Physician Assistant Medical | DX: R14.3 Flatulence (principal) | CPT/HCPCS: 82784; 86231; 86258; 86364 ==